=== PATIENT | female | born 1995 | race Caucasian/White ===

== ENCOUNTER 2016-10-18 12:38 | Emergency (ER) | payer BC, MEDICAID ==
[~2016-10-18] VITALS: Ht 165.1 cm; Wt 61.2 kg
[~2016-10-18 12:38] MED LIST: CEFU500T PO; ONDA8TAB9 PO; PHEN-640 PO
--- OUTSIDE RECORDS SUMMARY | 2016-10-18 12:42 | XMS REPORT | Continuity of Care Document ---
Author Author [facility] Organization [facility] Address Unknown Phone Unavailable Care Team Providers Care Acute Care Occupational Therapist Name Role Phone PCP Unavailable Source Comments Some departments are not documenting in the electronic medical record. If you do not see the information that you expected, contact Release of Information in the Health Information Management department at [phone] for further assistance in locating additional records.[facility] Active Allergies and Adverse Reactions No Known Allergies Current Medications Prescription Sig. Disp. Refills Start End Date Status Date promethazine (PHENERGAN) Take 1 Tab by mouth every 30 Tab 1 10/12/19 Active 25 mg tablet 6 hours as needed for 17 Nausea or Vomiting. cephalexin (KEFLEX) 500 One twice a day for 60 Cap 6 10/12/19 Active mg capsule suppression after current 17 course is complete. Take by mouth. Active Aghjcccq-Pt-Etw-Fe-FA tab fluconazole (DIFLUCAN) Take 1 Tab by mouth once 1 Tab 5 10/12/1903/26 150 mg tablet for 1 dose. 17 17 Active Problems Problem Noted Date VUR (vesicoureteric reflux) 10/15/2016 Overview: -- 10/15/15: . Currently 8 wks per LMP. Hx of complicated w/ suspected ureteral obstruction/UTI/sepsis. Also hx of stent failure. L ast Assessment & Plan: Latisha Valles is a 21yo woman, , currently 8 wks by LMP that presents to discuss prophylactic stent placement given her hx of suspected hydroureteronephrosis/UTI/sepsis. Unfortunately, none of her external records are available for internal review. Her baseline reflux is unknown. Some degree of hydronephrosis during is physiologic, and it is not clear what was found in her case to warrant stent placement. Nevertheless, given her hx of recurrent UTIs it is pertinent to follow her closely. However, IF she does develop s/s consistent w/ ureteral obstruction, she may need to go directly to nephrostomy tube placement given her hx of ureteral stent failure. Otherwise, emptying bladder appropriately. UA equivocal infection, UCx sent. -- Recommending close follow up w/ TRACK REPAIRER; consider following her serial renal/bladder u/s -- RTC following in approximately 2 weeks to discuss renal/bladder u/s ordered today -- TRACK REPAIRER consult for high-risk placed Most Recent Encounters Date Type Specialty Providers Description 10/15/2016 Hospital Chaim Do MBBS Vesicoureteral-reflux, Encounter unspecified 10/15/2016 Office Visit Urology Chaim Do MBBS VUR ( vesicoureteric reflux) (Primary Dx) 10/12/2016 Initial High Risk Vesico-ureteral reflux (Primary Dx); History of sepsis; Supervision of high risk in first trimester 10/12/2016 Clinical High Risk with fetus of Support unknown gestational age (Primary Dx) Social History Tobacco Use Types Packs/Day Years Used Date Never Smoker Alcohol Use Drinks/Week oz/Week Comments No 0 Standard 0.0 drinks or equivalent Last Filed Vital Signs Vital Sign Reading Time Taken Blood Pressure 110/68 10/15/2016 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 Pulse 99 10/15/2016 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 Temperature - - Respiratory Rate - - Height 1.651 m (5' 5") 10/15/2016 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 Weight 62.143 kg (137 lb) 10/15/2016 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 Body Mass Index 22.8 10/15/2016 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 Oxygen Saturation - - Plan of Care Date Type Specialty Providers Description 11/02/2016 Appointment Radiology Chaim Do MBBS [address] [place] [address] [phone] (Fax) 11/02/2016 Appointment Urology Chaim Do MBBS [address] [place] [address] [phone] (Fax) 11/16/2016 Appointment High Risk 11/16/2016 Appointment High Risk Health Maintenance Due Date Last Done Comments Physical (Comprehensive) 2001 Exam Hpv Vaccines (#1) 2005 Pertussis Vaccine 2005 Tetanus Vaccine 2011 Cervical Cancer Screening 2015 Influenza Vaccine 06/07/2016 Results from Last 3 Months CULTURE-URINE W/SENSITIVITY (10/15/2016 10:18 AM) Component Value Range Battery Name URINE CULTURE Specimen Description URINE Special Requests NONE Culture <10,000 organisms/ml CONTAMINANT Report Status FINAL 10/16/2016 Specimen Urine - Urine, Outpatient POC URINE DIPSTICK MANUAL READ (10/15/2016) Component Value Range Urine Glucose POC neg Urine Bilirubin POC neg Urine Ketone POC 160 Urine Specific [place] 1.030 POC Urine Blood POC trace Urine PH POC 6.0 Urine Protein POC trace Urine Urobilinogen POC 0.2 Urine Nitrite POC neg Urine Leukocytes POC trace Color,UA sandra Turbidity,UA cloudy Specimen Urine
--- NOTE | 2016-10-18 12:49 | ED GU-Female ---
General Chief Complaint: Abdominal/GI Problems Stated Complaint: KIDNEY PAIN Source: patient Exam Limitations: no limitations History of Present Illness Time seen by provider: 12:47 Initial Comments To ER with reports of right flank pain since yesterday. She has a history of vesicoureteral reflux with surgery at the age of 11 to correct this and kidney stenting during her last about 2 years ago, however the stent in the right ureter has subsequently been removed. She is about 8 weeks' gestation and reports that she's been on cephalexin for 1 week but has been unable to keep it down for the past 2 days due to nausea and vomiting. Denies fevers but reports chills. Saw Dr. Mccurdy at [facility] today and was advised to come to the emergency room she states. Data Integration Developer is Dr. Harper at the [facility] because she states she is high risk given her renal issues. Severity/Quality: moderate Location: unknown Radiation: none Activities at Onset: none Prior Genitourinary Problems: none Associated Symptoms: No abdominal pain, dysuria fever/chillsNo lower back pain , nausea/vomiting urinary frequency Allergies and Home Medications Allergies Coded Allergies: No Known Drug Allergies (Unverified , 07/05/16) Home Medications Cephalexin 500 Mg Capsule #28 (Reported) Promethazine HCl 25 Mg Tablet #30 (Reported) Constitutional: see HPI chillsNo fever EENTM: see HPI Respiratory: no symptoms reported Cardiovascular: no symptoms reported Gastrointestinal: No abdominal pain, No constipation, No diarrhea, nausea vomiting Genitourinary: see HPI dysuria frequency flank pain Musculoskeletal: no symptoms reported Skin: no symptoms reported Psychiatric/Neurological: No Symptoms Reported Endocrine: No Symptoms Reported Past Avqgfgg-Otufxv-Zwvlzd Hx Patient Social History Recent Foreign Travel: No Contact w/Someone Who Travel: No Recent Hopitalizations: No Immunizations Up To Date Tetanus Booster (TDap): Unknown Surgeries HX Surgeries: Yes (NEPHROSTOMY) Surgeries: Orthopedic Respiratory Hx Respiratory Disorders: No Cardiovascular Hx Cardiac Disorders: No Neurological Hx Neurological Disorders: No 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 System Hx 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 Disorders: No Genitourinary Hx Genitourinary Disorders: Yes (KIDNEY REFLUX, NEPHROSTOMY) Genitourinary Disorders: Kidney Infection, Bladder Infection Gastrointestinal Hx Gastrointestinal Disorders: No Musculoskeletal Hx Musculoskeletal Disorders: No Endocrine Hx Endocrine Disorders: No HEENT HX ENT Disorders: No Cancer Hx Cancer: No Psychosocial Hx Psychiatric Problems: No Integumentary HX Skin/Integumentary Disorder: No Blood Transfusions Hx Blood Disorders: No Physical Exam Vital Signs Vital Sign - Last 12Hours 10/18/16 12:44 Temp 98.4 Pulse 85 Resp 16 B/P 114/67 Pulse Ox 99 Capillary Refill : General Appearance: WD/WN no apparent distress HEENT: PERRL/EOMI normal ENT inspection Neck: non-tender full range of motion Cardiovascular: regular rate, rhythm no murmur Respiratory: lungs clear normal breath sounds no respiratory distress no accessory muscle use Gastrointestinal: non tender soft Back: CVA tenderness (R)No CVA tenderness (L) Extremities: normal range of motion non-tender normal inspection Neurologic/Psychiatric: alert normal mood/affect oriented x 3 Skin: normal color warm/dry Progress/Results/Core Measures Results/Orders Lab Results Laboratory Tests Test 10/18/16 12:47 10/18/16 13:25 Range/Units Alanine Aminotransferase (ALT/SGPT) 17 0-55 U/L Albumin 4.6 H 3.2-4.5 G/DL Alkaline Phosphatase 49 40-136 U/L Anion Gap 11 5-14 MMOL/L Aspartate Amino Transf (AST/SGOT) 17 5-34 U/L BUN/Creatinine Ratio 11 Basophils # (Auto) 0.0 0.0-0.1 10^3/uL Basophils (%) (Auto) 0 0-10 % Blood Urea Nitrogen 7 7-18 MG/DL Calcium Level 9.7 8.5-10.1 MG/DL Carbon Dioxide Level 22 21-32 MMOL/L Chloride Level 103 98-107 MMOL/L Creatinine 0.62 0.60-1.30 MG/DL Eosinophils # (Auto) 0.1 0.0-0.3 10^3/uL Eosinophils (%) (Auto) 1 0-10 % Estimat Glomerular Filtration Rate > 60 Glucose Level 84 70-105 MG/DL Hematocrit 41 35-52 % Hemoglobin 13.9 11.5-16.0 G/DL Human Chorionic Gonadotropin, Quant [id number] H <5 MIU/ML Lymphocytes # (Auto) 1.8 1.0-4.0 X 10^3 Lymphocytes (%) (Auto) 21 12-44 % Mean Corpuscular Hemoglobin 31 25-34 PG Mean Corpuscular Hemoglobin Concent 34 32-36 G/DL Mean Corpuscular Volume 91 80-99 FL Mean Platelet Volume 9.7 7.4-10.4 FL Monocytes # (Auto) 0.8 0.0-1.0 X 10^3 Monocytes (%) (Auto) 9 0-12 % Neutrophils # (Auto) 6.1 1.8-7.8 X 10^3 Neutrophils (%) (Auto) 70 42-75 % Platelet Count 227 130-400 10^3/uL Potassium Level 4.1 3.6-5.0 MMOL/L Red Blood Count 4.52 4.35-5.85 10^6/uL Red Cell Distribution Width 12.2 10.0-14.5 % Sodium Level 136 135-145 MMOL/L Total Bilirubin 0.6 0.1-1.0 MG/DL Total Protein 7.7 6.4-8.2 G/DL White Blood Count 8.7 4.3-11.0 10^3/uL Urine Bacteria MODERATE H /HPF Urine Bilirubin NEGATIVE NEGATIVE Urine Casts NONE /LPF Urine Clarity SLIGHTLY CLOUDY Urine Color YELLOW Urine Crystals NONE /LPF Urine Culture Indicated YES Urine Glucose (UA) NEGATIVE NEGATIVE Urine Ketones 4+ H NEGATIVE Urine Leukocyte Esterase 2+ H NEGATIVE Urine Mucus MODERATE H /LPF Urine Nitrite NEGATIVE NEGATIVE Urine Protein 1+ H NEGATIVE Urine RBC 0-2 /HPF Urine RBC (Auto) NEGATIVE NEGATIVE Urine Specific [place] 1.025 H 1.016-1.022 Urine Squamous Epithelial Cells 10-25 H /HPF Urine Urobilinogen NORMAL NORMAL MG/DL Urine WBC 5-10 H /HPF Urine pH 6 5-9 My Orders Orders-YEIMY MELTON APRN Ua Culture If Indicated (10/18/16 12:40) Urine Bedside (10/18/16 12:40) Ns Iv 1000 Ml (Sodium Chloride 0.9%) (10/18/16 13:00) Ceftriaxone Injection (Rocephin Injectio (10/18/16 13:00) Ondansetron Injection (Zofran Injectio (10/18/16 13:00) Cbc With Automated Diff (10/18/16 12:46) Comprehensive Metabolic Panel (10/18/16 12:46) Hcg,Quantitative (10/18/16 12:46) Saline Lock/Iv-Start (10/18/16 12:46) Urine Culture (10/18/16 13:25) Medications Given in ED Current Medications Medications Dose Ordered Sig/Jelly Route Start Time Stop Time Status Last Admin Dose Admin Ceftriaxone Sodium/Sodium Chloride 50 ml @ 100 mls/hr ONCE ONCE IV 10/18/16 13:00 10/18/16 13:29 DC 10/18/16 12:59 100 MLS/HR Ondansetron HCl 8 mg ONCE ONCE IVP 10/18/16 13:00 10/18/16 13:01 DC 10/18/16 12:59 8 MG Vital Signs/I&O Vital Sign - Last 12Hours 10/18/16 12:44 Temp 98.4 Pulse 85 Resp 16 B/P 114/67 Pulse Ox 99 Departure Communication Progress Notes 1343-nausea or vomiting during ER stay. She is afebrile. No tachycardia or hypotension. Impression Impression: Primary Impression: Urinary tract infection Qualified Code: N30.00 - Acute cystitis without hematuria Additional Impression: Nausea and vomiting Qualified Code: R11.2 - Nausea with vomiting, unspecified Disposition: HOME, SELF-CARE Condition: Stable Departure-Patient Inst. Decision time for Depature: 13:43 Referrals: [facility] (PCP/Family) Primary Care Physician Patient Instructions: Urinary Tract Infection, Adult (DC) Add. Discharge Instructions: 1. Drink plenty of fluids 2. Nausea medication as directed 3. Return to ER for any worsening 4. Follow-up with her doctor later this week 5. Stop the Keflex and start the new antibiotic. All discharge instructions reviewed with patient and/or family. Voiced understanding. Scripts Cefuroxime Axetil (Ceftin)500 Mg [id number] Mg PO BID #10 TAB Prov:YEIMY MELTON REGIONAL GEODETIC ADVISOR 10/18/16 YEIMY MELTON REGIONAL GEODETIC ADVISOR Oct 18, 2016 12:49
[2016-10-18 12:52] LABS: BASOPHILS % (AUTO) 0 % (0-10); EOSINOPHILS # (AUTO) 0.1 10^3/uL (0.0-0.3); EOSINOPHILS % (AUTO) 1 % (0-10); LYMPHOCYTES # (AUTO) 1.8 X 10^3 (1.0-4.0); LYMPHOCYTES % (AUTO) 21 % (12-44); MEAN CORPUSCULAR HEMOGLOBIN 31 PG (25-34); MEAN CORPUSCULAR HGB CONC 34 G/DL (32-36); MEAN CORPUSCULAR VOLUME 91 FL (80-99); MEAN PLATELET VOLUME 9.7 FL (7.4-10.4); MONOCYTES # (AUTO) 0.8 X 10^3 (0.0-1.0); MONOCYTES % (AUTO) 9 % (0-12); NEUTROPHILS # (AUTO) 6.1 X 10^3 (1.8-7.8); NEUTROPHILS % (AUTO) 70 % (42-75); PLATELET COUNT 227 10^3/uL (130-400); RED BLOOD COUNT 4.52 10^6/uL (4.35-5.85); RED CELL DISTRIBUTION WIDTH 12.2 % (10.0-14.5); WHITE BLOOD COUNT 8.7 10^3/uL (4.3-11.0)
[2016-10-18] MEDS ORDERED: PROM25TA14 (12:53)
[2016-10-18] MEDS ORDERED: CEPH500C (12:53)
[2016-10-18] MEDS ORDERED: ONDANSETRON 4 MG/2 ML (SDV) Z0FRAN IVP ONE (13:00)
[2016-10-18] MEDS ORDERED: NS IV 1000 ML 1,000 ML IV SCH (13:00)
[2016-10-18] MEDS ORDERED: cefTRIAXone INJECTION 1,000 MG in NORMAL SALINE (BAXTER MINI) 50 ML IV ONE (13:00)
[2016-10-18 13:12] LABS: ALANINE AMINOTRANSFERASE 17 U/L (0-55); ALBUMIN 4.6 G/DL (3.2-4.5); ANION GAP 11 MMOL/L (5-14); ASPARTATE AMINO TRANSFERASE 17 U/L (5-34); BILIRUBIN,TOTAL 0.6 MG/DL (0.1-1.0); BLOOD UREA NITROGEN 7 MG/DL (7-18); BUN/CREATININE RATIO 11; CALCIUM 9.7 MG/DL (8.5-10.1); CARBON DIOXIDE 22 MMOL/L (21-32); CHLORIDE 103 MMOL/L (98-107); CREATININE SERUM 0.62 MG/DL (0.60-1.30); GFR ESTIMATED > 60; GLUCOSE 84 MG/DL (70-105); POTASSIUM 4.1 MMOL/L (3.6-5.0); SODIUM 136 MMOL/L (135-145); TOTAL PROTEIN 7.7 G/DL (6.4-8.2)
[2016-10-18 13:29] LABS: BILIRUBIN,URINE NEGATIVE (NEGATIVE); KETONES,URINE 4+ (NEGATIVE); LEUKOCYTE ESTERASE ,URINE 2+ (NEGATIVE); NITRITE,URINE NEGATIVE (NEGATIVE); PH,URINE 6 (5-9); PROTEIN,URINE 1+ (NEGATIVE); UROBILINOGEN,URINE NORMAL (NORMAL)
[2016-10-18] MEDS ORDERED: CEFU500T PO (13:45)
[2016-10-18 14:21] VITALS: BP 116/72
== END 2016-10-18 14:21 | disposition home or self-care (01) ==
LOC: EDUNIT# 12:38 → ER 12:39
DX: O23.41 Unspecified infection of urinary tract in pregnancy, first trimester (principal); O21.8 Other vomiting complicating pregnancy; Z3A.08 8 weeks gestation of pregnancy; Z87.448 Personal history of other diseases of urinary system
CPT/HCPCS: 36415; 80053; 81000; 84702; 85025; 87088; 96361; 96365; 96375

== ENCOUNTER 2017-01-28 15:51 | Outpatient (CLI) | payer MEDICAID ==
[~2017-01-28] VITALS: Ht 165.1 cm; Wt 67.6 kg
[~2017-01-28 15:51] MED LIST changes: +CEPH500C; +PROM25TA14
[2017-01-28 16:20] VITALS: BP 111/66
[2017-01-28 16:45] LABS: BILIRUBIN,URINE NEGATIVE (NEGATIVE); KETONES,URINE NEGATIVE (NEGATIVE); LEUKOCYTE ESTERASE ,URINE NEGATIVE (NEGATIVE); NITRITE,URINE NEGATIVE (NEGATIVE); PH,URINE 8 (5-9); PROTEIN,URINE NEGATIVE (NEGATIVE); UROBILINOGEN,URINE NORMAL (NORMAL)
[2017-01-28 16:50] VITALS: BP 112/66
--- NOTE | 2017-01-28 17:17 | Diagnostic Imaging Report ---
EXAM: RENAL ULTRASOUND DATE: January 28, 2017. COMPARISON: CT abdomen and pelvis, July 07, 2016. INDICATION: A 21-year-old female, right flank pain. PROCEDURE: Two-dimensional grayscale and color doppler examination of the kidneys is performed. FINDINGS: Right kidney: Unremarkable right kidney. No hydronephrosis. The right kidney measures 10.5 cm x 5.7 x 6.0 cm. Left kidney: Unremarkable left kidney. No hydronephrosis. The left kidney measures 10.4 cm x 4.6 x 4.7 cm. Bladder: Unremarkable. IMPRESSION: Unremarkable renal ultrasound. Dictated by: Dictated on workstation # [id number]
[2017-01-28] MEDS ORDERED: CEPH-506 PO (17:28)
[2017-01-28] MEDS ORDERED: PREN1TAB86 PO (17:28)
[2017-01-28 17:46] LABS: BASOPHILS % (AUTO) 0 % (0-10); EOSINOPHILS # (AUTO) 0.2 10^3/uL (0.0-0.3); EOSINOPHILS % (AUTO) 2 % (0-10); LYMPHOCYTES # (AUTO) 2.1 X 10^3 (1.0-4.0); LYMPHOCYTES % (AUTO) 22 % (12-44); MEAN CORPUSCULAR HEMOGLOBIN 32 PG (25-34); MEAN CORPUSCULAR HGB CONC 34 G/DL (32-36); MEAN CORPUSCULAR VOLUME 94 FL (80-99); MEAN PLATELET VOLUME 9.8 FL (7.4-10.4); MONOCYTES # (AUTO) 0.7 X 10^3 (0.0-1.0); MONOCYTES % (AUTO) 8 % (0-12); NEUTROPHILS # (AUTO) 6.4 X 10^3 (1.8-7.8); NEUTROPHILS % (AUTO) 68 % (42-75); PLATELET COUNT 225 10^3/uL (130-400); RED BLOOD COUNT 3.87 10^6/uL (4.35-5.85); RED CELL DISTRIBUTION WIDTH 12.9 % (10.0-14.5); WHITE BLOOD COUNT 9.5 10^3/uL (4.3-11.0)
[2017-01-28 17:55] LABS: ALANINE AMINOTRANSFERASE 11 U/L (0-55); ALBUMIN 3.3 G/DL (3.2-4.5); ANION GAP 9 MMOL/L (5-14); ASPARTATE AMINO TRANSFERASE 14 U/L (5-34); BILIRUBIN,TOTAL 0.2 MG/DL (0.1-1.0); BLOOD UREA NITROGEN 10 MG/DL (7-18); BUN/CREATININE RATIO 17; CALCIUM 8.9 MG/DL (8.5-10.1); CARBON DIOXIDE 23 MMOL/L (21-32); CHLORIDE 106 MMOL/L (98-107); GFR ESTIMATED > 60; GLUCOSE 83 MG/DL (70-105); POTASSIUM 3.8 MMOL/L (3.6-5.0); SODIUM 138 MMOL/L (135-145); TOTAL PROTEIN 6.2 G/DL (6.4-8.2)
--- NOTE | 2017-01-29 10:01 | Physician Query-Final Dx ---
HAYES CHAVEZ 01/29/17 1001: Clinic Account Progress/Dx Physician Query: Please give diagnosis Date of Service Jan 28, 2017 at 15:51 JAQUAN BONILLA MD 01/29/17 1831: Clinic Account Progress/Dx DIAGNOSIS: Diagnosis false labor HAYES CHAVEZ Jan 29, 2017 10:01 JAQUAN BONILLA MD Jan 29, 2017 18:31
== END 2017-01-28 18:08 | disposition home or self-care (01) ==
LOC: WSo 15:51 → LDRP 15:51 → WSo 18:08
PROVIDERS: ATTEND Obstetrics & Gynecology
DX: O47.02 False labor before 37 completed weeks of gestation, second trimester (principal); Z3A.23 23 weeks gestation of pregnancy
CPT/HCPCS: 36415; 76770; 80053; 81000; 85025; 87088; 99214

== ENCOUNTER → 2017-03-12 | Outpatient (CLI) | payer MEDICAID ==
[~2017-03-12] MED LIST changes: +CEPH-506 PO; +PREN1TAB86 PO
--- NOTE | 2017-03-12 14:19 | Diagnostic Imaging Report ---
Renal ultrasound. INDICATION: Right flank pain. The patient is 29 weeks . FINDINGS: The right kidney is 11.5 cm and the left kidney is 10.3 cm. There is no hydronephrosis or focal lesion in either kidney. The urinary bladder appears unremarkable. IMPRESSION: Unremarkable exam. Dictated by: Dictated on workstation # [id number]
== END ==
LOC: RAD 12:05
PROVIDERS: ATTEND Obstetrics & Gynecology
DX: N13.8 Other obstructive and reflux uropathy (principal); N13.5 Crossing vessel and stricture of ureter without hydronephrosis
CPT/HCPCS: 76770

== ENCOUNTER 2017-05-06 13:06 | Inpatient (IN) | payer MEDICAID ==
[~2017-05-06] VITALS: Ht 165.1 cm; Wt 75.3 kg
[2017-05-06 13:35] VITALS: BP 122/77
[2017-05-06 15:08] LABS: BILIRUBIN,URINE NEGATIVE (NEGATIVE); KETONES,URINE 2+ (NEGATIVE); LEUKOCYTE ESTERASE ,URINE 1+ (NEGATIVE); NITRITE,URINE NEGATIVE (NEGATIVE); PH,URINE 6.5 (5-9); PROTEIN,URINE 1+ (NEGATIVE); UROBILINOGEN,URINE NORMAL (NORMAL)
[2017-05-06 15:09] LABS: BASOPHILS % (AUTO) 0 % (0-10); EOSINOPHILS # (AUTO) 0.1 10^3/uL (0.0-0.3); EOSINOPHILS % (AUTO) 1 % (0-10); LYMPHOCYTES # (AUTO) 2.2 X 10^3 (1.0-4.0); LYMPHOCYTES % (AUTO) 20 % (12-44); MEAN CORPUSCULAR HEMOGLOBIN 31 PG (25-34); MEAN CORPUSCULAR HGB CONC 33 G/DL (32-36); MEAN CORPUSCULAR VOLUME 94 FL (80-99); MEAN PLATELET VOLUME 10.4 FL (7.4-10.4); MONOCYTES # (AUTO) 0.9 X 10^3 (0.0-1.0); MONOCYTES % (AUTO) 8 % (0-12); NEUTROPHILS # (AUTO) 8.2 X 10^3 (1.8-7.8); NEUTROPHILS % (AUTO) 72 % (42-75); PLATELET COUNT 230 10^3/uL (130-400); RED BLOOD COUNT 4.19 10^6/uL (4.35-5.85); RED CELL DISTRIBUTION WIDTH 13.2 % (10.0-14.5); WHITE BLOOD COUNT 11.4 10^3/uL (4.3-11.0)
[2017-05-06 15:30] LABS: ALANINE AMINOTRANSFERASE 14 U/L (0-55); ALBUMIN 3.3 GM/DL (3.2-4.5); ANION GAP 9 MMOL/L (5-14); ASPARTATE AMINO TRANSFERASE 16 U/L (5-34); BILIRUBIN,TOTAL 0.4 MG/DL (0.1-1.0); BLOOD UREA NITROGEN 6 MG/DL (7-18); BUN/CREATININE RATIO 11; CALCIUM 8.6 MG/DL (8.5-10.1); CARBON DIOXIDE 20 MMOL/L (21-32); CHLORIDE 108 MMOL/L (98-107); CREATININE SERUM 0.55 MG/DL (0.60-1.30); GFR ESTIMATED > 60; GLUCOSE 80 MG/DL (70-105); POTASSIUM 3.7 MMOL/L (3.6-5.0); SODIUM 137 MMOL/L (135-145); TOTAL PROTEIN 6.5 GM/DL (6.4-8.2)
[2017-05-06] MEDS ORDERED: BUTORPHANOL INJ 2 MG/ML (STADOL) VIAL IV ONE (15:45)
[2017-05-06] MEDS ORDERED: ceFAZolin 2 GM/50 ML NS 50 ML IV ONE (16:00)
[2017-05-06] MEDS ORDERED: CATHETER FLUSH 10 ML SYR IV PRN (16:00)
--- NOTE | 2017-05-06 16:08 | Diagnostic Imaging Report ---
EXAMINATION: Renal ultrasound. INDICATION: Abdominal pain. The patient is 36 weeks . FINDINGS: The right kidney is 11.8 and the left kidney is 11.2 cm in length. There is mild to moderate hydronephrosis seen, slightly more on the left side. The urinary bladder appears unremarkable. IMPRESSION: There is mild to moderate hydronephrosis bilaterally. Dictated by: Dictated on workstation # [id number]
[2017-05-06] MEDS: D5 LR IV SOLUTION 1,000 ML IV SCH (16:12)
[2017-05-06 16:20] VITALS: BP 114/68
[2017-05-06] MEDS ORDERED: BUTORPHANOL INJ 2 MG/ML (STADOL) VIAL ONE (17:59)
[2017-05-06 18:00] VITALS: BP 126/81
[2017-05-06] MEDS ORDERED: BUTORPHANOL INJ 2 MG/ML (STADOL) VIAL IV NR (18:00)
--- NOTE | 2017-05-06 18:59 | History & Physical ---
History and Physical Date Seen by Provider: May 06, 2017 Time Seen by Provider: 18:52 this patient is a 21-year-old A1 white female patient of Dr. Cervantes who presented with severe left flank pain. Her history is significant for having had ureter reimplantation transfixion surgery at the age of 10 secondary to reflux of the ureters. Her first was complicated by ureteral obstruction requiring at least one nephrostomy tube. Her symptoms worsened at 37 weeks gestation at which time she was induced and apparently had a spontaneous vaginal delivery. She has been co-managed with [facility] until 35 weeks gestation with this . Her has been apparently relatively uncomplicated to this point. Lab showed no evidence of urinary tract infection however there were red blood cells too numerous to count in the urine. Her white blood cell count is normal her hemoglobin is slightly elevated for liver enzymes are normal. monitoring shows rare contraction and a normal heart rate pattern Renal ultrasound shows bilateral moderate hydronephrosis and confirmed ureteral jets bilaterally in the bladder. Consults patient with Dr. Edwards was accomplished and he recommended IV fluids, IV antibiotics, pain medication, reconsult him if her conditions worsen and it is not considered prudent to deliver her. He felt that ureteral stents would not likely be an option in someone with her ureteral reimplantation surgery and that at this point nephrostomy tube probably were not an option either. Patient has been treated with Stadol to good effect she is relatively comfortable although her pain does not and has not resolved. Allergies are none Medications are vitamins and Keflex on admission Asked medical history, past surgical history, obstetric history, family history , and social histories are per the antepartum record for Dr. Cervantes HEENT exam is normal. Patient does appear to be mildly uncomfortable but has just had a dose of Stadol Neck is supple with no lymphadenopathy no thyromegaly. Abdomen is gravid soft nontender nondistended. Streaming show no clubbing or cyanosis. There is no Homans sign. There is some pretibial pitting edema Pelvic exam per the nurse shows a cervix that is 2-3 cm dilated exam is per the nurses charting Lab work is as follows Laboratory Tests Test 05/06/17 14:53 05/06/17 15:03 Range/Units Urine Color YELLOW Urine Clarity SLIGHTLY CLOUDY Urine pH 6.5 5-9 Urine Specific [place] 1.010 L 1.016-1.022 Urine Protein 1+ H NEGATIVE Urine Glucose (UA) NEGATIVE NEGATIVE Urine Ketones 2+ H NEGATIVE Urine Nitrite NEGATIVE NEGATIVE Urine Bilirubin NEGATIVE NEGATIVE Urine Urobilinogen NORMAL NORMAL MG/DL Urine Leukocyte Esterase 1+ H NEGATIVE Urine RBC (Auto) 5+ H NEGATIVE Urine RBC TNTC H /HPF Urine WBC 2-5 /HPF Urine Squamous Epithelial Cells 2-5 /HPF Urine Crystals NONE /LPF Urine Bacteria NONE /HPF Urine Casts NONE /LPF Urine Mucus NEGATIVE /LPF Urine Culture Indicated NO White Blood Count 11.4 H 4.3-11.0 10^3/uL Red Blood Count 4.19 L 4.35-5.85 10^6/uL Hemoglobin 13.1 11.5-16.0 G/DL Hematocrit 39 35-52 % Mean Corpuscular Volume 94 80-99 FL Mean Corpuscular Hemoglobin 31 25-34 PG Mean Corpuscular Hemoglobin Concent 33 32-36 G/DL Red Cell Distribution Width 13.2 10.0-14.5 % Platelet Count 230 130-400 10^3/uL Mean Platelet Volume 10.4 7.4-10.4 FL Neutrophils (%) (Auto) 72 42-75 % Lymphocytes (%) (Auto) 20 12-44 % Monocytes (%) (Auto) 8 0-12 % Eosinophils (%) (Auto) 1 0-10 % Basophils (%) (Auto) 0 0-10 % Neutrophils # (Auto) 8.2 H 1.8-7.8 X 10^3 Lymphocytes # (Auto) 2.2 1.0-4.0 X 10^3 Monocytes # (Auto) 0.9 0.0-1.0 X 10^3 Eosinophils # (Auto) 0.1 0.0-0.3 10^3/uL Basophils # (Auto) 0.0 0.0-0.1 10^3/uL Sodium Level 137 135-145 MMOL/L Potassium Level 3.7 3.6-5.0 MMOL/L Chloride Level 108 H 98-107 MMOL/L Carbon Dioxide Level 20 L 21-32 MMOL/L Anion Gap 9 5-14 MMOL/L Blood Urea Nitrogen 6 L 7-18 MG/DL Creatinine 0.55 L 0.60-1.30 MG/DL Estimat Glomerular Filtration Rate > 60 BUN/Creatinine Ratio 11 Glucose Level 80 70-105 MG/DL Calcium Level 8.6 8.5-10.1 MG/DL Total Bilirubin 0.4 0.1-1.0 MG/DL Aspartate Amino Transf (AST/SGOT) 16 5-34 U/L Alanine Aminotransferase (ALT/SGPT) 14 0-55 U/L Alkaline Phosphatase 121 40-136 U/L Total Protein 6.5 6.4-8.2 GM/DL Albumin 3.3 3.2-4.5 GM/DL vital signs are as follows Vital Signs Date Time Temp Pulse Resp B/P (MAP) Pulse Ox O2 Delivery O2 Flow Rate FiO2 05/06/17 13:35 97.8 96 20 122/77 Room Air patient is afebrile her blood pressure is normal Assessment and plan 37 weeks gestation in a patient with history of obstructive uropathy.. Patient has become symptomatic likely due to the enlarged uterus. There is some consideration for kidney stone. Admit this point is symptomatic with IV fluids IV antibiotics and IV pain medications. Patient will be reevaluated in the morning for ongoing management by Dr. Byrd. severe renal colic at 37 weeks gestation Allergies and Home Medications Allergies Coded Allergies: No Known Drug Allergies (Unverified , 07/05/16) Home Medications Cephalexin 250 Mg Capsule, 250 MG PO BID, (Reported) Vit W-Ca,Fe,FA(<1 mg) 1 Each Tablet, 1 TAB PO DAILY, (Reported) JAQUAN BONILLA MD May 06, 2017 18:59
[2017-05-06] MEDS ORDERED: BUTORPHANOL INJ 2 MG/ML (STADOL) VIAL IV PRN (20:00)
[2017-05-06 23:00] VITALS: BP 138/75
[2017-05-07] VITALS (71 sets, daily range): BP systolic 100–142; BP diastolic 51–85
[2017-05-07] MEDS: ceFAZolin 2 GM/50 ML NS 50 ML IV SCH ×3 (00:10→16:43)
[2017-05-07] MEDS: D5 LR IV SOLUTION 1,000 ML IV SCH ×3 (00:30→17:39)
[2017-05-07] MEDS ORDERED: BUTORPHANOL INJ 2 MG/ML (STADOL) VIAL ONE (03:10)
[2017-05-07] MEDS ORDERED: BUTORPHANOL INJ 2 MG/ML (STADOL) VIAL IV PRN (03:30)
[2017-05-07] MEDS ORDERED: OXYTOCIN/NORMAL SALINE 500 ML IV ONE (08:30)
[2017-05-07] MEDS ORDERED: LACTATED RINGERS 1,000 ML IV ONE ×2 (08:30→10:14)
[2017-05-07] MEDS ORDERED: OXYTOCIN/NORMAL SALINE 500 ML IV SCH ×2 (08:37)
--- NOTE | 2017-05-07 08:42 | Progress Note-Standard ---
Standard Progress Note Progress Notes/Assess & Plan Date Seen by Provider: May 07, 2017 Time Seen by Provider: 08:39 Progress/Assessment & Plan This 21-year-old female was admitted last night at 37 weeks due to signs of obstructive uropathy and hematuria. The patient has a history of undergoing nephrostomy tube placements with complete obstruction of the ureters with her previous . The patient's has been uneventful this time, however yesterday she started having significant "kidney pain". She was admitted after mild to moderate hydronephrosis was noted on ultrasound as well as hematuria. Urology was consulted however stent placement at this point would be unreasonable. The other option would be to place nephrostomy tubes. I discussed all of these findings with the patient this morning, discussed with her how delivery should alleviate pressure on the ureters and treat the obstructive uropathy. I discussed the patient delivery at 37 weeks due to this medical indication, the risk involved an induction, the risk of a 37 week baby and possible need for feeding assistance, and breathing. However, I did discuss the patient the majority 37 week infants do very well. Due to the risk of obstructive uropathy outweighing the risk of a 37 week delivery we are proceeding with induction this morning. Artificial rupture membranes was performed clear fluid was noted. The patient is noted to be 2-3 cm 70 percent effaced and -2 station. Pitocin will be started, the patient have her epidural whenever she needs. Anticipate normal vaginal delivery SHLOMO DONALDSON DO May 07, 2017 08:42
[2017-05-07] MEDS ORDERED: MINERAL OIL CONCENTRATE 99.9% 15 ML UDC TOP PRN (08:45)
[2017-05-07] MEDS ORDERED: SUFENTA 0.6MCG/ML BUPIVA 0.125 100 ML ONE (09:12)
[2017-05-07] MEDS ORDERED: BUPIVACAINE 0.25% 30 ML (SENSORCAINE) VIAL ONE (09:31)
[2017-05-07] MEDS ORDERED: fentaNYL INJECTION 100 MCG/2 ML AMP ONE (09:31)
[2017-05-07] MEDS: EPIDURAL (SUFENTA 0.6MCG/ML BUPIVA 0.125%) 100 ML BAG EPI SCH ×2 (10:03→17:38)
[2017-05-07] MEDS ORDERED: NALOXONE 0.4 MG/ML 1 ML (NARCAN) VIAL IV PRN (10:15)
[2017-05-07] MEDS ORDERED: ONDANSETRON 4 MG/2 ML (SDV) Z0FRAN IV PRN (10:15)
--- NOTE | 2017-05-07 12:18 | CONSULTATION REPORT ---
DATE OF CONSULTATION: 05/07/2017 REFERRING PHYSICIAN: ATTENDING PHYSICIAN: Dr. Anaya/Dr. Byrd SUMMARY: 21-year-old white lady who is 37 weeks complaining of pain across her back and found to have mild to moderate hydronephrosis bilaterally probably related to the uterus. When the patient was a kid, she had bilateral vesicoureteral reflux and underwent a cross trigonal bilateral ureteral reimplantation. This makes insertion of stents very difficult if not impossible and the patients end up usually with percutaneous nephrostomy. As a matter of fact, in her previous that is what happened to her. They ended up putting perc after failed attempt to insert a stent. IMPRESSION: Bilateral ureteral obstruction secondary to gravid uterus. RECOMMENDATION: If it is indeed safe to proceed with in labor, I would recommended that instead of subjecting her just for 3 more weeks of either stent or percutaneous nephrostomy. Apparently Dr. Byrd is prepping to do so, which I agree with. I told her I will see her on a p.r.n. basis. Job ID: [id number] Dictated Date: 05/07/2017 11:25:18 Cutter Hand Date: 05/07/2017 12:11:58/last
[2017-05-07] MEDS ORDERED: PROMETHAZINE INJ 25 MG/ML (PHENERGAN) AMP IVP NR (16:15)
[2017-05-07] MEDS ORDERED: LIDOCAINE/EPI 1%-1:200,000 (XYLOCAINE) 30 ML VIAL ONE (18:48)
[2017-05-07] MEDS: OXYTOCIN/NORMAL SALINE 500 ML IV SCH ×2 (19:29→19:59)
[2017-05-07] MEDS ORDERED: MEASLES,MUMPS,RUBELLA 1 EA INJ SQ ONE (19:45)
[2017-05-07] MEDS ORDERED: DIBUCAINE (NUPERCAINAL) 1% OINT 30 GM TOP PRN (19:45)
[2017-05-07] MEDS ORDERED: TETANUS,DIPTH,PERTUSS P/F (BOOSTRIX) 0.5 ML VIAL IM ONE (19:45)
[2017-05-07] MEDS ORDERED: BENZOCAINE/MENTHOL (DERMOPLAST) 56 ML CAN TP PRN (19:45)
--- NOTE | 2017-05-07 19:46 | OB Labor & Delivery Record ---
L&D History Date of Service Date of Service: May 07, 2017 History Expected Date of Delivery: May 27, 2017 Gestational Age in Weeks: 37 Hx : 3 Hx Para: 1 Complications Events: Routine care ([facility] consult due to history of nephrostomy placement with prior due to obstructive uropathy) Operative Indications (Cesarea: N/A-Vaginal Delivery Intrapartal Events: Febrile (Inadequate maternal pushing, repetitive heart rate decelerations) L&D Stage1 Stage One Onset of Labor - Date: May 07, 2017 Monitors and Tracing Monitor Mode: External Heart Rate: 120 Monitor Decelerations: None Station: -3 Presentation: Vertex Vital Signs VS - Last 72 Hours, by Label 05/06/17 05/06/17 05/06/17 05/06/17 13:35 16:20 18:00 21:00 Temp 97.8 99.6 Pulse 96 81 88 64 Resp 20 20 20 20 B/P (MAP) 122/77 114/68 126/81 Pulse Ox 100 O2 Delivery Room Air Room Air Room Air Non Rebreather O2 Flow Rate 15.00 05/06/17 05/06/17 05/07/17 22:00 23:00 04:00 Temp 98.4 97.8 Pulse 70 72 Resp 20 20 20 B/P (MAP) 138/75 113/69 Pulse Ox 100 O2 Delivery Non Rebreather Room Air Room Air O2 Flow Rate 15.00 Rupture of Membranes Spontaneous Ruture of Membrane: No Amniotic Membrane Rupture Time: 0820 Vaginal Bleeding Description: Normal Show Induction/Anesthesia Epidural Cath Placement - Time: 951 Progress/Notes Pitocin protocol used to induce labor along with AROM L&D Stage2 Stage Two Stage II Date: May 07, 2017 Monitors and Tracing Monitor Mode: External Heart Rate: 120 Monitor Decelerations: Variable Intermediate Variability: Minimal (3-5) Short Term Variability: Present Position: Right Occiput Anterior Presentation: Vertex Signs of Distress by FHT Signs of Distress repetitive variable decelerations Cord Descript/Complications Cord Vessel Description: 3 Vessels Delivery Type Delivery Method: Low Vacuum Extraction Anterior Shoulder: Right Episiotomy/Perineal Laceration Laceraction(s)/Extensions: Yes Episiotomy Description: Midline (midline episiotomy repaired in normal fashion using 30 and 2-0 Vicryl suture) Location Modifier: Medial Degree (describe repair) patient was progressing vertex inadequately, and heart rate decelerations became progressively nonreassuring. Due to inadequate maternal pushing and proximity to delivery station was +2 and discussed the patient urgently to proceed with vacuum extraction. A Kiwi vacuum extractor was placed in the mid sagittal suture, with the next maternal push pressure was pumped up to 50 mmHg with a downward gentle traction the 's head was progressed to +3 and at which point the perineum was infiltrated with quarter percent Marcaine and a midline episiotomy was performed. Controlled delivery of the head is performed using ritkins maneuver over the episiotomy, after vacuum was released. Condition of Infant Delivery Notes live male infant weight 7lbs 15 oz APGARs 8/9 Condition of Infant Condition of : Living Exam: No Observed Abnormalities Resuscitation Resuscitation: N/A - Spontaneous Resp L&D Stage3 Stage Three Stage III Date: May 07, 2017 Pictocin Pitocin Administration mu/min: 12 Pitocin ml/hr: 12 Pitocin Administration Comment: Pitocin increased to 12 at 1409. Placenta Delivery Placenta Delivery: Spontaneous Delivery Summary Summary blood loss >1000ml: No Vaginal blood loss >500ml: No 350 Attending at delivery: Shlomo Donaldson DO Condition of Delivery Examined: Cervix Examined, Uterus Explored Post Hemorrhage: No Condition of Mother stable Condition of Infant (s) stable SHLOMO DONALDSON DO May 07, 2017 19:46
[2017-05-07] MEDS: APAP 300 MG/CODEINE 30 MG (TYLENOL #3) TAB PO PRN ×2 (19:59→22:59)
[2017-05-07] MEDS: IBUPROFEN 600 MG (MOTRIN) TAB PO SCH (19:59)
[2017-05-07] MEDS: WITCH HAZEL(TUCKS) 40 EA JAR TOP PRN (21:00)
[2017-05-07] MEDS ORDERED: CATHETER FLUSH 10 ML SYR IV SCH (22:00)
[2017-05-08] MEDS ORDERED: METOCLOPRAMIDE INJ 10 MG/2 ML (REGLAN) ONE (00:59)
[2017-05-08] MEDS ORDERED: CITRIC ACID/SOB CIT (BICITRA) 30 ML UDC ONE (00:59)
[2017-05-08] MEDS ORDERED: FAMOTIDINE 20MG/2ML IV (PEPCID) ONE (00:59)
[2017-05-08 01:00] VITALS: BP 108/67
[2017-05-08] MEDS: ceFAZolin 2 GM/50 ML NS 50 ML IV SCH (01:04)
[2017-05-08] MEDS: DOCUSATE SODIUM 100 MG (COLACE) CAP PO SCH ×3 (01:13→23:13)
[2017-05-08] MEDS: IBUPROFEN 600 MG (MOTRIN) TAB PO SCH ×4 (03:41→23:13)
[2017-05-08] MEDS: APAP 300 MG/CODEINE 30 MG (TYLENOL #3) TAB PO PRN ×2 (03:41→11:56)
[2017-05-08 04:40] VITALS: BP 106/67
[2017-05-08 05:58] LABS: BASOPHILS % (AUTO) 0 % (0-10); EOSINOPHILS # (AUTO) 0.4 10^3/uL (0.0-0.3); EOSINOPHILS % (AUTO) 3 % (0-10); LYMPHOCYTES # (AUTO) 3.4 X 10^3 (1.0-4.0); LYMPHOCYTES % (AUTO) 24 % (12-44); MEAN CORPUSCULAR HEMOGLOBIN 31 PG (25-34); MEAN CORPUSCULAR HGB CONC 33 G/DL (32-36); MEAN CORPUSCULAR VOLUME 96 FL (80-99); MEAN PLATELET VOLUME 10.3 FL (7.4-10.4); MONOCYTES # (AUTO) 1.1 X 10^3 (0.0-1.0); MONOCYTES % (AUTO) 8 % (0-12); NEUTROPHILS # (AUTO) 9.3 X 10^3 (1.8-7.8); NEUTROPHILS % (AUTO) 65 % (42-75); PLATELET COUNT 176 10^3/uL (130-400); RED BLOOD COUNT 3.34 10^6/uL (4.35-5.85); RED CELL DISTRIBUTION WIDTH 13.2 % (10.0-14.5); WHITE BLOOD COUNT 14.3 10^3/uL (4.3-11.0)
--- NOTE | 2017-05-08 07:47 | Anesthesia-Regional Post-Op ---
Regional Patient Condition Mental Status: Alert, Oriented x3 Circulation: Same as Pre-Op Headache: Absent Sensation: Full Recovery Motor Block: Absent Post Op Complications Complications None Follow Up Care/Instructions Patient Instructions None needed. Anesthesia/Patient Condition Patient is doing well, no complaints, stable vital signs, no apparent adverse anesthesia problems. No complications reported per nursing. TULIO CALERO CRNA May 08, 2017 07:46
[2017-05-08] MEDS ORDERED: IBUP-1773 PO (08:19)
[2017-05-08] MEDS ORDERED: FERR-74 PO (08:19)
[2017-05-08] MEDS ORDERED: DOCU100C37 PO (08:19)
[2017-05-08] MEDS ORDERED: BENZ56AE2 TP (08:19)
[2017-05-08] MEDS ORDERED: ACET1TAB43 PO (08:19)
--- NOTE | 2017-05-08 08:20 | Discharge Inst-Women's Service ---
Discharge Inst-Women's Serv Depart Medication/Instructions New, Converted or Re-Newed RX: RX on Chart Consults/Follow Up Additional Follow Up: Yes Orders/Referrals Dr. Donaldson in 6 weeks Activity Activity: Activity as Tolerated Driving Instructions: No Driving for 1 Week NO SMOKING: NO SMOKING Nothing Inside Vagina: No Douching, No Zwingle, No Tampons Diet Discharge Diet: No Restrictions Symptoms to Report to : Bleeding Excessive, Pain Increased, Fever Over 101 Degrees F, Vaginal Bleeding Increase, Questions/Concerns For Any Problems or Questions: Contact Your Physician Skin/Wound Care Bathing Instructions: Shower (x 2 weeks) SHLOMO DONALDSON DO May 08, 2017 8:20 am
--- NOTE | 2017-05-08 08:27 | Progress Note-Standard ---
Standard Progress Note Progress Notes/Assess & Plan Date Seen by Provider: May 08, 2017 Time Seen by Provider: 08:10 Progress/Assessment & Plan Patient sleeping this morning upon entering room, reports perineal discomfort and mod lochia. Otherwise no concerns voiced. Back(kidney) pain is much better today. Voiding freely without difficulty Vital Sign - Last 24 Hours 05/07/17 05/07/17 05/07/17 05/07/17 08:45 09:05 09:17 09:32 Pulse 94 81 75 82 Resp 20 20 18 18 B/P (MAP) 115/81 125/77 121/72 121/78 O2 Delivery Room Air Room Air Room Air Room Air 05/07/17 05/07/17 05/07/17 05/07/17 09:42 09:45 09:47 09:49 Temp 98.3 Pulse 103 102 98 89 Resp 18 18 18 18 B/P (MAP) 126/72 140/80 130/79 129/78 O2 Delivery Room Air Room Air Room Air Room Air 05/07/17 05/07/17 05/07/17 05/07/17 09:51 09:53 09:55 09:57 Pulse 77 92 86 85 Resp 18 18 18 18 B/P (MAP) 124/75 130/84 133/84 119/71 O2 Delivery Room Air Room Air Room Air Room Air 05/07/17 05/07/17 05/07/17 05/07/17 10:00 10:02 10:04 10:07 Temp 99.6 Pulse 80 85 88 71 Resp 18 18 18 18 B/P (MAP) 111/73 117/74 118/76 113/71 O2 Delivery Room Air Room Air Room Air Room Air 05/07/17 05/07/17 05/07/17 05/07/17 10:10 10:13 10:17 10:20 Pulse 77 146 73 77 Resp 18 18 18 18 B/P (MAP) 114/74 114/73 116/60 116/64 Pulse Ox 98 96 O2 Delivery Room Air Room Air Room Air Room Air 05/07/17 05/07/17 05/07/17 05/07/17 10:27 10:32 10:36 10:42 Pulse 85 73 73 68 Resp 18 18 18 18 B/P (MAP) 107/58 106/58 107/65 114/69 Pulse Ox 98 97 97 97 O2 Delivery Room Air Room Air Room Air Room Air 05/07/17 05/07/17 05/07/17 05/07/17 10:47 10:50 10:58 11:02 Pulse 77 92 82 68 Resp 18 18 18 18 B/P (MAP) 111/69 115/74 109/73 120/72 Pulse Ox 96 98 97 98 O2 Delivery Room Air Room Air Room Air Room Air 05/07/17 05/07/17 05/07/17 05/07/17 11:17 11:35 11:50 12:05 Pulse 68 67 63 60 Resp 18 18 18 18 B/P (MAP) 113/66 110/72 115/71 109/67 Pulse Ox 98 98 97 98 O2 Delivery Room Air Room Air Room Air Room Air 05/07/17 05/07/17 05/07/17 05/07/17 12:20 12:35 12:50 13:05 Temp 99.7 Pulse 65 68 80 75 Resp 18 18 18 18 B/P (MAP) 109/68 110/71 121/85 113/75 Pulse Ox 98 97 97 98 O2 Delivery Room Air Room Air Room Air Room Air 05/07/17 05/07/17 05/07/17 05/07/17 13:20 13:35 13:50 14:05 Temp 99.4 Pulse 80 76 72 86 Resp 18 18 18 18 B/P (MAP) 107/57 110/70 116/71 115/83 Pulse Ox 98 98 98 98 O2 Delivery Room Air Room Air Room Air Room Air 05/07/17 05/07/17 05/07/17 05/07/17 14:22 14:36 14:50 15:00 Pulse 81 83 83 71 Resp 18 18 18 18 B/P (MAP) 122/82 118/70 113/71 113/69 Pulse Ox 98 98 98 98 O2 Delivery Room Air Room Air Room Air Room Air 05/07/17 05/07/17 05/07/17 05/07/17 15:05 15:27 15:42 15:57 Temp 99.8 Pulse 84 73 83 88 Resp 18 18 18 18 B/P (MAP) 111/70 112/69 117/72 114/73 Pulse Ox 98 98 98 98 O2 Delivery Room Air Room Air Room Air Room Air 05/07/17 05/07/17 05/07/17 05/07/17 16:13 16:25 16:30 16:35 Pulse 80 74 82 74 Resp 18 18 18 18 B/P (MAP) 115/75 110/70 111/70 112/69 Pulse Ox 98 98 98 97 O2 Delivery Room Air Room Air Room Air Room Air 05/07/17 05/07/17 05/07/17 05/07/17 16:55 17:10 17:25 17:40 Pulse 83 74 85 78 Resp 18 18 18 18 B/P (MAP) 115/70 122/73 119/73 117/72 Pulse Ox 97 98 98 98 O2 Delivery Room Air Room Air Room Air Room Air 05/07/17 05/07/17 05/07/17 05/07/17 17:55 18:10 18:25 18:40 Temp 100.8 Pulse 84 95 86 81 Resp 18 18 18 18 B/P (MAP) 117/70 119/77 107/62 110/63 Pulse Ox 98 99 97 97 O2 Delivery Room Air Room Air Room Air Room Air 05/07/17 05/07/17 05/07/17 05/07/17 18:55 19:15 19:23 19:39 Temp 99.0 Pulse 93 100 106 103 Resp 18 18 18 18 B/P (MAP) 124/78 134/81 129/68 142/66 Pulse Ox 98 O2 Delivery Room Air 05/07/17 05/07/17 05/07/17 05/07/17 19:53 20:08 20:23 20:38 Temp 99.7 100.1 99.7 Pulse 93 89 81 67 Resp 18 18 18 B/P (MAP) 100/51 109/68 108/66 109/70 05/07/17 05/08/17 05/08/17 21:30 01:00 04:40 Temp 99.4 99.1 98.9 Pulse 82 75 79 Resp 18 16 18 B/P (MAP) 104/68 108/67 106/67 Pulse Ox 97 98 Intake and Output 05/07/17 05/07/17 05/08/17 15:00 23:00 07:00 Intake Total 1050 ml 1050 ml 716 ml Balance 1050 ml 1050 ml 716 ml Laboratory Tests Test 05/08/17 05:45 Range/Units White Blood Count 14.3 H 4.3-11.0 10^3/uL Red Blood Count 3.34 L 4.35-5.85 10^6/uL Hemoglobin 10.5 L 11.5-16.0 G/DL Hematocrit 32 L 35-52 % Mean Corpuscular Volume 96 80-99 FL Mean Corpuscular Hemoglobin 31 25-34 PG Mean Corpuscular Hemoglobin Concent 33 32-36 G/DL Red Cell Distribution Width 13.2 10.0-14.5 % Platelet Count 176 130-400 10^3/uL Mean Platelet Volume 10.3 7.4-10.4 FL Neutrophils (%) (Auto) 65 42-75 % Lymphocytes (%) (Auto) 24 12-44 % Monocytes (%) (Auto) 8 0-12 % Eosinophils (%) (Auto) 3 0-10 % Basophils (%) (Auto) 0 0-10 % Neutrophils # (Auto) 9.3 H 1.8-7.8 X 10^3 Lymphocytes # (Auto) 3.4 1.0-4.0 X 10^3 Monocytes # (Auto) 1.1 H 0.0-1.0 X 10^3 Eosinophils # (Auto) 0.4 H 0.0-0.3 10^3/uL Basophils # (Auto) 0.0 0.0-0.1 10^3/uL Uterine fundus firm Diagnosis: PPD1 VAVD Obstructive uropathy- now improved P: Continue routine pp care Anticipate dc tomorrow if continues to do well SHLOMO DONALDSON DO May 08, 2017 8:27 am
[2017-05-08 08:30] VITALS: BP 110/70
[2017-05-08] MEDS: PRENATAL VITAMIN 1 EA TAB PO SCH (08:39)
[2017-05-08] MEDS: FERROUS SULF 325 MG (IRON) TAB PO SCH (08:39)
[2017-05-08 12:00] VITALS: BP 113/69
[2017-05-08 16:45] VITALS: BP 102/61
[2017-05-08] MEDS ORDERED: metroNIDAZOLE 500MG/100ML IVPB 0 ML ONE (20:30)
[2017-05-08 21:15] VITALS: BP 118/77
[2017-05-09] MEDS: IBUPROFEN 600 MG (MOTRIN) TAB PO SCH ×2 (04:40→11:46)
[2017-05-09 04:50] VITALS: BP 110/67
[2017-05-09 08:59] VITALS: BP 112/67
--- NOTE | 2017-05-09 09:02 | Progress Note-Standard ---
Standard Progress Note Progress Notes/Assess & Plan Date Seen by Provider: May 09, 2017 Time Seen by Provider: 07:15 Progress/Assessment & Plan Patient doing well this morning,minimal lochia. Otherwise no concerns voiced. Voiding freely without difficulty Vital Sign - Last 24 Hours 05/08/17 05/08/17 05/08/17 05/09/17 12:00 16:45 21:15 04:50 Temp 98.0 97.5 97.8 97.0 Pulse 92 72 86 51 Resp 18 18 18 17 B/P (MAP) 113/69 102/61 118/77 110/67 Pulse Ox 98 98 99 97 O2 Delivery Room Air Room Air 05/09/17 08:59 Temp 98.0 Pulse 68 Resp 18 B/P (MAP) 112/67 Pulse Ox 97 O2 Delivery Room Air Uterine fundus firm Diagnosis: PPD2 VAVD Obstructive uropathy- now improved P: Continue routine pp care Anticipate dc today with infant FENECH,SHLOMO Mejia DO May 09, 2017 9:02 am
[2017-05-09] MEDS: WITCH HAZEL(TUCKS) 40 EA JAR TOP PRN (09:07)
[2017-05-09] MEDS: FERROUS SULF 325 MG (IRON) TAB PO SCH (09:08)
[2017-05-09] MEDS: DOCUSATE SODIUM 100 MG (COLACE) CAP PO SCH (09:08)
[2017-05-09] MEDS: PRENATAL VITAMIN 1 EA TAB PO SCH (09:08)
== END 2017-05-09 12:20 | disposition home or self-care (01) | DRG 775 ==
LOC: WSo 13:06 → LDRP 13:07 → UNDOADMOB 15:30 → WSo 15:30 → LDRP 15:30 → INTOOBSV 05-07 08:36 → OBSVTOIN 05-07 08:36 → LDRP 05-07 21:00 → UNDODISIN 05-09 12:20 → EDSTATUS 05-09 14:30
PROVIDERS: ADMIT Obstetrics & Gynecology; ATTEND Obstetrics & Gynecology
PROC: 10D07Z6 Extraction of Products of Conception, Vacuum, Via Natural or Artificial Opening (ICD-10-PCS; principal; 2017-05-07)
PROC: 0W8NXZZ Division of Female Perineum, External Approach (ICD-10-PCS; 2017-05-07)
DX: O26.893 Other specified pregnancy related conditions, third trimester (principal); N13.1 Hydronephrosis with ureteral stricture, not elsewhere classified; O76 Abnormality in fetal heart rate and rhythm complicating labor and delivery; N23 Unspecified renal colic; Z3A.37 37 weeks gestation of pregnancy; Z37.0 Single live birth
CPT/HCPCS: 36415; 76770; 80053; 81000; 85025; 99212; G0378

== ENCOUNTER → 2017-06-14 | Outpatient (CLI) | payer MEDICAID ==
[~2017-06-14] MED LIST changes: +ACET1TAB43 PO; +AMPH5CAP3; +BENZ56AE2 TP; +CLON0.1T; +DOCU100C37 PO; +FERR-74 PO; +IBUP-1773 PO; +NITR-65 PO; +ONDA4TAB8 PO; +TOPI25TA10
--- NOTE | 2017-06-14 14:39 | Diagnostic Imaging Report ---
PROCEDURE: CT head without contrast. TECHNIQUE: Multiple contiguous axial images were obtained through the brain without the use of intravenous contrast. INDICATION: Headache. Comparison: None available. Findings: No hyperdense hemorrhage or space-occupying mass. No hydrocephalus or midline shift. The basilar cisterns are normal. Pugh-white matter differentiation is well preserved. The mastoid air cells are clear. Paranasal sinuses are normal. No focal osseous abnormality of the calvarium. Impression: Normal noncontrast CT head. Dictated by: Dictated on workstation # [id number]
== END ==
LOC: RAD 14:07
PROVIDERS: ATTEND Nurse Practitioner Family
DX: G43.019 Migraine without aura, intractable, without status migrainosus (principal)
CPT/HCPCS: 70450

== ENCOUNTER 2017-08-04 14:16 | Emergency (ER) | payer MEDICAID ==
[~2017-08-04] VITALS: Ht 165.1 cm; Wt 64.9 kg
[~2017-08-04 14:16] MED LIST changes: -AMPH5CAP3; -CLON0.1T; -NITR-65 PO; -ONDA4TAB8 PO; -TOPI25TA10
[2017-08-04] MEDS ORDERED: FAMOTIDINE 20MG/2ML IV (PEPCID) IV STA (14:52)
[2017-08-04] MEDS ORDERED: LACTATED RINGERS 1,000 ML IV ONE (14:52)
[2017-08-04] MEDS ORDERED: ONDANSETRON 4 MG/2 ML (SDV) Z0FRAN IVP ONE ×2 (15:00→16:00)
--- NOTE | 2017-08-04 15:00 | ED GI ---
General Chief Complaint: Abdominal/GI Problems Stated Complaint: VOMITING/KIDNEY PAIN Nursing Triage Note: PT C/O N/V/D SINCE 299 THIS AM. Sepsis Screen: No Definite Risk Source of Information: Patient History of Present Illness Time Seen By Provider: 14:40 Initial Comments PT ARRIVES VIA POV FROM HOME C/O NAUSEA/VOMITING/DIARRHEA SINCE 299 THIS AM CANNOT KEEP ANYTHING DOWN, INCLUDING WATER--HAS VOMITED X 4, PLUS DRY HEAVES HAS HAD DIARRHEA AT LEAST 4 TIMES, STATES SHE HAS DIARRHEA EVERY TIME SHE THROWS UP NO ABDOMINAL PAIN DOES HAVE BODY ACHES, AND STATES HER "KIDNEYS" HURT FROM VOMITING C/O SUBJECTIVE FEVER AND CHILLS TOOK IBUPROFEN AN HOUR AGO, BUT IT DID NOT STAY DOWN STATES SHE HAS BEEN TRYING ALL DAY TO DRINK WATER AND EAT CHEERIOS, BUT THEY WON 'T STAY DOWN ATE AT [facility] LAST NIGHT--2 BEERS, STEAK NO SUSPICIOUS FOODS AND NO ONE ELSE IS ILL. NO SICK CONTACTS WITH THE SAME. CHILD WAS IN ER A COUPLE OF NIGHTS AGO WITH CLASSIC CROUP, BUT NOT GI SYMPTOMS NO HISTORY OF SIMILAR PT CURRENTLY ON AMOXIL FOR DENTAL INFECTION AFTER ROOT CANAL 1 WEEK AGO PCP: Allergies and Home Medications Allergies Coded Allergies: No Known Drug Allergies (Unverified , 07/05/16) Home Medications Acetaminophen with Codeine 1 Each Tablet, 1-2 TAB PO Q4H PRN for PAIN-MODERATE, #30 Prescribed by: SHLOMO DONALDSON on 05/08/17818 Benzocaine/Menthol 56 Gm Aerosol, 0 ML TP UD PRN for PAIN- SEE INSTRUCTIONS, #1 Prescribed by: SHLOMO DONALDSON on 05/08/17818 Cephalexin 250 Mg Capsule, 250 MG PO BID, (Reported) Clonidine HCl 0.1 Mg Tablet, (Reported) Dextroamphetamine/Amphetamine 5 Mg Cap.er.24h, (Reported) Docusate Sodium 100 Mg Capsule, 100 MG PO BID PRN for CONSTIPATION-1ST LINE, #40 Prescribed by: SHLOMO DONALDSON on 05/08/17818 Ferrous Sulfate 325 Mg Tablet, 325 MG PO DAILY@0800, #60 Prescribed by: SHLOMO DONALDSON on 05/08/17818 Ibuprofen 600 Mg Tablet, 600 MG PO Q6H, #80 Prescribed by: SHLOMO DONALDSON on 05/08/17818 Nitrofurantoin Monohyd/M-Cryst 100 Mg Capsule, 100 MG PO BID, #20 Prescribed by: DIONI JAMISON on 08/04/17 1709 Ondansetron 4 Mg Tab.rapdis, 4 MG PO Q4H, #10 Prescribed by: DIONI JAMISON on 08/04/17 1557 Vit W-Ca,Fe,FA(<1 mg) 1 Each Tablet, 1 TAB PO DAILY, (Reported) Topiramate 25 Mg Tablet, (Reported) Review of Systems Constitutional: see HPI, chills, fever, malaise, weakness EENTM: No Symptoms Reported, See HPI Respiratory: No Symptoms Reported Cardiovascular: No Symptoms Reported Gastrointestinal: See HPI, Diarrhea, Nausea, Poor Appetite, Poor Fluid Intake, Vomiting Genitourinary: No Symptoms Reported, Other (LMP---HAD IUD PLACED BY DR. DONALDSON 06/16/17--HAS BEEN BLEEDING SINCE IT WAS PLACED. ) Musculoskeletal: see HPI Skin: no symptoms reported Psychiatric/Neurological: No Symptoms Reported, Denies Headache Endocrine: No Symptoms Reported Hematologic/Lymphatic: No Symptoms Reported Past Hakrxpm-Wzozef-Adjanp Hx Patient Social History Alcohol Use: Occasionally Uses Recreational Drug Use: No Smoking Status: Never a Smoker 2nd Hand Smoke Exposure: No Recent Foreign Travel: No Contact w/Someone Who Travel: No Recent Infectious Disease Expo: No Recent Hopitalizations: No Physical Abuse: No Sexual Abuse: No Immunizations Up To Date Tetanus Booster (TDap): Unknown Surgeries History of Surgeries: Yes (NEPHROSTOMY) Surgeries: Orthopedic, Renal Respiratory History of Respiratory Disorde: No Cardiovascular History of Cardiac Disorders: No Neurological History of Neurological Disord: No 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 System Hx 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 Disorders: No Genitourinary History of Genitourinary Disor: Yes (urethral blockage ) Genitourinary Disorders: Kidney Infection, Bladder Infection Gastrointestinal History of Gastrointestinal Di: No Musculoskeletal History of Musculoskeletal Dis: No Endocrine History of Endocrine Disorders: No HEENT History of HEENT Disorders: No Cancer History of Cancer: No Psychosocial History of Psychiatric Problem: Yes Behavioral Health Disorders: ADD/ADHD, Anxiety Suicide Risk Score: 0 Integumentary History of Skin or Integumenta: No Blood Transfusions History of Blood Disorders: No Family Medical History Family Medial History: Diabetes mellitus grandmother Physical Exam Vital Signs VS - Last 72 Hours, by Label 08/04/17 14:30 Temp 99.0 Pulse 102 Resp 20 B/P (MAP) 110/74 Pulse Ox 100 O2 Delivery Room Air Capillary Refill : Less Than 3 Seconds General Appearance: no apparent distress, thin, other (LOOKS ILL) Neck: normal inspection Respiratory: normal breath sounds, no respiratory distress, no accessory muscle use Cardiovascular: regular rate, rhythm, no edema, no JVD, no murmur Gastrointestinal: normal bowel sounds, soft, no organomegaly, no pulsatile mass , tenderness (MILD,DIFFUSE) Back: normal inspection Neurologic/Psychiatric: 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 nml as tested, no motor/sensory deficits, alert, oriented x 3 Skin: normal color, warm/dry, No rash Progress/Results/Core Measures Results/Orders Lab Results Laboratory Tests Test 08/04/17 15:00 08/04/17 15:04 Range/Units Urine Color YELLOW Urine Clarity CLEAR Urine pH 5 5-9 Urine Specific [place] 1.025 H 1.016-1.022 Urine Protein 2+ H NEGATIVE Urine Glucose (UA) NEGATIVE NEGATIVE Urine Ketones 4+ H NEGATIVE Urine Nitrite NEGATIVE NEGATIVE Urine Bilirubin NEGATIVE NEGATIVE Urine Urobilinogen NORMAL NORMAL MG/DL Urine Leukocyte Esterase 2+ H NEGATIVE Urine RBC (Auto) 5+ H NEGATIVE Urine RBC 2-5 H /HPF Urine WBC 5-10 H /HPF Urine Squamous Epithelial Cells 5-10 /HPF Urine Crystals NONE /LPF Urine Bacteria NEGATIVE /HPF Urine Casts NONE /LPF Urine Mucus SMALL H /LPF Urine Culture Indicated YES White Blood Count 11.2 H 4.3-11.0 10^3/uL Red Blood Count 4.87 4.35-5.85 10^6/uL Hemoglobin 14.9 11.5-16.0 G/DL Hematocrit 44 35-52 % Mean Corpuscular Volume 90 80-99 FL Mean Corpuscular Hemoglobin 31 25-34 PG Mean Corpuscular Hemoglobin Concent 34 32-36 G/DL Red Cell Distribution Width 12.5 10.0-14.5 % Platelet Count 344 130-400 10^3/uL Mean Platelet Volume 10.2 7.4-10.4 FL Neutrophils (%) (Auto) 71 42-75 % Lymphocytes (%) (Auto) 20 12-44 % Monocytes (%) (Auto) 8 0-12 % Eosinophils (%) (Auto) 1 0-10 % Basophils (%) (Auto) 0 0-10 % Neutrophils # (Auto) 7.9 H 1.8-7.8 X 10^3 Lymphocytes # (Auto) 2.2 1.0-4.0 X 10^3 Monocytes # (Auto) 0.9 0.0-1.0 X 10^3 Eosinophils # (Auto) 0.2 0.0-0.3 10^3/uL Basophils # (Auto) 0.0 0.0-0.1 10^3/uL Sodium Level 140 135-145 MMOL/L Potassium Level 3.9 3.6-5.0 MMOL/L Chloride Level 103 98-107 MMOL/L Carbon Dioxide Level 25 21-32 MMOL/L Anion Gap 12 5-14 MMOL/L Blood Urea Nitrogen 15 7-18 MG/DL Creatinine 0.70 0.60-1.30 MG/DL Estimat Glomerular Filtration Rate > 60 BUN/Creatinine Ratio 21 Glucose Level 80 70-105 MG/DL Calcium Level 9.5 8.5-10.1 MG/DL Total Bilirubin 0.7 0.1-1.0 MG/DL Aspartate Amino Transf (AST/SGOT) 21 5-34 U/L Alanine Aminotransferase (ALT/SGPT) 26 0-55 U/L Alkaline Phosphatase 52 40-136 U/L Total Protein 8.5 H 6.4-8.2 GM/DL Albumin 4.9 H 3.2-4.5 GM/DL Amylase Level 70 25-125 U/L Lipase 5 L 8-78 U/L Serum Test, Qualitative NEGATIVE NEGATIVE My Orders Orders - YAQUELIN,DIONI K DO Saline Lock/Iv-Start (08/04/17 14:52) Amylase (08/04/17 14:52) Cbc With Automated Diff (08/04/17 14:52) Comprehensive Metabolic Panel (08/04/17 14:52) Hcg,Qualitative Serum (08/04/17 14:52) Lipase (08/04/17 14:52) Ua Culture If Indicated (08/04/17 14:52) Saline Lock/Iv-Start (08/04/17 14:52) Lactated Ringers (Lr 1000 Ml Iv Solution (08/04/17 14:52) Ondansetron Injection (Zofran Injectio (08/04/17 15:00) Famotidine Injection (Pepcid Injection) (08/04/17 14:52) Urine Culture (08/04/17 15:00) Ondansetron Injection (Zofran Injectio (08/04/17 16:00) Medications Given in ED Current Medications Medications Dose Ordered Sig/Jelly Route Start Time Stop Time Status Last Admin Dose Admin Lactated Ringer's 1,000 ml @ 0 mls/hr Q0M ONCE IV 08/04/17 14:52 08/04/17 14:53 DC 08/04/17 14:57 0 MLS/HR Ondansetron HCl 4 mg ONCE ONCE IVP 08/04/17 15:00 08/04/17 15:01 DC 08/04/17 14:57 4 MG Ondansetron HCl 4 mg ONCE ONCE IVP 08/04/17 16:00 08/04/17 16:01 DC 08/04/17 16:20 4 MG Vital Signs/I&O Vital Sign - Last 12Hours 08/04/17 14:30 Temp 99.0 Pulse 102 Resp 20 B/P (MAP) 110/74 Pulse Ox 100 O2 Delivery Room Air Intake and Output 08/05/17 00:00 Intake Total 1000 ml Balance 1000 ml Blood Pressure Mean: 86 Progress Note : Progress Note NO VOMITING OR DIARRHEA DURING ER STAY NAUSEA IMPROVED PT TOLERATING WATER AND ICE CHIPS PRIOR TO DISMISSAL Departure Impression Impression: Primary Impression: Gastroenteritis Additional Impression: UTI (urinary tract infection) Disposition: 01 HOME, SELF-CARE Condition: Improved Departure-Patient Inst. Referrals: [facility] (PCP) Primary Care Physician SHLOMO DONALDSON DO (Family) Primary Care Physician Patient Instructions: Viral Gastroenteritis, Adult (DC), Urinary Tract Infection, Adult (DC) Add. Discharge Instructions: CLEAR LIQUIDS--WATER, BROTH, JELLO, GATORADE TOMORROW IF YOU ARE BETTER, ADD BRATS DIET TO CLEAR LIQUIDS--WATER, BROTH, JELLO , GATORADE FOLLOW UP WITH YOUR DR TOMORROW IF NO BETTER, RETURN TO ER IF WORSE All discharge instructions reviewed with patient and/or family. Voiced understanding. Scripts Nitrofurantoin Monohyd/M-Cryst (Macrobid 100 mg Capsule) 100 Mg Capsule 100 MG PO BID, #20 CAP Prov: DIONI JAMISON DO 08/04/17 Ondansetron (Zofran Odt) 4 Mg Tab.rapdis 4 MG PO Q4H for Nausea/Vomiting, #10 TAB Prov: DIONI JAMISON DO 08/04/17 DIONI JAMISON DO Aug 04, 2017 15:00
[2017-08-04] MEDS ORDERED: CLON0.1T (15:02)
[2017-08-04] MEDS ORDERED: AMPH5CAP3 (15:02)
[2017-08-04] MEDS ORDERED: TOPI25TA10 (15:02)
[2017-08-04 15:12] LABS: BILIRUBIN,URINE NEGATIVE (NEGATIVE); KETONES,URINE 4+ (NEGATIVE); LEUKOCYTE ESTERASE ,URINE 2+ (NEGATIVE); NITRITE,URINE NEGATIVE (NEGATIVE); PH,URINE 5 (5-9); PROTEIN,URINE 2+ (NEGATIVE); UROBILINOGEN,URINE NORMAL (NORMAL)
[2017-08-04 15:12] LABS: BASOPHILS % (AUTO) 0 % (0-10); EOSINOPHILS # (AUTO) 0.2 10^3/uL (0.0-0.3); EOSINOPHILS % (AUTO) 1 % (0-10); LYMPHOCYTES # (AUTO) 2.2 X 10^3 (1.0-4.0); LYMPHOCYTES % (AUTO) 20 % (12-44); MEAN CORPUSCULAR HEMOGLOBIN 31 PG (25-34); MEAN CORPUSCULAR HGB CONC 34 G/DL (32-36); MEAN CORPUSCULAR VOLUME 90 FL (80-99); MEAN PLATELET VOLUME 10.2 FL (7.4-10.4); MONOCYTES # (AUTO) 0.9 X 10^3 (0.0-1.0); MONOCYTES % (AUTO) 8 % (0-12); NEUTROPHILS # (AUTO) 7.9 X 10^3 (1.8-7.8); NEUTROPHILS % (AUTO) 71 % (42-75); PLATELET COUNT 344 10^3/uL (130-400); RED BLOOD COUNT 4.87 10^6/uL (4.35-5.85); RED CELL DISTRIBUTION WIDTH 12.5 % (10.0-14.5); WHITE BLOOD COUNT 11.2 10^3/uL (4.3-11.0)
[2017-08-04 15:32] LABS: ALANINE AMINOTRANSFERASE 26 U/L (0-55); ALBUMIN 4.9 GM/DL (3.2-4.5); AMYLASE 70 U/L (25-125); ANION GAP 12 MMOL/L (5-14); ASPARTATE AMINO TRANSFERASE 21 U/L (5-34); BILIRUBIN,TOTAL 0.7 MG/DL (0.1-1.0); BLOOD UREA NITROGEN 15 MG/DL (7-18); BUN/CREATININE RATIO 21; CALCIUM 9.5 MG/DL (8.5-10.1); CARBON DIOXIDE 25 MMOL/L (21-32); CHLORIDE 103 MMOL/L (98-107); GFR ESTIMATED > 60; GLUCOSE 80 MG/DL (70-105); LIPASE 5 U/L (8-78); POTASSIUM 3.9 MMOL/L (3.6-5.0); SODIUM 140 MMOL/L (135-145); TOTAL PROTEIN 8.5 GM/DL (6.4-8.2)
[2017-08-04] MEDS ORDERED: ONDA4TAB8 PO (15:57)
[2017-08-04] MEDS ORDERED: NITR-65 PO (17:09)
[2017-08-04 17:45] VITALS: BP 116/78
== END 2017-08-04 17:45 | disposition home or self-care (01) ==
LOC: EDUNIT# 14:16 → ER 14:17
DX: N39.0 Urinary tract infection, site not specified (principal); K52.9 Noninfective gastroenteritis and colitis, unspecified; F41.9 Anxiety disorder, unspecified; F90.9 Attention-deficit hyperactivity disorder, unspecified type
CPT/HCPCS: 36415; 80053; 81000; 82150; 83690; 84703; 85025; 87088

== ENCOUNTER 2017-12-25 21:09 | Emergency (ER) | payer MEDICAID ==
[~2017-12-25] VITALS: Ht 165.1 cm; Wt 62.6 kg
[~2017-12-25 21:09] MED LIST changes: +AMPH5CAP3; +CLON0.1T; -FERR-74 PO; +FERR325T18 PO; +NITR-65 PO; +ONDA4TAB8 PO; +TOPI25TA10
--- OUTSIDE RECORDS SUMMARY | 2017-12-25 21:14 | XMS REPORT | Clinical Summary ---
Author Author [facility] Organization [facility] Address Unknown Phone Unavailable Care Team Providers Care Math Specialist Name Role Phone No Pcp, Na PCP Unavailable Source Comments Some departments are not documenting in the electronic medical record. If you do not see the information that you expected, contact Release of Information in the Health Information Management department at [phone] for further assistance in locating additional records.[facility] Allergies No Known Allergies Current Medications Prescription Sig. Disp. Refills Start End Date Status Date Take by mouth. Active Kzhhamno-Is-Agt-Fe-FA tab cephalexin (KEFLEX) 500 One twice a day for 60 Cap 6 11/16/19 Active mg capsule suppression after current 17 course is complete. Active Problems Problem Noted Date Supervision of high risk in second trimester 01/11/2017 Overview: Labs via Dr. Byrd's office on 10/06/16: Plt 254 HbSAg negative Hep C neg HIV: neg Ucx: E.coli---> VLAD neg O positive: Ab screen neg RPR: neg Rubella immune UDS negative Renal anomaly-MATERNAL 11/17/2016 VUR (vesicoureteric reflux) 10/15/2016 Overview: -- 10/15/15: . Currently 8 wks per LMP. Hx of complicated w/ suspected ureteral obstruction/UTI/sepsis. Also hx of stent failure. --11/02/16: Ms. Valles returns today in follow-up. Her renal ultrasound is unremarkable and her urine culture did not grow any organisms. We had a lengthy discussion regarding ureteral stents in , and we counseled her that given her normal appearing kidneys and ureters with no evidence of hydroneprhosis, a stent is unlikely to be helpful, and could in fact be harmful as their is a high risk of stent encrustation in as well as the inherent risks of undergoing anesthesia, with the risks to both her and her fetus. Additionally, placement of a stent in a non-indicated manner also increases the risk of infection due to instrumentation and placement of a foreign object. We recommended that Ms. Valles continue to follow with her high-risk OB-BUILDING SUPPLIES SALESPERSON RETAIL, and that she can be placed on prophylactic antibiotics per her OB-BUILDING SUPPLIES SALESPERSON RETAIL if indicated. RTC PRN. L ast Assessment & Plan: Latisha Valles [...] sent. -- Recommending close follow up w/ COMMERCIAL LENDING ASSISTANT; consider following her serial renal/bladder u/s -- RTC following in approximately 2 weeks to discuss renal/bladder u/s ordered today -- COMMERCIAL LENDING ASSISTANT consult for high-risk placed Currently Estimated Date of Delivery Comments Yes 05/27/2017 Based on Last Menstrual Period Immunizations Name Dates Previously Given Next Due Tdap Vaccine 04/02/2017 Social History Tobacco Use Types Packs/Day Years Used Date Never Smoker Alcohol Use Drinks/Week oz/Week Comments No 0 Standard 0.0 drinks or equivalent Currently Estimated Date of Delivery Comments Yes 05/27/2017 Based on Last Menstrual Period Sex Assigned at Date Recorded Not on file Last Filed Vital Signs Vital Sign Reading Time Taken Blood Pressure 103/57 04/02/2017 2:07 PM CDT Pulse 86 04/02/2017 2:07 PM CDT Temperature - - Respiratory Rate - - Oxygen Saturation - - Inhaled Oxygen - - Concentration Weight 75.3 kg (166 lb) 04/02/2017 2:07 PM CDT Height 162.6 cm (5' 4.02") 04/02/2017 2:07 PM CDT Body Mass Index 28.48 04/02/2017 2:07 PM CDT Plan of Treatment Health Maintenance Due Date Last Done Comments PHYSICAL (COMPREHENSIVE) 2001 EXAM HPV VACCINES (1 of 3 - 2005 Female 3 Dose Series) HIV SCREENING 2009 CERVICAL CANCER SCREENING 2015 INFLUENZA VACCINE 07/07/2018 TETANUS VACCINE 04/02/2027 04/02/2017 PERTUSSIS VACCINE Completed 04/02/2017 Results Not on filefrom Last 3 Months
--- OUTSIDE RECORDS SUMMARY | 2017-12-25 21:15 | XMS REPORT ---
Author Author JIHAN LEIGH Organization [employer] Address Unknown Phone Unavailable Care Team Providers Care Sap Bw Developer Name Role Phone JIHAN LEIGH CP Unavailable Allergies, Adverse Reactions, Alerts Substance Reaction Event Type N.K.D.A. 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
--- OUTSIDE RECORDS SUMMARY | 2017-12-25 21:15 | XMS REPORT ---
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 25075605 Problem Frequent UTI N39.0 Active 413517560 Problem Cystitis N30.90 Active 43957191 ALLERGIES Unknown Allergies SOCIAL HISTORY No smoking Hx information available PLAN OF CARE Activity Details Pending Test THYROID ANALYZER Pending Test A1C Pending Test CBC Pending Test LIPID PANEL Pending Test CMP ,Reason: VITAL SIGNS MEDICATIONS Unknown Medications RESULTS Name Result Date Reference Range THYROID ANALYZER 2016-09-11 TSH 1.760 0.450-4.500 A1C 2016-09-11 Hemoglobin A1c 5.6 4.8-5.6 CBC 2016-09-11 WBC 5.8 3.4-10.8 RBC 4.34 3.77-5.28 Hemoglobin 13.2 11.1-15.9 Hematocrit 39.8 34.0-46.6 MCV 92 79-97 MCH 30.4 26.6-33.0 MCHC 33.2 31.5-35.7 RDW 12.7 12.3-15.4 Platelets 230 150-379 Neutrophils 40 Lymphs 49 Monocytes 9 Eos 2 Basos 0 Neutrophils (Absolute) 2.3 1.4-7.0 Lymphs (Absolute) 2.8 0.7-3.1 Monocytes(Absolute) 0.5 0.1-0.9 Eos (Absolute) 0.1 0.0-0.4 Baso (Absolute) 0.0 0.0-0.2 Immature Granulocytes 0 Immature Grans (Abs) 0.0 0.0-0.1 LIPID PANEL 2016-09-11 Cholesterol, Total 143 100-199 Triglycerides 81 0-149 HDL Cholesterol 53 >39 VLDL Cholesterol Juan 16 5-40 LDL Cholesterol Calc 74 0-99 CMP 2016-09-11 Glucose, Serum 95 65-99 BUN 9 6-20 Creatinine, Serum 0.63 0.57-1.00 eGFR If NonAfricn Am 128 >59 eGFR If Africn Am 147 >59 BUN/Creatinine Ratio 14 8-20 Sodium, Serum 141 136-144 Potassium, Serum 4.1 3.5-5.2 Chloride, Serum 104 97-106 Carbon Dioxide, Total 22 18-29 Calcium, Serum 9.1 8.7-10.2 Protein, Total, Serum 6.9 6.0-8.5 Albumin, Serum 4.3 3.5-5.5 Globulin, Total 2.6 1.5-4.5 A/G Ratio 1.7 1.1-2.5 Bilirubin, Total 0.5 0.0-1.2 Alkaline Phosphatase, S 41 39-117 AST (SGOT) 16 0-40 ALT (SGPT) 12 0-32 PROCEDURES Procedure Date Ordered Related Diagnosis Body Site ASSAY THYROID STIM HORMONE Sep 11, 2016 GLYCATED HEMOGLOBIN TEST Sep 11, 2016 LIPID PANEL Sep 11, 2016 COMPLETE CBC W/AUTO DIFF WBC Sep 11, 2016 VENIPUNCT, ROUTINE* Sep 11, 2016 COMPREHEN METABOLIC PANEL Sep 11, 2016 IMMUNIZATIONS No Known Immunizations
--- OUTSIDE RECORDS SUMMARY | 2017-12-25 21:15 | XMS REPORT ---
Author Author LIVIER OSPINA Organization [facility] Address [address] [place] [address] Care Team Providers Care Weed Burner Name Role Phone LIVIER OSPINA Unavailable PROBLEMS Type Condition ICD9-CM Code XGA58-KM Code Onset Dates Condition Status SNOMED Code Problem Social phobia F40.10 Active 51463408 Problem Social phobia, generalized F40.11 Active 35086404 Problem Generalized social phobia F40.11 Active 18606655 Problem Intractable migraine without aura and without status migrainosus G43.019 Active 250609762 Problem Controlled substance agreement signed Z79.899 Active 064682638 Problem Attention deficit disorder (ADD) 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 Active 49076568 Problem Generalized anxiety disorder F41.1 Active 49088809 Problem High risk medication use Z79.899 Active 858656077061708 Problem Depressive disorder, not elsewhere classified F32.9 Active 36909770 Problem Frequent UTI N39.0 Active 837226950 Problem Burning with urination R30.0 Active 57789605 Problem Family history of diabetes mellitus Z83.3 Active 614809842 Problem Routine health maintenance Z00.00 Active 089071061 Problem Reactive depression F32.9 Active 36117130 Problem Cystitis N30.90 Active 93131594 Problem Intrinsic eczema L20.84 Active 91912583 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 94189006 Problem ADHD (attention deficit hyperactivity disorder), inattentive type F90.0 Active 05551480 ALLERGIES No Information SOCIAL HISTORY Never Assessed PLAN OF CARE Activity Details Follow Up next available Reason:anxiety VITAL SIGNS MEDICATIONS Unknown Medications RESULTS No Results PROCEDURES Procedure Date Ordered Result Body Site Psychotherapy, patient &/family, 30 minutes, established patient December 28, 2016 IMMUNIZATIONS No Known Immunizations MEDICAL (GENERAL) HISTORY Type Description Date Medical History psoriasis Medical History had a nephrostomy tube when she was Medical History renal reflux as a kid with subsequent surgery for this Surgical History Kidney reflux Surgical History TMJ surgery- removed part of jaw and replaced with coral- states pins/screws in jaw 2010 Hospitalization History child Hospitalization History with surgeries listed above
--- OUTSIDE RECORDS SUMMARY | 2017-12-25 21:15 | XMS REPORT ---
Author Author MARY CANCHOLA Organization [facility] Address [address] [place] [address] Care Team Providers Care Information Systems Security Analyst Name Role Phone MARY CANCHOLA Unavailable PROBLEMS Type Condition ICD9-CM Code YMM96-WV Code Onset Dates Condition Status SNOMED Code Problem Social phobia F40.10 Active 31206657 Problem Social phobia, generalized F40.11 Active 48844344 Problem Generalized social phobia F40.11 Active 38004877 Problem Intractable migraine without aura and without status migrainosus G43.019 Active 429072222 Problem Controlled substance agreement signed Z79.899 Active 321899191 Problem Attention deficit disorder (ADD) 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 Active 04060515 Problem Generalized anxiety disorder F41.1 Active 05364057 Problem High risk medication use Z79.899 Active 300822188922557 Problem Depressive disorder, not elsewhere classified F32.9 Active 61060856 Problem Frequent UTI N39.0 Active 849592129 Problem Burning with urination R30.0 Active 70997462 Problem Family history of diabetes mellitus Z83.3 Active 496609469 Problem Routine health maintenance Z00.00 Active 964385506 Problem Reactive depression F32.9 Active 43473986 Problem Cystitis N30.90 Active 78382104 Problem Intrinsic eczema L20.84 Active 75838331 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 67198002 Problem ADHD (attention deficit hyperactivity disorder), inattentive type F90.0 Active 51816799 ALLERGIES No Known Allergies SOCIAL HISTORY Never Assessed PLAN OF CARE Activity Details Follow Up To ER then close f.u with OB in [place] Reason: VITAL SIGNS Height 5'5" in 2016-10-18 Weight 134.3 lbs 2016-10-18 Temperature 99.6 degrees Fahrenheit 2016-10-18 Heart Rate 64 bpm 2016-10-18 Respiratory Rate 16 2016-10-18 BMI 22.35 kg/m2 2016-10-18 Blood pressure systolic 104 mmHg 2016-10-18 Blood pressure diastolic 62 mmHg 2016-10-18 MEDICATIONS Unknown Medications RESULTS Name Result Date Reference Range UA LONG DIP (IN HOUSE) 2016-10-18 Lot # [id number] Exp date Clarity Clear Color [place] Odor no GLU Negative GABRIEL 1+ KET 3+ SG >=1.030 BLO Trace-lysed pH 6.5 Protein Trace URO 0.2 NIT Negative MELISSA 1+ Lot # Exp date PROCEDURES Procedure Date Ordered Result Body Site URINALYSIS, AUTO, W/O SCOPE Oct 18, 2016 IMMUNIZATIONS No Known Immunizations MEDICAL (GENERAL) [...]
--- OUTSIDE RECORDS SUMMARY | 2017-12-25 21:16 | XMS REPORT ---
Author Author PHILIP FLEMING [facility] Address [address] [place] [address] Care Team Providers Care Physician Practice Market Manager Name Role Phone PHILIP FLEMING Unavailable PROBLEMS Type Condition ICD9-CM Code VLT54-AE Code Onset Dates Condition Status SNOMED Code Problem Social phobia F40.10 Active 90371088 Problem Social phobia, generalized F40.11 Active 84361272 Problem Generalized social phobia F40.11 Active 44237902 Problem Intractable migraine without aura and without status migrainosus G43.019 Active 202349925 Problem Controlled substance agreement signed Z79.899 Active 166514561 Problem Attention deficit disorder (ADD) 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 Active 98770282 Problem Generalized anxiety disorder F41.1 Active 49032384 Problem High risk medication use Z79.899 Active 720729233485316 Problem Depressive disorder, not elsewhere classified F32.9 Active 58648537 Problem Frequent UTI N39.0 Active 214384631 Problem Burning with urination R30.0 Active 62663121 Problem Family history of diabetes mellitus Z83.3 Active 650829851 Problem Routine health maintenance Z00.00 Active 696003532 Problem Reactive depression F32.9 Active 22398837 Problem Cystitis N30.90 Active 20483120 Problem Intrinsic eczema L20.84 Active 23166464 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 97167780 Problem ADHD (attention deficit hyperactivity disorder), inattentive type F90.0 Active 71383980 ALLERGIES No Known Allergies SOCIAL HISTORY Never Assessed PLAN OF CARE Activity Details Follow Up prn Reason: VITAL SIGNS Height 5'5" in 2016-11-27 Weight 138 lbs 2016-11-27 Heart Rate 64 bpm 2016-11-27 Respiratory Rate 16 2016-11-27 BMI 22.96 kg/m2 2016-11-27 Blood pressure systolic 100 mmHg 2016-11-27 Blood pressure diastolic 60 mmHg 2016-11-27 MEDICATIONS Medication Instructions Dosage Frequency Start Date End Date Duration Status Clobetasol Propionate 0.05 % Externally Twice a day 1 application to affected area 12h 21 Nov, 2016 3 Dec, 2016 10 day(s) Active Cephalexin 500 MG Orally every 12 hrs 1 capsule 12h Active RESULTS No Results PROCEDURES No Known procedures IMMUNIZATIONS No Known Immunizations MEDICAL (GENERAL) HISTORY [...]
--- OUTSIDE RECORDS SUMMARY | 2017-12-25 21:16 | XMS REPORT ---
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 Unknown Non Drug Allergy Aug, Unknown SOCIAL HISTORY No smoking Hx information available PLAN OF CARE Activity Details Pending Test CULTURE, URINE 4 Weeks,Reason: VITAL SIGNS Height 5'5" in 2016-09-04 Weight 136.5 lbs 2016-09-04 BMI 22.71 kg/m2 2016-09-04 Blood pressure systolic 106 mmHg 2016-09-04 Blood pressure diastolic 68 mmHg 2016-09-04 MEDICATIONS Medication Instructions Dosage Frequency Start Date End Date Duration Status Ciprofloxacin HCl 500 MG Orally Twice a day 1 tablet 12h Aug, Sep, 05 days Active Ibuprofen 800 MG Orally Three times a day 1 tablet 8h Aug, Active RESULTS Name Result Date Reference Range UA LONG DIP (IN HOUSE) 2016-09-04 Lot # Exp date Clarity clear Color yellow Odor no GLU neg GABRIEL neg KET neg SG 1.025 BLO trace-intact pH 7.0 Protein neg URO 02 NIT positve MELISSA 1+ Lot # Exp date CULTURE, URINE 2016-09-04 Urine Culture, Routine Final report Result 1 Klebsiella pneumoniae Antimicrobial Susceptibility PROCEDURES Procedure Date Ordered Related Diagnosis Body Site URINALYSIS, AUTO, W/O SCOPE Sep 04, 2016 Office Visit, New Pt., Level 3 Sep 04, 2016 URINE CULTURE/COLONY COUNT Sep 04, 2016 IMMUNIZATIONS No Known Immunizations
[2017-12-25] MEDS ORDERED: SERT25TA PO (21:32)
--- NOTE | 2017-12-25 21:34 | ED Lower Extremity ---
General Chief Complaint: Lower Extremity Stated Complaint: HIP FLEXOR STRAIN Nursing Triage Note: PT PRESENTS TO ER WITH COMPLAINT OF RIGHT HIP FLEXOR STRAIN FOR 2 MONTHS. STATES SHE HAS SEEN A DR BEFORE FOR IT. STATES ICE/HEAT TYLENOL/MOTRIN HAVE NOT BEEN HELPING. WENT TO GYM X3 DAYS AGO AND FEELS LIKE IT IS WORSE. Nursing Sepsis Screen: No Definite Risk Source: patient Exam Limitations: no limitations History of Present Illness Date Seen by Provider: Dec 25, 2017 Time Seen by Provider: 21:31 Initial Comments Patient present to ER by private conveyance with a chief complaint 7 months ago during vaginal childbirth she felt like she's pulled a muscle in her inner right thigh. She had no immediate workup other but since he was going on for about 5 months she went saw her primary care doctor who thought it was a pulled muscle and prescribed ice, heat, creams, ibuprofen 800 mg. She says it got better for about a week or 2 and then has progressively gotten worst were announced no longer intermittent but rather a constant sharp achy pain in her right inner thigh. She says the pain is so severe that if she tries to put any weight on her right leg that it will collapse underneath her and she cannot stand on it. She made an appointment to go and see her primary care physician but was unable to load the car seat up in the car to go see them because of the severe pain. She denies low mood, depression, suicidal ideation. She is not having any belly pain, nausea, fevers, chills, dysuria, discharge or constipation. She says they are Profen is not helping anymore. She has a history of anxiety and ADHD for which she uses Zoloft and Adderall. Nursing reports to me that when they were speaking to the patient she said that 2 days ago she went to [facility] for her headache and did not mention that she was having any leg pain to them at that time. The patient also reported to nursing that a few days before that she had ran 15 minutes on a treadmill. Allergies and Home Medications Allergies Coded Allergies: No Known Drug Allergies (Unverified , 07/05/16) Patient Home Medication List Home Medication List Reviewed: Yes Constitutional: No chills, No diaphoresis, No fever, No malaise EENTM: No ear discharge, No ear pain Respiratory: No cough, No short of breath Cardiovascular: No chest pain, No palpitations Gastrointestinal: No abdominal pain, No constipation, No diarrhea, No nausea Genitourinary: No discharge, No dysuria : No Past Uudioro-Jcbzam-Ppacad Hx Patient Social History Alcohol Use: Denies Use Recreational Drug Use: No Smoking Status: Never a Smoker 2nd Hand Smoke Exposure: No Recent Foreign Travel: No Contact w/Someone Who Travel: No Recent Infectious Disease Expo: No Recent Hopitalizations: No Immunizations Up To Date Tetanus Booster (TDap): Unknown Surgeries History of Surgeries: Yes (NEPHROSTOMY) Surgeries: Orthopedic, Renal Respiratory History of Respiratory Disorde: No Cardiovascular History of Cardiac Disorders: No Neurological History of Neurological Disord: No 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 System Hx 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 Disorders: No Genitourinary History of Genitourinary Disor: Yes (urethral blockage ) Genitourinary Disorders: Kidney Infection, Bladder Infection Gastrointestinal History of Gastrointestinal Di: No Musculoskeletal History of Musculoskeletal Dis: No Endocrine History of Endocrine Disorders: No HEENT History of HEENT Disorders: No Cancer History of Cancer: No Psychosocial History of Psychiatric Problem: Yes Behavioral Health Disorders: ADD/ADHD, Anxiety Integumentary History of Skin or Integumenta: No Blood Transfusions History of Blood Disorders: No Family Medical History Family Medial History: Diabetes mellitus grandmother Physical Exam Vital Signs Vital Signs - First Documented 12/25/17 21:21 Temp 97.0 Pulse 92 Resp 20 B/P (MAP) 114/76 (89) Pulse Ox 98 O2 Delivery Room Air Capillary Refill : Less Than 3 Seconds General Appearance: WD/WN, no apparent distress HEENT: PERRL/EOMI, pharynx normal Neck: non-tender, normal inspection Cardiovascular: normal peripheral pulses, regular rate, rhythm Respiratory: no respiratory distress, no accessory muscle use Gastrointestinal: normal bowel sounds, non tender, soft, no organomegaly Hips: bilateral hip non-tender, bilateral hip normal inspection, bilateral hip normal range of motion, bilateral hip no evidence of injury Legs: left leg non-tender, bilateral leg normal inspection, bilateral leg normal range of motion, left leg no evidence of injury, right leg soft tissue tenderness (medial anterior without any tenseness, erythema, induration.) Knees: bilateral knee non-tender, bilateral knee normal inspection, bilateral knee normal range of motion, bilateral knee no evidence of injury Ankles: bilateral ankle non-tender, bilateral ankle normal inspection, bilateral ankle normal range of motion, bilateral ankle no evidence of injury Neurologic/Tendon: normal sensation, normal motor functions, normal tendon functions, responds to pain, no evidence tendon injury Neurologic/Psychiatric: no motor/sensory deficits, alert, normal mood/affect, oriented x 3 Skin: normal color, warm/dry Progress/Results/Core Measures Results/Orders My Orders Orders - JALYN BUI Ketorolac Injection (Toradol Injection) (12/25/17 21:45) Hip, Right, 2 Views (12/25/17 21:41) Urine Bedside (12/25/17 21:41) Medications Given in ED Current Medications Medications Dose Ordered Sig/Jelly Route Start Time Stop Time Status Last Admin Dose Admin Ketorolac Tromethamine 15 mg ONCE ONCE IM 12/25/17 21:45 12/25/17 21:46 DC 12/25/17 21:51 15 MG Vital Signs/I&O Vital Sign - Last 12Hours 12/25/17 21:21 Temp 97.0 Pulse 92 Resp 20 B/P (MAP) 114/76 (89) Pulse Ox 98 O2 Delivery Room Air Blood Pressure Mean: 89 Progress Note : Time: 21:57 Progress Note The story that the patient gave this provider does not concur with the story that the patient gave nursing staff that the patient could not stand on her right leg without a collapsing underneath her because of the pain. Seems a this is more of an intermittent problem and may have reaggravated a soft tissue injury. We would likely benefit from physical therapy or some other outpatient management. Diagnostic Imaging Diagonstic Imaging: Xray Plain Films/CT/US/NM/MRI: hip (r) Comments No acute osseous abnormalities. Reviewed: Reviewed by Me Departure Impression Impression: Primary Impression: Strain of adductor muscle, fascia and tendon of left thigh, subsequent encounter Disposition: HOME, SELF-CARE Condition: Stable Departure-Patient Inst. Decision time for Depature: 23:05 Referrals: JIHAN LEIGH APRN (PCP/Family) Primary Care Physician Patient Instructions: Lower Extremity Muscle Strain (DC) Add. Discharge Instructions: Follow-up with your primary care physician for referral to physical therapy. Apply ice alternated with heat to your right inner thigh. You can use Tylenol 1000 mg every 8 hours as needed and switch from ibuprofen to Naprosyn 2 tablets twice a day on a schedule for the next 2-4 weeks. All discharge instructions reviewed with patient and/or family. Voiced understanding. Copy Copies To 1: SYLVIA FORTUNE TITUS J Dec 25, 2017 21:33
[2017-12-25] MEDS ORDERED: KETOROLAC 30 MG/ML VIAL IM ONE (21:45)
[2017-12-25 23:17] VITALS: BP 114/76
--- NOTE | 2017-12-26 06:51 | Diagnostic Imaging Report ---
Right hip at 10:20 p.m. INDICATION: Hip pain. AP and lateral views were obtained. FINDINGS: There is no fracture, dislocation or acute bony abnormality evident. The hip joint is fairly well-maintained and it appears similar to the CT abdomen/pelvis exam of 07/27/2016. The soft tissues are unremarkable. Incidental note is made of an IUD overlying the right pelvis. The IUD has been inserted in the interval since the prior exam. IMPRESSION: 1. There is no evidence for an acute bony abnormality. 2. If clinical concern regarding an underlying abnormality persists and further imaging is desired, then MRI would be recommended. Dictated by: Dictated on workstation # [id number]
== END 2017-12-25 23:17 | disposition home or self-care (01) ==
LOC: EDUNIT# 21:09 → ER 21:11
DX: S76.212D Strain of adductor muscle, fascia and tendon of left thigh, subsequent encounter (principal); F41.9 Anxiety disorder, unspecified; F90.9 Attention-deficit hyperactivity disorder, unspecified type; Z93.6 Other artificial openings of urinary tract status; X50.0XXA Overexertion from strenuous movement or load, initial encounter; Y92.39 Other specified sports and athletic area as the place of occurrence of the external cause
CPT/HCPCS: 73502; 96372

== ENCOUNTER → 2018-01-16 | Outpatient (CLI) | payer MEDICAID ==
[~2018-01-16] MED LIST changes: +GADOBUTROL 7.5 MMOL/7.5 ML (GADAVIST) VIAL IV ONE; +IOHEXOL 300 MG/ML 30 ML (OMNIPAQUE 300) VIAL IV ONE; +LIDOCAINE 1% INJ 50 ML (XYLOCAINE) VIAL IJ ONE; +SERT25TA PO
[2018-01-16 14:36] VITALS: BP 112/69
[2018-01-16 14:55] VITALS: BP 114/69
[2018-01-16] MEDS: CATHETER FLUSH 10 ML SYR IVP PRN ×2 (15:14→15:15)
--- NOTE | 2018-01-16 16:41 | Diagnostic Imaging Report ---
EXAMINATION: Magnetic resonance imaging of the pelvis and right hip with intra-articular contrast. DATE: January 16, 2018. COMPARISON: Right hip arthrogram January 16, 2018. Right hip radiographs December 25, 2017. INDICATION: 22-year-old female, right hip pain. Patient states injury during labor. TECHNIQUE: Magnetic Resonance Imaging sequences were performed of the pelvis and right hip following the intra-articular administration of contrast. TENDONS AND MUSCLES: The gluteus rick muscles and their origins and insertions are intact bilaterally. The tendons and muscles of the greater trochanter - gluteus minimus, piriformis and gluteus medius - are intact bilaterally. Both common hamstring attachments on the ischial tuberosities are intact and the extensor muscles of the thigh are intact. The visualized portions of the flexors and adductor muscles of the thigh and their attachments on the pelvis and hips are intact. Both iliopsoas and iliacus muscles are intact. The bilateral iliopsoas tendons are intact. HIPS AND SACROILIAC JOINTS: The contours of the femoral heads and acetabuli are smooth and symmetric. There is unremarkable osseous morphology. There is a cleft of contrast in the region of the right hip superior labrum best seen on coronal T1 fat saturation sequence image 16 compatible with a small tear at the chondrolabral junction. There is no associated paralabral cyst. The articular cartilage appears grossly intact. There is no left hip joint effusion. There is no identified fluid-filled labral tear on the left. The sacroiliac joints are unremarkable. LUMBAR SPINE: The visible portions of the lumbar spine are unremarkable on limited assessment. BONE: The bones all have normal configuration. The bone marrow signal is within normal limits. Specifically, negative for fracture, osteomyelitis, osteonecrosis, or marrow replacing process. BURSAE AND SOFT TISSUES: There is a left ovarian follicle. The bursae and soft tissues specifically adjacent to both hips are unremarkable in appearance. IMPRESSION: 1. Small tear of the right hip superior labrum in the region of the chondrolabral junction. No paralabral cyst. 2. Intact muscles and tendons. 3. Unremarkable bone marrow signal. Dictated by: Dictated on workstation # [id number]
--- NOTE | 2018-01-16 17:35 | Diagnostic Imaging Report ---
INDICATION: Right hip pain. FINDINGS: Patient was brought to the fluoroscopy suite, placed on the table in the supine position. The skin of the right hip was prepped and draped in the usual sterile fashion. Small amount of 1% lidocaine was utilized for local anesthesia. A 20-gauge needle was advanced to the right hip, placed with the tip at the femoral head and neck junction laterally. Approximately 15 mL solution of iodinated contrast, normal saline, and gadolinium was injected under fluoroscopic observation. Needle was withdrawn, hemostasis was obtained. Patient tolerated the procedure well and was sent to MRI in satisfactory condition. Total of 44 seconds of fluoroscopic time was utilized. IMPRESSION: Successful right hip injection of gadolinium contrast solution, using fluoroscopy. Dictated by: Dictated on workstation # [id number]
== END ==
LOC: RAD 14:02
PROVIDERS: ATTEND Orthopaedic Surgery
DX: S73.191A Other sprain of right hip, initial encounter (principal); Q74.2 Other congenital malformations of lower limb(s), including pelvic girdle; X58.XXXA Exposure to other specified factors, initial encounter
CPT/HCPCS: 27093; 73525; 73722

== ENCOUNTER 2018-02-04 05:32 | Outpatient (CLI) | payer MEDICAID ==
[~2018-02-04] VITALS: Ht 165.1 cm; Wt 62.6 kg
[~2018-02-04 05:32] MED LIST changes: -GADOBUTROL 7.5 MMOL/7.5 ML (GADAVIST) VIAL IV ONE; -IOHEXOL 300 MG/ML 30 ML (OMNIPAQUE 300) VIAL IV ONE; -LIDOCAINE 1% INJ 50 ML (XYLOCAINE) VIAL IJ ONE
[2018-02-04] MEDS ORDERED: SERT50TA2 PO (10:13)
[2018-02-04] MEDS ORDERED: LISD40CA3 PO (10:13)
[2018-02-07] MEDS ORDERED: HYDR-34 PO (10:05)
== END 2018-02-04 10:42 ==
LOC: PREOP 05:32
PROVIDERS: ATTEND Surgery
DX: Z01.818 Encounter for other preprocedural examination (principal)

== ENCOUNTER 2018-02-07 07:30 | Day surgery (SDC) | payer MEDICAID ==
[2018-02-07] VITALS (9 sets, daily range): BP systolic 96–108; BP diastolic 50–78
[~2018-02-07] VITALS: Ht 165.1 cm; Wt 62.6 kg
[~2018-02-07 07:30] MED LIST changes: +LISD40CA3 PO; +SERT50TA2 PO
[2018-02-07] MEDS ORDERED: ceFAZolin INJECTION 1,000 MG in NS (IVPB) 100 ML IV ONE (07:45)
--- NOTE | 2018-02-07 08:05 | Progress Note-Pre Operative ---
Pre-Operative Progress Note H&P Reviewed The H&P was reviewed, patient examined and no changes noted. Date Seen by Provider: February 07, 2018 Time Seen by Provider: 07:50 Date H&P Reviewed: February 07, 2018 Time H&P Reviewed: 07:55 Pre-Operative Diagnosis: Symptomatic external hemorrhoids YOANDY GUADARRAMA APRN February 07, 2018 8:05 am
[2018-02-07] MEDS: LACTATED RINGERS 1,000 ML IV PRN ×2 (08:09→09:40)
[2018-02-07] MEDS ORDERED: fentaNYL INJECTION 100 MCG/2 ML AMP ONE (08:11)
[2018-02-07] MEDS ORDERED: MIDAZOLAM 2 MG/2 ML (VERSED) VIAL ONE (08:11)
[2018-02-07] MEDS ORDERED: BUP/EPI 0.5% 1:200,000 (SENSORCAINE) 30 ML VIAL ONE (08:22)
[2018-02-07] MEDS ORDERED: SUCCINYLCHOLINE INJ 100 MG/5 ML SYR ONE ×2 (08:54→09:46)
[2018-02-07] MEDS ORDERED: NEO/POLY/BAC (NEOSPORIN) OINT 15 GM TUBE ONE (09:46)
[2018-02-07] MEDS ORDERED: ONDANSETRON 4 MG/2 ML (SDV) Z0FRAN ONE (09:46)
[2018-02-07] MEDS ORDERED: SEVOFLURANE (ULTANE) 15 ML INHAL SOLN ONE (09:46)
[2018-02-07] MEDS ORDERED: proPOfol 200 MG/20 ML (DIPRIVAN) VIAL IV ONE (09:46)
[2018-02-07] MEDS ORDERED: LIDOCAINE PF 2% 5 ML (XYLOCAINE) VIAL ONE (09:47)
[2018-02-07] MEDS ORDERED: LIDOCAINE JELLY 2% (XYLOCAINE) 5 ML TUBE ONE (09:47)
--- NOTE | 2018-02-07 10:02 | Progress Note-Post Operative ---
Post-Operative Progess Note Surgeon (s)/Vp Strategy (s) Surgeon MITCHEL DIANE MD Vp Strategy: catrina silverman APRN Pre-Operative Diagnosis Symptomatic external hemorrhoids Post-Operative Diagnosis symptomatic ext and in hemorrhoid cushion. Procedure & Operative Findings Date of Procedure 02/07/18 Procedure Performed/Findings anal exam under anesthesia, excision ext and int hemorrhoid cushion. Anesthesia Type General LMA Estimated Blood Loss Estimated blood loss (mL): minimal Specimens/Packing Specimens Removed ext and int hemorrhoidal cushion. MITCHEL DIANE MD February 07, 2018 10:02 am
[2018-02-07] MEDS ORDERED: HYDR-34 PO ×2 (10:05)
--- NOTE | 2018-02-07 10:07 | Discharge Inst-Surgical ---
D/C Lap Instructions-KIDO New, Converted, or Re-Newed RX: RX on Chart Follow Up Appt in 2 weeks Activity as tolerated No driving for 24 hours removing packing on first bowel movement, then gauze/pad daily and PRN. sitz bath QID and after q bowel movement. High Fiber Diet 25g or more per day Avoid Alcohol, Caffeine, Spicy [place] and Acid foods. Drink 64 fluid oz or more of fluids per day. Symptoms to Report: Fever over 101 degree F, Nausea/Vomiting If any problems/questions: Contact your physician or go to Emergency Room MITCHEL DIANE MD February 07, 2018 10:07 am
[2018-02-07] MEDS ORDERED: MEPERIDINE (DEMEROL) INJ 50 MG/ML IVP PRN (10:15)
[2018-02-07] MEDS ORDERED: morphine INJ 10 MG/ML 1ML (SYR OR VIAL) IVP PRN ×2 (10:15)
[2018-02-07] MEDS ORDERED: oxyCODONE/APAP 5/325MG (PERCOCET 5) TABLET PO PRN (10:15)
[2018-02-07] MEDS ORDERED: ACETAMINOPHEN 325 MG TABLET/CAPLET (TYLENOL) PO PRN (10:15)
[2018-02-07] MEDS ORDERED: ONDANSETRON 4 MG/2 ML (SDV) Z0FRAN IVP PRN ×2 (10:15)
--- NOTE | 2018-02-07 11:03 | Anesthesia-General Post-Op ---
General Patient Condition Mental Status/LOC: Same as Preop Cardiovascular: Satisfactory Nausea/Vomiting: Absent Respiratory: Satisfactory Pain: Controlled Complications: Absent Post Op Complications Complications None Follow Up Care/Instructions Patient Instructions None needed. Anesthesia/Patient Condition Patient Condition Patient is doing well, no complaints, stable vital signs, no apparent adverse anesthesia problems. No complications reported per nursing. NOÉ VELASCO CRNA February 07, 2018 11:03
[2018-02-07] MEDS ORDERED: HYDROmorphone 2 MG/ML VIAL (DILAUDID) ONE (13:26)
[2018-02-07] MEDS ORDERED: ONDANSETRON 4 MG/2 ML (SDV) Z0FRAN IVP ONE (13:30)
[2018-02-07] MEDS ORDERED: HYDROmorphone 1 MG/ML (DILAUDID) 1 ML SYRINGE IV ONE (13:30)
[2018-02-07] MEDS ORDERED: IBUPROFEN TABLET 200 MG TAB PO ONE ×2 (15:00→15:45)
--- NOTE | 2018-02-07 22:57 | OPERATIVE REPORT ---
DATE OF SERVICE: 02/07/2018 ATTENDING PRIMARY CARE PHYSICIAN: Bisi Chavarria DO PREOPERATIVE DIAGNOSIS: Symptomatic external hemorrhoid anteriorly. POSTPROCEDURE DIAGNOSES: Chronic stage between stage II and III external and internal hemorrhoidal cushion in the anterior position. PROCEDURE: Hemorrhoidectomy. SURGEON: Mitchel Diane MD MANAGER CONCRETE: Dwight Mayer APRN. ANESTHESIA: General laryngeal mask airway. ESTIMATED BLOOD LOSS: Minimal. FINDINGS: Chronically inflamed between stage II and III external and adjacent internal hemorrhoidal plexus, which continue to be symptomatic despite maximal medical therapy with high fiber diet and stool softeners. DISPOSITION: The patient tolerated the procedure well. INDICATIONS: The patient is a 22-year-old female, who reports pain, swelling and drainage sensation in the perianal region. She reports that she was and had a child approximately 1 year ago and during this process, the discomfort started. This is her second and reports that she did not have any issues in her first one. She was seen by a physician and was found to have hemorrhoids and underwent medical therapy with a high fiber diet as well as stool softeners to promote soft stools; however, continued to be symptomatic with swelling, redness, pain as well as a constant soilage sensation in the region. On examination, she was found to have chronic external and internal hemorrhoidal cushion between stage II and III anteriorly. DESCRIPTION OF PROCEDURE: The patient was brought to the operating room, laid supine on the table. After adequate IV pain and sedating medications and general laryngeal mask airway intubation, the patient was placed in lithotomy position and the perineum prepped and draped in standard surgical fashion. A 0.5% Marcaine with epinephrine was then used to anesthetize the pudendal nerve bilaterally. The external and internal anal sphincters were then relaxed and self-retaining speculum was placed. What was visualized was external and internal hemorrhoid plexus, which was dilated. We proceeded with excision of this en bloc. The hemorrhoidal cushions were anesthetized using 0.5% Marcaine with epinephrine. A 2-0 mucosal stay suture was placed proximal to the hemorrhoid and tagged. We then proceeded with the hemorrhoidal excision using a #15-blade as well as electrocautery preserving the sphincters throughout the process. Good hemostasis was observed and the mucosa and anoderm were then approximated using 2-0 Vicryl running suture. Good hemostasis was observed and a hemostasis was placed with a Surgicel wrapped over Gelfoam. The area was then cleaned and then a gauze followed by ABD pad were then placed. The patient tolerated the procedure well. We will start IV normal pain medication as well as a clear liquid diet. Once at home, she will be instructed to remove the packing on her first bowel movement and then proceed with promoting very soft stools with a high fiber diet or stool softeners or laxatives to prevent any type of straining upon having bowel movements. She also needs to do sitz baths after every bowel movement also on a q.i.d. basis to relax her sphincter tone and allow for a quicker resolution of healing. Job ID: [id number] DocumentID: [id number] Dictated Date: 02/07/2018 10:15:25 Structures Assembler Date: 02/07/2018 17:02:13 Dictated By: MITCHEL DIANE MD
== END 2018-02-07 16:05 | disposition home or self-care (01) ==
LOC: SDC 07:30
PROVIDERS: ATTEND Surgery
DX: K64.1 Second degree hemorrhoids (principal)
CPT/HCPCS: 84703; 87081; 88304

== ENCOUNTER 2018-02-09 10:12 | Emergency (ER) | payer MEDICAID ==
[~2018-02-09] VITALS: Ht 165.1 cm; Wt 62.6 kg
[~2018-02-09 10:12] MED LIST changes: +HYDR-34 PO
--- OUTSIDE RECORDS SUMMARY | 2018-02-09 10:17 | XMS REPORT | Clinical Summary ---
Author Author [facility] Organization [facility] Address Unknown Phone Unavailable Care Team Providers Care Criminal Analyst Name Role Phone No Pcp, Na PCP Unavailable Source Comments Some departments are not documenting in the electronic medical record. If you do not see the information that you expected, contact Release of Information in the Health Information Management department at [phone] for further assistance in locating additional records.[facility] Allergies No Known Allergies Current Medications Prescription Sig. Disp. Refills Start End Date Status Date Take by mouth. Active Fufiatiw-Vt-Wos-Fe-FA tab cephalexin (KEFLEX) 500 One twice a [...] Valles continue to follow with her high-risk OB-ONLINE PRODUCER, and that she can be placed on prophylactic antibiotics per her OB-ONLINE PRODUCER if indicated. RTC PRN. L ast Assessment [...] sent. -- Recommending close follow up w/ [facility]; consider following her serial renal/bladder u/s -- RTC following in approximately 2 weeks to discuss renal/bladder u/s ordered today -- [facility] PATTERN[facility] consult for high-risk placed Immunizations Name Dates Previously Given Next Due Tdap Vaccine 04/02/2017 Social History Tobacco Use Types Packs/Day Years Used Date Never Smoker Alcohol Use Drinks/Week oz/Week Comments No 0 Standard 0.0 drinks or equivalent Sex Assigned at Date Recorded Not on [...]
--- OUTSIDE RECORDS SUMMARY | 2018-02-09 10:17 | XMS REPORT ---
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 26474450 Problem Intrinsic eczema L20.84 Active 53066771 Problem ADHD (attention deficit hyperactivity disorder), inattentive type F90.0 Active 51811474 Problem Migraine without aura and without status migrainosus, not intractable G43.009 Active 738459652 Problem Depressive disorder, not elsewhere classified F32.9 Active 04549084 Problem Attention deficit disorder (ADD) 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 Active 08777028 Problem Controlled substance agreement signed Z79.899 Active 292281905 Problem High risk medication use Z79.899 Active [id number] ALLERGIES No Information ENCOUNTERS Encounter Location Date Diagnosis [facility] [id number] [place] [address] 26925- 8802 February, [facility] [id number] [place] [address] 13203- 3322 Jan, [facility] [id number] [place] [address] 01761- 5791 Jan, ADHD (attention deficit hyperactivity disorder), inattentive type F90.0 [facility] [id number] [place] [address] 75063- 9182 Jan, ADHD (attention deficit hyperactivity disorder), inattentive type F90.0 [facility] [address] [place] [address] 46963- 0434 Jan, [place] [id number] [place] [address] 12548- 6673 Jan, ADHD (attention deficit hyperactivity disorder), inattentive type F90.0 and Generalized anxiety disorder F41.1 [place] [id number] [place] [address] 07169- 2028 Dec, ADHD (attention deficit hyperactivity disorder), inattentive type F90.0 [place] [id number] [place] [address] 07111- 6803 Dec, Strain of flexor muscle of right hip, subsequent encounter S76.011D and Groin strain, right, initial encounter S76.211A [facility] [place] [id number] [place] [address] 69809 -6634 Dec, Intractable episodic headache, unspecified headache type R51 [facility] [place] [id number] [place] [address] 72825 -8104 Dec, Fever R50.9 ; Otitis media due to influenza J11.83 ; Flu- like symptoms R68.89 and Stuffy and runny nose J34.89 [place] [address] [place] [address] 57165- 0284 Dec, Strain of flexor muscle of right hip, initial encounter S76.011A [place] [id number] [place] [address] 25975- 2056 Nov, ADHD (attention deficit hyperactivity disorder), inattentive type F90.0 and Generalized anxiety disorder F41.1 [place] [id number] [place] [address] 00381- 8680 Nov, Burning with urination R30.0 and 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 [place] [address] [place] [address] 17528- 9480 Oct, ADHD (attention deficit hyperactivity disorder), inattentive type F90.0 and Generalized anxiety disorder F41.1 [place] [address] [place] [address] Oct, Routine gynecological examination Z01.419 ; Routine screening for STI (sexually transmitted infection) Z11.3 and Trichomoniasis of vagina A59.01 [place] [address] [place] [address] 63314- 7134 Oct, ADHD (attention deficit hyperactivity disorder), inattentive type F90.0 and Generalized anxiety disorder F41.1 [place] [id number] [place] [address] 12987- 5651 Sep, [place] [id number] [place] [address] 22377- 6668 Sep, [place] [id number] [place] [address] 48639- 7388 Sep, ADHD (attention deficit hyperactivity disorder), inattentive 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 and Generalized anxiety disorder F41.1 [place] [address] [place] [address] 93127- 3716 Sep, Dysuria R30.0 ; Vaginal discharge N89.8 ; Generalized anxiety disorder F41.1 and Attention deficit disorder (ADD) 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 [facility] [place] [address] [place] [address] 21067 -5763 Aug, Burning with urination R30.0 and Acute cystitis without hematuria N30.00 [place] [id number] [place] [address] 55869- 6980 Aug, [facility] [id number] [place] [address] 27981 -8536 Aug, Dysuria R30.0 and Acute cystitis without hematuria N30.00 [place] [id number] [place] [address] 46910- 2977 Aug, ADHD (attention deficit hyperactivity disorder), inattentive type F90.0 and Generalized anxiety disorder F41.1 [place] [id number] [place] [address] 98571- 2828 Aug, [facility] [address] [address]- [address]177 Aug, Generalized anxiety disorder F41.1 [facility] [id number] [place] [address] 28895- 3232 Jul, ADHD (attention deficit hyperactivity disorder), inattentive type F90.0 ; Generalized anxiety disorder F41.1 and Migraine without aura and without status migrainosus, not intractable G43.009 [facility] [id number] [place] [address] 72371- 7493 28 Jun, 2017 [facility] [id number] [place] [address] 33633- 9381 22 Jun, 2017 [facility] [id number] [place] [address] 29533- 0909 Jun, [facility] [id number] [place] [address] 73023- 3517 Jun, ADHD (attention deficit hyperactivity disorder), inattentive type F90.0 ; Controlled substance agreement signed Z79.899 and High risk medication use Z79.899 [facility] [address] [id number] Jun, 2017 Dental examination Z01.20 [facility] [id number] [place] [address] 18232- 5970 08 Jun, 2017 [facility] [id number] [place] [address] 13534- 5507 08 Jun, 2017 Intractable migraine without aura and without status migrainosus G43.019 [facility] [id number] [place] [address] 36366- 6194 07 Jun, 2017 Intractable migraine without aura and without status migrainosus G43.019 [facility] [id number] [place] [id number] May, Dental examination Z01.20 [facility] [id number] [place] [address] 99298- 2390 14 May, 2017 Generalized anxiety disorder F41.1 ; Depressive disorder, not elsewhere classified F32.9 and Attention deficit disorder (ADD) 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 [facility] [id number] [place] [address] 92580- 7559 04 May, 2017 Screening for deficiency anemia Z13.0 [facility] [address] [id number] Apr, Encounter for dental examination Z01.20 [facility] [address] [id number] Mar, Dental examination Z01.20 [place] [address] 39037- 4647 Jan, Dental examination Z01.20 [place] [address] 72424- 0506 Jan, Dental examination Z01.20 [place] [address] 76581- 9771 Dec, Generalized anxiety disorder F41.1 [place] [address] 08520- 9663 Dec, ADHD (attention deficit hyperactivity disorder), inattentive 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 ; Generalized social phobia F40.11 and Social phobia, generalized F40.11 [place] [id number] [place] [address] 30819- 4826 Nov, Intrinsic eczema L20.84 and Reactive depression F32.9 [place] [address] 91247- 3273 Oct, Urinary tract infection, site unspecified N39.0 ; CVA tenderness M54.9 and Nausea and vomiting during O21.9 [place] [id number] [place] [address] 56384- 1446 Sep, [place] [address] [facility] [id number] [place] [address] Sep, Routine health maintenance Z00.00 ; Frequent UTI N39.0 and Family history of diabetes mellitus Z83.3 [facility] [address] [facility] [id number] [address] 29 Aug, 2016 Routine health maintenance Z00.00 ; Burning with urination R30.0 ; Frequent UTI N39.0 ; Cystitis N30.90 ; Family history of diabetes mellitus Z83.3 and 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 [facility] [address] [facility] [id number] [address] Aug, IMMUNIZATIONS No Known Immunizations SOCIAL HISTORY Never Assessed REASON FOR VISIT PA for Amphet/Dextroamphet ER PLAN OF CARE VITAL SIGNS MEDICATIONS Unknown Medications RESULTS No Results PROCEDURES No Known procedures INSTRUCTIONS MEDICATIONS ADMINISTERED No Known Medications MEDICAL (GENERAL) HISTORY Type Description Date Medical History psoriasis Medical History had a nephrostomy tube when she was Medical History renal reflux as a kid with subsequent surgery for this Surgical History Kidney reflux Surgical History TMJ surgery- removed part of jaw and replaced with coral- states pins/screws in jaw 2010 Hospitalization History child Hospitalization History with surgeries listed above Hospitalization History denies any past psychiatric hospitalizations
--- OUTSIDE RECORDS SUMMARY | 2018-02-09 10:17 | XMS REPORT ---
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 23485132 Problem Intrinsic eczema L20.84 Active 97726639 Problem ADHD (attention deficit hyperactivity disorder), inattentive type F90.0 Active 08533798 Problem Migraine without aura and without status migrainosus, not intractable G43.009 Active 994428431 Problem Depressive disorder, not elsewhere classified F32.9 Active 01695231 Problem Attention deficit disorder (ADD) 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 Active 01323697 Problem Controlled substance agreement signed Z79.899 Active 348969089 Problem High risk medication use Z79.899 Active [id number] ALLERGIES Substance Reaction Event Type Date Status NO EPINEPHRINE per OB doctor WHILE HIGH RISK while preg per PHYSICIAN Non Drug Allergy Jun, Active ENCOUNTERS Encounter Location Date Diagnosis [facility] [id number] [address] February, [facility] [id number] [address] Jan, [facility] [id number] [place] [address] 11164- 4179 Jan, ADHD (attention deficit hyperactivity disorder), inattentive type F90.0 [facility] [id number] [address] 9[address] Jan, ADHD (attention deficit hyperactivity disorder), inattentive type F90.0 [place] [address] [place] [address] 88715- 3133 Jan, [place] [id number] [place] [address] 35910- 1516 Jan, ADHD (attention deficit hyperactivity disorder), inattentive type F90.0 and Generalized anxiety disorder F41.1 [place] [id number] [place] [address] 48235- 9852 Dec, ADHD (attention deficit hyperactivity disorder), inattentive type F90.0 [place] [id number] [place] [address] 76494- 0959 Dec, Strain of flexor muscle of right hip, subsequent encounter S76.011D and Groin strain, right, initial encounter S76.211A [facility] [place] [id number] [place] [address] 98285 -6893 Dec, Intractable episodic headache, unspecified headache type R51 [facility] [place] [id number] [place] [address] 99890 -9965 Dec, Fever R50.9 ; Otitis media due to influenza J11.83 ; Flu- like symptoms R68.89 and Stuffy and runny nose J34.89 [place] [id number] [place] [address] 19087- 3819 Dec, Strain of flexor muscle of right hip, initial encounter S76.011A [place] [id number] [place] [address] 58941- 3331 Nov, ADHD (attention deficit hyperactivity disorder), inattentive type F90.0 and Generalized anxiety disorder F41.1 [place] [id number] [place] [address] 05463- 5672 Nov, Burning with urination R30.0 and 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 [place] [id number] [place] [address] 61190- 1664 Oct, ADHD (attention deficit hyperactivity disorder), inattentive type F90.0 and Generalized anxiety disorder F41.1 [place] [id number] [place] [address] 53539- 7036 Oct, Routine gynecological examination Z01.419 ; Routine screening for STI (sexually transmitted infection) Z11.3 and Trichomoniasis of vagina A59.01 [place] [address] 7[address]13- 5067 Oct, ADHD (attention deficit hyperactivity disorder), inattentive type F90.0 and Generalized anxiety disorder F41.1 [place] [address] 56947- 9843 Sep, [place] [address] 22698- 6739 Sep, [place] [address] 24629- 9577 Sep, ADHD (attention deficit hyperactivity disorder), inattentive type F90.0 and Generalized anxiety disorder F41.1 [place] [id number] [place] [address] 39909- 6688 Sep, Dysuria R30.0 ; Vaginal discharge N89.8 ; Generalized anxiety disorder F41.1 and Attention deficit disorder (ADD) 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 [facility] IN [facility] [id number] [place] [address] 44032 -8025 Aug, Burning with urination R30.0 and Acute cystitis without hematuria N30.00 [place] [id number] [place] [address] 08177- 0409 Aug, [facility] [address] 28669 -9205 Aug, Dysuria R30.0 and Acute cystitis without hematuria N30.00 [place] [id number] [place] [address] 38112- 2834 Aug, ADHD (attention deficit hyperactivity disorder), inattentive type F90.0 and Generalized anxiety disorder F41.1 [facility] [id number] [place] [address] 85135- 5696 Aug, [facility] [id number] [place] [address] Aug, Generalized anxiety disorder F41.1 [facility] [id number] [place] [address] 48028- 8600 Jul, ADHD (attention deficit hyperactivity disorder), inattentive type F90.0 ; Generalized anxiety disorder F41.1 and Migraine without aura and without status migrainosus, not intractable G43.009 [facility] [id number] [place] [address] 55854- 2109 28 Jun, 2017 [facility] [id number] [place] [address] 52629- 1911 Jun, [facility] [id number] [place] [address] 23250- 5565 Jun, [facility] [id number] [place] [address] 66345- 2028 Jun, ADHD (attention deficit hyperactivity disorder), inattentive type F90.0 ; Controlled substance agreement signed Z79.899 and High risk medication use Z79.899 [facility] [address] [place] [address] [id number] 14 Jun, 2017 Dental examination Z01.20 [facility] [id number] [place] [address] 43114- 3674 08 Jun, 2017 [facility] [id number] [place] [address] 73014- 7919 08 Jun, 2017 Intractable migraine without aura and without status migrainosus G43.019 [facility] [id number] [place] [address] 19290- 4726 07 Jun, 2017 Intractable migraine without aura and without status migrainosus G43.019 [facility] [address] [place] [id number] 16 May, 2017 Dental examination Z01.20 [facility] [address] 393053- 1190 May, Generalized anxiety disorder F41.1 ; Depressive disorder, not elsewhere classified F32.9 and Attention deficit disorder (ADD) 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 [place] [address] 60209- 4389 04 May, 2017 Screening for deficiency anemia Z13.0 [facility] [address] [id number] 14 Apr, 2017 Encounter for dental examination Z01.20 [facility] [address] [id number] Mar, Dental examination Z01.20 [place] [id number] [place] [address] 68823- 2809 Jan, Dental examination Z01.20 [facility] [id number] [place] [address] 17172- 9454 Jan, Dental examination Z01.20 [place] [address] 11540- 4341 24 Dec, 2016 Generalized anxiety disorder F41.1 [place] [id number] [place] [address] 04803- 9900 14 Dec, 2016 ADHD (attention deficit hyperactivity disorder), inattentive type F90.0 ; Generalized social phobia F40.11 and Social phobia, generalized F40.11 [place] [id number] [place] [address] 88126- 9779 Nov, Intrinsic eczema L20.84 and Reactive depression F32.9 [place] [id number] [place] [address] Oct, Urinary tract infection, site unspecified N39.0 ; CVA tenderness M54.9 and Nausea and vomiting during O21.9 [place] [id number] [address] 2546 Sep, [place] [address] [facility] [id number] [address] 5946 Sep, Routine health maintenance Z00.00 ; Frequent UTI N39.0 and Family history of diabetes mellitus Z83.3 [place] [id number] [address] 2546 Aug, Routine health maintenance Z00.00 ; Burning with urination R30.0 ; Frequent UTI N39.0 ; Cystitis N30.90 ; Family history of diabetes mellitus Z83.3 and 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 States it did not help at all. States her head has never hurt this bad before. Feels nauseated but no vomiting. Tried taking some left over tylenol #3 from deliver 05/07/17 and it did not help either-DARNELL Gandhi PLAN OF CARE Activity Details Follow Up 2 - 3 Days Reason:migraine VITAL SIGNS Height 5'5" in 2017-06-14 Weight 148 lbs 2017-06-14 Temperature 98 degrees Fahrenheit 2017-06-14 Heart Rate 88 bpm 2017-06-14 Respiratory Rate 20 2017-06-14 BMI 24.63 kg/m2 2017-06-14 Blood pressure systolic 100 mmHg 2017-06-14 Blood pressure diastolic 60 mmHg 2017-06-14 MEDICATIONS Medication Instructions Dosage Frequency Start Date End Date Duration Status Sumatriptan Succinate 25 MG Orally Twice a day prn 1 tablet as needed for migraine Jun, 07 days Active Topamax 25 MG Orally Once a day at bedtime 1 tablet Jun, 30 day(s) Active RESULTS Name Result Date Reference Range CT Scan : Brain w/o Contrast 2017-06-14 PROCEDURES Procedure Date Ordered Result Body Site TORADOL (IM) 60 MG/2ML (UP TO 15 MG) Jun 14, 2017 PHENERGAN (IM) 12.5 MG (25 MG/ML) Jun 14, 2017 THER/PROPH/DIAG INJ, SC/IM Jun 14, 2017 DEXAMETHASONE 4MG/ML (PER 1 MG) Jun 14, 2017 INSTRUCTIONS MEDICATIONS ADMINISTERED No Known Medications MEDICAL [...]
--- OUTSIDE RECORDS SUMMARY | 2018-02-09 10:18 | XMS REPORT ---
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 69855296 Problem Intrinsic eczema L20.84 Active 19518036 Problem ADHD (attention deficit hyperactivity disorder), inattentive type F90.0 Active 71805478 Problem Migraine without aura and without status migrainosus, not intractable G43.009 Active 209893680 Problem Depressive disorder, not elsewhere classified F32.9 Active 16979855 Problem Attention deficit disorder (ADD) 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 Active 32884180 Problem Controlled substance agreement signed Z79.899 Active 353359182 Problem High risk medication use Z79.899 Active 448125409064330 ALLERGIES Substance Reaction Event Type Date Status NO EPINEPHRINE per OB doctor WHILE HIGH RISK while preg per PHYSICIAN Non Drug Allergy Jun, Active ENCOUNTERS Encounter Location Date Diagnosis [facility] [id number] [place] [address] 35231- 4551 February, [facility] [id number] [address] 2355 Jan, [facility] [id number] [place] [address] 48569- 0142 Jan, ADHD (attention deficit hyperactivity disorder), inattentive type F90.0 [facility] [id number] [address]- 0079 Jan, ADHD (attention deficit hyperactivity disorder), inattentive type F90.0 [place] [address] [address]- 8674 Jan, [place] [id number] [place] [address] 43529- 7889 Jan, ADHD (attention deficit hyperactivity disorder), inattentive type F90.0 and Generalized anxiety disorder F41.1 [place] [id number] [place] [address] 46905- 8393 Dec, ADHD (attention deficit hyperactivity disorder), inattentive type F90.0 [place] [address] [place] [address] 28829- 3777 Dec, Strain of flexor muscle of right hip, subsequent encounter S76.011D and Groin strain, right, initial encounter S76.211A [facility]ALK IN [place] [id number] [place] [address] 32408 -7028 Dec, Intractable episodic headache, unspecified headache type R51 [facility] IN [place] [id number] [place] [address] 91242 -3510 15 Dec, 2017 Fever R50.9 ; Otitis media due to influenza J11.83 ; Flu- like symptoms R68.89 and Stuffy and runny nose J34.89 [place] [address] [place] [address] 21751- 3806 Dec, Strain of flexor muscle of right hip, initial encounter S76.011A [place] [address] [place] [address] 30095- 9076 Nov, ADHD (attention deficit hyperactivity disorder), inattentive type F90.0 and Generalized anxiety disorder F41.1 [place] [id number] [place] [address] 33007- 8424 Nov, Burning with urination R30.0 and 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 [place] [address] [place] [address] 06023- 0407 Oct, ADHD (attention deficit hyperactivity disorder), inattentive type F90.0 and Generalized anxiety disorder F41.1 [place] [address] [place] [address] [id number] [place] [address] 88272- 6835 09 Oct, 2017 Routine gynecological examination Z01.419 ; Routine screening for STI (sexually transmitted infection) Z11.3 and Trichomoniasis of vagina A59.01 [place] [id number] [place] [address] 18664- 6790 Oct, ADHD (attention deficit hyperactivity disorder), inattentive type F90.0 and Generalized anxiety disorder F41.1 [place] [address] [id number] [place] [address] 75739- 3539 Sep, [place] [address] 30682- 2788 Sep, [place] [address] [place] [id number] [place] [address] 39028- 7297 Sep, ADHD (attention deficit hyperactivity disorder), inattentive type F90.0 and Generalized anxiety disorder F41.1 [place] [id number] [place] [address] 57719- 1379 Sep, Dysuria R30.0 ; Vaginal discharge N89.8 ; Generalized anxiety disorder F41.1 and Attention deficit disorder (ADD) 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 [facility] [id number] [place] [address] 52125 -3090 Aug, Burning with urination R30.0 and Acute cystitis without hematuria N30.00 [place] [id number] [place] [address] 21496- 1492 Aug, [facility] [id number] [place] [address] 70614 -6559 Aug, Dysuria R30.0 and Acute cystitis without hematuria N30.00 [place] [id number] [place] [address] 24244- 0290 Aug, ADHD (attention deficit hyperactivity disorder), inattentive type F90.0 and Generalized anxiety disorder F41.1 [facility] [id number] [place] [address] 43242- 3974 Aug, [facility] [id number] [place] [address] 7246 Aug, Generalized anxiety disorder F41.1 [facility] [id number] [place] [address] 43818- 8555 Jul, ADHD (attention deficit hyperactivity disorder), inattentive type F90.0 ; Generalized anxiety disorder F41.1 and Migraine without aura and without status migrainosus, not intractable G43.009 [facility] [id number] [place] [address] 77469- 7657 28 Jun, 2017 [facility] [id number] [place] [address] 77558- 1577 Jun, [facility] [address] 01437- 0041 Jun, [facility] [id number] [place] [address] 26552- 8291 Jun, ADHD (attention deficit hyperactivity disorder), inattentive type F90.0 ; Controlled substance agreement signed Z79.899 and High risk medication use Z79.899 [facility] [id number] [place] [address] [id number] 14 Jun, 2017 Dental examination Z01.20 [facility] [id number] [place] [address] 90367- 9850 08 Jun, 2017 [facility] [id number] [place] [address] 77977- 2929 08 Jun, 2017 Intractable migraine without aura and without status migrainosus G43.019 [facility] [id number] [place] [address] 10095- 6690 07 Jun, 2017 Intractable migraine without aura and without status migrainosus G43.019 [facility] [id number] [place] [address] [id number] May, Dental examination Z01.20 [facility] [id number] [place] [address] 50379- 0648 14 May, 2017 Generalized anxiety disorder F41.1 ; Depressive disorder, not elsewhere classified F32.9 and Attention deficit disorder (ADD) 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 [place] [address] 06187- 4781 04 May, 2017 Screening for deficiency anemia Z13.0 [facility] [address] [id number] Apr, Encounter for dental examination Z01.20 [facility] [address] [id number] Mar, Dental examination Z01.20 [place] [address] 66950- 4765 Jan, Dental examination Z01.20 [place] [address] 16937- 0429 Jan, Dental examination Z01.20 [place] [address] 57471- 1715 24 Dec, 2016 Generalized anxiety disorder F41.1 [place] [address] 59938- 2108 14 Dec, 2016 ADHD (attention deficit hyperactivity disorder), inattentive type F90.0 ; Generalized social phobia F40.11 and Social phobia, generalized F40.11 [place] [id number] [place] [address] 66903- 1959 Nov, Intrinsic eczema L20.84 and Reactive depression F32.9 [place] [address] 26728- 6382 12 Oct, 2016 Urinary tract infection, site unspecified N39.0 ; CVA tenderness M54.9 and Nausea and vomiting during O21.9 [place] [address] 48506- 4226 Sep, [facility] [address] [facility] [id number] [place] [address]- 5856 Sep, Routine health maintenance Z00.00 ; Frequent UTI N39.0 and Family history of diabetes mellitus Z83.3 [facility] [address] [facility] [address] [id number] [address] 2546 Aug, Routine health maintenance Z00.00 ; Burning with urination R30.0 ; Frequent UTI N39.0 ; Cystitis N30.90 ; Family history of diabetes mellitus Z83.3 and 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 [place] [address] [facility] [id number] [address]- 7636 Aug, IMMUNIZATIONS No Known Immunizations SOCIAL HISTORY Never Assessed REASON FOR VISIT JENI PLAN OF CARE Activity Details Follow Up prn Reason: VITAL SIGNS Height 5'5" in 2017-06-20 Blood pressure systolic 118 mmHg 2017-06-20 Blood pressure diastolic 71 mmHg 2017-06-20 MEDICATIONS Medication Instructions Dosage Frequency Start Date End Date Duration Status Sumatriptan Succinate 25 MG Orally Twice a day prn 1 tablet as needed for migraine Jun, 07 days Active Topamax 25 MG Orally Once a day at bedtime 1 tablet Jun, 30 day(s) Active RESULTS No Results PROCEDURES Procedure Date Ordered Result Body Site LTD ORAL EVALUATION - PROBLEM FOCUS Jun 20, 2017 INTRAORL-PERIAPICAL 1 FILM 00012 Jun 20, 2017 INSTRUCTIONS MEDICATIONS ADMINISTERED No Known Medications [...]
--- OUTSIDE RECORDS SUMMARY | 2018-02-09 10:18 | XMS REPORT ---
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899 Active [id number] ALLERGIES Substance Reaction Event Type Date Status NO EPINEPHRINE per OB doctor WHILE HIGH RISK while preg per PHYSICIAN Non Drug Allergy Jun, Active ENCOUNTERS Encounter Location Date Diagnosis [facility] [id number] [address] February, [facility] [address] [id number] [address] Jan, [facility] [id number] [place] [address] 08123- 9554 Jan, ADHD (attention deficit hyperactivity disorder), inattentive type F90.0 [facility] [id number] [address] Jan, ADHD (attention deficit hyperactivity disorder), inattentive type F90.0 [place] [address] [place] [address] 00648- 3539 Jan, [place] [id number] [place] [address] 15150- 5456 Jan, ADHD (attention deficit hyperactivity disorder), inattentive type F90.0 and Generalized anxiety disorder F41.1 [place] [id number] [place] [address] 29051- 3704 Dec, ADHD (attention deficit hyperactivity disorder), inattentive type F90.0 [place] [id number] [place] [address] 67016- 4139 Dec, Strain of flexor muscle of right hip, subsequent encounter S76.011D and Groin strain, right, initial encounter S76.211A [facility] [place] [id number] [place] [address] 29472 -8981 Dec, Intractable episodic headache, unspecified headache type R51 [facility] [place] [id number] [place] [address] 96224 -4543 Dec, Fever R50.9 ; Otitis media due to influenza J11.83 ; Flu- like symptoms R68.89 and Stuffy and runny nose J34.89 [place] [id number] [place] [address] 53969- 8052 Dec, Strain of flexor muscle of right hip, initial encounter S76.011A [place] [id number] [place] [address] 61861- 6893 Nov, ADHD (attention deficit hyperactivity disorder), inattentive type F90.0 and Generalized anxiety disorder F41.1 [place] [id number] [place] [address] 52382- 2010 Nov, Burning with urination R30.0 and 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 [place] [id number] [place] [address] 52916- 5413 Oct, ADHD (attention deficit hyperactivity disorder), inattentive type F90.0 and Generalized anxiety disorder F41.1 [place] [id number] [place] [address] 79395- 9125 Oct, Routine gynecological examination Z01.419 ; Routine screening for STI (sexually transmitted infection) Z11.3 and Trichomoniasis of vagina A59.01 [place] [address] 07[address]- 0638 Oct, ADHD (attention deficit hyperactivity disorder), inattentive type F90.0 and Generalized anxiety disorder F41.1 [place] [address] 27706- 1650 Sep, [place] [address] 18752- 1623 Sep, [place] [address] 09835- 0806 Sep, ADHD (attention deficit hyperactivity disorder), inattentive type F90.0 and Generalized anxiety disorder F41.1 [place] [id number] [place] [address] 62898- 3136 Sep, Dysuria R30.0 ; Vaginal discharge N89.8 ; Generalized anxiety disorder F41.1 and Attention deficit disorder (ADD) 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 [facility] WALK IN [facility] [id number] [place] [address] 20483 -0459 Aug, Burning with urination R30.0 and Acute cystitis without hematuria N30.00 [place] [id number] [place] [address] 69726- 6413 Aug, [facility] WALK IN [facility] [address] 05515 -7519 Aug, Dysuria R30.0 and Acute cystitis without hematuria N30.00 [place] [id number] [place] [address] 46805- 7868 Aug, ADHD (attention deficit hyperactivity disorder), inattentive type F90.0 and Generalized anxiety disorder F41.1 [facility] [id number] [place] [address] 30958- 9935 Aug, [facility] [id number] [place] [address] Aug, Generalized anxiety disorder F41.1 [facility] [id number] [place] [address] 90060- 8307 Jul, ADHD (attention deficit hyperactivity disorder), inattentive type F90.0 ; Generalized anxiety disorder F41.1 and Migraine without aura and without status migrainosus, not intractable G43.009 [facility] [id number] [place] [address] 57561- 7200 28 Jun, 2017 [facility] [id number] [place] [address] 22774- 7864 Jun, [facility] [id number] [place] [address] 92520- 1817 Jun, [facility] [id number] [place] [address] 25705- 3585 Jun, ADHD (attention deficit hyperactivity disorder), inattentive type F90.0 ; Controlled substance agreement signed Z79.899 and High risk medication use Z79.899 [facility] [address] [place] [address] [id number] 14 Jun, 2017 Dental examination Z01.20 [facility] [id number] [place] [address] 71143- 9448 08 Jun, 2017 [facility] [id number] [place] [address] 13582- 6686 08 Jun, 2017 Intractable migraine without aura and without status migrainosus G43.019 [facility] [id number] [place] [address] 50867- 3115 07 Jun, 2017 Intractable migraine without aura and without status migrainosus G43.019 [facility] [address] [place] [id number] 16 May, 2017 Dental examination Z01.20 [facility] [address] 235995- [address]80 May, Generalized anxiety disorder F41.1 ; Depressive disorder, not elsewhere classified F32.9 and Attention deficit disorder (ADD) 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 [place] [address] 90424- 8982 04 May, 2017 Screening for deficiency anemia Z13.0 [facility] [address] [id number] 14 Apr, 2017 Encounter for dental examination Z01.20 [facility] [address] [id number] Mar, Dental examination Z01.20 [place] [id number] [place] [address] 96136- 8172 Jan, Dental examination Z01.20 [facility] [id number] [place] [address] 46833- 8994 Jan, Dental examination Z01.20 [place] [address] 81778- 5902 24 Dec, 2016 Generalized anxiety disorder F41.1 [place] [id number] [place] [address] 05088- 7059 14 Dec, 2016 ADHD (attention deficit hyperactivity disorder), inattentive type F90.0 ; Generalized social phobia F40.11 and Social phobia, generalized F40.11 [place] [id number] [place] [address] 36645- 0021 Nov, Intrinsic eczema L20.84 and Reactive depression F32.9 [place] [id number] [place] [address] Oct, Urinary tract infection, site unspecified N39.0 ; CVA tenderness M54.9 and Nausea and vomiting during O21.9 [place] [id number] [address] 2546 Sep, [place] [facility] [id number] [address] Sep, Routine health maintenance Z00.00 ; Frequent UTI N39.0 and Family history of diabetes mellitus Z83.3 [place] [address] [facility] [id number] [address] 2546 Aug, Routine health maintenance Z00.00 ; Burning with urination R30.0 ; Frequent UTI N39.0 ; Cystitis N30.90 ; Family history of diabetes mellitus Z83.3 and 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 [place] [address] [facility] [id number] [address] [address] Aug, IMMUNIZATIONS No Known Immunizations SOCIAL HISTORY Never Assessed REASON FOR VISIT Anxiety and ADHD, has seen Stan since about a year ago-Jessica PLAN OF CARE Activity Details Follow Up 4 Weeks Reason:ADHD follow up VITAL SIGNS Height 5'5" in 2017-06-25 Weight 148.9 lbs 2017-06-25 Temperature 98.0 degrees Fahrenheit 2017-06-25 Heart Rate 86 bpm 2017-06-25 Respiratory Rate 18 2017-06-25 BMI 24.78 kg/m2 2017-06-25 Blood pressure systolic 122 mmHg 2017-06-25 Blood pressure diastolic 70 mmHg 2017-06-25 MEDICATIONS Medication Instructions Dosage Frequency Start Date End Date Duration Status Topamax 25 MG Orally Once a day at bedtime 1 tablet Jun, 30 day(s) Active Adderall XR 5 mg Orally Once a day 1 capsule in the morning 24h Jun, 28 days Active Sumatriptan Succinate 25 MG Orally Twice a day prn 1 tablet as needed for migraine Jun, 07 days Active RESULTS Name Result Date Reference Range AMERITOX 2017-06-25 PROCEDURES Procedure Date Ordered Result Body Site No Charge Jun 25, 2017 INSTRUCTIONS MEDICATIONS ADMINISTERED No Known Medications [...]
--- OUTSIDE RECORDS SUMMARY | 2018-02-09 10:19 | XMS REPORT ---
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 80862297 Problem Intrinsic eczema L20.84 Active 20554156 Problem ADHD (attention deficit hyperactivity disorder), inattentive type F90.0 Active 10621016 Problem Migraine without aura and without status migrainosus, not intractable G43.009 Active 615605600 Problem Depressive disorder, not elsewhere classified F32.9 Active 90915731 Problem Attention deficit disorder (ADD) 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 Active 05821120 Problem Controlled substance agreement signed Z79.899 Active 713955396 Problem High risk medication use Z79.899 Active [id number] ALLERGIES Substance Reaction Event Type Date Status NO EPINEPHRINE per OB doctor WHILE HIGH RISK while preg per PHYSICIAN Non Drug Allergy Jun, Active ENCOUNTERS Encounter Location Date Diagnosis [facility] [id number] [address] February, [facility] [id number] [address] 2670 Jan, [facility] [id number] [place] [address] 89933- 1765 Jan, ADHD (attention deficit hyperactivity disorder), inattentive type F90.0 [facility] [id number] [address]- 1764 Jan, ADHD (attention deficit hyperactivity disorder), inattentive type F90.0 [place] [address] [place] [address] 66731- 1891 Jan, [place] [id number] [place] [address] 32403- 0789 Jan, ADHD (attention deficit hyperactivity disorder), inattentive type F90.0 and Generalized anxiety disorder F41.1 [place] [id number] [place] [address] 58978- 4966 Dec, ADHD (attention deficit hyperactivity disorder), inattentive type F90.0 [place] [id number] [place] [address] 66901- 4907 Dec, Strain of flexor muscle of right hip, subsequent encounter S76.011D and Groin strain, right, initial encounter S76.211A [facility] WALK IN [id number] [place] [address] 54966 -2252 Dec, Intractable episodic headache, unspecified headache type R51 [facility] WALK IN [id number] [place] [address] 62061 -0734 Dec, Fever R50.9 ; Otitis media due to influenza J11.83 ; Flu- like symptoms R68.89 and Stuffy and runny nose J34.89 [place] [id number] [place] [address] 06845- 7970 Dec, Strain of flexor muscle of right hip, initial encounter S76.011A [place] [id number] [place] [address] 08839- 8179 Nov, ADHD (attention deficit hyperactivity disorder), inattentive type F90.0 and Generalized anxiety disorder F41.1 [place] [id number] [place] [address] 44255- 9482 Nov, Burning with urination R30.0 and 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 [place] [id number] [place] [address] 56267- 1062 Oct, ADHD (attention deficit hyperactivity disorder), inattentive type F90.0 and Generalized anxiety disorder F41.1 [place] [id number] [place] [address] 34075- 0335 Oct, Routine gynecological examination Z01.419 ; Routine screening for STI (sexually transmitted infection) Z11.3 and Trichomoniasis of vagina A59.01 [place] [address] 86223- 5063 Oct, ADHD (attention deficit hyperactivity disorder), inattentive type F90.0 and Generalized anxiety disorder F41.1 [place] [address] 61313- 8507 Sep, [place] [address] 22332- 1265 Sep, [place] [address] 49754- 0265 Sep, ADHD (attention deficit hyperactivity disorder), inattentive type F90.0 and Generalized anxiety disorder F41.1 [place] [id number] [place] [address] 84994- 8768 Sep, Dysuria R30.0 ; Vaginal discharge N89.8 ; Generalized anxiety disorder F41.1 and Attention deficit disorder (ADD) 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 [facility] WALK IN [facility] [id number] [place] [address] 05567 -9350 Aug, Burning with urination R30.0 and Acute cystitis without hematuria N30.00 [place] [id number] [place] [address] 04909- 4541 Aug, [facility] WALK IN [facility] [address] 42493 -4163 Aug, Dysuria R30.0 and Acute cystitis without hematuria N30.00 [place] [id number] [place] [address] 14889- 6412 Aug, ADHD (attention deficit hyperactivity disorder), inattentive type F90.0 and Generalized anxiety disorder F41.1 [facility] [id number] [place] [address] 25671- 4450 Aug, [facility] [id number] [place] [address]233 Aug, Generalized anxiety disorder F41.1 [facility] [id number] [place] [address] 28452- 8122 Jul, ADHD (attention deficit hyperactivity disorder), inattentive type F90.0 ; Generalized anxiety disorder F41.1 and Migraine without aura and without status migrainosus, not intractable G43.009 [facility] [id number] [place] [address] 51836- 8899 28 Jun, 2017 [facility] [id number] [place] [address] 69792- 4811 Jun, [facility] [id number] [place] [address] 45235- 0395 Jun, [facility] [id number] [place] [address] 02147- 3446 Jun, ADHD (attention deficit hyperactivity disorder), inattentive type F90.0 ; Controlled substance agreement signed Z79.899 and High risk medication use Z79.899 [facility] [address] [place] [address] [id number] 14 Jun, 2017 Dental examination Z01.20 [facility] [id number] [place] [address] 09903- 8480 08 Jun, 2017 [facility] [id number] [place] [address] 70626- 7668 08 Jun, 2017 Intractable migraine without aura and without status migrainosus G43.019 [facility] [id number] [place] [address] 07784- 2354 07 Jun, 2017 Intractable migraine without aura and without status migrainosus G43.019 [facility] [address] [place] [id number] 16 May, 2017 Dental examination Z01.20 [facility] [address] 301648- 7589 May, Generalized anxiety disorder F41.1 ; Depressive disorder, not elsewhere classified F32.9 and Attention deficit disorder (ADD) 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 [place] [address] 81136- 4249 04 May, 2017 Screening for deficiency anemia Z13.0 [facility] [address] [id number] 14 Apr, 2017 Encounter for dental examination Z01.20 [facility] [address] [id number] Mar, Dental examination Z01.20 [place] [id number] [place] [address] 16321- 5551 Jan, Dental examination Z01.20 [facility] [id number] [place] [address] 71245- 3037 Jan, Dental examination Z01.20 [place] [address] 15976- 7731 24 Dec, 2016 Generalized anxiety disorder F41.1 [place] [id number] [place] [address] 22102- 8131 14 Dec, 2016 ADHD (attention deficit hyperactivity disorder), inattentive type F90.0 ; Generalized social phobia F40.11 and Social phobia, generalized F40.11 [place] [id number] [place] [address] 21279- 3349 Nov, Intrinsic eczema L20.84 and Reactive depression F32.9 [place] [id number] [place] [address] 0671 Oct, Urinary tract infection, site unspecified N39.0 ; CVA tenderness M54.9 and Nausea and vomiting during O21.9 [place] [address] [id number] [address] 2546 Sep, [place] [address] [facility] [id number] [address]- 1326 Sep, Routine health maintenance Z00.00 ; Frequent UTI N39.0 and Family history of diabetes mellitus Z83.3 [place] [id number] [place] [address] 96637 2546 Aug, Routine health maintenance Z00.00 ; Burning with urination R30.0 ; Frequent UTI N39.0 ; Cystitis N30.90 ; Family history of diabetes mellitus Z83.3 and 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 [place] [address] [facility] [id number] [place] [address] 853136- 2074 Aug, IMMUNIZATIONS Vaccine Route Administration Date Status TORADOL (IM) 60 MG/2ML (UP TO 15 MG) IM Intramuscular Jun 13, 2017 Administered SOCIAL HISTORY Never Assessed REASON FOR VISIT Headache, intermittent for years, constant x2 days, worsens with movement, pain medications not working---DBennettRN, reports sitting on couch yesterday and lost vision "complete blackness" for 15 seconds, also c/o anxiety and depression PLAN OF CARE Activity Details Follow Up 2 Weeks Reason:already scheduled VITAL SIGNS Height 5'5" in 2017-06-13 Weight 141 lbs 2017-06-13 Temperature 98.4 degrees Fahrenheit 2017-06-13 Heart Rate 80 bpm 2017-06-13 Respiratory Rate 20 2017-06-13 BMI 23.46 kg/m2 2017-06-13 Blood pressure systolic 100 mmHg 2017-06-13 Blood pressure diastolic 60 mmHg 2017-06-13 MEDICATIONS Medication Instructions Dosage Frequency Start Date End Date Duration Status Topamax 25 MG Orally Once a day at bedtime 1 tablet Jun, 30 day(s) Active RESULTS No Results PROCEDURES Procedure Date Ordered Result Body Site TORADOL (IM) 60 MG/2ML (UP TO 15 MG) Jun 13, 2017 THER/PROPH/DIAG INJ, SC/IM Jun 13, 2017 INSTRUCTIONS MEDICATIONS ADMINISTERED No Known Medications [...]
--- OUTSIDE RECORDS SUMMARY | 2018-02-09 10:19 | XMS REPORT ---
Author Author LEIGHJIHAN Padron 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 08795527 Problem Intrinsic eczema L20.84 Active 62941295 Problem ADHD (attention deficit hyperactivity disorder), inattentive type F90.0 Active 74392476 Problem Migraine without aura and without status migrainosus, not intractable G43.009 Active 586912507 Problem Depressive disorder, not elsewhere classified F32.9 Active 88795989 Problem Attention deficit disorder (ADD) 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 Active 81048390 Problem Controlled substance agreement signed Z79.899 Active 334555186 Problem High risk medication use Z79.899 Active [id number] ALLERGIES No Information ENCOUNTERS Encounter Location Date Diagnosis [facility] [id number] [place] [address] 66241- 7708 February, [facility] [id number] [place] [address] 10192- 1514 Jan, [facility] [id number] [place] [address] 83663- 5012 Jan, ADHD (attention deficit hyperactivity disorder), inattentive type F90.0 and Generalized anxiety disorder F41.1 [facility] [address] [place] [address] 26193- 9584 Dec, ADHD (attention deficit hyperactivity disorder), inattentive type F90.0 [facility] [address] [place] [address] 75448- 8007 Dec, Strain of flexor muscle of right hip, subsequent encounter S76.011D and Groin strain, right, initial encounter S76.211A [facility] [place] [id number] [place] [address] 99243 -0564 18 Dec, 2017 Intractable episodic headache, unspecified headache type R51 [facility]ALK IN [place] [id number] [place] [address] 55913 -4222 Dec, Fever R50.9 ; Otitis media due to influenza J11.83 ; Flu- like symptoms R68.89 and Stuffy and runny nose J34.[address] 32586- 2639 Dec, Strain of flexor muscle of right hip, initial encounter S76.011A [place] [id number] [place] [address] 10161- 6648 Nov, ADHD (attention deficit hyperactivity disorder), inattentive type F90.0 and Generalized anxiety disorder F41.1 [place] [id number] [place] [address] 84906- 3500 Nov, Burning with urination R30.0 and 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 [place] [id number] [place] [address] 95927- 1945 Oct, ADHD (attention deficit hyperactivity disorder), inattentive type F90.0 and Generalized anxiety disorder F41.1 [place] [id number] [place] [address] 63877- 0057 Oct, Routine gynecological examination Z01.419 ; Routine screening for STI (sexually transmitted infection) Z11.3 and Trichomoniasis of vagina A59.01 [place] [id number] [place] [address] 48644- 7755 Oct, ADHD (attention deficit hyperactivity disorder), inattentive type F90.0 and Generalized anxiety disorder F41.1 [place] [id number] [place] [address] 80304- 1178 Sep, [facility] [address] [place] [address] 17389- 3868 Sep, [place] [id number] [place] [address] 36531- 3796 Sep, ADHD (attention deficit hyperactivity disorder), inattentive type F90.0 and Generalized anxiety disorder F41.1 [place] [id number] [place] [address] 67862- 4942 Sep, Dysuria R30.0 ; Vaginal discharge N89.8 ; Generalized anxiety disorder F41.1 and Attention deficit disorder (ADD) 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 [facility] [place] [id number] [place] [address] 04015 -2975 Aug, Burning with urination R30.0 and Acute cystitis without hematuria N30.00 [place] [id number] [place] [address] 99405- 3799 Aug, [facility] IN [facility] [id number] [place] [address] 41428 -2150 Aug, Dysuria R30.0 and Acute cystitis without hematuria N30.00 [place] [id number] [place] [address] 34099- 6943 Aug, ADHD (attention deficit hyperactivity disorder), inattentive type F90.0 and Generalized anxiety disorder F41.1 [place] [address] [id number] [place] [address] 93689- 2082 Aug, [place] [address] [place] [address] [id number] [place] [address] 30926- 8612 Aug, Generalized anxiety disorder F41.1 [place] [address] [id number] [place] [address] 15451- 3036 Jul, ADHD (attention deficit hyperactivity disorder), inattentive type F90.0 ; Generalized anxiety disorder F41.1 and Migraine without aura and without status migrainosus, not intractable G43.009 [place] [id number] [place] [address] 46708- 7956 28 Jun, 2017 [facility] [id number] [place] [address] 84941- 5665 22 Jun, 2017 [facility] [id number] [place] [address] 09011- 1601 Jun, [facility] [address] 47272- 9087 Jun, ADHD (attention deficit hyperactivity disorder), inattentive type F90.0 ; Controlled substance agreement signed Z79.899 and High risk medication use Z79.899 [facility] [address] [id number] Jun, Dental examination Z01.20 [facility] [id number] [place] [address] 49124- 8664 08 Jun, 2017 [facility] [id number] [place] [address] 72698- 6833 08 Jun, 2017 Intractable migraine without aura and without status migrainosus G43.019 [facility] [id number] [place] [address] 45428- 9411 07 Jun, 2017 Intractable migraine without aura and without status migrainosus G43.019 [facility] [id number] [place] [address] [id number] 16 May, 2017 Dental examination Z01.20 [facility] [id number] [place] [address] 42419- 6571 May, Generalized anxiety disorder F41.1 ; Depressive disorder, not elsewhere classified F32.9 and Attention deficit disorder (ADD) 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 [facility] [id number] [place] [address] 98710- 3056 04 May, 2017 Screening for deficiency anemia Z13.0 [facility] [address] [id number] [place] [address] [id number] Apr, Encounter for dental examination Z01.20 [facility] [address] [place] [id number] [id number] Mar, Dental examination Z01.20 [place] [id number] [place] [address] 68793- 3675 19 Jan, 2017 Dental examination Z01.20 [place] [id number] [place] [address] 98833- 1517 13 Jan, 2017 Dental examination Z01.20 [place] [address] [address] [id number] [place] [address] 48020- 2168 24 Dec, 2016 Generalized anxiety disorder F41.[address] 67423- 5166 14 Dec, 2016 ADHD (attention deficit hyperactivity disorder), inattentive type F90.0 ; Generalized social phobia F40.11 and Social phobia, generalized F40.11 [place] [id number] [place] [address] 06558- 7657 Nov, Intrinsic eczema L20.84 and Reactive depression F32.9 [place] [id number] [place] [address] 33225- 6097 Oct, Urinary tract infection, site unspecified N39.0 ; CVA tenderness M54.9 and Nausea and vomiting during O21.9 [place] [id number] [place] [address] 63154- 5667 Sep, [place] [id number] [place] [address] 50199- 3905 Sep, Routine health maintenance Z00.00 ; Frequent UTI N39.0 and Family history of diabetes mellitus Z83.3 [place] [id number] [place] [address] 92009- 9973 Aug, Routine health maintenance Z00.00 ; Burning with urination R30.0 ; Frequent UTI N39.0 ; Cystitis N30.90 ; Family history of diabetes mellitus Z83.3 and 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
--- OUTSIDE RECORDS SUMMARY | 2018-02-09 10:19 | XMS REPORT ---
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899 Active [id number] ALLERGIES Substance Reaction Event Type Date Status NO EPINEPHRINE per OB doctor WHILE HIGH RISK while preg per PHYSICIAN Non Drug Allergy May, Active ENCOUNTERS Encounter Location Date Diagnosis [facility] [id number] [address] February, [facility] [id number] [address] 9534 Jan, [facility] [address] [place] [address] 01915- 2877 Jan, ADHD (attention deficit hyperactivity disorder), inattentive type F90.0 [facility] [id number] [place] [address] 35734- 8819 Jan, ADHD (attention deficit hyperactivity disorder), inattentive type F90.0 [place] [address] [place] [id number] [place] [address] 44860- 1969 Jan, [place] [address] [place] [id number] [place] [address] 40644- 9159 Jan, ADHD (attention deficit hyperactivity disorder), inattentive type F90.0 and Generalized anxiety disorder F41.1 [place] [address] [place] [address] [id number] [place] [address] 16675- 2639 Dec, ADHD (attention deficit hyperactivity disorder), inattentive type F90.0 [place] [address] [place] [id number] [place] [address] 55190- 4599 Dec, Strain of flexor muscle of right hip, subsequent encounter S76.011D and Groin strain, right, initial encounter S76.211A [facility] WALK IN [place] [address] [address] [id number] [place] [address] 26403 -4370 Dec, Intractable episodic headache, unspecified headache type R51 [facility]ALK IN [place] [address] [place] [address] [id number] [place] [address] 87263 -0359 Dec, Fever R50.9 ; Otitis media due to influenza J11.83 ; Flu- like symptoms R68.89 and Stuffy and runny nose J34.89 [place] [address] [place] [id number] [place] [address] 14276- 0330 Dec, Strain of flexor muscle of right hip, initial encounter S76.011A [place] [address] [place] [id number] [place] [address] 83720- 4707 Nov, ADHD (attention deficit hyperactivity disorder), inattentive type F90.0 and Generalized anxiety disorder F41.1 [place] [address] [place] [id number] [place] [address] 75092- 2460 Nov, Burning with urination R30.0 and 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 [place] [address] [place] [id number] [place] [address] 70336- 3202 Oct, ADHD (attention deficit hyperactivity disorder), inattentive type F90.0 and Generalized anxiety disorder F41.1 [place] [address] [place] [id number] [place] [address] 62064- 1335 Oct, Routine gynecological examination Z01.419 ; Routine screening for STI (sexually transmitted infection) Z11.3 and Trichomoniasis of vagina A59.01 [place] [address] 93084- 4180 Oct, ADHD (attention deficit hyperactivity disorder), inattentive type F90.0 and Generalized anxiety disorder F41.1 [place] [address] 62313- 4407 Sep, [place] [address] 01234- 6048 Sep, [place] [address] 22401- 7500 Sep, ADHD (attention deficit hyperactivity disorder), inattentive type F90.0 and Generalized anxiety disorder F41.1 [place] [address] 36128- 3306 Sep, Dysuria R30.0 ; Vaginal discharge N89.8 ; Generalized anxiety disorder F41.1 and Attention deficit disorder (ADD) 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 [facility] WALK IN [facility] [address] [place] [id number] [place] [address] 76836 -9881 Aug, Burning with urination R30.0 and Acute cystitis without hematuria N30.00 [place] [address] [place] [id number] [place] [address] 37923- 0873 Aug, [facility] WALK IN [facility] [address] 04132 -8713 Aug, Dysuria R30.0 and Acute cystitis without hematuria N30.00 [place] [address] [place] [id number] [place] [address] 96205- 2946 Aug, ADHD (attention deficit hyperactivity disorder), inattentive type F90.0 and Generalized anxiety disorder F41.1 [facility] [address] [id number] [place] [address] 77733- 1382 Aug, [facility] [address] [place] [id number] [place] [address] 32324403- 5084 Aug, Generalized anxiety disorder F41.1 [facility] [address] [id number] [place] [address] 01637- 8591 Jul, ADHD (attention deficit hyperactivity disorder), inattentive type F90.0 ; Generalized anxiety disorder F41.1 and Migraine without aura and without status migrainosus, not intractable G43.009 [facility] [address] [id number] [place] [address] 65798- 4785 28 Jun, 2017 [facility] [id number] [place] [address] 67551- 2621 Jun, [facility] [id number] [place] [address] 53601- 5649 Jun, [facility] [id number] [place] [address] 53435- 7612 Jun, ADHD (attention deficit hyperactivity disorder), inattentive type F90.0 ; Controlled substance agreement signed Z79.899 and High risk medication use Z79.899 [facility] [address] [place] [address] [id number] 14 Jun, 2017 Dental examination Z01.20 [facility] [id number] [place] [address] 18824- 2867 08 Jun, 2017 [facility] [id number] [place] [address] 85743- 8951 08 Jun, 2017 Intractable migraine without aura and without status migrainosus G43.019 [facility] [address] [place] [address] 24158- 0417 07 Jun, 2017 Intractable migraine without aura and without status migrainosus G43.019 [facility] [id number] [place] [address] [id number] 16 May, 2017 Dental examination Z01.20 [facility] [address] [place] [address] 317442- 6254 14 May, 2017 Generalized anxiety disorder F41.1 ; Depressive disorder, not elsewhere classified F32.9 and Attention deficit disorder (ADD) 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 [place] [address] [place] [id number]- 0968 04 May, 2017 Screening for deficiency anemia Z13.0 [facility] [address] [id number] 14 Apr, 2017 Encounter for dental examination Z01.20 [facility] [address] [id number] Mar, Dental examination Z01.20 [place] [address] 56540- 4762 Jan, Dental examination Z01.20 [facility] [address] [id number] [place] [address] 32070- 2036 Jan, Dental examination Z01.20 [facility] [address] 31524- 6704 24 Dec, 2016 Generalized anxiety disorder F41.1 [place] [address] [place] [id number] [place] [address] 04833- 7050 14 Dec, 2016 ADHD (attention deficit hyperactivity disorder), inattentive 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 ; Generalized social phobia F40.11 and Social phobia, generalized F40.11 [place] [address] [place] [address] [id number] [place] [address] 61595- 2335 Nov, Intrinsic eczema L20.84 and Reactive depression F32.9 [place] [address] [place] [id number] [place] [address] Oct, Urinary tract infection, site unspecified N39.0 ; CVA tenderness M54.9 and Nausea and vomiting during O21.9 [place] [address] [place] [id number] [address]- 2546 Sep, [facility] [address] [facility] [id number] [address] 2546 Sep, Routine health maintenance Z00.00 ; Frequent UTI N39.0 and Family history of diabetes mellitus Z83.3 [place] [address] [facility] [id number] [address]- 2546 Aug, Routine health maintenance Z00.00 ; Burning with urination R30.0 ; Frequent UTI N39.0 ; Cystitis N30.90 ; Family history of diabetes mellitus Z83.3 and 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 [place] [address] [facility] [id number] [address] 5326 Aug, IMMUNIZATIONS No Known Immunizations SOCIAL HISTORY Never Assessed REASON FOR VISIT filling PLAN OF CARE Activity Details Follow Up prn Reason:filling 8 & 9 one hour please VITAL SIGNS Blood pressure systolic 120 mmHg 2017-05-22 Blood pressure diastolic 77 mmHg 2017-05-22 MEDICATIONS Medication Instructions Dosage Frequency Start Date End Date Duration Status Iron Active RESULTS No Results PROCEDURES Procedure Date Ordered Result Body Site RESIN COMPOS - 2 SURFACES POSTERIOR May 22, 2017 Billing Notes on claim May 22, 2017 INSTRUCTIONS MEDICATIONS ADMINISTERED No Known Medications [...]
--- OUTSIDE RECORDS SUMMARY | 2018-02-09 10:19 | XMS REPORT ---
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 04551112 Problem Intrinsic eczema L20.84 Active 11575684 Problem ADHD (attention deficit hyperactivity disorder), inattentive type F90.0 Active 17956073 Problem Migraine without aura and without status migrainosus, not intractable G43.009 Active 882945187 Problem Depressive disorder, not elsewhere classified F32.9 Active 39231843 Problem Attention deficit disorder (ADD) 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 Active 15059766 Problem Controlled substance agreement signed Z79.899 Active 192026367 Problem High risk medication use Z79.899 Active [id number] ALLERGIES No Information ENCOUNTERS Encounter Location Date Diagnosis [facility] [address] [place] [address] 73183- 3005 February, [facility] [id number] [place] [address] 41415- 2276 Jan, [facility] [id number] [place] [address] 29026- 4222 Jan, ADHD (attention deficit hyperactivity disorder), inattentive type F90.0 [facility] [address] [place] [address] 50066- 6803 Jan, ADHD (attention deficit hyperactivity disorder), inattentive type F90.0 [facility] [address] [place] [address] 18066- 2544 Jan, [place] [id number] [place] [address] 58081- 9449 Jan, ADHD (attention deficit hyperactivity disorder), inattentive type F90.0 and Generalized anxiety disorder F41.1 [place] [id number] [place] [address] 57269- 8859 Dec, ADHD (attention deficit hyperactivity disorder), inattentive type F90.0 [place] [id number] [place] [address] 12162- 4309 Dec, Strain of flexor muscle of right hip, subsequent encounter S76.011D and Groin strain, right, initial encounter S76.211A [facility] [place] [id number] [place] [address] 53971 -6221 Dec, Intractable episodic headache, unspecified headache type R51 [facility] [place] [id number] [place] [address] 20164 -6290 Dec, Fever R50.9 ; Otitis media due to influenza J11.83 ; Flu- like symptoms R68.89 and Stuffy and runny nose J34.89 [place] [address] [place] [address] 30163- 6529 Dec, Strain of flexor muscle of right hip, initial encounter S76.011A [place] [id number] [place] [address] 28123- 0128 Nov, ADHD (attention deficit hyperactivity disorder), inattentive type F90.0 and Generalized anxiety disorder F41.1 [place] [id number] [place] [address] 20894- 6223 Nov, Burning with urination R30.0 and 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 [place] [address] [place] [address] 15906- 4567 Oct, ADHD (attention deficit hyperactivity disorder), inattentive type F90.0 and Generalized anxiety disorder F41.1 [place] [address], [place] [address]84 Oct, Routine gynecological examination Z01.419 ; Routine screening for STI (sexually transmitted infection) Z11.3 and Trichomoniasis of vagina A59.01 [place] [address] [place] [address] 22220- 2075 Oct, ADHD (attention deficit hyperactivity disorder), inattentive type F90.0 and Generalized anxiety disorder F41.1 [place] [id number] [place] [address] 85081- 8203 Sep, [place] [id number] [place] [address] 05724- 2639 Sep, [place] [id number] [place] [address] 35407- 9973 Sep, ADHD (attention deficit hyperactivity disorder), inattentive type F90.0 and Generalized anxiety disorder F41.1 [place] [address] [place] [address] 06133- 7207 Sep, Dysuria R30.0 ; Vaginal discharge N89.8 ; Generalized anxiety disorder F41.1 and Attention deficit disorder (ADD) 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 [facility] [place] [address] [place] [address] 51322 -5405 Aug, Burning with urination R30.0 and Acute cystitis without hematuria N30.00 [place] [address] [place] [address] 28330- 4540 Aug, [facility] [id number] [place] [address] 92583 -2397 Aug, Dysuria R30.0 and Acute cystitis without hematuria N30.00 [place] [id number] [place] [address] 99896- 5692 Aug, ADHD (attention deficit hyperactivity disorder), inattentive type F90.0 and Generalized anxiety disorder F41.1 [place] [id number] [place] [address] 96713- 8689 Aug, [facility] [address] 67549- 5665 Aug, Generalized anxiety disorder F41.1 [facility] [id number] [place] [address] 36138- 4304 Jul, ADHD (attention deficit hyperactivity disorder), inattentive type F90.0 ; Generalized anxiety disorder F41.1 and Migraine without aura and without status migrainosus, not intractable G43.009 [facility] [id number] [place] [address] 21649- 5196 28 Jun, 2017 [facility] [id number] [place] [address] 01876- 6031 22 Jun, 2017 [facility] [id number] [place] [address] 57143- 1129 Jun, [facility] [id number] [place] [address] 79869- 8301 Jun, ADHD (attention deficit hyperactivity disorder), inattentive type F90.0 ; Controlled substance agreement signed Z79.899 and High risk medication use Z79.899 [facility] [address] [id number] Jun, 2017 Dental examination Z01.20 [facility] [id number] [place] [address] 27634- 5506 08 Jun, 2017 [facility] [id number] [place] [address] 50474- 0514 08 Jun, 2017 Intractable migraine without aura and without status migrainosus G43.019 [facility] [id number] [place] [address] 93054- 6132 07 Jun, 2017 Intractable migraine without aura and without status migrainosus G43.019 [facility] [id number] [place] [address] [id number] May, Dental examination Z01.20 [facility] [id number] [place] [address] 35080- 6060 14 May, 2017 Generalized anxiety disorder F41.1 ; Depressive disorder, not elsewhere classified F32.9 and Attention deficit disorder (ADD) 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 [facility] [id number] [place] [address] 27141- 7929 04 May, 2017 Screening for deficiency anemia Z13.0 [facility] [address] [id number] Apr, Encounter for dental examination Z01.20 [facility] [address] [id number] Mar, Dental examination Z01.20 [place] [address] 73522- 9977 Jan, Dental examination Z01.20 [place] [address] 20577- 2338 Jan, Dental examination Z01.20 [place] [address] 47428- 2029 Dec, Generalized anxiety disorder F41.1 [place] [address] 12823- 9940 Dec, ADHD (attention deficit hyperactivity disorder), inattentive type F90.0 ; Generalized social phobia F40.11 and Social phobia, generalized F40.11 [place] [id number] [place] [address] 04786- 7234 Nov, Intrinsic eczema L20.84 and Reactive depression F32.9 [place] [address] 93219- 8086 Oct, Urinary tract infection, site unspecified N39.0 ; CVA tenderness M54.9 and Nausea and vomiting during O21.9 [place] [id number] [place] [address] 98407- 2953 Sep, [place] [address] [facility] [id number] [place] [address] 0317 Sep, Routine health maintenance Z00.00 ; Frequent UTI N39.0 and Family history of diabetes mellitus Z83.3 [facility] [address] [facility] [id number] [address] 29 Aug, 2016 Routine health maintenance Z00.00 ; Burning with urination R30.0 ; Frequent UTI N39.0 ; Cystitis N30.90 ; Family history of diabetes mellitus Z83.3 and 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
--- OUTSIDE RECORDS SUMMARY | 2018-02-09 10:20 | XMS REPORT ---
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 90628454 Problem Intrinsic eczema L20.84 Active 65714299 Problem ADHD (attention deficit hyperactivity disorder), inattentive type F90.0 Active 89666354 Problem Migraine without aura and without status migrainosus, not intractable G43.009 Active 556300026 Problem Depressive disorder, not elsewhere classified F32.9 Active 11940924 Problem Attention deficit disorder (ADD) 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 Active 67747028 Problem Controlled substance agreement signed Z79.899 Active 327631788 Problem High risk medication use Z79.899 Active [id number] ALLERGIES Substance Reaction Event Type Date Status NO EPINEPHRINE per OB doctor WHILE HIGH RISK while preg per PHYSICIAN Non Drug Allergy Apr, Active ENCOUNTERS Encounter Location Date Diagnosis [facility] [id number] [address] Jan, [facility] [id number] [address] 4150 Dec, ADHD (attention deficit hyperactivity disorder), inattentive type F90.0 [facility] [id number] [address]- 6065 Dec, Strain of flexor muscle of right hip, subsequent encounter S76.011D and Groin strain, right, initial encounter S76.211A [facility] [id number] [place] [address] 44025 -5864 18 Dec, 2017 Intractable episodic headache, unspecified headache type R51 [facility] [id number] [place] [address] 73367 -4399 15 Dec, 2017 Fever R50.9 ; Otitis media due to influenza J11.83 ; Flu- like symptoms R68.89 and Stuffy and runny nose J34.89 [place] [address] [place] [address] [id number] [place] [address] 56022- 8351 Dec, Strain of flexor muscle of right hip, initial encounter S76.011A [place] [address] 55429- 4655 Nov, ADHD (attention deficit hyperactivity disorder), inattentive type F90.0 and Generalized anxiety disorder F41.1 [place] [id number] [place] [address] 67933- 5753 Nov, Burning with urination R30.0 and 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 [place] [address] [place] [id number] [place] [address] 87485- 0705 Oct, ADHD (attention deficit hyperactivity disorder), inattentive type F90.0 and Generalized anxiety disorder F41.1 [place] [address] [place] [address] [id number] [place] [address] 23772- 1330 Oct, Routine gynecological examination Z01.419 ; Routine screening for STI (sexually transmitted infection) Z11.3 and Trichomoniasis of vagina A59.01 [place] [address] [place] [address] [id number] [place] [address] 00551- 5809 Oct, ADHD (attention deficit hyperactivity disorder), inattentive type F90.0 and Generalized anxiety disorder F41.1 [place] [address] [place] [address] [id number] [place] [address] 53599- 7099 Sep, [place] [address] [place] [address] [id number] [place] [address] 52908- 3316 Sep, [place] [address] [place] [address]- 7659 05 Sep, 2017 ADHD (attention deficit hyperactivity disorder), inattentive type F90.0 and Generalized anxiety disorder F41.1 [place] [address] [place] [address] [id number] [place] [address] 94927- 1742 Sep, Dysuria R30.0 ; Vaginal discharge N89.8 ; Generalized anxiety disorder F41.1 and Attention deficit disorder (ADD) 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 [facility] [address] 66910 -6714 Aug, Burning with urination R30.0 and Acute cystitis without hematuria N30.00 [place] [address] 33134- 4926 Aug, [facility] [id number] [place] [address] 34324 -5656 Aug, Dysuria R30.0 and Acute cystitis without hematuria N30.00 [place] [address] [place] [address] [id number] [place] [address] 35266- 6030 Aug, ADHD (attention deficit hyperactivity disorder), inattentive type F90.0 and Generalized anxiety disorder F41.1 [place] [address] [place] [address] [id number] [place] [address] 48922- 0197 Aug, [place] [address] [place] [address] [id number] [place] [address] 88165- 3538 Aug, Generalized anxiety disorder F41.1 [place] [address] [place] [id number] [place] [address] 85187- 4733 Jul, ADHD (attention deficit hyperactivity disorder), inattentive type F90.0 ; Generalized anxiety disorder F41.1 and Migraine without aura and without status migrainosus, not intractable G43.009 [facility] [id number] [place] [address] 36135- 7504 Jun, [place] [address] 60477- 4802 Jun, [facility] [address] [place] [address] 29143- 4717 Jun, [facility] [id number] [place] [address] 23464- 8430 Jun, ADHD (attention deficit hyperactivity disorder), inattentive type F90.0 ; Controlled substance agreement signed Z79.899 and High risk medication use Z79.899 [facility] [id number] [place] [address] [id number] Jun, Dental examination Z01.20 [facility] [id number] [place] [address] 98003- 5189 Jun, [facility] [id number] [place] [address] 83457- 0271 Jun, Intractable migraine without aura and without status migrainosus G43.019 [facility] [id number] [place] [address] 66120- 4665 07 Jun, 2017 Intractable migraine without aura and without status migrainosus G43.019 [facility] [id number] [place] [address] [id number] May, Dental examination Z01.20 [facility] [id number] [place] [address] 36396- 3788 May, Generalized anxiety disorder F41.1 ; Depressive disorder, not elsewhere classified F32.9 and Attention deficit disorder (ADD) 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 [facility] [id number] [place] [address] 75781- 5999 May, Screening for deficiency anemia Z13.0 [facility] [id number] [place] [address] [id number] Apr, Encounter for dental examination Z01.20 [facility] [id number] [place] [address] [id number] Mar, Dental examination Z01.20 [facility] [id number] [place] [address] 94387- 3443 19 Jan, 2017 Dental examination Z01.20 [place] [address] [place] [id number] [place] [address] 06902- 2604 13 Jan, 2017 Dental examination Z01.20 [place] [address] [place] [id number] [place] [id number]- 2442 24 Dec, 2016 Generalized anxiety disorder F41.1 [place] [address] [place] [id number]- 5982 14 Dec, 2016 ADHD (attention deficit hyperactivity disorder), inattentive type F90.0 ; Generalized social phobia F40.11 and Social phobia, generalized F40.[address] 21581- 2247 21 Nov, 2016 Intrinsic eczema L20.84 and Reactive depression F32.[address] 74879- 3697 Oct, Urinary tract infection, site unspecified N39.0 ; CVA tenderness M54.9 and Nausea and vomiting during O21.[address] 99765- 0324 Sep, [place] [address] 72858- 5468 Sep, Routine health maintenance Z00.00 ; Frequent UTI N39.0 and Family history of diabetes mellitus Z83.3 [place] [id number] [place] [address] 24611- 0676 Aug, Routine health maintenance Z00.00 ; Burning with urination R30.0 ; Frequent UTI N39.0 ; Cystitis N30.90 ; Family history of diabetes mellitus Z83.3 and 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 [place] [address] 72066- 6350 16 Aug, 2016 IMMUNIZATIONS No Known Immunizations SOCIAL HISTORY Never Assessed REASON FOR VISIT PLAN OF CARE Activity Details Follow Up as directed Reason:Restorative VITAL SIGNS Height 5'5" in 2017-04-19 Blood pressure systolic 117 mmHg 2017-04-19 Blood pressure diastolic 64 mmHg 2017-04-19 MEDICATIONS Medication Instructions Dosage Frequency Start Date End Date Duration Status One Daily 27-0.8 MG Active Cephalexin 500 MG Orally every 12 hrs 1 capsule 12h Active RESULTS No Results PROCEDURES Procedure Date Ordered Result Body Site LTD ORAL EVALUATION - PROBLEM FOCUS April 19, 2017 INTRAORL-PERIAPICAL 1 FILM [id number] April 19, 2017 Billing Notes on claim April 19, 2017 Dental no charge April 19, 2017 INSTRUCTIONS MEDICATIONS ADMINISTERED No Known Medications [...]
--- OUTSIDE RECORDS SUMMARY | 2018-02-09 10:20 | XMS REPORT ---
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 47678592 Problem Intrinsic eczema L20.84 Active 27308793 Problem ADHD (attention deficit hyperactivity disorder), inattentive type F90.0 Active 97083054 Problem Migraine without aura and without status migrainosus, not intractable G43.009 Active 333481597 Problem Depressive disorder, not elsewhere classified F32.9 Active 78941714 Problem Attention deficit disorder (ADD) 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 Active 73427546 Problem Controlled substance agreement signed Z79.899 Active 193107149 Problem High risk medication use Z79.899 Active [id number] ALLERGIES Substance Reaction Event Type Date Status NO EPINEPHRINE per OB doctor WHILE HIGH RISK while preg per PHYSICIAN Non Drug Allergy Mar, Active ENCOUNTERS Encounter Location Date Diagnosis [facility] [id number] [address] Jan, [facility] [id number] [address] Jan, [facility] [id number] [place] [address] Dec, Strain of flexor muscle of right hip, subsequent encounter S76.011D and Groin strain, right, initial encounter S76.211A [facility] [id number] [address] Dec, Intractable episodic headache, unspecified headache type R51 [facility] [id number] [place] [address] Dec, Fever R50.9 ; Otitis media due to influenza J11.83 ; Flu- like symptoms R68.89 and Stuffy and runny nose J34.89 [place] [id number] [place] [address] Dec, Strain of flexor muscle of right hip, initial encounter S76.011A [place] [address] [address] Nov, ADHD (attention deficit hyperactivity disorder), inattentive type F90.0 and Generalized anxiety disorder F41.1 [address] [address] [address] Nov, Burning with urination R30.0 and 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 [place] [address] [address] Oct, ADHD (attention deficit hyperactivity disorder), inattentive type F90.0 and Generalized anxiety disorder F41.1 [place] [id number] [place] [address] Oct, Routine gynecological examination Z01.419 ; Routine screening for STI (sexually transmitted infection) Z11.3 and Trichomoniasis of vagina A59.01 [place] [id number] [place] [address] Oct, ADHD (attention deficit hyperactivity disorder), inattentive type F90.0 and Generalized anxiety disorder F41.1 [address] [address] [address] Sep, [place] [address] [address] Sep, [place] [address] [address] Sep, ADHD (attention deficit hyperactivity disorder), inattentive type F90.0 and Generalized anxiety disorder F41.1 [facility] [address] [address] Sep, Dysuria R30.0 ; Vaginal discharge N89.8 ; Generalized anxiety disorder F41.1 and Attention deficit disorder (ADD) 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 [facility] [address] [address] Aug, Burning with urination R30.0 and Acute cystitis without hematuria N30.00 [facility] [address] [address] Aug, [facility] [id number] [place] [address] Aug, Dysuria R30.0 and Acute cystitis without hematuria N30.00 [place] [address] [address] Aug, ADHD (attention deficit hyperactivity disorder), inattentive type F90.0 and Generalized anxiety disorder F41.1 [place] [address] [address] Aug, [place] [address] [address] Aug, Generalized anxiety disorder F41.1 [place] [address] [address] Jul, ADHD (attention deficit hyperactivity disorder), inattentive type F90.0 ; Generalized anxiety disorder F41.1 and Migraine without aura and without status migrainosus, not intractable G43.009 [facility] [id number] [place] [address] Jun, [address] [address] [address] Jun, [address] [address] [place] [address] 19 Jun, 2017 [facility] [id number] [place] [address] Jun, ADHD (attention deficit hyperactivity disorder), inattentive type F90.0 ; Controlled substance agreement signed Z79.899 and High risk medication use Z79.899 [facility] [id number] [place] [phone] 14 Jun, 2017 Dental examination Z01.20 [facility] [id number] [place] [address] 08 Jun, 2017 [facility] [address] [address] Jun, Intractable migraine without aura and without status migrainosus G43.019 [facility] [id number] [place] [address] 07 Jun, 2017 Intractable migraine without aura and without status migrainosus G43.019 [facility] [id number] [place] [phone] May, Dental examination Z01.20 [facility] [id number] [place] [address] May, Generalized anxiety disorder F41.1 ; Depressive disorder, not elsewhere classified F32.9 and Attention deficit disorder (ADD) 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 [facility] [id number] [place] [address] May, Screening for deficiency anemia Z13.0 [facility] [id number] [place] [phone] Apr, Encounter for dental examination Z01.20 [facility] [id number] [place] [phone] Mar, Dental examination Z01.20 [facility] [id number] [place] [address] Jan, Dental examination Z01.20 [place] [id number] [place] [address] 13 Jan, 2017 Dental examination Z01.20 [place] [address] [address] 24 Dec, 2016 Generalized anxiety disorder F41.1 [place] [address] [address] 14 Dec, 2016 ADHD (attention deficit hyperactivity disorder), inattentive type F90.0 ; Generalized social phobia F40.11 and Social phobia, generalized F40.11 [place] [address] [address] Nov, Intrinsic eczema L20.84 and Reactive depression F32.[address] [address] Oct, Urinary tract infection, site unspecified N39.0 ; CVA tenderness M54.9 and Nausea and vomiting during O21.9 [place] [id number] [place] [address] Sep, [place] [address] [address] Sep, Routine health maintenance Z00.00 ; Frequent UTI N39.0 and Family history of diabetes mellitus Z83.3 [place] [address] [address] Aug, Routine health maintenance Z00.00 ; Burning with urination R30.0 ; Frequent UTI N39.0 ; Cystitis N30.90 ; Family history of diabetes mellitus Z83.3 and 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 [place] [id number] [place] [address] Aug, IMMUNIZATIONS No Known Immunizations SOCIAL HISTORY Never Assessed REASON FOR VISIT PLAN OF CARE Activity Details Follow Up Restorative (8, 9, 13) AND danish 2, 3, 5 Reason: VITAL SIGNS Blood pressure systolic 109 mmHg 2017-03-28 Blood pressure diastolic 64 mmHg 2017-03-28 MEDICATIONS Medication Instructions Dosage Frequency Start Date End Date Duration Status Cephalexin 500 MG Orally every 12 hrs 1 capsule 12h Active One Daily 27-0.8 MG Active RESULTS No Results PROCEDURES Procedure Date Ordered Result Body Site RESIN COMPOS - 2 SURFACES POSTERIOR March 28, 2017 RESIN COMPOS - 2 SURFACES POSTERIOR March 28, 2017 Billing Notes on claim March 28, 2017 RESIN COMPOS - 2 SURFACES POSTERIOR March 28, 2017 INSTRUCTIONS MEDICATIONS ADMINISTERED No Known Medications [...]
[2018-02-09] MEDS ORDERED: LIDOCAINE UROJET 2% GEL 10 ML PKG ONE (12:33)
[2018-02-09] MEDS ORDERED: FLEET ENEMA ADULT 1 EA BTL PR ONE (12:45)
[2018-02-09] MEDS ORDERED: LIDOCAINE JELLY 2% (XYLOCAINE) 5 ML TUBE TOP ONE (12:45)
--- NOTE | 2018-02-09 13:51 | ED Abdominal Pain ---
General Chief Complaint: Abdominal/GI Problems Stated Complaint: UNABLE TO USE THE BATHROOM/POST HEMORRHOIDECTOMY Nursing Triage Note: pt had hemorrhoidectomy on saturday. unable to have bm Sepsis Screen: No Definite Risk History of Present Illness Date Seen by Provider: February 09, 2018 Time Seen by Provider: 12:30 Initial Comments 22-year-old female had a hemorrhoidectomy 2 days ago. She has been taking a stool softener and began a laxative yesterday. She's been taking hydrocodone approximately every 8 hours for pain. She reports that there was packing internally that she was to remove prior to having a bowel movement. She is complaining of significant rectal pain. She denies a bowel movement since surgery. Yesterday she ate solid food, today she has only had liquids. She has been increasing her water intake per her discharge instructions. She reports passing flatus. Timing/Duration: 4-6 Hours Severity/Quality: Moderate Location: Other (rectal) Radiation: No Radiation Associated Symptoms: Denies Symptoms Allergies and Home Medications Allergies Coded Allergies: No Known Drug Allergies (Unverified , 02/04/18) Home Medications Hydrocodone Bit/Acetaminophen 1 Ea Tablet, 1 EACH PO Q4H Prescribed by: MITCHEL DIANE on 02/07/18 1005 Lisdexamfetamine Dimesylate 40 Mg Capsule, 40 MG PO DAILY, (Reported) Sertraline HCl 50 Mg Tablet, 50 MG PO DAILY, (Reported) Patient Home Medication List Home Medication List Reviewed: Yes Review of Systems Constitutional: no symptoms reported, see HPI Gastrointestinal: See HPI; Denies Rectal Bleeding; Other (rectal pain, inability to pass stool) All Other Systems Reviewed Negative Unless Noted: Yes Past Yloievu-Qcyrom-Ypxldy Hx Past Med/Social Hx: Reviewed Nursing Past Med/Soc Hx Patient Social History 2nd Hand Smoke Exposure: No Recent Foreign Travel: No Contact w/Someone Who Travel: No Recent Infectious Disease Expo: No Recent Hopitalizations: Yes (HEMORRHOIDECTOMY ON SATURDAY. ) Immunizations Up To Date Tetanus Booster (TDap): Unknown Seasonal Allergies Seasonal Allergies: No Past Medical History Surgeries: Yes (NEPHROSTOMY, TMJ-JAW SURGERY, HEMORRHOIDECTOMY) Orthopedic, Renal Respiratory: No Cardiac: No Neurological: Yes Headaches /Migraines 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 Disorders: No Female 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 Disorders: Denies Sexually Transmitted Disease: No HIV/AIDS: No Genitourinary: Yes (urethral blockage ) Kidney Infection, Bladder Infection Gastrointestinal: Yes Hemorrhoids Musculoskeletal: Yes (MILD IN JAW) Arthritis Endocrine: No HEENT: No Cancer: No Psychosocial: Yes ADD/ADHD, Anxiety Integumentary: No Blood Disorders: No Adverse Reaction/Blood Tranf: No (N/A) Family Medical History Diabetes mellitus grandmother Physical Exam Vital Signs Vital Signs - First Documented 02/09/18 11:08 Temp 98.5 Pulse 119 Resp 16 B/P (MAP) 111/68 (82) Pulse Ox 96 O2 Delivery Room Air Capillary Refill : Less Than 3 Seconds General Appearance: WD/WN, no apparent distress Gastrointestinal: normal bowel sounds, non tender, soft; No distended, No guarding, No rebound, No tenderness Rectal: normal exam, normal rectal tone; No hemorrhoids; tenderness, other ( prior rectal exam lidocaine jelly applied. No internal rectal passing noted, reviewed operative note by Dr. DIANE that does not indicate packing was placed. Attempted to contact Dr. DIANE by phone unable to reach him. ) Neurologic/Psychiatric: no motor/sensory deficits, alert, normal mood/affect Skin: normal color, warm/dry Progress/Results/Core Measures Results/Orders My Orders Orders - ARIC GARCIA Lidocaine 2% Jelly 5 Ml (Xylocaine Jelly (02/09/18 12:45) Na Phos/Na Biphos Enema (Fleet Enema Trace (02/09/18 12:45) Lidocaine 2% (Urojet) (Xylocaine Urojet) (02/09/18 12:33) Medications Given in ED Current Medications Medications Dose Ordered Sig/Jelly Route Start Time Stop Time Status Last Admin Dose Admin Lidocaine HCl 10 ml STK-MED ONCE .ROUTE 02/09/18 12:33 02/09/18 12:38 DC 02/09/18 12:40 10 ML Sodium Biphosphate/ Sodium Phosphate 1 ea ONCE ONCE [place] 02/09/18 12:45 02/09/18 12:46 DC 02/09/18 12:38 1 EA Vital Signs/I&O 02/09/18 02/09/18 11:08 13:58 Temp 98.5 Pulse 119 74 Resp 16 18 B/P (MAP) 111/68 (82) 97/67 Pulse Ox 96 98 O2 Delivery Room Air Blood Pressure Mean: 82 Progress Progress Note : Time: 12:30 Progress Note Initial evaluation completed, recommended lidocaine prior to rectal exam. 1300 patient continuing to clean of significant abdominal pain and inability to pass stool, recommended Fleet's enema. This was administered with the patient lying on her left side, she tolerated it well. Bedside commode in close proximity for patient to use. 1330 patient was able to hold the fleets enema for approximately 10 minutes and then had a large bowel movement. No blood noted in stool. Patient reports rectal pain has improved significantly. 1345 discharge instructions, return precautions and questions answered. Departure Impression Primary Impression: Pain, postoperative, acute Additional Impression: Constipation Qualified Codes: K59.00 - Constipation, unspecified Disposition: HOME, SELF-CARE Condition: Improved Departure-Patient Inst. Decision time for Depature: 13:30 Referrals: SYLVIA FORTUNE DO (PCP) Primary Care Physician JIHAN LEIGH APRN (Family) Primary Care Physician Patient Instructions: Hemorrhoidectomy (DC) Add. Discharge Instructions: One capful of MiraLAX in a bottle of Gatorade or propel 2-3 times daily until having stools regularly, then tapered dose. Continue taking your stool softener. Limit your pain medication to minimal use, to avoid constipation and hard stools. Follow-up with Dr. DIANE tomorrow if symptoms are not improving. Return to emergency department for urgent health care needs. All discharge instructions reviewed with patient and/or family. Voiced understanding. Copy Copies To 1: MITCHEL DIANE MD, AMY ARNP February 09, 2018 13:51
[2018-02-09 13:58] VITALS: BP 97/67
== END 2018-02-09 13:58 | disposition home or self-care (01) ==
LOC: EDUNIT# 10:12 → ER 10:13
DX: G89.18 Other acute postprocedural pain (principal); K59.00 Constipation, unspecified; F41.9 Anxiety disorder, unspecified; F90.9 Attention-deficit hyperactivity disorder, unspecified type; G43.909 Migraine, unspecified, not intractable, without status migrainosus; Z87.440 Personal history of urinary (tract) infections; Z90.49 Acquired absence of other specified parts of digestive tract; Z93.6 Other artificial openings of urinary tract status
CPT/HCPCS: 99282

== ENCOUNTER 2018-05-19 20:47 | Emergency (ER) | payer MEDICAID ==
[~2018-05-19] VITALS: Ht 165.1 cm; Wt 62.6 kg
--- OUTSIDE RECORDS SUMMARY | 2018-05-19 20:51 | XMS REPORT | Encounter Summary ---
Author Author [facility] Organization [facility] Address Unknown Phone Unavailable Care Team Providers Care Wire Frame Dipper Name Role Phone No Pcp, Na PCP Unavailable No Pcp, Na Unavailable Unavailable Encounter Details Date Type Department Care Team Description 04/17/2018 Orders Only [facility] Singh Queen MD Right hip pain (Primary [facility] [address] Dx) Complex [place] [address] [place] [address] [place], [place] [id number] Social History Tobacco Use Types Packs/Day Years Used Date Never Smoker Alcohol Use Drinks/Week oz/Week Comments No 0 Standard 0.0 drinks or equivalent Sex Assigned at Date Recorded Not on file as of this encounter Plan of Treatment Not on fileas of this encounter Results * HIP MIN 4 VIEWS W PELVIS RT (04/21/2018 12:14 PM) Impressions Performed At I/impression: [facility] RESULTS 1. No acute osseous abnormality in the pelvis. SI joints and symphysis pubis are unremarkable. IUD projects over the central pelvis. Left hip joint space is maintained without acute abnormality. 2. Unremarkable right hip. The hip joint space is maintained. The femoral head is round without collapse. Normal appearance of the right lateral femoral head neck junction. Finalized by Jack Painter M.D. on 04/21/2018 1:21 PM. Dictated by Jack Painter M.D. on 04/21/2018 1:19 PM. Narrative Performed At [facility] pelvis and 3 view right hip [facility] RESULTS Indication: 22-year-old female, right hip pain Comparison: None Procedure Note Interface, Radiant Results - 04/21/2018 1:24 PM CDT [facility] pelvis and 3 view right hip Indication: 22-year-old female, right hip pain Comparison: None IMPRESSION I/impression: 1. No acute osseous abnormality in the pelvis. SI joints and symphysis pubis are unremarkable. IUD projects over the central pelvis. Left hip joint space is maintained without acute abnormality. 2. Unremarkable right hip. The hip joint space is maintained. The femoral head is round without collapse. Normal appearance of the right lateral femoral head neck junction. Finalized by Jack Painter M.D. on 04/21/2018 1:21 PM. Dictated by Jack Painter M.D. on 04/21/2018 1:19 PM. Performing Organization Address City/State/Zipcode Phone Number [facility] RESULTS in this encounter Visit Diagnoses Diagnosis Right hip pain - Primary Pain in joint, pelvic region and thigh
--- OUTSIDE RECORDS SUMMARY | 2018-05-19 20:51 | XMS REPORT ---
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 91520577 Problem Intrinsic eczema L20.84 Active 70542219 Problem ADHD (attention deficit hyperactivity disorder), inattentive type F90.0 Active 89736738 Problem Migraine without aura and without status migrainosus, not intractable G43.009 Active 952345016 Problem Depressive disorder, not elsewhere classified F32.9 Active 21653242 Problem Attention deficit disorder (ADD) 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 Active 05857357 Problem Controlled substance agreement signed Z79.899 Active 963792797 Problem High risk medication use Z79.899 Active [id number] ALLERGIES No Information ENCOUNTERS Encounter Location Date Diagnosis [facility] [address] [facility] [id number] [address] May, [facility] [address] [facility] [id number] [id number] May, [facility] [address], [place] [address] May, [facility] [address] [id number], [place] [address] Apr, [facility] [id number], [place] [address] Apr, [facility] [address], [place] [address] Apr, [facility] [id number] [place] [address] Apr, ADHD (attention deficit hyperactivity disorder), inattentive type F90.0 and Generalized anxiety disorder F41.1 [facility] [address], [place] [address] Apr, Allergic contact dermatitis, unspecified trigger L23.9 [facility] [address], [place] [address] Mar, [facility] [id number] [place] [id number] Mar, Arthralgia of left temporomandibular joint M26.622 [facility] [address], [place] [address] Mar, [facility] [id number] [place] [address] February, ADHD (attention deficit hyperactivity disorder), inattentive type F90.0 and Generalized anxiety disorder F41.1 [facility] [address], [place] [address] Jan, [facility] [address], [place] [address] Jan, ADHD (attention deficit hyperactivity disorder), inattentive type F90.0 [facility] [address], [place] [address] Jan, ADHD (attention deficit hyperactivity disorder), inattentive type F90.0 [facility] [address], [place] [address] Jan, [facility] [address], [place] [address] Jan, ADHD (attention deficit hyperactivity disorder), inattentive type F90.0 and Generalized anxiety disorder F41.1 [place] [id number] [place] [address] 27 Dec, 2017 ADHD (attention deficit hyperactivity disorder), inattentive type F90.0 [place] [id number] [place] [address] Dec, Strain of flexor muscle of right hip, subsequent encounter S76.011D and Groin strain, right, initial encounter S76.211A [facility] [place] [id number] [place] [address] 18 Dec, 2017 Intractable episodic headache, unspecified headache type R51 [facility] [address] [address] 15 Dec, 2017 Fever R50.9 ; Otitis media due to influenza J11.83 ; Flu- like symptoms R68.89 and Stuffy and runny nose J34.[address] [address] Dec, Strain of flexor muscle of right hip, initial encounter S76.011A [place] [id number] [place] [address] Nov, ADHD (attention deficit hyperactivity disorder), inattentive type F90.0 and Generalized anxiety disorder F41.1 [place] [id number] [place] [address] Nov, Burning with urination R30.0 and 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 [place] [address] [id number] [place] [address] Oct, ADHD (attention deficit hyperactivity disorder), inattentive type F90.0 and Generalized anxiety disorder F41.1 [place] [id number] [place] [address] Oct, Routine gynecological examination Z01.419 ; Routine screening for STI (sexually transmitted infection) Z11.3 and Trichomoniasis of vagina A59.[address] [place] [address] Oct, ADHD (attention deficit hyperactivity disorder), inattentive type F90.0 and Generalized anxiety disorder F41.1 [facility] [id number] [place] [address]243[address] Sep, [facility] [address] [address] Sep, [facility] [id number] [place] [address] Sep, ADHD (attention deficit hyperactivity disorder), inattentive type F90.0 and Generalized anxiety disorder F41.1 [place] [address] [place] [address] [id number] [place] [address] Sep, Dysuria R30.0 ; Vaginal discharge N89.8 ; Generalized anxiety disorder F41.1 and Attention deficit disorder (ADD) 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 [facility] [id number] [place] [address] Aug, Burning with urination R30.0 and Acute cystitis without hematuria N30.00 [place] [address] [place] [address] [id number] [place] [address] Aug, [facility] [id number] [place] [address] Aug, Dysuria R30.0 and Acute cystitis without hematuria N30.00 [facility] [address] [id number] [place] [address]34[address] 49[address] Aug, ADHD (attention deficit hyperactivity disorder), inattentive type F90.0 and Generalized anxiety disorder F41.1 [facility] [address] [place] [address] [id number] [place] [address]77[address] Aug, [facility] [address] [id number] [place] [address] Aug, Generalized anxiety disorder F41.1 [facility] [address] [place] [address] Jul, ADHD (attention deficit hyperactivity disorder), inattentive type F90.0 ; Generalized anxiety disorder F41.1 and Migraine without aura and without status migrainosus, not intractable G43.009 [facility] [id number] [place] [address] 14636- [address] 28 Jun, 2017 [facility] [id number] [place] [address] Jun, [facility] [id number] [place] [address] 92917- [address] Jun, [facility] [address] [address] Jun, ADHD (attention deficit hyperactivity disorder), inattentive type F90.0 ; Controlled substance agreement signed Z79.899 and High risk medication use Z79.899 [facility] [id number] [place] [phone] Jun, Dental examination Z01.20 [facility] [id number] [place] [address] 69268- 0[address] 08 Jun, 2017 [facility] [id number] [place] [address] 69144- 8207 08 Jun, 2017 Intractable migraine without aura and without status migrainosus G43.019 [facility] [id number] [place] [address] 11224- [address] 07 Jun, 2017 Intractable migraine without aura and without status migrainosus G43.019 [facility] [address] [place] [id number] May, Dental examination Z01.20 [facility] [id number] [place] [address]53[address] May, Generalized anxiety disorder F41.1 ; Depressive disorder, not elsewhere classified F32.9 and Attention deficit disorder (ADD) 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 [facility] [id number] [place] [address] 12489- 1220 May, Screening for deficiency anemia Z13.0 [facility] [address] [place] [phone] Apr, Encounter for dental examination Z01.20 [facility] [id number] [place] [id number] Mar, Dental examination Z01.20 [facility] [address] [address] Jan, Dental examination Z01.20 [place] [address] [address] Jan, Dental examination Z01.20 [place] [address] [place] [address] [id number] [place] [address] 82199- 3110 Dec, Generalized anxiety disorder F41.1 [place] [address] [address] Dec, ADHD (attention deficit hyperactivity disorder), inattentive type F90.0 ; Generalized social phobia F40.11 and Social phobia, generalized F40.11 [place] [address] [place] [address] [id number] [place] [address] 26892- 2531 Nov, Intrinsic eczema L20.84 and Reactive depression F32.9 [place] [id number] [place] [address] 48206- 8255 Oct, Urinary tract infection, site unspecified N39.0 ; CVA tenderness M54.9 and Nausea and vomiting during O21.9 [place] [address] [place] [address] [id number] [place] [address] 38777- 3695 Sep, [address] [address] Sep, Routine health maintenance Z00.00 ; Frequent UTI N39.0 and Family history of diabetes mellitus Z83.3 [place] [address] [place] [id number] [place] [address] 44874- 5468 Aug, Routine health maintenance Z00.00 ; Burning with urination R30.0 ; Frequent UTI N39.0 ; Cystitis N30.90 ; Family history of diabetes mellitus Z83.3 and 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 [facility] [address] [facility] [id number] [place] [address] Aug, IMMUNIZATIONS No Known Immunizations SOCIAL HISTORY Never Assessed REASON FOR VISIT PLAN OF CARE VITAL SIGNS MEDICATIONS Medication Instructions Dosage Frequency Start Date End Date Duration Status Vyvanse 40 mg Orally Once a day 1 capsule in the morning 24h Jan, 28 days Active RESULTS No Results PROCEDURES No Known [...] with coral- states pins/screws in jaw 2010 Surgical History Hemroid surgery [facility] 2018 Hospitalization History child Hospitalization History with surgeries listed above Hospitalization History denies any past psychiatric hospitalizations
--- OUTSIDE RECORDS SUMMARY | 2018-05-19 20:51 | XMS REPORT | Encounter Summary ---
Author Author [facility] Organization [facility] Address Unknown Phone Unavailable Care Team Providers Care Social Worker Name Role Phone No Pcp, Na PCP Unavailable No Pcp, Na Unavailable Unavailable Encounter Details Date Type Department Care Team Description 04/20/2018 Ancillary Rad Outpatient, Radiologist Diagnosis unknown Orders [address] [place] [address] Social History Tobacco Use Types Packs/Day Years Used Date Never Smoker Alcohol Use Drinks/Week oz/Week Comments No 0 Standard 0.0 drinks or equivalent Sex Assigned at Date Recorded Not on file as of this encounter Plan of Treatment Not on fileas of this encounter Results * MRI LOWER EXT EXTERNAL IMAGING (01/16/2018) Narrative Performed At This order has been auto finalized and does not contain a result. in this encounter Visit Diagnoses Diagnosis Diagnosis unknown Other unknown and unspecified cause of morbidity or mortality
--- OUTSIDE RECORDS SUMMARY | 2018-05-19 20:51 | XMS REPORT | Clinical Summary ---
Author Author [facility] Organization [facility] Address Unknown Phone Unavailable Care Team Providers Care Director Of Casino Name Role Phone No Pcp, Na PCP Unavailable No Pcp, Na Unavailable Unavailable Source Comments Some departments are not documenting in the electronic medical record. If you do not see the information that you expected, contact Release of Information in the Health Information Management department at [phone] for further assistance in locating additional records.[facility] Allergies No Known Allergies Current Medications Prescription Sig. Disp. Refills Start End Date Status Date Take by mouth. Active Zuzikyxo-Bi-Lxr-Fe-FA tab cephalexin (KEFLEX) 500 One twice a [...] Valles continue to follow with her high-risk OB-RAILWAY TRACK PLANT OPERATOR, and that she can be placed on prophylactic antibiotics per her OB-RAILWAY TRACK PLANT OPERATOR if indicated. RTC PRN. L ast Assessment [...] sent. -- Recommending close follow up w/ [facility]; consider following her serial renal/bladder u/s -- RTC following in approximately 2 weeks to discuss renal/bladder u/s ordered today -- [facility] consult for high-risk placed Encounters Date Type Specialty Care Team Description 04/21/2018 Hospital Radiology Singh Queen MD Encounter 04/21/2018 Office Visit Singh Carreno MD Hip dysplasia (Primary Dx); Right hip pain 04/21/2018 Ancillary Radiology Outpatient, Radiologist Orders 04/20/2018 Ancillary Radiology Outpatient, Radiologist Diagnosis unknown Orders 04/17/2018 Orders Only Singh Carreno MD Right hip pain (Primary Dx) from Last 3 Months Immunizations Name Dates Previously Given Next Due Tdap Vaccine 04/02/2017 Social History Tobacco Use Types Packs/Day Years Used Date Never Smoker Alcohol Use Drinks/Week oz/Week Comments No 0 Standard 0.0 drinks or equivalent Sex Assigned at Date Recorded Not on file Last Filed Vital Signs Vital Sign Reading Time Taken Blood Pressure 102/54 04/21/2018 12:15 PM CDT Pulse 65 04/21/2018 12:15 PM CDT Temperature - - Respiratory Rate [...] VACCINES (1 of 3 - 2005 Female 3-dose series) HIV SCREENING 2009 CERVICAL CANCER SCREENING 2015 INFLUENZA VACCINE 07/07/2018 TETANUS VACCINE 04/02/2027 04/02/2017 PERTUSSIS VACCINE Completed 04/02/2017 Results * HIP MIN 4 VIEWS W [...] Address City/State/Zipcode Phone Number [facility] RESULTS from Last 3 Months
--- OUTSIDE RECORDS SUMMARY | 2018-05-19 20:51 | XMS REPORT | Encounter Summary ---
Author Author [facility] Organization [facility] Address Unknown Phone Unavailable Care Team Providers Care Field Liability Generalist Name Role Phone No Pcp, Na PCP Unavailable No Pcp, Na Unavailable Unavailable Reason for Referral * Consult, Test & Treat (Routine) Status Reason Specialty Diagnoses / Referred By Referred To Procedures Contact Contact Closed Specialty Diagnoses Singh Queen Services Hip dysplasia MD Required Right hip pain [address] [place] [address] Reason for Visit * Reason Comments Pain * Consult, Test & Treat (Routine) Status Reason Specialty Diagnoses / Referred By Referred To Procedures Contact Contact No Auth Needed Sports Medicine Diagnoses Isauro Gupta, Singh Queen MD rt hip labral [address] tear [address] [facility] [address] [place], [place] rocedures [id number] Consult Phone: Fax: Encounter Details Date Type Department Care Team Description 04/21/[address] [facility] Singh Queen MD Hip dysplasia (Primary Medicine [address] Dx); Medical Office Bldg [facility] [address] Right hip pain [address] [place] [address] [phone] [place], [place] [address] [phone] Social History Tobacco Use Types Packs/Day Years Used Date Never Smoker Alcohol Use Drinks/Week oz/Week Comments No 0 Standard 0.0 drinks or equivalent Sex Assigned at Date Recorded Not on file as of this encounter Last Filed Vital Signs Vital Sign Reading Time Taken Blood Pressure 102/54 04/21/2018 12:15 PM CDT Pulse 65 04/21/2018 12:15 PM CDT Temperature - - Respiratory Rate - - Oxygen Saturation - - Inhaled Oxygen - - Concentration Weight - - Height - - Body Mass Index - - in this encounter Instructions * Patient Instructions - Aniyah Naik RN - 04/21/2018 11:00 AM CDT Please do not hesitate to contact my office with any questions. Singh Queen MD | Orthopedic Surgeon, Sports Medicine Eldon Colon PA-C | Physician Clinical Associate [facility] | | [phone] [address] [facility], [address] | [place] [address] Aniyah Naik RN, BSN | Clinical Nurse Coordinator Yady Nolan, , LAT, ATC | Clinical Baler Operator in this encounter Progress Notes * Singh Queen MD - 04/21/2018 11:00 AM CDT Formatting of this note may be different from the original. Chief Complaint: Right hip pain Referring Provider: Dr. Onofre History of Present Illness: 22-year-old female presenting with right hip pain. Patient reports no prior history of hip pain prior to one year ago when she delivered her son. She had acute right hip pain which is not significantly improved since then. She points to the medial aspect of her right groin and says that it is worse with getting up and down from a seated position but is all day long and with any walking, sometimes makes her cry. She underwent a therapeutic and diagnostic corticosteroid injection by an outside provider and says that she only got about 1 week of relief from this. This did provide 100% relief of her pain now. She has not done any physical therapy yet. She takes hydrocodone and NSAIDs for pain. Physical Exam: Patient is normal-appearing no acute distress, normocephalic with no scleral icterus, regular respiratory rate which is nonlabored on room air, regular normal sinus rhythm, abdomen nondistended, neuro grossly intact, moving all extremities, skin intact with no significant rashes with normal turgor, psych normal mood and affect. Physical Exam: Healthy appearing 22 y.o. female in no acute distress. Alert and oriented. Constitutional: Appropriate mood and affect. Normal responses. HEENT: Head is atraumatic, normocephalic. Eyes are anicteric, they track normally. Mucous membranes are moist. Neck: Soft and supple. Chest: Normal excursion, nonlabored breathing. Heart: Palpable pulses distally. Abdomen: Nonobese, nondistended. Hip Exam: Level Pelvis yes. Low back: Lyons forward bend test negative. Low back extension with and without rotation negative. Low back is not tender to palpation. SI joints: SI joint is not tender to palpation on the bilateral. Strength Testing: Double stance squat weakness negative. Single leg squat weakness positive. Supine exam leg length discrepancy negative Sports Hernia midline tender to palpation negative Pain with Stinchfield, and resisted hip adduction, TTP over adductor tendon Exam Right Hip Left Hip Supine Exam Anterior Joint Line Pain negative negative ASIS Tenderness negative negative Passive ROM exam Flexion 100 no pain 100 no pain Flexion External rotaion 50 45 Flexion Internal rotation 20 15 Abduction 45 45 Impingement Exam ANA positive negative FADIR negative negative Scour positive negative Other Tests Iliopsoas snapping test negative negative Straight leg raise positive negative Lateral Hip Exam Posterior facet greater trochanter ttp No No Resisted hip abduction weakness negative negative Resisted hip abduction pain negative negative Rosalina test negative negative Neurologic exam: Sensation is intact to light touch in the L1-S1 distribution. Motor strength is 5/5 throughout the bilateral lower extremities. Vascular exam: Palpable posterior tibial pulses bilaterally Skin: Intact throughout the bilateral lower extremities, no erythema Imaging: X-rays of the right hip reviewed and demonstrate anterior center edge angle of 23, lateral center edge angle of approximately 18, alpha angle of approximately 50, mild positive ischial spine spine sign. Outside MRI arthrogram of the right hip reviewed and demonstrates a right hip labral tear Impression: 22-year-old female with right hip dysplasia, internal impingement, labral tear, iliopsoas and adductor tendon tendinopathy. Plan: We discussed the multifactorial nature of her problem. We would recommend a course of physical therapy for at least 6 weeks to reduce the acute inflammation associated with her adductor and iliopsoas tendon tendinopathy. We also discussed her hip dysplasia and that any surgical procedure may have to involve periacetabular osteotomy in conjunction with labral repair. We discussed that this would not be the best time to pursue this given her young child that she needs to help take care of. We like to see her back in follow- up to see how she is doing with all this. We discussed activity modification, and that she should only be performing the activities that physical therapist prescribes. All questions were answered. I have personally reviewed the patient intake form with the patient today, it was signed by me and scanned into O2. Please see below for details. Review Of Symptoms: A 14-point review of systems was performed and was positive as below and otherwise negative: Review of Systems Allergies: Patient has no known allergies. Current Medications: No current outpatient prescriptions on file. Past Medical History: No past medical history on file. Past Surgical History: No past surgical history on file. Social History: History Smoking Status Not on file Smokeless Tobacco Not on file History Drug use: Unknown History Alcohol use Not on file Family History: No family history on file. Vitals: Vitals: 04/21/18 1215 BP: 102/54 Pulse: 65 There is no height or weight on file to calculate BMI. ATTESTATION I personally performed the E/M including history, physical exam, and MDM. Staff name: Singh Queen MD Date: 04/21/2018 Singh Queen MD Portions of this noted may have been created using AirWatch, a voice recognition software. Please contact my office for any clarification of documentation. Please send a copy of office notes to the primary care physician and referring providers. in this encounter Plan of Treatment Name Priority Associated Diagnoses Order Schedule AMB REFERRAL TO PHYSICAL OR OCCUPATIONAL Routine Hip dysplasia Ordered: 04/21/2018 THERAPY Right hip pain as of this encounter Visit Diagnoses Diagnosis Hip dysplasia - Primary Other congenital deformity of hip (joint) Right hip pain Pain in joint, pelvic region and thigh"
--- OUTSIDE RECORDS SUMMARY | 2018-05-19 20:51 | XMS REPORT | Encounter Summary ---
Author Author [facility] Organization [facility] Address Unknown Phone Unavailable Care Team Providers Care Canine Deputy Name Role Phone No Pcp, Na PCP Unavailable No Pcp, Na Unavailable Unavailable Encounter Details Date Type Department Care Team Description 04/21/2018 Ancillary Rad Outpatient, Radiologist Orders [address] [place] [address] Social History Tobacco Use Types Packs/Day Years Used Date Never Smoker Alcohol Use Drinks/Week oz/Week Comments No 0 Standard 0.0 drinks or equivalent Sex Assigned at Date Recorded Not on file as of this encounter Plan of Treatment Not on fileas of this encounter Visit Diagnoses Not on filein this encounter
--- OUTSIDE RECORDS SUMMARY | 2018-05-19 20:51 | XMS REPORT | Encounter Summary ---
Author Author [facility] Organization [facility] Address Unknown Phone Unavailable Care Team Providers Care Works Manager Name Role Phone No Pcp, Na PCP Unavailable No Pcp, Na Unavailable Unavailable Encounter Details Date Type Department Care Team Description 04/21/2018 Hospital [facility] Singh Queen MD Encounter [facility] [address] [place] [address] [place] [address] [phone] Social History Tobacco Use Types Packs/Day Years Used Date Never Smoker Alcohol Use Drinks/Week oz/Week Comments No 0 Standard 0.0 drinks or equivalent Sex Assigned at Date Recorded Not on file as of this encounter Medications at Time of Discharge Medication Sig. Disp. Refills Start Date End Date cephalexin (KEFLEX) 500 One twice a day for 60 Cap 6 11/16/2016 mg capsule suppression after current course is complete. Take by mouth. Qxniqjpy-Cz-Iii-Fe-FA tab as of this encounter Plan of Treatment [...] encounter Visit Diagnoses Diagnosis Right hip pain Pain in joint, pelvic region and thigh
--- OUTSIDE RECORDS SUMMARY | 2018-05-19 20:51 | XMS REPORT ---
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 50885443 Problem Intrinsic eczema L20.84 Active 24904366 Problem ADHD (attention deficit hyperactivity disorder), inattentive type F90.0 Active 96581322 Problem Migraine without aura and without status migrainosus, not intractable G43.009 Active 600781555 Problem Depressive disorder, not elsewhere classified F32.9 Active 39330332 Problem Attention deficit disorder (ADD) 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 Active 57803460 Problem Controlled substance agreement signed Z79.899 Active 138784207 Problem High risk medication use Z79.899 Active [id number] ALLERGIES No Information ENCOUNTERS Encounter Location Date Diagnosis [facility] [address] [facility] [id number], [place] [address] May, [facility] [address] [facility] [id number] [id number] May, [facility] [address], [place] [address] May, [facility] [address] [place] [id number] [address] Apr, [facility] [id number], [place] [address] Apr, [facility] [address], [place] [address] Apr, [facility] [address] [place] [address]95- 5549 Apr, ADHD (attention deficit hyperactivity disorder), inattentive type F90.0 and Generalized anxiety disorder F41.1 [facility] [address], [place] [address] Apr, Allergic contact dermatitis, unspecified trigger L23.9 [facility] [address], [place] [address] Mar, [facility] [id number] [place] [id number] Mar, Arthralgia of left temporomandibular joint M26.622 [facility] [address], [place] [address] Mar, [facility] [address] [place] [address]9542- 1158 February, ADHD (attention deficit hyperactivity disorder), inattentive type F90.0 and Generalized anxiety disorder F41.1 [facility] [address], [place] [address] Jan, [facility] [address], [place] [address] Jan, ADHD (attention deficit hyperactivity disorder), inattentive type F90.0 [facility] [address], [place] [address] Jan, ADHD (attention deficit hyperactivity disorder), inattentive type F90.0 [facility] [address], [place] [address] Jan, [facility] [address], [place] [address] Jan, ADHD (attention deficit hyperactivity disorder), inattentive type F90.0 and Generalized anxiety disorder F41.1 [place] [address] [place] [address]21- [address]86 27 Dec, 2017 ADHD (attention deficit hyperactivity disorder), inattentive type F90.0 [place] [id number] [place] [id number] Dec, Strain of flexor muscle of right hip, subsequent encounter S76.011D and Groin strain, right, initial encounter S76.211A [facility] [place] [id number] [place] [address] 18 Dec, 2017 Intractable episodic headache, unspecified headache type R51 [facility] [address] [address] 15 Dec, 2017 Fever R50.9 ; Otitis media due to influenza J11.83 ; Flu- like symptoms R68.89 and Stuffy and runny nose J34.[address] [address] Dec, Strain of flexor muscle of right hip, initial encounter S76.011A [place] [id number] [place] [address] 6[address]65- 0876 Nov, ADHD (attention deficit hyperactivity disorder), inattentive type F90.0 and Generalized anxiety disorder F41.1 [place] [id number] [place] [address] 53977- 4748 Nov, Burning with urination R30.0 and 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 [place] [address] [id number] [place] [address] 43408- 2666 Oct, ADHD (attention deficit hyperactivity disorder), inattentive type F90.0 and Generalized anxiety disorder F41.1 [place] [id number] [place] [address]79- 6741 Oct, Routine gynecological examination Z01.419 ; Routine screening for STI (sexually transmitted infection) Z11.3 and Trichomoniasis of vagina A59.[address] [place] [address] Oct, ADHD (attention deficit hyperactivity disorder), inattentive type F90.0 and Generalized anxiety disorder F41.1 [facility] [id number] [place] [address] 79353- 2848 Sep, [facility] [address] [address] Sep, [facility] [id number] [place] [address] 12504- 2496 Sep, ADHD (attention deficit hyperactivity disorder), inattentive type F90.0 and Generalized anxiety disorder F41.1 [place] [address] [id number] [place] [address] 94743- 4753 Sep, Dysuria R30.0 ; Vaginal discharge N89.8 ; Generalized anxiety disorder F41.1 and Attention deficit disorder (ADD) 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 [facility] [id number] [place] [address]8768 -5489 Aug, Burning with urination R30.0 and Acute cystitis without hematuria N30.00 [place] [address] [place] [id number] [place] [address] 30025- 9143 Aug, [facility] WALK IN [facility] [address] [id number] [place] [address]79 -9682 Aug, Dysuria R30.0 and Acute cystitis without hematuria N30.00 [facility] [address] [id number] [place] [address] 58474- 8447 Aug, ADHD (attention deficit hyperactivity disorder), inattentive type F90.0 and Generalized anxiety disorder F41.1 [facility] [address] [id number] [place] [address] 60250- 7318 Aug, [facility] [address] [place] [id number] [place] [address] 81445- 2437 Aug, Generalized anxiety disorder F41.1 [facility] [address] [place] [address] 4[address] Jul, ADHD (attention deficit hyperactivity disorder), inattentive type F90.0 ; Generalized anxiety disorder F41.1 and Migraine without aura and without status migrainosus, not intractable G43.009 [facility] [id number] [place] [address] 65991- 8257 28 Jun, 2017 [facility] [id number] [place] [address] 71740- 5140 Jun, [facility] [id number] [place] [address] 00109- 1490 Jun, [facility] [address] [address]- [address] Jun, ADHD (attention deficit hyperactivity disorder), inattentive type F90.0 ; Controlled substance agreement signed Z79.899 and High risk medication use Z79.899 [facility] [id number] [place] [address] [phone] Jun, Dental examination Z01.20 [facility] [id number] [place] [address] 95467- 2544 08 Jun, 2017 [facility] [id number] [place] [address] 72918- 8488 08 Jun, 2017 Intractable migraine without aura and without status migrainosus G43.019 [facility] [id number] [place] [address] 89470- 3635 07 Jun, 2017 Intractable migraine without aura and without status migrainosus G43.019 [facility] [address] [place] [address] [phone] May, Dental examination Z01.20 [facility] [id number] [place] [address] 69125- 0199 May, Generalized anxiety disorder F41.1 ; Depressive disorder, not elsewhere classified F32.9 and Attention deficit disorder (ADD) 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 [facility] [id number] [place] [address] 17934- 9540 May, Screening for deficiency anemia Z13.0 [facility] [address] [place] [address] [id number] Apr, Encounter for dental examination Z01.20 [facility] [id number] [place] [address] [id number] Mar, Dental examination Z01.20 [facility] [address] [address]- 2490 Jan, Dental examination Z01.20 [place] [address] [address]- 5356 Jan, Dental examination Z01.20 [place] [id number] [place] [address] 62046- 3327 Dec, Generalized anxiety disorder F41.1 [place] [address] [address]- 5010 Dec, ADHD (attention deficit hyperactivity disorder), inattentive type F90.0 ; Generalized social phobia F40.11 and Social phobia, generalized F40.11 [place] [id number] [place] [address] 44944- 6629 Nov, Intrinsic eczema L20.84 and Reactive depression F32.9 [place] [id number] [place] [address] 18799- 2962 Oct, Urinary tract infection, site unspecified N39.0 ; CVA tenderness M54.9 and Nausea and vomiting during O21.9 [place] [id number] [place] [address] 62752- 2254 Sep, [address] [address]- 8973 Sep, Routine health maintenance Z00.00 ; Frequent UTI N39.0 and Family history of diabetes mellitus Z83.3 [place] [id number] [place] [address] 19332- 9294 Aug, Routine health maintenance Z00.00 ; Burning with urination R30.0 ; Frequent UTI N39.0 ; Cystitis N30.90 ; Family history of diabetes mellitus Z83.3 and 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
--- OUTSIDE RECORDS SUMMARY | 2018-05-19 20:52 | XMS REPORT ---
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 30499386 Problem Intrinsic eczema L20.84 Active 05695012 Problem ADHD (attention deficit hyperactivity disorder), inattentive type F90.0 Active 47714743 Problem Migraine without aura and without status migrainosus, not intractable G43.009 Active 050923200 Problem Depressive disorder, not elsewhere classified F32.9 Active 25325213 Problem Attention deficit disorder (ADD) 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 Active 37860677 Problem Controlled substance agreement signed Z79.899 Active 143488516 Problem High risk medication use Z79.899 Active [id number] ALLERGIES No Information ENCOUNTERS Encounter Location Date Diagnosis [facility] [address] [place] [address] 59599- 6877 Apr, [facility] [address] [place] [address] 80181- 9802 Apr, ADHD (attention deficit hyperactivity disorder), inattentive type F90.0 and Generalized anxiety disorder F41.1 [facility] [address] [place] [address] 61859 -1354 Apr, Allergic contact dermatitis, unspecified trigger L23.9 [facility] [address] [place] [address] 64720- 8210 Mar, [place] [address] [facility] [id number] [id number] Mar, Arthralgia of left temporomandibular joint M26.622 [place] [address] [address] Mar, [place] [address] [address]- 1616 February, ADHD (attention deficit hyperactivity disorder), inattentive type F90.0 and Generalized anxiety disorder F41.1 [place] [address] [address]- 6886 Jan, [place] [address] [address]- 3706 Jan, ADHD (attention deficit hyperactivity disorder), inattentive type F90.0 [place] [address] [address]- 1341 Jan, ADHD (attention deficit hyperactivity disorder), inattentive type F90.0 [place] [address] [address]- 7730 Jan, [place] [address] [address]- 3878 Jan, ADHD (attention deficit hyperactivity disorder), inattentive type F90.0 and Generalized anxiety disorder F41.1 [place] [address] [place] [id number] [address]- 9411 Dec, ADHD (attention deficit hyperactivity disorder), inattentive type F90.0 [place] [address] [place] [address] [id number] [address]- 2876 Dec, Strain of flexor muscle of right hip, subsequent encounter S76.011D and Groin strain, right, initial encounter S76.211A [facility] [id number] [address] Dec, Intractable episodic headache, unspecified headache type R51 [facility] [address] [place] [address] 64760 -3779 15 Dec, 2017 Fever R50.9 ; Otitis media due to influenza J11.83 ; Flu- like symptoms R68.89 and Stuffy and runny nose J34.89 [place] [address] [place] [address] [id number] [place] [address] 56127- 1899 Dec, Strain of flexor muscle of right hip, initial encounter S76.011A [place] [address] [address]- 1636 Nov, ADHD (attention deficit hyperactivity disorder), inattentive type F90.0 and Generalized anxiety disorder F41.[address] [address]- 6657 Nov, Burning with urination R30.0 and 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 7[address]26- 1851 Oct, ADHD (attention deficit hyperactivity disorder), inattentive type F90.0 and Generalized anxiety disorder F41.1 [place] [address] [id number] [place] [address] 80573- 6169 Oct, Routine gynecological examination Z01.419 ; Routine screening for STI (sexually transmitted infection) Z11.3 and Trichomoniasis of vagina A59.01 [place] [address] [place] [address] [id number] [place] [address] 76635- 1930 Oct, ADHD (attention deficit hyperactivity disorder), inattentive type F90.0 and Generalized anxiety disorder F41.1 [place] [address] [place] [id number] [place] [address] 35521- 4637 Sep, [address] 51539- 5706 Sep, [place] [address] [place] [id number] [place] [address] 05919- 5673 Sep, ADHD (attention deficit hyperactivity disorder), inattentive type F90.0 and Generalized anxiety disorder F41.1 [facility] [address] [place] [address] 73561- 1351 05 Sep, 2017 Dysuria R30.0 ; Vaginal discharge N89.8 ; Generalized anxiety disorder F41.1 and Attention deficit disorder (ADD) 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 [facility] [address] [id number] [place] [address] 46029 -0637 Aug, Burning with urination R30.0 and Acute cystitis without hematuria N30.00 [facility] [address] [id number] [place] [address] 00994- 7936 Aug, [facility] WALK IN [facility] [address] [id number] [place] [address] 39518 -7492 Aug, Dysuria R30.0 and Acute cystitis without hematuria N30.00 [place] [address] [place] [address] [id number] [place] [address] 67527- 6732 08 Aug, 2017 ADHD (attention deficit hyperactivity disorder), inattentive type F90.0 and Generalized anxiety disorder F41.1 [facility] [id number] [place] [address] 75870- 1560 Aug, [facility] [address] [id number] [place] [address] 60338- 0076 Aug, Generalized anxiety disorder F41.1 [place] [address] [address] [id number] [place] [address] 42233- 9360 Jul, ADHD (attention deficit hyperactivity disorder), inattentive type F90.0 ; Generalized anxiety disorder F41.1 and Migraine without aura and without status migrainosus, not intractable G43.009 [facility] [address] [id number] [place] [address] 15712- 1152 Jun, [facility] [address] [id number] [place] [address] 24303- 8357 Jun, [facility] [address] [id number] [place] [address] 32058- 1984 Jun, [facility] [address] [place] [address] 26812- 8071 Jun, ADHD (attention deficit hyperactivity disorder), inattentive type F90.0 ; Controlled substance agreement signed Z79.899 and High risk medication use Z79.899 [facility] [address] [place] [address] [phone] 14 Jun, 2017 Dental examination Z01.20 [facility] [address] 38570- 1070 08 Jun, 2017 [facility] [id number] [place] [address] 51923- 0301 08 Jun, 2017 Intractable migraine without aura and without status migrainosus G43.019 [facility] [address] [place] [address] 56372- 9702 07 Jun, 2017 Intractable migraine without aura and without status migrainosus G43.019 [facility] [address] [place] [address] [phone] May, Dental examination Z01.20 [facility] [id number] [place] [address] 98178- 8646 May, Generalized anxiety disorder F41.1 ; Depressive disorder, not elsewhere classified F32.9 and Attention deficit disorder (ADD) 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 [facility] [id number] [place] [address] 34971- 6073 May, Screening for deficiency anemia Z13.0 [facility] [id number] [place] [address] [phone] Apr, Encounter for dental examination Z01.20 [facility] [id number] [place] [address] [id number] Mar, Dental examination Z01.20 [facility] [id number] [place] [address] 68628- 3439 Jan, Dental examination Z01.20 [facility] [address] 51307- 1925 13 Jan, 2017 Dental examination Z01.20 [place] [address] [place] [id number] [place] [address] 32035- 4343 24 Dec, 2016 Generalized anxiety disorder F41.1 [place] [address] 65276- 3421 14 Dec, 2016 ADHD (attention deficit hyperactivity disorder), inattentive 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 ; Generalized social phobia F40.11 and Social phobia, generalized F40.11 [place] [id number] [place] [address] 26621- 0639 Nov, Intrinsic eczema L20.84 and Reactive depression F32.[address] 31299- 8230 Oct, Urinary tract infection, site unspecified N39.0 ; CVA tenderness M54.9 and Nausea and vomiting during O21.[address] 03864- 0769 Sep, [address] 66154- 2856 Sep, Routine health maintenance Z00.00 ; Frequent UTI N39.0 and Family history of diabetes mellitus Z83.3 [place] [id number] [place] [address] 47126- 6186 Aug, Routine health maintenance Z00.00 ; Burning with urination R30.0 ; Frequent UTI N39.0 ; Cystitis N30.90 ; Family history of diabetes mellitus Z83.3 and 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 [place] [id number] [place] [address] 50162- 1815 Aug, IMMUNIZATIONS No Known Immunizations SOCIAL HISTORY Never Assessed REASON FOR VISIT med refill PLAN OF CARE VITAL SIGNS MEDICATIONS Medication Instructions Dosage Frequency Start Date End Date Duration Status Zoloft 50 mg Orally Once a day 1 tablet 24h Sep, 28 days Active Adderall XR 20 MG Orally Once a day in the morning 1 capsule Dec, 28 days Active RESULTS No Results PROCEDURES [...] in jaw 2010 Surgical History Hemroid surgery [facility] 2018 Hospitalization History child Hospitalization History with surgeries listed above Hospitalization History denies any past psychiatric hospitalizations
--- OUTSIDE RECORDS SUMMARY | 2018-05-19 20:52 | XMS REPORT ---
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 58851665 Problem Intrinsic eczema L20.84 Active 38512969 Problem ADHD (attention deficit hyperactivity disorder), inattentive type F90.0 Active 08671131 Problem Migraine without aura and without status migrainosus, not intractable G43.009 Active 015095109 Problem Depressive disorder, not elsewhere classified F32.9 Active 17663944 Problem Attention deficit disorder (ADD) 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 Active 11183978 Problem Controlled substance agreement signed Z79.899 Active 229045729 Problem High risk medication use Z79.899 Active [id number] ALLERGIES Substance Reaction Event Type Date Status NO EPINEPHRINE per OB doctor WHILE HIGH RISK while preg per PHYSICIAN Non Drug Allergy Jan, Active ENCOUNTERS Encounter Location Date Diagnosis [facility] [address] [address] Apr, [facility] [address] [place] [address] 78093- 9946 Apr, ADHD (attention deficit hyperactivity disorder), inattentive type F90.0 and Generalized anxiety disorder F41.1 [facility] [id number] [address] Apr, Allergic contact dermatitis, unspecified trigger L23.9 [facility] [address] [address] Mar, [facility] [address] [id number] [id number] Mar, Arthralgia of left temporomandibular joint M26.622 [facility] [address] [address] Mar, [facility] [id number] [place] [address] 66888- 9025 February, ADHD (attention deficit hyperactivity disorder), inattentive type F90.0 and Generalized anxiety disorder F41.1 [facility] [address] [place] [address] 30180- 3438 Jan, [facility] [address] [place] [address] 64201- 5306 Jan, ADHD (attention deficit hyperactivity disorder), inattentive type F90.0 [facility] [address] [address] Jan, ADHD (attention deficit hyperactivity disorder), inattentive type F90.0 [facility] [address] [place] [address] 36445- 2567 Jan, [facility] [address] [address] Jan, ADHD (attention deficit hyperactivity disorder), inattentive type F90.0 and Generalized anxiety disorder F41.1 [facility] [id number] [address] Dec, ADHD (attention deficit hyperactivity disorder), inattentive type F90.0 [facility] [address], [place] [address] Dec, Strain of flexor muscle of right hip, subsequent encounter S76.011D and Groin strain, right, initial encounter S76.211A [facility] [address] [place] [address] 45582 -2479 Dec, Intractable episodic headache, unspecified headache type R51 [facility] [address] [place] [address] 41443 -5276 15 Dec, 2017 Fever R50.9 ; Otitis media due to influenza J11.83 ; Flu- like symptoms R68.89 and Stuffy and runny nose J34.89 [place] [id number] [place] [address] 08051- 0301 Dec, Strain of flexor muscle of right hip, initial encounter S76.011A [place] [address] 77392- 9328 Nov, ADHD (attention deficit hyperactivity disorder), inattentive type F90.0 and Generalized anxiety disorder F41.1 [place] [id number] [place] [address] 70054- 2333 Nov, Burning with urination R30.0 and 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 [place] [id number] [place] [address] 02086- 0264 Oct, ADHD (attention deficit hyperactivity disorder), inattentive type F90.0 and Generalized anxiety disorder F41.1 [place] [id number] [place] [address] 86121- 5499 Oct, Routine gynecological examination Z01.419 ; Routine screening for STI (sexually transmitted infection) Z11.3 and Trichomoniasis of vagina A59.01 [place] [id number] [place] [address] 57418- 5515 Oct, ADHD (attention deficit hyperactivity disorder), inattentive type F90.0 and Generalized anxiety disorder F41.1 [place] [address] 81164- 3425 Sep, [place] [id number] [place] [address] 48239- 4828 Sep, [place] [address] 23804- 6446 Sep, ADHD (attention deficit hyperactivity disorder), inattentive type F90.0 and Generalized anxiety disorder F41.1 [place] [id number] [place] [address] 26632- 2335 Sep, Dysuria R30.0 ; Vaginal discharge N89.8 ; Generalized anxiety disorder F41.1 and Attention deficit disorder (ADD) 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 [facility] [id number] [place] [address] 36583 -7562 Aug, Burning with urination R30.0 and Acute cystitis without hematuria N30.00 [place] [id number] [place] [address] 17721- 5336 Aug, [facility] [id number] [place] [address] 41764 -8658 Aug, Dysuria R30.0 and Acute cystitis without hematuria N30.00 [place] [address] 08[address]- 1940 Aug, ADHD (attention deficit hyperactivity disorder), inattentive type F90.0 and Generalized anxiety disorder F41.1 [place] [id number] [place] [address] 65606- 7120 Aug, [place] [id number] [place] [address] 00884- 3199 Aug, Generalized anxiety disorder F41.1 [place] [id number] [place] [address] 35401- 1261 Jul, ADHD (attention deficit hyperactivity disorder), inattentive type F90.0 ; Generalized anxiety disorder F41.1 and Migraine without aura and without status migrainosus, not intractable G43.009 [place] [id number] [place] [address] 94933- 8621 Jun, [place] [id number] [place] [address] 51647- 9412 Jun, [place] [id number] [place] [address] 98308- 0010 Jun, [facility] [address] 41444[address] 9[address] Jun, ADHD (attention deficit hyperactivity disorder), inattentive type F90.0 ; Controlled substance agreement signed Z79.899 and High risk medication use Z79.899 [facility] [id number] [place] [address] [id number] 14 Jun, 2017 Dental examination Z01.20 [facility] [id number] [place] [address] 80999- 0702 08 Jun, 2017 [facility] [address] 22094- 5780 Jun, Intractable migraine without aura and without status migrainosus G43.019 [facility] [id number] [place] [address] 05332- 1783 07 Jun, 2017 Intractable migraine without aura and without status migrainosus G43.019 [facility] [id number] [place] [address] [id number] May, Dental examination Z01.20 [facility] [id number] [place] [address] 37923- 6337 May, Generalized anxiety disorder F41.1 ; Depressive disorder, not elsewhere classified F32.9 and Attention deficit disorder (ADD) 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 [facility] [id number] [place] [address] 99289- 3283 May, Screening for deficiency anemia Z13.0 [facility] [id number] [place] [address] [id number] Apr, Encounter for dental examination Z01.20 [facility] [id number] [place] [address] [id number] Mar, Dental examination Z01.20 [facility] [id number] [place] [address] 67432- 0171 Jan, Dental examination Z01.20 [place] [address] [place] [address] 22638- 2925 13 Jan, 2017 Dental examination Z01.20 [place] [id number] [place] [address] 30230- 1617 24 Dec, 2016 Generalized anxiety disorder F41.1 [place] [id number] [place] [address] 44103- 3624 14 Dec, 2016 ADHD (attention deficit hyperactivity disorder), inattentive type F90.0 ; Generalized social phobia F40.11 and Social phobia, generalized F40.11 [place] [id number] [place] [address] 103376- 9274 21 Nov, 2016 Intrinsic eczema L20.84 and Reactive depression F32.9 [place] [id number] [place] [address] 31327- 2207 Oct, Urinary tract infection, site unspecified N39.0 ; CVA tenderness M54.9 and Nausea and vomiting during O21.9 [place] [id number] [place] [address] 94863- 7489 Sep, [place] [address] [address]- 7139 Sep, Routine health maintenance Z00.00 ; Frequent UTI N39.0 and Family history of diabetes mellitus Z83.3 [address] [id number] [place] [address] 85652- 3809 Aug, Routine health maintenance Z00.00 ; Burning with urination R30.0 ; Frequent UTI N39.0 ; Cystitis N30.90 ; Family history of diabetes mellitus Z83.3 and 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 [id number] [place] [address] 82926- 7631 16 Aug, 2016 IMMUNIZATIONS No Known Immunizations SOCIAL HISTORY Never Assessed REASON FOR VISIT f/u PLAN OF CARE Activity Details Follow Up 4 Weeks Reason: f/u VITAL SIGNS Height 65 in 2018-01-10 Weight 140.8 lbs 2018-01-10 Heart Rate 92 bpm 2018-01-10 Respiratory Rate 20 2018-01-10 BMI 23.43 kg/m2 2018-01-10 Blood pressure systolic 110 mmHg 2018-01-10 Blood pressure diastolic 68 mmHg 2018-01-10 MEDICATIONS Medication Instructions Dosage Frequency Start Date End Date Duration Status Adderall XR 20 MG Orally Once a day in the morning 1 capsule Dec, Active Tramadol HCl 50 mg Orally every 12 PRN 1 tablet Dec, Active Ciprodex 0.3-0.1 % Otic Twice a day 4 drops into affected ear 12h Dec, 07 days Not-Taking Adderall 5 mg Orally Once a day in the afternoon 1 tablet Jan, 28 days Active Zoloft 50 mg Orally Once a day 1 tablet 24h Sep, Active Flonase Allergy Relief 50 MCG/ACT Nasally twice a day 1 spray in each nostril 12h Dec, 07 days Not-Taking Biotin 5000 5 MG Orally Once a day 1 capsule 24h Not-Taking RESULTS No Results PROCEDURES No Known procedures [...] in jaw 2010 Surgical History Hemroid surgery [facility] 2018 Hospitalization History child Hospitalization History with surgeries listed above Hospitalization History denies any past psychiatric hospitalizations
--- OUTSIDE RECORDS SUMMARY | 2018-05-19 20:52 | XMS REPORT ---
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 10179799 Problem Intrinsic eczema L20.84 Active 02599908 Problem ADHD (attention deficit hyperactivity disorder), inattentive 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 Active 77320132 Problem Migraine without aura and without status migrainosus, not intractable G43.009 Active 589088946 Problem Depressive disorder, not elsewhere classified F32.9 Active 96804252 Problem Attention deficit disorder (ADD) 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 Active 18099853 Problem Controlled substance agreement signed Z79.899 Active 868512966 Problem High risk medication use Z79.899 Active [id number] ALLERGIES No Information ENCOUNTERS Encounter Location Date Diagnosis [facility] [address] [place] [address] 88004- 4472 May, [facility] [address] [place] [address] 22873- 0911 Apr, [facility] [id number] [place] [address] 67652- 0913 Apr, [facility] [id number] [place] [address] 09218- 4268 Apr, [facility] [address] [place] [address] 99123- 2480 Apr, ADHD (attention deficit hyperactivity disorder), inattentive type F90.0 and Generalized anxiety disorder F41.1 [facility] [address] [address] Apr, Allergic contact dermatitis, unspecified trigger L23.9 [facility] [address] [address] 6381 Mar, [facility] [id number] [id number] Mar, Arthralgia of left temporomandibular joint M26.622 [facility] [address] [address]- 0565 Mar, [facility] [address] [place] [address] 78951- 0111 February, ADHD (attention deficit hyperactivity disorder), inattentive type F90.0 and Generalized anxiety disorder F41.1 [facility] [address] [address]- 8568 Jan, [facility] [address] [place] [address] 85781- 9017 Jan, ADHD (attention deficit hyperactivity disorder), inattentive type F90.0 [facility] [address] [address]- 0179 Jan, ADHD (attention deficit hyperactivity disorder), inattentive type F90.0 [facility] [address] [address]- 9223 Jan, [facility] [address] [address]- 0863 Jan, ADHD (attention deficit hyperactivity disorder), inattentive type F90.0 and Generalized anxiety disorder F41.1 [facility] [address] [address]- 2221 Dec, ADHD (attention deficit hyperactivity disorder), inattentive type F90.0 [facility] [id number] [place] [address] 70016- 9538 Dec, Strain of flexor muscle of right hip, subsequent encounter S76.011D and Groin strain, right, initial encounter S76.211A [facility] [place] [id number] [place] [address] 53403 -0620 18 Dec, 2017 Intractable episodic headache, unspecified headache type R51 [facility] [place] [address] 7[address]37 -2224 15 Dec, 2017 Fever R50.9 ; Otitis media due to influenza J11.83 ; Flu- like symptoms R68.89 and Stuffy and runny nose J34.89 [place] [address] 97810- 1225 Dec, Strain of flexor muscle of right hip, initial encounter S76.011A [place] [address] 94889- 3084 Nov, ADHD (attention deficit hyperactivity disorder), inattentive type F90.0 and Generalized anxiety disorder F41.1 [place] [id number] [place] [address] 83620- 8443 23 Nov, 2017 Burning with urination R30.0 and 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 [place] [id number] [place] [address] 87870- 9880 Oct, ADHD (attention deficit hyperactivity disorder), inattentive type F90.0 and Generalized anxiety disorder F41.1 [place] [id number] [place] [address] 13495- 2665 Oct, Routine gynecological examination Z01.419 ; Routine screening for STI (sexually transmitted infection) Z11.3 and Trichomoniasis of vagina A59.01 [place] [id number] [place] [address] 91104- 1150 Oct, ADHD (attention deficit hyperactivity disorder), inattentive type F90.0 and Generalized anxiety disorder F41.1 [place] [id number] [place] [address] 69671- 9055 Sep, [facility] [id number] [place] [address] 58913- 6449 Sep, [facility] [id number] [place] [address] 11098- 8347 Sep, ADHD (attention deficit hyperactivity disorder), inattentive type F90.0 and Generalized anxiety disorder F41.1 [place] [id number] [place] [address] 41772- 0720 Sep, Dysuria R30.0 ; Vaginal discharge N89.8 ; Generalized anxiety disorder F41.1 and Attention deficit disorder (ADD) 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 [facility] [id number] [place] [address] 10845 -2997 Aug, Burning with urination R30.0 and Acute cystitis without hematuria N30.00 [facility] [id number] [place] [address] 46296- 9097 Aug, [facility] [id number] [place] [address] 56534 -4144 Aug, Dysuria R30.0 and Acute cystitis without hematuria N30.00 [facility] [id number] [place] [address] 84677- 3794 Aug, ADHD (attention deficit hyperactivity disorder), inattentive type F90.0 and Generalized anxiety disorder F41.1 [facility] [id number] [place] [address] 57798- 7453 Aug, [facility] [id number] [place] [address] 41431- 0244 Aug, Generalized anxiety disorder F41.1 [place] [id number] [place] [address] 30556- 6101 Jul, ADHD (attention deficit hyperactivity disorder), inattentive type F90.0 ; Generalized anxiety disorder F41.1 and Migraine without aura and without status migrainosus, not intractable G43.009 [facility] [id number] [place] [address] 24020- 1371 28 Jun, 2017 [facility] [address] 47318- 5141 22 Jun, 2017 [facility] [id number] [place] [address] 16655- 8216 Jun, [facility] [address] 83713- 8183 Jun, ADHD (attention deficit hyperactivity disorder), inattentive type F90.0 ; Controlled substance agreement signed Z79.899 and High risk medication use Z79.899 [facility] [address] [id number] Jun, Dental examination Z01.20 [facility] [address] 22885- 5062 08 Jun, 2017 [facility] [address] 92388- 0005 08 Jun, 2017 Intractable migraine without aura and without status migrainosus G43.019 [facility] [address] 06362- 9674 07 Jun, 2017 Intractable migraine without aura and without status migrainosus G43.019 [facility] [id number] [place] [address] [id number] 16 May, 2017 Dental examination Z01.20 [facility] [id number] [place] [address] 29857- 0536 May, Generalized anxiety disorder F41.1 ; Depressive disorder, not elsewhere classified F32.9 and Attention deficit disorder (ADD) 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 [facility] [address] 86321- 5428 04 May, 2017 Screening for deficiency anemia Z13.0 [facility] [id number] [place] [address] [id number] 14 Apr, 2017 Encounter for dental examination Z01.20 [facility] [id number] [id number] Mar, Dental examination Z01.20 [place] [id number] [place] [address] 41841- 1247 Jan, Dental examination Z01.20 [place] [id number] [place] [address] 87488- 8394 13 Jan, 2017 Dental examination Z01.20 [place] [id number] [place] [address] 64394- 7384 24 Dec, 2016 Generalized anxiety disorder F41.1 [place] [address] 24737- 8840 14 Dec, 2016 ADHD (attention deficit hyperactivity disorder), inattentive 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 ; Generalized social phobia F40.11 and Social phobia, generalized F40.11 [place] [id number] [place] [address] 02687- 8996 Nov, Intrinsic eczema L20.84 and Reactive depression F32.9 [place] [id number] [place] [address] 91306- 7459 Oct, Urinary tract infection, site unspecified N39.0 ; CVA tenderness M54.9 and Nausea and vomiting during O21.9 [place] [id number] [place] [address] 85424- 5052 Sep, [place] [id number] [place] [address] 55090- 0584 Sep, Routine health maintenance Z00.00 ; Frequent UTI N39.0 and Family history of diabetes mellitus Z83.3 [place] [id number] [place] [address] 73379- 1742 Aug, Routine health maintenance Z00.00 ; Burning with urination R30.0 ; Frequent UTI N39.0 ; Cystitis N30.90 ; Family history of diabetes mellitus Z83.3 and 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
--- OUTSIDE RECORDS SUMMARY | 2018-05-19 20:52 | XMS REPORT ---
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 14116242 Problem Intrinsic eczema L20.84 Active 92080978 Problem ADHD (attention deficit hyperactivity disorder), inattentive type F90.0 Active 36267467 Problem Migraine without aura and without status migrainosus, not intractable G43.009 Active 977184827 Problem Depressive disorder, not elsewhere classified F32.9 Active 03964209 Problem Attention deficit disorder (ADD) 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 Active 78941111 Problem Controlled substance agreement signed Z79.899 Active 336815232 Problem High risk medication use Z79.899 Active [id number] ALLERGIES Substance Reaction Event Type Date Status NO EPINEPHRINE per OB doctor WHILE HIGH RISK while preg per PHYSICIAN Non Drug Allergy Dec, Active ENCOUNTERS Encounter Location Date Diagnosis [facility] [address] [facility] [id number] [address] Apr, [facility] [id number] [address] Apr, ADHD (attention deficit hyperactivity disorder), inattentive type F90.0 and Generalized anxiety disorder F41.1 [facility] [id number], [place] [address] Apr, Allergic contact dermatitis, unspecified trigger L23.9 [facility] [address], [place] [address] Mar, [facility] [address] [id number] [id number] Mar, Arthralgia of left temporomandibular joint M26.622 [facility] [address], [place] [address] Mar, [facility] [address] [place] [address] 76797- 6879 February, ADHD (attention deficit hyperactivity disorder), inattentive type F90.0 and Generalized anxiety disorder F41.1 [facility] [address] [place] [address] 62587- 9719 Jan, [facility] [address] [place] [address] 81017- 8058 Jan, ADHD (attention deficit hyperactivity disorder), inattentive type F90.0 [facility] [address], [place] [address] Jan, ADHD (attention deficit hyperactivity disorder), inattentive type F90.0 [facility] [address] [place] [address] 09927- 9405 Jan, [facility] [address], [place] [address] Jan, ADHD (attention deficit hyperactivity disorder), inattentive type F90.0 and Generalized anxiety disorder F41.1 [facility] [id number], [place] [address] Dec, ADHD (attention deficit hyperactivity disorder), inattentive type F90.0 [facility] [address], [place] [address] Dec, Strain of flexor muscle of right hip, subsequent encounter S76.011D and Groin strain, right, initial encounter S76.211A [facility] [address] [place] [address] 68192 -8110 18 Dec, 2017 Intractable episodic headache, unspecified headache type R51 [facility] IN [facility] [id number] [place] [address] 02823 -[address]3 15 Dec, 2017 Fever R50.9 ; Otitis media due to influenza J11.83 ; Flu- like symptoms R68.89 and Stuffy and runny nose J34.89 [place] [address] [address]- [address] Dec, Strain of flexor muscle of right hip, initial encounter S76.011A [place] [address] 36238- 6008 Nov, ADHD (attention deficit hyperactivity disorder), inattentive type F90.0 and Generalized anxiety disorder F41.1 [place] [address] 62060- 6764 Nov, Burning with urination R30.0 and 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 [place] [id number] [place] [address] 55370- 3033 Oct, ADHD (attention deficit hyperactivity disorder), inattentive type F90.0 and Generalized anxiety disorder F41.1 [place] [id number] [place] [address] 38006- 9707 Oct, Routine gynecological examination Z01.419 ; Routine screening for STI (sexually transmitted infection) Z11.3 and Trichomoniasis of vagina A59.01 [place] [id number] [place] [address] 16387- 1287 Oct, ADHD (attention deficit hyperactivity disorder), inattentive type F90.0 and Generalized anxiety disorder F41.1 [place] [id number] [place] [address] 02653- 3468 Sep, [place] [id number] [place] [address] 26251- 5554 Sep, [place] [address] 06756- 0241 Sep, ADHD (attention deficit hyperactivity disorder), inattentive type F90.0 and Generalized anxiety disorder F41.1 [facility] [id number] [place] [address] 03964- 3338 Sep, Dysuria R30.0 ; Vaginal discharge N89.8 ; Generalized anxiety disorder F41.1 and Attention deficit disorder (ADD) 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 [facility] [address] [address] Aug, Burning with urination R30.0 and Acute cystitis without hematuria N30.00 [place] [id number] [place] [address] 79438- 9648 Aug, [facility] [id number] [place] [address] 56846 -4849 Aug, Dysuria R30.0 and Acute cystitis without hematuria N30.00 [place] [id number] [place] [address] 98424- 0350 08 Aug, 2017 ADHD (attention deficit hyperactivity disorder), inattentive type F90.0 and Generalized anxiety disorder F41.1 [place] [id number] [place] [address] 31579- 9563 Aug, [facility] [id number] [place] [address] 78154- 6407 Aug, Generalized anxiety disorder F41.1 [facility] [id number] [place] [address] 81168- 0843 Jul, ADHD (attention deficit hyperactivity disorder), inattentive type F90.0 ; Generalized anxiety disorder F41.1 and Migraine without aura and without status migrainosus, not intractable G43.009 [facility] [id number] [place] [address] 31078- 6078 Jun, [facility] [id number] [place] [address] 70596- 2308 Jun, [facility] [address] [place] [address] 28312- 1291 Jun, [facility] [address] 9[address]66- 1185 Jun, ADHD (attention deficit hyperactivity disorder), inattentive type F90.0 ; Controlled substance agreement signed Z79.899 and High risk medication use Z79.899 [facility] [id number] [place] [address] [id number] 14 Jun, 2017 Dental examination Z01.20 [facility] [id number] [place] [address] 78161- 3698 08 Jun, 2017 [facility] [address] 16695- 6557 08 Jun, 2017 Intractable migraine without aura and without status migrainosus G43.019 [facility] [id number] [place] [address] 21494- 4274 07 Jun, 2017 Intractable migraine without aura and without status migrainosus G43.019 [facility] [id number] [place] [address] [id number] May, Dental examination Z01.20 [facility] [id number] [place] [address] 70228- 1170 May, Generalized anxiety disorder F41.1 ; Depressive disorder, not elsewhere classified F32.9 and Attention deficit disorder (ADD) 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 [facility] [id number] [place] [address] 84866- 7330 May, Screening for deficiency anemia Z13.0 [facility] [id number] [place] [address] [id number] Apr, Encounter for dental examination Z01.20 [facility] [id number] [place] [address] [id number] Mar, Dental examination Z01.20 [facility] [id number] [place] [address] 71257- 9510 Jan, Dental examination Z01.20 [place] [id number] [place] [address] 67939- 8220 13 Jan, 2017 Dental examination Z01.20 [place] [id number] [place] [address] 86420- 6513 24 Dec, 2016 Generalized anxiety disorder F41.1 [place] [address] 33165- 6058 14 Dec, 2016 ADHD (attention deficit hyperactivity disorder), inattentive type F90.0 ; Generalized social phobia F40.11 and Social phobia, generalized F40.11 [place] [address] 81620- 6609 21 Nov, 2016 Intrinsic eczema L20.84 and Reactive depression F32.[address] 67583- 0196 Oct, Urinary tract infection, site unspecified N39.0 ; CVA tenderness M54.9 and Nausea and vomiting during O21.9 [place] [id number] [place] [address] 83343- 8866 Sep, [place] [address] 82615- 9960 Sep, Routine health maintenance Z00.00 ; Frequent UTI N39.0 and Family history of diabetes mellitus Z83.3 [place] [id number] [place] [address] 38295- 3448 Aug, Routine health maintenance Z00.00 ; Burning with urination R30.0 ; Frequent UTI N39.0 ; Cystitis N30.90 ; Family history of diabetes mellitus Z83.3 and 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 Thinks it was during childbirth from stretching legs apart. CBrumbackRN PLAN OF CARE Activity Details Follow Up referral to ORTHO Reason: VITAL SIGNS Height 65 in 2017-12-27 Weight 136.6 lbs 2017-12-27 Temperature 98.3 degrees Fahrenheit 2017-12-27 Heart Rate 108 bpm 2017-12-27 Respiratory Rate 18 2017-12-27 BMI 22.73 kg/m2 2017-12-27 Blood pressure systolic 102 mmHg 2017-12-27 Blood pressure diastolic 68 mmHg 2017-12-27 MEDICATIONS Medication Instructions Dosage Frequency Start Date End Date Duration Status Adderall XR 20 MG Orally Once a day in the morning 1 capsule Nov, 28 days Active Ciprodex 0.3-0.1 % Otic Twice a day 4 drops into affected ear 12h Dec, 07 days Not-Taking Zoloft 50 mg Orally Once a day 1 tablet 24h Sep, Active Biotin 5000 5 MG Orally Once a day 1 capsule 24h Not-Taking Cyclobenzaprine HCl 10 mg Orally qhs 1/2 tablet as needed Prior to bed Dec, Dec, 30 days Not-Taking Flonase Allergy Relief 50 MCG/ACT Nasally twice a day 1 spray in each nostril 12h Dec, 07 days Not-Taking Tramadol HCl 50 mg Orally every 12 PRN 1 tablet Dec, Active RESULTS No Results PROCEDURES No Known [...] in jaw 2010 Surgical History Hemroid surgery [facility] 2017 Hospitalization History child Hospitalization History with surgeries listed above Hospitalization History denies any past psychiatric hospitalizations
--- OUTSIDE RECORDS SUMMARY | 2018-05-19 20:52 | XMS REPORT ---
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899 Active [id number] ALLERGIES No Information ENCOUNTERS Encounter Location Date Diagnosis [facility] [address] [place] [address] 71933- 3308 Apr, [facility] [address] [place] [address] 06916- 7880 Apr, ADHD (attention deficit hyperactivity disorder), inattentive type F90.0 and Generalized anxiety disorder F41.1 [facility] [address] [place] [address] 26814 -1972 Apr, Allergic contact dermatitis, unspecified trigger L23.9 [facility] [address] [place] [address] 68818- 4938 Mar, [place] [address] [facility] [id number] [id number] Mar, Arthralgia of left temporomandibular joint M26.622 [place] [address] [address]- 3[address] Mar, [place] [address] [address]- 5214 February, ADHD (attention deficit hyperactivity disorder), inattentive type F90.0 and Generalized anxiety disorder F41.1 [place] [address] [address] Jan, [place] [address] [address]- 3873 Jan, ADHD (attention deficit hyperactivity disorder), inattentive type F90.0 [place] [address] [address]- 6526 Jan, ADHD (attention deficit hyperactivity disorder), inattentive type F90.0 [place] [address] [address]- 3102 Jan, [place] [address] [address]- 2683 Jan, ADHD (attention deficit hyperactivity disorder), inattentive type F90.0 and Generalized anxiety disorder F41.1 [place] [id number] [address]- 4001 Dec, ADHD (attention deficit hyperactivity disorder), inattentive type F90.0 [place] [id number] [address]- 1496 Dec, Strain of flexor muscle of right hip, subsequent encounter S76.011D and Groin strain, right, initial encounter S76.211A [facility] [address] [id number] [address] Dec, Intractable episodic headache, unspecified headache type R51 [facility] [address] [place] [address] 39944 -9438 15 Dec, 2017 Fever R50.9 ; Otitis media due to influenza J11.83 ; Flu- like symptoms R68.89 and Stuffy and runny nose J34.89 [place] [id number] [place] [address] 40793- 2723 Dec, Strain of flexor muscle of right hip, initial encounter S76.011A [place] [address] 36247- 6780 Nov, ADHD (attention deficit hyperactivity disorder), inattentive type F90.0 and Generalized anxiety disorder F41.[address] 03136- 6323 Nov, Burning with urination R30.0 and 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 43452- 9584 Oct, ADHD (attention deficit hyperactivity disorder), inattentive type F90.0 and Generalized anxiety disorder F41.1 [place] [id number] [place] [address] 48749- 0452 Oct, Routine gynecological examination Z01.419 ; Routine screening for STI (sexually transmitted infection) Z11.3 and Trichomoniasis of vagina A59.01 [place] [id number] [place] [address] 99404- 1561 Oct, ADHD (attention deficit hyperactivity disorder), inattentive type F90.0 and Generalized anxiety disorder F41.1 [place] [id number] [place] [address] 30128- 5027 Sep, [address] 82610- 8429 Sep, [place] [id number] [place] [address] 98972- 7679 Sep, ADHD (attention deficit hyperactivity disorder), inattentive type F90.0 and Generalized anxiety disorder F41.1 [facility] [address] [place] [address] 27610- 1594 05 Sep, 2017 Dysuria R30.0 ; Vaginal discharge N89.8 ; Generalized anxiety disorder F41.1 and Attention deficit disorder (ADD) 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 [facility] [id number] [place] [address] 52453 -4569 Aug, Burning with urination R30.0 and Acute cystitis without hematuria N30.00 [facility] [id number] [place] [address] 15162- 9927 Aug, [facility] [id number] [place] [address] 52178 -5184 Aug, Dysuria R30.0 and Acute cystitis without hematuria N30.00 [place] [id number] [place] [address] 03575- 2207 08 Aug, 2017 ADHD (attention deficit hyperactivity disorder), inattentive type F90.0 and Generalized anxiety disorder F41.1 [facility] [id number] [place] [address] 66160- 7461 Aug, [facility] [id number] [place] [address] 96038- 1441 Aug, Generalized anxiety disorder F41.1 [place] [id number] [place] [address] 43067- 5010 Jul, ADHD (attention deficit hyperactivity disorder), inattentive type F90.0 ; Generalized anxiety disorder F41.1 and Migraine without aura and without status migrainosus, not intractable G43.009 [facility] [id number] [place] [address] 64533- 5292 Jun, [facility] [id number] [place] [address] 20684- 7564 Jun, [facility] [id number] [place] [address] 80292- 5795 Jun, [facility] [address] [place] [address] 34781- 5176 Jun, ADHD (attention deficit hyperactivity disorder), inattentive type F90.0 ; Controlled substance agreement signed Z79.899 and High risk medication use Z79.899 [facility] [address] [place] [address] [id number] 14 Jun, 2017 Dental examination Z01.20 [facility] [address] 88265- 3710 08 Jun, 2017 [facility] [id number] [place] [address] 06598- 4728 08 Jun, 2017 Intractable migraine without aura and without status migrainosus G43.019 [facility] [id number] [place] [address] 91041- 3672 07 Jun, 2017 Intractable migraine without aura and without status migrainosus G43.019 [facility] [id number] [place] [address] [phone] May, Dental examination Z01.20 [facility] [id number] [place] [address] 47448- 3195 May, Generalized anxiety disorder F41.1 ; Depressive disorder, not elsewhere classified F32.9 and Attention deficit disorder (ADD) 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 [facility] [id number] [place] [address] 97082- 3579 May, Screening for deficiency anemia Z13.0 [facility] [id number] [place] [address] [phone] Apr, Encounter for dental examination Z01.20 [facility] [id number] [place] [address] [id number] Mar, Dental examination Z01.20 [facility] [id number] [place] [address] 39962- 9431 Jan, Dental examination Z01.20 [facility] [address] 88162- 5117 13 Jan, 2017 Dental examination Z01.20 [place] [id number] [place] [address] 00960- 6330 24 Dec, 2016 Generalized anxiety disorder F41.[address] 94234- 4633 14 Dec, 2016 ADHD (attention deficit hyperactivity disorder), inattentive type F90.0 ; Generalized social phobia F40.11 and Social phobia, generalized F40.[address] 60528- 1004 21 Nov, 2016 Intrinsic eczema L20.84 and Reactive depression F32.[address] 11021- 0673 Oct, Urinary tract infection, site unspecified N39.0 ; CVA tenderness M54.9 and Nausea and vomiting during O21.[address] 15039- 6929 Sep, [address] 52774- 8813 Sep, Routine health maintenance Z00.00 ; Frequent UTI N39.0 and Family history of diabetes mellitus Z83.[address] 39946- 7378 29 Aug, 2016 Routine health maintenance Z00.00 ; Burning with urination R30.0 ; Frequent UTI N39.0 ; Cystitis N30.90 ; Family history of diabetes mellitus Z83.3 and 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 60261- 0125 Aug, IMMUNIZATIONS No Known Immunizations SOCIAL HISTORY Never Assessed REASON FOR VISIT PLAN OF CARE VITAL SIGNS MEDICATIONS Unknown [...] in jaw 2010 Surgical History Hemroid surgery [facility] 2018 Hospitalization History child Hospitalization History with surgeries listed above Hospitalization History denies any past psychiatric hospitalizations
--- OUTSIDE RECORDS SUMMARY | 2018-05-19 20:53 | XMS REPORT ---
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 09066127 Problem Intrinsic eczema L20.84 Active 86141240 Problem ADHD (attention deficit hyperactivity disorder), inattentive type F90.0 Active 94225954 Problem Migraine without aura and without status migrainosus, not intractable G43.009 Active 919206903 Problem Depressive disorder, not elsewhere classified F32.9 Active 30231973 Problem Attention deficit disorder (ADD) 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 Active 70041055 Problem Controlled substance agreement signed Z79.899 Active 031502162 Problem High risk medication use Z79.899 Active [id number] ALLERGIES Substance Reaction Event Type Date Status NO EPINEPHRINE per OB doctor WHILE HIGH RISK while preg per PHYSICIAN Non Drug Allergy Dec, Active ENCOUNTERS Encounter Location Date Diagnosis [facility] [address] [facility] [id number], [place] [address] Apr, Allergic contact dermatitis, unspecified trigger L23.9 [facility] [address] [facility] [id number], [place] [address] Mar, [facility] [address] [facility] [id number] [id number] Mar, Arthralgia of left temporomandibular joint M26.622 [facility] [address] [place] [id number] [place] [address] 06682- 7357 Mar, [place] [address] [id number] [place] [address] 11631- 5465 February, ADHD (attention deficit hyperactivity disorder), inattentive type F90.0 and Generalized anxiety disorder F41.1 [place] [address] [place] [address] 46203- 0206 Jan, [place] [address] [place] [id number] [place] [address] 04966- 0901 Jan, ADHD (attention deficit hyperactivity disorder), inattentive type F90.0 [place] [address] [place] [id number] [place] [address] 42635- 5770 Jan, ADHD (attention deficit hyperactivity disorder), inattentive type F90.0 [place] [address] [place] [id number] [place] [address] 98426- 9577 Jan, [place] [address] [place] [id number] [place] [address] 67289- 8607 Jan, ADHD (attention deficit hyperactivity disorder), inattentive type F90.0 and Generalized anxiety disorder F41.1 [place] [address] [place] [address] 26812- 7357 Dec, ADHD (attention deficit hyperactivity disorder), inattentive type F90.0 [place] [address] [place] [address] 48432- 4818 Dec, Strain of flexor muscle of right hip, subsequent encounter S76.011D and Groin strain, right, initial encounter S76.211A [facility] [place] [address] [address] Dec, Intractable episodic headache, unspecified headache type R51 [facility] [place] [address] [address] [place] [address] 34265 [address]0444 Dec, Fever R50.9 ; Otitis media due to influenza J11.83 ; Flu- like symptoms R68.89 and Stuffy and runny nose J34.89 [place] [address] [place] [id number] [place] [address] 32600- 8725 Dec, Strain of flexor muscle of right hip, initial encounter S76.011A [place] [address] [place] [id number] [place] [address] 77814- 4309 28 Nov, 2017 ADHD (attention deficit hyperactivity disorder), inattentive type F90.0 and Generalized anxiety disorder F41.1 [place] [address] [place] [id number] [place] [address] 46615- 3965 Nov, Burning with urination R30.0 and 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 [place] [address] 60475- 7323 Oct, ADHD (attention deficit hyperactivity disorder), inattentive type F90.0 and Generalized anxiety disorder F41.1 [place] [address] [place] [id number] [place] [address] 65474- 4970 Oct, Routine gynecological examination Z01.419 ; Routine screening for STI (sexually transmitted infection) Z11.3 and Trichomoniasis of vagina A59.01 [place] [address] [place] [id number] [place] [address] 04515- 0015 Oct, ADHD (attention deficit hyperactivity disorder), inattentive type F90.0 and Generalized anxiety disorder F41.1 [place] [address] [place] [id number] [place] [address] 12051- 6561 Sep, [place] [address] [place] [id number] [place] [address] 85171- 2814 Sep, [place] [address] [place] [id number] [place] [address] 98666- 7979 Sep, ADHD (attention deficit hyperactivity disorder), inattentive type F90.0 and Generalized anxiety disorder F41.1 [place] [address] [place] [id number] [place] [address] 63972- 5431 Sep, Dysuria R30.0 ; Vaginal discharge N89.8 ; Generalized anxiety disorder F41.1 and Attention deficit disorder (ADD) 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 [facility] [address] [place] [id number] [place] [address] 62776 -9013 24 Aug, 2017 Burning with urination R30.0 and Acute cystitis without hematuria N30.00 [facility] [address] [place] [id number] [place] [address] 91116- 8461 24 Aug, 2017 [facility] [address] [address] 19 Aug, 2017 Dysuria R30.0 and Acute cystitis without hematuria N30.00 [facility] [address] [place] [id number] [place] [address] 57113- 9121 08 Aug, 2017 ADHD (attention deficit hyperactivity disorder), inattentive type F90.0 and Generalized anxiety disorder F41.1 [place] [address] [place] [id number] [place] [address] 10873- 4855 Aug, [facility] [address] [place] [id number] [place] [address] 74553- 4959 Aug, Generalized anxiety disorder F41.1 [place] [address] [place] [id number] [place] [address] 73853- 9778 Jul, ADHD (attention deficit hyperactivity disorder), inattentive type F90.0 ; Generalized anxiety disorder F41.1 and Migraine without aura and without status migrainosus, not intractable G43.009 [place] [address] [place] [id number] [place] [address] 17839- 4222 Jun, [place] [address] [place] [id number] [place] [address] 08936- 5011 Jun, [place] [address] 16927- 6939 Jun, [facility] [address] [place] [id number] [place] [address] 50794- 0748 Jun, ADHD (attention deficit hyperactivity disorder), inattentive type F90.0 ; Controlled substance agreement signed Z79.899 and High risk medication use Z79.899 [facility] [address] [address] 14 Jun, 2017 Dental examination Z01.20 [facility] [address] [place] [id number] [place] [address] 94391- 9876 08 Jun, 2017 [facility] [address] [place] [id number] [place] [address] 48248- 2656 08 Jun, 2017 Intractable migraine without aura and without status migrainosus G43.019 [facility] [address] [place] [id number] [place] [address] 71887- 7842 07 Jun, 2017 Intractable migraine without aura and without status migrainosus G43.019 [facility] [address] [place] [id number] [place] [address] [id number] May, Dental examination Z01.20 [facility] [address] [place] [id number] [place] [address] 26178- 9443 May, Generalized anxiety disorder F41.1 ; Depressive disorder, not elsewhere classified F32.9 and Attention deficit disorder (ADD) 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 [facility] [address] [place] [address] 04273- 8738 May, Screening for deficiency anemia Z13.0 [facility] [address] [place] [address] [id number] Apr, Encounter for dental examination Z01.20 [facility] [address] [place] [id number] [place] [address] [id number] Mar, Dental examination Z01.20 [facility] [address] [place] [id number] [place] [address] 27268- 0863 Jan, Dental examination Z01.20 [facility] [address] [place] [id number] [place] [address] 00064- 4221 Jan, Dental examination Z01.20 [facility] [address] [place] [id number] [place] [address] 60292- 4996 Dec, Generalized anxiety disorder F41.1 [place] [address] [place] [address] 91866- 0463 14 Dec, 2016 ADHD (attention deficit hyperactivity disorder), inattentive type F90.0 ; Generalized social phobia F40.11 and Social phobia, generalized F40.11 [place] [id number] [place] [address] 85652- 2851 Nov, Intrinsic eczema L20.84 and Reactive depression F32.9 [place]- [address]87 Oct, Urinary tract infection, site unspecified N39.0 ; CVA tenderness M54.9 and Nausea and vomiting during O21.9 [id number]- [address] 07 Sep, [address] [address] 1742 Sep, Routine health maintenance Z00.00 ; Frequent UTI N39.0 and Family history of diabetes mellitus Z83.3 [place] [id number] [place] [address] 83763- 6269 29 Aug, 2016 Routine health maintenance Z00.00 ; Burning with urination R30.0 ; Frequent UTI N39.0 ; Cystitis N30.90 ; Family history of diabetes mellitus Z83.3 and 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 35043- 6674 Aug, IMMUNIZATIONS No Known Immunizations SOCIAL HISTORY Never Assessed REASON FOR VISIT flu symptoms Pt has had body aches, fever and cough since last night, has been exposed to flu REILLY Jj PLAN OF CARE Activity Details Follow Up prn Reason: VITAL SIGNS Height 65 in 2017-12-19 Weight 135.6 lbs 2017-12-19 Temperature 98.3 degrees Fahrenheit 2017-12-19 Heart Rate 88 bpm 2017-12-19 Respiratory Rate 18 2017-12-19 BMI 22.56 kg/m2 2017-12-19 Blood pressure systolic 108 mmHg 2017-12-19 Blood pressure diastolic 64 mmHg 2017-12-19 MEDICATIONS Medication Instructions Dosage Frequency Start Date End Date Duration Status Adderall XR 20 MG Orally Once a day in the morning 1 capsule Nov, 28 days Active Ciprodex 0.3-0.1 % Otic Twice a day 4 drops into affected ear 12h Dec, 07 days Active Flonase Allergy Relief 50 MCG/ACT Nasally twice a day 1 spray in each nostril 12h Dec, 07 days Active Zoloft 50 mg Orally Once a day 1 tablet 24h Sep, Active Cyclobenzaprine HCl 10 mg Orally qhs 1/2 tablet as needed Prior to bed Dec, Dec, 30 days Active Biotin 5000 5 MG Orally Once a day 1 capsule 24h Not-Taking RESULTS Name Result Date Reference Range INFLUENZA A & B (IN HOUSE) 2017-12-19 INFLUENZA A negative INFLUENZA B negative Control + Lot # [id number] Exp date 2019-12-14 PROCEDURES Procedure Date Ordered Result Body Site INFLUENZA ASSAY W/OPTIC December 19, 2017 INSTRUCTIONS MEDICATIONS ADMINISTERED No Known [...]
--- OUTSIDE RECORDS SUMMARY | 2018-05-19 20:53 | XMS REPORT ---
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 05112842 Problem Intrinsic eczema L20.84 Active 70007169 Problem ADHD (attention deficit hyperactivity disorder), inattentive type F90.0 Active 88996066 Problem Migraine without aura and without status migrainosus, not intractable G43.009 Active 387026190 Problem Depressive disorder, not elsewhere classified F32.9 Active 66874094 Problem Attention deficit disorder (ADD) 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 Active 80726328 Problem Controlled substance agreement signed Z79.899 Active 967457485 Problem High risk medication use Z79.899 Active 983458660199855 ALLERGIES Substance Reaction Event Type Date Status NO EPINEPHRINE per OB doctor WHILE HIGH RISK while preg per PHYSICIAN Non Drug Allergy Nov, Active ENCOUNTERS Encounter Location Date Diagnosis [facility] [address] [facility] [id number], [place] [address] Apr, Allergic contact dermatitis, unspecified trigger L23.9 [facility] [address] [facility] [id number], [place] [address] Mar, [facility] [address] [facility] [id number] [id number] Mar, Arthralgia of left temporomandibular joint M26.622 [facility] [address] [id number], [place] [address] Mar, [place] [address] [place] [address] 53096- 1606 February, ADHD (attention deficit hyperactivity disorder), inattentive type F90.0 and Generalized anxiety disorder F41.1 [place] [address] [place] [address] 98203- 7731 Jan, [place] [address] [place] [id number] [place] [address] 16601- 8341 Jan, ADHD (attention deficit hyperactivity disorder), inattentive type F90.0 [place] [address] [place] [id number] [place] [address] 92159- 2494 Jan, ADHD (attention deficit hyperactivity disorder), inattentive type F90.0 [place] [address] [place] [id number] [place] [address] 78200- 8656 Jan, [place] [address] [place] [id number] [place] [address] 96597- 9045 Jan, ADHD (attention deficit hyperactivity disorder), inattentive type F90.0 and Generalized anxiety disorder F41.1 [place] [address] [place] [id number] [place] [address] 28252- 3350 Dec, ADHD (attention deficit hyperactivity disorder), inattentive type F90.0 [place] [address] [place] [address] 34945- 2047 Dec, Strain of flexor muscle of right hip, subsequent encounter S76.011D and Groin strain, right, initial encounter S76.211A [facility] [address], [place] [address] Dec, Intractable episodic headache, unspecified headache type R51 [facility] [place] [address] [address], [place] [address] Dec, Fever R50.9 ; Otitis media due to influenza J11.83 ; Flu- like symptoms R68.89 and Stuffy and runny nose J34.89 [place] [address] [place] [address] [place] [address] 82866- 1842 Dec, Strain of flexor muscle of right hip, initial encounter S76.011A [place] [address] [place] [id number] [place] [address] 22915- 6503 Nov, ADHD (attention deficit hyperactivity disorder), inattentive type F90.0 and Generalized anxiety disorder F41.1 [place] [address] [place] [address] [place] [address] 09972- 2293 Nov, Burning with urination R30.0 and 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 [place] [address] 47437- 7182 Oct, ADHD (attention deficit hyperactivity disorder), inattentive type F90.0 and Generalized anxiety disorder F41.1 [place] [address] [place] [id number] [place] [address] 50619- 1886 Oct, Routine gynecological examination Z01.419 ; Routine screening for STI (sexually transmitted infection) Z11.3 and Trichomoniasis of vagina A59.01 [place] [address] [place] [id number] [place] [address] 07914- 1664 Oct, ADHD (attention deficit hyperactivity disorder), inattentive type F90.0 and Generalized anxiety disorder F41.1 [place] [address] [place] [id number] [place] [address] 30460- 8619 Sep, [place] [address] [place] [id number] [place] [address] 39672- 8776 Sep, [place] [address] [place] [id number] [place] [address] 54030- 2397 Sep, ADHD (attention deficit hyperactivity disorder), inattentive type F90.0 and Generalized anxiety disorder F41.1 [place] [address] [place] [address] 73536- 7643 Sep, Dysuria R30.0 ; Vaginal discharge N89.8 ; Generalized anxiety disorder F41.1 and Attention deficit disorder (ADD) 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 [facility] [address] [place] [id number] [place] [address] 83356 -8609 24 Aug, 2017 Burning with urination R30.0 and Acute cystitis without hematuria N30.00 [facility] [address] [place] [id number] [place] [address] 07929- 1924 24 Aug, 2017 [facility] [address] [address] Aug, Dysuria R30.0 and Acute cystitis without hematuria N30.00 [place] [address] [place] [id number] [place] [address] 26047- 1257 08 Aug, 2017 ADHD (attention deficit hyperactivity disorder), inattentive type F90.0 and Generalized anxiety disorder F41.1 [place] [address] [place] [id number] [place] [address] 93413- 9048 Aug, [place] [address] 65190- 4951 Aug, Generalized anxiety disorder F41.1 [place] [address] [place] [id number] [place] [address] 50323- 4715 Jul, ADHD (attention deficit hyperactivity disorder), inattentive type F90.0 ; Generalized anxiety disorder F41.1 and Migraine without aura and without status migrainosus, not intractable G43.009 [place] [address] [place] [address] [place] [address] 89379- 7067 Jun, [place] [address] [place] [id number] [place] [address] 21736- 6900 Jun, [place] [address] 98449- 9946 Jun, [facility] [address] [place] [id number] [place] [address] 67451- 6633 Jun, ADHD (attention deficit hyperactivity disorder), inattentive type F90.0 ; Controlled substance agreement signed Z79.899 and High risk medication use Z79.899 [facility] [address] [address] 14 Jun, 2017 Dental examination Z01.20 [facility] [address] [place] [id number] [place] [address] 00313- 1928 08 Jun, 2017 [facility] [address] [place] [id number] [place] [address] 11152- 5296 08 Jun, 2017 Intractable migraine without aura and without status migrainosus G43.019 [facility] [address] [place] [id number] [place] [address] 07472- 2649 07 Jun, 2017 Intractable migraine without aura and without status migrainosus G43.019 [facility] [address] [place] [id number] [place] [address] [id number] May, Dental examination Z01.20 [facility] [address] [place] [id number] [place] [address] 07134- 4424 May, Generalized anxiety disorder F41.1 ; Depressive disorder, not elsewhere classified F32.9 and Attention deficit disorder (ADD) 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 [facility] [address] [place] [address] 61882- 2692 May, Screening for deficiency anemia Z13.0 [facility] [address] [place] [address] [phone] Apr, Encounter for dental examination Z01.20 [facility] [address] [place] [id number] [place] [address] [id number] Mar, Dental examination Z01.20 [facility] [address] [place] [id number] [place] [address] 32888- 3842 Jan, Dental examination Z01.20 [facility] [address] [place] [id number] [place] [address] 42437- 4805 Jan, Dental examination Z01.20 [facility] [address] [place] [id number] [place] [address] 44493- 0553 Dec, Generalized anxiety disorder F41.1 [place] [address] [place] [address] 38039- 9931 14 Dec, 2016 ADHD (attention deficit hyperactivity disorder), inattentive type F90.0 ; Generalized social phobia F40.11 and Social phobia, generalized F40.11 [place] [id number] [place] [address] 20177- 6700 21 Nov, 2016 Intrinsic eczema L20.84 and Reactive depression F32.[address] [address]- 9095 12 Oct, 2016 Urinary tract infection, site unspecified N39.0 ; CVA tenderness M54.9 and Nausea and vomiting during O21.[address] 06238- 6534 07 Sep, [address] 28724- 8641 Sep, Routine health maintenance Z00.00 ; Frequent UTI N39.0 and Family history of diabetes mellitus Z83.3 [place] [address] [place] [address] 54074- 3778 29 Aug, 2016 Routine health maintenance Z00.00 ; Burning with urination R30.0 ; Frequent UTI N39.0 ; Cystitis N30.90 ; Family history of diabetes mellitus Z83.3 and 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 57969- 9913 16 Aug, 2016 IMMUNIZATIONS No Known Immunizations SOCIAL HISTORY Never Assessed REASON FOR VISIT f/u PLAN OF CARE Activity Details Follow Up 4 Weeks Reason: VITAL SIGNS Height 65 in 2017-12-04 Weight 140.9 lbs 2017-12-04 Heart Rate 68 bpm 2017-12-04 Respiratory Rate 20 2017-12-04 BMI 23.44 kg/m2 2017-12-04 Blood pressure systolic 102 mmHg 2017-12-04 Blood pressure diastolic 54 mmHg 2017-12-04 MEDICATIONS Medication Instructions Dosage Frequency Start Date End Date Duration Status Biotin 5000 5 MG Orally Once a day 1 capsule 24h Not-Taking Adderall XR 20 MG Orally Once a day in the morning 1 capsule 28 Feb, 2018 28 days Active Zoloft 50 mg Orally Once a day 1 tablet 24h Sep, Active RESULTS No Results PROCEDURES No Known [...]
--- OUTSIDE RECORDS SUMMARY | 2018-05-19 20:53 | XMS REPORT ---
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 54085677 Problem Intrinsic eczema L20.84 Active 44885451 Problem ADHD (attention deficit hyperactivity disorder), inattentive type F90.0 Active 53404151 Problem Migraine without aura and without status migrainosus, not intractable G43.009 Active 072261375 Problem Depressive disorder, not elsewhere classified F32.9 Active 43067654 Problem Attention deficit disorder (ADD) 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 Active 84208196 Problem Controlled substance agreement signed Z79.899 Active 110833980 Problem High risk medication use Z79.899 Active [id number] ALLERGIES Substance Reaction Event Type Date Status NO EPINEPHRINE per OB doctor WHILE HIGH RISK while preg per PHYSICIAN Non Drug Allergy Dec, Active ENCOUNTERS Encounter Location Date Diagnosis [facility] [address] [facility] [id number], [place] [address] Apr, Allergic contact dermatitis, unspecified trigger L23.9 [facility] [address] [id number] [id number] Mar, [facility] [address] [id number] [id number] Mar, Arthralgia of left temporomandibular joint M26.622 [facility] [address], [place] [address] Mar, [place] [address] [place] [id number] [place] [address] 02995[address] 2304 February, ADHD (attention deficit hyperactivity disorder), inattentive type F90.0 and Generalized anxiety disorder F41.1 [place] [id number] [place] [address] 15324- 5670 Jan, [place] [id number] [place] [address] 97625- 7204 Jan, ADHD (attention deficit hyperactivity disorder), inattentive type F90.0 [place] [id number] [place] [address] 04846- 5724 Jan, ADHD (attention deficit hyperactivity disorder), inattentive type F90.0 [place] [id number] [place] [address] 05155- 3840 Jan, [place] [id number] [place] [address] 18337- 9579 Jan, ADHD (attention deficit hyperactivity disorder), inattentive type F90.0 and Generalized anxiety disorder F41.1 [place] [id number] [place] [address] 12802- 7103 Dec, ADHD (attention deficit hyperactivity disorder), inattentive type F90.0 [place] [address] [place] [address] 60531- 4954 Dec, Strain of flexor muscle of right hip, subsequent encounter S76.011D and Groin strain, right, initial encounter S76.211A [facility] [address] [place] [address] 94144 -4729 Dec, Intractable episodic headache, unspecified headache type R51 [facility] [place] [address] [place] [address] 31005 -1824 Dec, Fever R50.9 ; Otitis media due to influenza J11.83 ; Flu- like symptoms R68.89 and Stuffy and runny nose J34.89 [place] [address] [place] [address] 94204- 2147 Dec, Strain of flexor muscle of right hip, initial encounter S76.011A [place] [id number] [place] [address] 40296- 5884 28 Nov, 2017 ADHD (attention deficit hyperactivity disorder), inattentive type F90.0 and Generalized anxiety disorder F41.1 [place] [id number] [place] [address] 51755- 1679 Nov, Burning with urination R30.0 and 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 [place] [address] [address]- 1789 Oct, ADHD (attention deficit hyperactivity disorder), inattentive type F90.0 and Generalized anxiety disorder F41.1 [place] [address] [address]- 7603 Oct, Routine gynecological examination Z01.419 ; Routine screening for STI (sexually transmitted infection) Z11.3 and Trichomoniasis of vagina A59.01 [place] [id number] [place] [address] 02755- 0549 Oct, ADHD (attention deficit hyperactivity disorder), inattentive type F90.0 and Generalized anxiety disorder F41.1 [place] [id number] [place] [address] 50709- 9344 Sep, [place] [id number] [place] [address] 52100- 0847 Sep, [place] [id number] [place] [address] 69455- 9735 Sep, ADHD (attention deficit hyperactivity disorder), inattentive type F90.0 and Generalized anxiety disorder F41.1 [place] [id number] [place] [address] 96770- 8778 Sep, Dysuria R30.0 ; Vaginal discharge N89.8 ; Generalized anxiety disorder F41.1 and Attention deficit disorder (ADD) 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 [facility] [id number] [place] [address] 05361 -0717 24 Aug, 2017 Burning with urination R30.0 and Acute cystitis without hematuria N30.00 [facility] [id number] [place] [address] 97024- 5561 Aug, [facility] [id number] [place] [address] 45424 -7866 Aug, Dysuria R30.0 and Acute cystitis without hematuria N30.00 [place] [id number] [place] [address] 63784- 9374 08 Aug, 2017 ADHD (attention deficit hyperactivity disorder), inattentive type F90.0 and Generalized anxiety disorder F41.1 [place] [id number] [place] [address] 04319- 2037 Aug, [facility] [id number] [place] [address] 48116- 3178 Aug, Generalized anxiety disorder F41.1 [place] [id number] [place] [address] 43442- 5600 Jul, ADHD (attention deficit hyperactivity disorder), inattentive type F90.0 ; Generalized anxiety disorder F41.1 and Migraine without aura and without status migrainosus, not intractable G43.009 [place] [id number] [place] [address] 35645- 9079 Jun, [place] [id number] [place] [address] 52056- 9414 Jun, [place] [id number] [place] [address] 15916- 1132 Jun, [facility] [id number] [place] [address] 90480- 3301 Jun, ADHD (attention deficit hyperactivity disorder), inattentive type F90.0 ; Controlled substance agreement signed Z79.899 and High risk medication use Z79.899 [facility] [address] [place] [address] [phone] 14 Jun, 2017 Dental examination Z01.20 [facility] [id number] [place] [address] 14957- 9862 08 Jun, 2017 [facility] [id number] [place] [address] 49810- 3788 08 Jun, 2017 Intractable migraine without aura and without status migrainosus G43.019 [facility] [address] [place] [address] 67364- 0771 07 Jun, 2017 Intractable migraine without aura and without status migrainosus G43.019 [facility] [id number] [place] [address] [phone] May, Dental examination Z01.20 [facility] [id number] [place] [address] 86379- 2270 May, Generalized anxiety disorder F41.1 ; Depressive disorder, not elsewhere classified F32.9 and Attention deficit disorder (ADD) 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 [facility] [id number] [place] [address] 24969- 6263 May, Screening for deficiency anemia Z13.0 [facility] [id number] [place] [address] [phone] Apr, Encounter for dental examination Z01.20 [facility] [id number] [place] [address] [phone] Mar, Dental examination Z01.20 [facility] [address] [place] [address] 66532- 8631 Jan, Dental examination Z01.20 [facility] [id number] [place] [address] 77395- 6603 Jan, Dental examination Z01.20 [facility] [id number] [place] [address] 95319- 3721 Dec, Generalized anxiety disorder F41.1 [place] [address] [place] [address] 35418- 4135 14 Dec, 2016 ADHD (attention deficit hyperactivity disorder), inattentive type F90.0 ; Generalized social phobia F40.11 and Social phobia, generalized F40.11 [place] [id number] [place] [address] 95229- 8014 Nov, Intrinsic eczema L20.84 and Reactive depression F32.[address] [address]30- 34[address] 12 Oct, 2016 Urinary tract infection, site unspecified N39.0 ; CVA tenderness M54.9 and Nausea and vomiting during O21.[address] 14533- 4113 Sep, [address] 64756- 8818 Sep, Routine health maintenance Z00.00 ; Frequent UTI N39.0 and Family history of diabetes mellitus Z83.[address] 34749- 5467 Aug, Routine health maintenance Z00.00 ; Burning with urination R30.0 ; Frequent UTI N39.0 ; Cystitis N30.90 ; Family history of diabetes mellitus Z83.3 and 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 89648- 6811 Aug, IMMUNIZATIONS Vaccine Route Administration Date Status TORADOL (IM) 60 MG/2ML (UP TO 15 MG) IM Intramuscular December 22, 2017 Administered SOCIAL HISTORY Never Assessed REASON FOR VISIT headache since yesterday. pt is on antibiotic ear gtts for right ear infection dx last week in this [facility]. reports he head hurts all ove and down to the base of her skull. been like this since yesterday. [email or web address] PLAN OF CARE Activity Details Follow Up 1 Week, prn Reason: VITAL SIGNS Height 65 in 2017-12-22 Weight 135.8 lbs 2017-12-22 Temperature 98.9 degrees Fahrenheit 2017-12-22 Heart Rate 80 bpm 2017-12-22 Respiratory Rate 20 2017-12-22 BMI 22.60 kg/m2 2017-12-22 Blood pressure systolic 114 mmHg 2017-12-22 Blood pressure diastolic 70 mmHg 2017-12-22 MEDICATIONS Medication Instructions Dosage Frequency Start Date End Date Duration Status Biotin 5000 5 MG Orally Once a day 1 capsule 24h Not-Taking Ciprodex 0.3-0.1 % Otic Twice a day 4 drops into affected ear 12h Dec, 07 days Active Zoloft 50 mg Orally Once a day 1 tablet 24h Sep, Active Cyclobenzaprine HCl 10 mg Orally qhs 1/2 tablet as needed Prior to bed Dec, Dec, 30 days Not-Taking Adderall XR 20 MG Orally Once a day in the morning 1 capsule Nov, 28 days Active Flonase Allergy Relief 50 MCG/ACT Nasally twice a day 1 spray in each nostril 12h Dec, 07 days Active RESULTS No Results PROCEDURES Procedure Date Ordered Result Body Site TORADOL (IM) 60 MG/2ML (UP TO 15 MG) December 22, 2017 THER/PROPH/DIAG INJ, SC/IM December 22, 2017 INSTRUCTIONS MEDICATIONS ADMINISTERED No Known [...]
--- OUTSIDE RECORDS SUMMARY | 2018-05-19 20:53 | XMS REPORT ---
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 40441943 Problem Intrinsic eczema L20.84 Active 64925776 Problem ADHD (attention deficit hyperactivity disorder), inattentive type F90.0 Active 45496769 Problem Migraine without aura and without status migrainosus, not intractable G43.009 Active 382376397 Problem Depressive disorder, not elsewhere classified F32.9 Active 18352607 Problem Attention deficit disorder (ADD) 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 Active 95456903 Problem Controlled substance agreement signed Z79.899 Active 191575956 Problem High risk medication use Z79.899 Active 935111264997381 ALLERGIES Substance Reaction Event Type Date Status NO EPINEPHRINE per OB doctor WHILE HIGH RISK while preg per PHYSICIAN Non Drug Allergy Oct, Active ENCOUNTERS Encounter Location Date Diagnosis [facility] [place] [address] [facility] [id number], [place] [address] Mar, [facility] [address] [facility] [id number] [id number] Mar, Arthralgia of left temporomandibular joint M26.622 [facility] [place] [address] [facility] [id number], [place] [address] Mar, [facility] [place] [address] [facility] [id number], [place] [address] February, ADHD (attention deficit hyperactivity disorder), inattentive type F90.0 and Generalized anxiety disorder F41.1 [place] [address] [place] [address] 87976- 4562 Jan, [place] [id number] [place] [address] 49573- 1431 Jan, ADHD (attention deficit hyperactivity disorder), inattentive type F90.0 [place] [id number] [place] [address] 10431- 0060 Jan, ADHD (attention deficit hyperactivity disorder), inattentive type F90.0 [place] [id number] [place] [address] 59350- 3455 Jan, [place] [id number] [place] [address] 33814- 4445 Jan, ADHD (attention deficit hyperactivity disorder), inattentive type F90.0 and Generalized anxiety disorder F41.1 [place] [address] [id number], [place] [address] 4[address] Dec, ADHD (attention deficit hyperactivity disorder), inattentive type F90.0 [place] [address] [place] [address] 80785- 2857 Dec, Strain of flexor muscle of right hip, subsequent encounter S76.011D and Groin strain, right, initial encounter S76.211A [facility] [address], [place] [address] Dec, Intractable episodic headache, unspecified headache type R51 [facility] [place] [address], [place] [address] Dec, Fever R50.9 ; Otitis media due to influenza J11.83 ; Flu- like symptoms R68.89 and Stuffy and runny nose J34.89 [place] [address], [place] [address] 6796 Dec, Strain of flexor muscle of right hip, initial encounter S76.011A [place] [id number] [place] [address] 42340- 6338 28 Nov, 2017 ADHD (attention deficit hyperactivity disorder), inattentive type F90.0 and Generalized anxiety disorder F41.1 [place] [id number] [place] [address] 50128- 7683 23 Nov, 2017 Burning with urination R30.0 and 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 [place] [address] 47755- 1475 Oct, ADHD (attention deficit hyperactivity disorder), inattentive type F90.0 and Generalized anxiety disorder F41.1 [place] [address] 17114- 9417 Oct, Routine gynecological examination Z01.419 ; Routine screening for STI (sexually transmitted infection) Z11.3 and Trichomoniasis of vagina A59.01 [place] [address] 71866- 5007 Oct, ADHD (attention deficit hyperactivity disorder), inattentive type F90.0 and Generalized anxiety disorder F41.1 [place] [address] 58208- 7509 Sep, [place] [address] 29872- 4562 Sep, [place] [address] 05878- 6201 Sep, ADHD (attention deficit hyperactivity disorder), inattentive type F90.0 and Generalized anxiety disorder F41.1 [place] [address] 21685- 2139 Sep, Dysuria R30.0 ; Vaginal discharge N89.8 ; Generalized anxiety disorder F41.1 and Attention deficit disorder (ADD) 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 [facility] [id number] [place] [address] 50078 -8920 Aug, Burning with urination R30.0 and Acute cystitis without hematuria N30.00 [facility] [place] [id number] [place] [address] 43287- 0435 Aug, [facility] [id number] [place] [address] 55072 -8542 Aug, Dysuria R30.0 and Acute cystitis without hematuria N30.00 [facility] [place] [address] 34758- 6438 08 Aug, 2017 ADHD (attention deficit hyperactivity disorder), inattentive type F90.0 and Generalized anxiety disorder F41.1 [facility] [place] [address] 12684- [address]18 06 Aug, 2017 [facility] [place] [id number] [place] [address] 30312- 9139 Aug, Generalized anxiety disorder F41.1 [facility] [place] [id number] [place] [address] 71021- 8301 Jul, ADHD (attention deficit hyperactivity disorder), inattentive type F90.0 ; Generalized anxiety disorder F41.1 and Migraine without aura and without status migrainosus, not intractable G43.009 [facility] [place] [id number] [place] [address] 83814- 7570 Jun, [facility] [place] [id number] [place] [address] 12099- 4770 Jun, [facility] [place] [id number] [place] [address] 36804- 1058 Jun, [facility] [place] [id number] [place] [address] 48323- 5803 Jun, ADHD (attention deficit hyperactivity disorder), inattentive type F90.0 ; Controlled substance agreement signed Z79.899 and High risk medication use Z79.899 [facility] [address] [place] [address] [phone] 14 Jun, 2017 Dental examination Z01.20 [place] [address], [place] [address]- [address] 08 Jun, 2017 [facility] [place] [id number] [place] [address] 03789- 1409 08 Jun, 2017 Intractable migraine without aura and without status migrainosus G43.019 [facility] [place] [address], [place] [address] 4798 07 Jun, 2017 Intractable migraine without aura and without status migrainosus G43.019 [facility] [address] [place] [address] [phone] May, Dental examination Z01.20 [facility] [place] [id number] [place] [address] 85359- 0801 May, Generalized anxiety disorder F41.1 ; Depressive disorder, not elsewhere classified F32.9 and Attention deficit disorder (ADD) 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 [facility] [place] [id number] [place] [address] 85367- 9436 May, Screening for deficiency anemia Z13.0 [facility] [id number] [place] [address] [phone] Apr, Encounter for dental examination Z01.20 [facility] [id number] [place] [address] [phone] Mar, Dental examination Z01.20 [facility] [place] [address] [place] [address] 60438- 3717 Jan, Dental examination Z01.20 [facility] [place] [address] [place] [address] 13032- 2250 Jan, Dental examination Z01.20 [facility] [place] [id number] [place] [address] 24922- 3882 24 Dec, 2016 Generalized anxiety disorder F41.1 [facility] [place] [address] [place] [address] 61270- 4883 14 Dec, 2016 ADHD (attention deficit hyperactivity disorder), inattentive 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 ; Generalized social phobia F40.11 and Social phobia, generalized F40.11 [place] [id number] [place] [address] 35680- 9414 Nov, Intrinsic eczema L20.84 and Reactive depression F32.[address] 6[address]66- 8453 Oct, Urinary tract infection, site unspecified N39.0 ; CVA tenderness M54.9 and Nausea and vomiting during O21.[address] 42402- 1679 Sep, [place] [address]- 2443 Sep, Routine health maintenance Z00.00 ; Frequent UTI N39.0 and Family history of diabetes mellitus Z83.[address] 39229- 6046 Aug, Routine health maintenance Z00.00 ; Burning with urination R30.0 ; Frequent UTI N39.0 ; Cystitis N30.90 ; Family history of diabetes mellitus Z83.3 and 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 [place] [id number] [place] [address] 27129- 5214 Aug, IMMUNIZATIONS No Known Immunizations SOCIAL HISTORY Never Assessed REASON FOR VISIT f/u PLAN OF CARE Activity Details Follow Up 4 Weeks Reason: f/u VITAL SIGNS Height 65 in 2017-10-14 Weight 128.9 lbs 2017-10-14 Heart Rate 80 bpm 2017-10-14 Respiratory Rate 20 2017-10-14 BMI 21.45 kg/m2 2017-10-14 Blood pressure systolic 104 mmHg 2017-10-14 Blood pressure diastolic 60 mmHg 2017-10-14 MEDICATIONS Medication Instructions Dosage Frequency Start Date End Date Duration Status Ginkgo Biloba 60 MG Not-Taking Zoloft 50 mg Orally Once a day 1 tablet 24h Sep, Active Biotin 5000 5 MG Orally Once a day 1 capsule 24h Active Sumatriptan Succinate 25 MG Orally Twice a day prn 1 tablet as needed for migraine Jun, 07 days Not-Taking Fluconazole 150 MG Orally one time 1 tablet Sep, 1 dose Not- Taking Concerta 27 MG Orally Once a day in the morning 1 tablet Oct, 28 days Active Topamax 25 MG Orally Once a day at bedtime 1 tablet Jun, 30 day(s) Not-Taking Iron Not-Taking RESULTS No Results PROCEDURES No Known [...]
--- OUTSIDE RECORDS SUMMARY | 2018-05-19 20:54 | XMS REPORT ---
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 00773016 Problem Intrinsic eczema L20.84 Active 83946273 Problem ADHD (attention deficit hyperactivity disorder), inattentive type F90.0 Active 22279938 Problem Migraine without aura and without status migrainosus, not intractable G43.009 Active 469511809 Problem Depressive disorder, not elsewhere classified F32.9 Active 90564480 Problem Attention deficit disorder (ADD) 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 Active 19461250 Problem Controlled substance agreement signed Z79.899 Active 220156552 Problem High risk medication use Z79.899 Active [id number] ALLERGIES Substance Reaction Event Type Date Status NO EPINEPHRINE per OB doctor WHILE HIGH RISK while preg per PHYSICIAN Non Drug Allergy Nov, Active ENCOUNTERS Encounter Location Date Diagnosis [facility] [address] [facility] [id number] [address] Mar, [facility] [address] [facility] [id number] [id number] Mar, Arthralgia of left temporomandibular joint M26.622 [facility] [address] [facility] [place] [id number], [place] [address] Mar, [facility] [address] [facility] [id number], [place] [address] February, ADHD (attention deficit hyperactivity disorder), inattentive type F90.0 and Generalized anxiety disorder F41.1 [place] [address] [place] [address]39- 9866 Jan, [place] [address] [place] [id number] [place] [address] 67526- 8935 Jan, ADHD (attention deficit hyperactivity disorder), inattentive type F90.0 [place] [address] [place] [id number] [place] [address] 02140- 3369 Jan, ADHD (attention deficit hyperactivity disorder), inattentive type F90.0 [place] [address] [place] [id number] [place] [address] 34668- 6896 Jan, [place] [address] [place] [id number] [place] [address] 28816- 4030 Jan, ADHD (attention deficit hyperactivity disorder), inattentive type F90.0 and Generalized anxiety disorder F41.1 [place] [address] [id number] [address] Dec, ADHD (attention deficit hyperactivity disorder), inattentive type F90.0 [place] [address] [place] [address] 56052- 3656 Dec, Strain of flexor muscle of right hip, subsequent encounter S76.011D and Groin strain, right, initial encounter S76.211A [facility] [address] [address] Dec, Intractable episodic headache, unspecified headache type R51 [facility] [place] [address] [address] [address] Dec, Fever R50.9 ; Otitis media due to influenza J11.83 ; Flu- like symptoms R68.89 and Stuffy and runny nose J34.89 [place] [address], [place] [address] Dec, Strain of flexor muscle of right hip, initial encounter S76.011A [place] [address] [place] [id number] [place] [address] 47214- 0352 28 Nov, 2017 ADHD (attention deficit hyperactivity disorder), inattentive type F90.0 and Generalized anxiety disorder F41.1 [place] [address] [place] [id number] [place] [address] 11834- 1873 23 Nov, 2017 Burning with urination R30.0 and 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 [place] [address] [address]- [address] Oct, ADHD (attention deficit hyperactivity disorder), inattentive type F90.0 and Generalized anxiety disorder F41.1 [place] [address] [address]- 4675 Oct, Routine gynecological examination Z01.419 ; Routine screening for STI (sexually transmitted infection) Z11.3 and Trichomoniasis of vagina A59.01 [place] [address] 63467- 4479 Oct, ADHD (attention deficit hyperactivity disorder), inattentive type F90.0 and Generalized anxiety disorder F41.1 [place] [address] 20427- 4223 Sep, [place] [address] 43595- 8232 Sep, [place] [address] 06014- 5614 Sep, ADHD (attention deficit hyperactivity disorder), inattentive type F90.0 and Generalized anxiety disorder F41.1 [place] [address] 91647- 2048 Sep, Dysuria R30.0 ; Vaginal discharge N89.8 ; Generalized anxiety disorder F41.1 and Attention deficit disorder (ADD) 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 [facility] [address] [place] [id number] [place] [address]672 [address] Aug, Burning with urination R30.0 and Acute cystitis without hematuria N30.00 [facility] [address] [place] [id number] [place] [address] 64499- 0613 Aug, [facility] [address] [place] [id number] [place] [address]14 [address]6331 Aug, Dysuria R30.0 and Acute cystitis without hematuria N30.00 [facility] [address] 38667- 9733 08 Aug, 2017 ADHD (attention deficit hyperactivity disorder), inattentive type F90.0 and Generalized anxiety disorder F41.1 [facility] [address] [address]18- 6[address] 06 Aug, 2017 [facility] [address] [place] [id number] [place] [address] 36907- 9892 Aug, Generalized anxiety disorder F41.1 [facility] [address] [place] [id number] [place] [address] 22687- 7247 Jul, ADHD (attention deficit hyperactivity disorder), inattentive type F90.0 ; Generalized anxiety disorder F41.1 and Migraine without aura and without status migrainosus, not intractable G43.009 [facility] [address] [place] [id number] [place] [address] 95022- 0777 Jun, [facility] [address] [place] [id number] [place] [address]- 5314 Jun, [facility] [address] [place] [id number] [place] [address] 55296- 3826 Jun, [facility] [address] [place] [id number] [place] [address] 86811- 6381 Jun, ADHD (attention deficit hyperactivity disorder), inattentive type F90.0 ; Controlled substance agreement signed Z79.899 and High risk medication use Z79.899 [facility] [address] [place] [phone] 14 Jun, 2017 Dental examination Z01.20 [place] [address], [place] [address] 08 Jun, 2017 [facility] [address] [place] [id number] [place] [address] 37167- 1477 08 Jun, 2017 Intractable migraine without aura and without status migrainosus G43.019 [facility] [address], [place] [address] 07 Jun, 2017 Intractable migraine without aura and without status migrainosus G43.019 [facility] [address] [place] [phone] May, Dental examination Z01.20 [facility] [address] [place] [id number] [place] [address] 17237- 8404 May, Generalized anxiety disorder F41.1 ; Depressive disorder, not elsewhere classified F32.9 and Attention deficit disorder (ADD) 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 [facility] [address] [place] [id number] [place] [address] 92077- 1651 May, Screening for deficiency anemia Z13.0 [facility] [address] [place] [id number] [place] [address] [phone] Apr, Encounter for dental examination Z01.20 [facility] [address] [place] [id number] [place] [address] [phone] Mar, Dental examination Z01.20 [facility] [address] [place] [address] 23632- 3423 Jan, Dental examination Z01.20 [facility] [address] [place] [address] 59734- 2995 Jan, Dental examination Z01.20 [facility] [address] [place] [id number] [place] [address] 04204- 1412 24 Dec, 2016 Generalized anxiety disorder F41.1 [facility] [address] [place] [address] 94651- 5626 14 Dec, 2016 ADHD (attention deficit hyperactivity disorder), inattentive type F90.0 ; Generalized social phobia F40.11 and Social phobia, generalized F40.11 [address] [place] [address] 53954- 0208 Nov, Intrinsic eczema L20.84 and Reactive depression F32.9 [place] [id number] [place] [address] 43575- 8474 Oct, Urinary tract infection, site unspecified N39.0 ; CVA tenderness M54.9 and Nausea and vomiting during O21.9 [place] [id number] [place] [address] 51519- 1210 Sep, [address] [address]- 3260 Sep, Routine health maintenance Z00.00 ; Frequent UTI N39.0 and Family history of diabetes mellitus Z83.[address] [address]- [address] Aug, Routine health maintenance Z00.00 ; Burning with urination R30.0 ; Frequent UTI N39.0 ; Cystitis N30.90 ; Family history of diabetes mellitus Z83.3 and 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 [place] [id number] [place] [address] 09694- 1717 Aug, IMMUNIZATIONS No Known Immunizations SOCIAL HISTORY Never Assessed REASON FOR VISIT UTI symptoms, burning with urination x 3 days -- marcela wilks PLAN OF CARE Activity Details Follow Up prn Reason: VITAL SIGNS Height 65 in 2017-11-29 Weight 143.0 lbs 2017-11-29 Temperature 98.3 degrees Fahrenheit 2017-11-29 BMI 23.79 kg/m2 2017-11-29 Blood pressure systolic 116 mmHg 2017-11-29 Blood pressure diastolic 70 mmHg 2017-11-29 MEDICATIONS Medication Instructions Dosage Frequency Start Date End Date Duration Status Zoloft 50 mg Orally Once a day 1 tablet 24h Sep, Active Pyridium 200 mg Orally Three times a day 1 tablet after meals 8h Sep, Nov, 2 day(s) Active Adderall XR 10 mg Orally Once a day in the morning 1 capsule Oct, 28 days Active Biotin 5000 5 MG Orally Once a day 1 capsule 24h Not-Taking RESULTS No Results PROCEDURES Procedure Date Ordered Result Body Site URINALYSIS, AUTO, W/O SCOPE Nov 29, [address] [facility] Nov 29, 2017 INSTRUCTIONS MEDICATIONS ADMINISTERED No Known Medications [...]
--- OUTSIDE RECORDS SUMMARY | 2018-05-19 20:54 | XMS REPORT ---
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 89859290 Problem Intrinsic eczema L20.84 Active 11687625 Problem ADHD (attention deficit hyperactivity disorder), inattentive type F90.0 Active 63048568 Problem Migraine without aura and without status migrainosus, not intractable G43.009 Active 341205020 Problem Depressive disorder, not elsewhere classified F32.9 Active 19390959 Problem Attention deficit disorder (ADD) 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 Active 10189592 Problem Controlled substance agreement signed Z79.899 Active 567367706 Problem High risk medication use Z79.899 Active [id number] ALLERGIES No Information ENCOUNTERS Encounter Location Date Diagnosis [facility] [address] [place] [id number], [place] [address] Mar, [facility] [address] [place] [id number] [place] [address] 03958- 3520 February, ADHD (attention deficit hyperactivity disorder), inattentive type F90.0 and Generalized anxiety disorder F41.1 [facility] [address] [place] [id number] [place] [address] 27673- 4884 Jan, [facility] [address] [place] [id number] [address] 8379 Jan, ADHD (attention deficit hyperactivity disorder), inattentive type F90.0 [place] [address], [place] [address]- 9648 Jan, ADHD (attention deficit hyperactivity disorder), inattentive type F90.0 [place] [address] [place] [address] 62395- 8277 Jan, [place] [address] [place] [id number] [place] [address] 45827- 3370 Jan, ADHD (attention deficit hyperactivity disorder), inattentive type F90.0 and Generalized anxiety disorder F41.1 [place] [address] [place] [id number] [place] [address] 35665- 0387 Dec, ADHD (attention deficit hyperactivity disorder), inattentive type F90.0 [place] [address] [place] [address] 78303- 1059 Dec, Strain of flexor muscle of right hip, subsequent encounter S76.011D and Groin strain, right, initial encounter S76.211A [facility] [place] [address] [address] [place] [address] 89110 -7092 Dec, Intractable episodic headache, unspecified headache type R51 [facility] [place] [id number] [place] [address] 23033 -7167 Dec, Fever R50.9 ; Otitis media due to influenza J11.83 ; Flu- like symptoms R68.89 and Stuffy and runny nose J34.89 [place] [address] [place] [id number] [place] [address] 75835- 3539 Dec, Strain of flexor muscle of right hip, initial encounter S76.011A [place] [address] [place] [id number] [place] [address] 39533- 4672 Nov, ADHD (attention deficit hyperactivity disorder), inattentive 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 and Generalized anxiety disorder F41.1 [place] [address] [place] [address] 90510- 6675 Nov, Burning with urination R30.0 and 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 [place] [address] [place] [id number] [place] [address] 63014- 2581 Oct, ADHD (attention deficit hyperactivity disorder), inattentive type F90.0 and Generalized anxiety disorder F41.1 [place] [address] [place] [id number] [place] [address] 40642- 6001 Oct, Routine gynecological examination Z01.419 ; Routine screening for STI (sexually transmitted infection) Z11.3 and Trichomoniasis of vagina A59.01 [place] [address] [place] [id number] [place] [address] 26489- 9076 Oct, ADHD (attention deficit hyperactivity disorder), inattentive type F90.0 and Generalized anxiety disorder F41.1 [place] [address] [place] [id number] [place] [address] 48133- 4936 Sep, [place] [address] 65455- 1695 Sep, [place] [address] [place] [id number] [place] [address] 58608- 1006 Sep, ADHD (attention deficit hyperactivity disorder), inattentive type F90.0 and Generalized anxiety disorder F41.1 [place] [address] [place] [id number] [place] [address] 25641- 0791 Sep, Dysuria R30.0 ; Vaginal discharge N89.8 ; Generalized anxiety disorder F41.1 and Attention deficit disorder (ADD) 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 [facility] [address] [place] [id number] [place] [address] 83472 -7437 Aug, Burning with urination R30.0 and Acute cystitis without hematuria N30.00 [place] [address] 62478- 3299 Aug, [facility] [address] [place] [id number] [place] [address] 37146 -7712 Aug, Dysuria R30.0 and Acute cystitis without hematuria N30.00 [place] [address] [place] [address] 02505- 3553 Aug, ADHD (attention deficit hyperactivity disorder), inattentive type F90.0 and Generalized anxiety disorder F41.1 [facility] [address] [place] [id number] [place] [address] 04452- 1458 Aug, [facility] [address] [place] [id number] [place] [address] 07871- 2945 Aug, Generalized anxiety disorder F41.1 [facility] [address] [place] [id number] [place] [address] 71736- 4511 Jul, ADHD (attention deficit hyperactivity disorder), inattentive type F90.0 ; Generalized anxiety disorder F41.1 and Migraine without aura and without status migrainosus, not intractable G43.009 [place] [address] [place] [id number] [place] [address] 66480- 6650 Jun, [place] [address] [place] [id number] [place] [address] 66044- 6230 Jun, [facility] [address] [place] [id number] [place] [address] 73853- 8686 Jun, [place] [address] [place] [id number] [place] [address] 82565- 6615 Jun, ADHD (attention deficit hyperactivity disorder), inattentive type F90.0 ; Controlled substance agreement signed Z79.899 and High risk medication use Z79.899 [facility] [address] [place] [id number] [place] [address] [id number] 14 Jun, 2017 Dental examination Z01.20 [facility] [address] [place] [id number] [place] [address] 13286- 5773 08 Jun, 2017 [place] [address] [place] [id number] [place] [address] 14124- 5645 08 Jun, 2017 Intractable migraine without aura and without status migrainosus G43.019 [place] [address] [place] [id number] [place] [address] 38635- 1156 Jun, Intractable migraine without aura and without status migrainosus G43.019 [facility] [address] [place] [id number] [place] [address] [id number] 16 May, 2017 Dental examination Z01.20 [facility] [address] [place] [id number] [place] [address] 54710- 6581 14 May, 2017 Generalized anxiety disorder F41.1 ; Depressive disorder, not elsewhere classified F32.9 and Attention deficit disorder (ADD) 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 [facility] [address] [place] [id number] [place] [address] 65971- 9656 04 May, 2017 Screening for deficiency anemia Z13.0 [facility] [address] [id number] 14 Apr, 2017 Encounter for dental examination Z01.20 [facility] [address] [id number] Mar, Dental examination Z01.20 [facility] [address] [place] [id number] [place] [address] 04513- 0468 Jan, Dental examination Z01.20 [facility] [address] 95275- 5814 Jan, Dental examination Z01.20 [facility] [address] [place] [id number] [place] [address] 63058- 2131 24 Dec, 2016 Generalized anxiety disorder F41.1 [facility] [address] [place] [id number] [place] [address] 92401- 2325 14 Dec, 2016 ADHD (attention deficit hyperactivity disorder), inattentive type F90.0 ; Generalized social phobia F40.11 and Social phobia, generalized F40.11 [facility] [address] 80635- 8933 Nov, Intrinsic eczema L20.84 and Reactive depression F32.9 [facility] [address] [place] [id number] [place] [address] 94330- 8878 Oct, Urinary tract infection, site unspecified N39.0 ; CVA tenderness M54.9 and Nausea and vomiting during O21.9 [place] [address], [place] [address]- 0814 Sep, [place] [address] [place] [address] [phone]- 5389 Sep, Routine health maintenance Z00.00 ; Frequent UTI N39.0 and Family history of diabetes mellitus Z83.3 [place] [address] [place] [address] 67036- 4731 Aug, Routine health maintenance Z00.00 ; Burning with urination R30.0 ; Frequent UTI N39.0 ; Cystitis N30.90 ; Family history of diabetes mellitus Z83.3 and 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
--- OUTSIDE RECORDS SUMMARY | 2018-05-19 20:55 | XMS REPORT ---
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 85528371 Problem Intrinsic eczema L20.84 Active 35860264 Problem ADHD (attention deficit hyperactivity disorder), inattentive type F90.0 Active 67637805 Problem Migraine without aura and without status migrainosus, not intractable G43.009 Active 931000412 Problem Depressive disorder, not elsewhere classified F32.9 Active 61463724 Problem Attention deficit disorder (ADD) 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 Active 64662785 Problem Controlled substance agreement signed Z79.899 Active 478166054 Problem High risk medication use Z79.899 Active [id number] ALLERGIES Substance Reaction Event Type Date Status NO EPINEPHRINE per OB doctor WHILE HIGH RISK while preg per PHYSICIAN Non Drug Allergy Sep, Active ENCOUNTERS Encounter Location Date Diagnosis [facility] [address] [facility] [id number] [address] Mar, [facility] [address] [facility] [id number], [place] [address] Mar, [facility] [address] [id number] [address] February, ADHD (attention deficit hyperactivity disorder), inattentive type F90.0 and Generalized anxiety disorder F41.1 [facility] [address] [id number] [address] Jan, [place] [address] [address] Jan, ADHD (attention deficit hyperactivity disorder), inattentive type F90.0 [place] [address] [address] Jan, ADHD (attention deficit hyperactivity disorder), inattentive type F90.0 [place] [address] [place] [id number] [place] [address] 44956- 0451 Jan, [place] [address] [place] [id number] [place] [address] 84070- 0347 Jan, ADHD (attention deficit hyperactivity disorder), inattentive type F90.0 and Generalized anxiety disorder F41.1 [place] [address] [place] [id number] [place] [address] 36055- 6487 Dec, ADHD (attention deficit hyperactivity disorder), inattentive type F90.0 [place] [address] [place] [address] 59125- 2936 Dec, Strain of flexor muscle of right hip, subsequent encounter S76.011D and Groin strain, right, initial encounter S76.211A [facility] [place] [address] [address] [place] [address] 14689 -7468 Dec, Intractable episodic headache, unspecified headache type R51 [facility] [address] [place] [address] 05977 -9951 Dec, Fever R50.9 ; Otitis media due to influenza J11.83 ; Flu- like symptoms R68.89 and Stuffy and runny nose J34.89 [place] [address] [place] [id number] [place] [address] 58463- 5806 Dec, Strain of flexor muscle of right hip, initial encounter S76.011A [place] [address] [place] [address] 05469- 8842 Nov, ADHD (attention deficit hyperactivity disorder), inattentive type F90.0 and Generalized anxiety disorder F41.1 [place] [address] [place] [id number] [place] [address] 85930- 8581 Nov, Burning with urination R30.0 and 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 [place] [address] [address]40- 2113 Oct, ADHD (attention deficit hyperactivity disorder), inattentive type F90.0 and Generalized anxiety disorder F41.1 [place] [address] 20[address]- 7219 Oct, Routine gynecological examination Z01.419 ; Routine screening for STI (sexually transmitted infection) Z11.3 and Trichomoniasis of vagina A59.01 [place] [address] 78245- 5430 Oct, ADHD (attention deficit hyperactivity disorder), inattentive type F90.0 and Generalized anxiety disorder F41.1 [place] [address] [place] [id number] [place] [address] 04201- 7290 Sep, [place] [address] 19233- 9204 Sep, [place] [address] 27646- 8135 Sep, ADHD (attention deficit hyperactivity disorder), inattentive type F90.0 and Generalized anxiety disorder F41.1 [place] [address] [place] [id number] [place] [address] 20544- 4726 Sep, Dysuria R30.0 ; Vaginal discharge N89.8 ; Generalized anxiety disorder F41.1 and Attention deficit disorder (ADD) 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 [facility] [address] [id number] [place] [address] 36264 -0352 Aug, Burning with urination R30.0 and Acute cystitis without hematuria N30.00 [place] [address] [place] [id number] [place] [address] 50148- 0811 Aug, [facility] [address] [place] [address] 97523 -6475 Aug, Dysuria R30.0 and Acute cystitis without hematuria N30.00 [facility] [address] [id number] [place] [address] 92334- 0436 08 Aug, 2017 ADHD (attention deficit hyperactivity disorder), inattentive type F90.0 and Generalized anxiety disorder F41.1 [facility] [address] 43459- 4784 Aug, [facility] [address] [address]30- 0935 Aug, Generalized anxiety disorder F41.1 [facility] [address] 77975- 5190 Jul, ADHD (attention deficit hyperactivity disorder), inattentive type F90.0 ; Generalized anxiety disorder F41.1 and Migraine without aura and without status migrainosus, not intractable G43.009 [facility] [address] [place] [id number] [place] [address] 58069- 4263 28 Jun, 2017 [facility] [address] 21813- 4095 22 Jun, 2017 [facility] [address] 38715- 0957 Jun, [facility] [address] 36890- 2500 Jun, ADHD (attention deficit hyperactivity disorder), inattentive type F90.0 ; Controlled substance agreement signed Z79.899 and High risk medication use Z79.899 [facility] [address] [id number] 14 Jun, 2017 Dental examination Z01.20 [facility] [address] [place] [address] [id number] [place] [address] 26971- 5370 08 Jun, 2017 [facility] [address] 96431- 7890 08 Jun, 2017 Intractable migraine without aura and without status migrainosus G43.019 [facility] [address] [place] [address] 66436- 8528 07 Jun, 2017 Intractable migraine without aura and without status migrainosus G43.019 [facility] [address] [place] [address] [id number] 16 May, 2017 Dental examination Z01.20 [facility] [address] [place] [id number]- [address] May, Generalized anxiety disorder F41.1 ; Depressive disorder, not elsewhere classified F32.9 and Attention deficit disorder (ADD) 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 [place] [address] [place] [id number] [place] [address] May, Screening for deficiency anemia Z13.0 [facility] [address] [id number] Apr, Encounter for dental examination Z01.20 [facility] [address] [id number] [place] [address] [id number] Mar, Dental examination Z01.20 [facility] [address] [place] [id number] [place] [address] 69515- 0191 Jan, Dental examination Z01.20 [facility] [address] [place] [address] [id number] [place] [address] 20710- 9895 Jan, Dental examination Z01.20 [facility] [address] [place] [id number] [place] [address] 91196- 6474 Dec, Generalized anxiety disorder F41.1 [facility] [address] 96202- 9190 14 Dec, 2016 ADHD (attention deficit hyperactivity disorder), inattentive type F90.0 ; Generalized social phobia F40.11 and Social phobia, generalized F40.11 [facility] [address] [place] [id number] [place] [address] 42499- 3766 Nov, Intrinsic eczema L20.84 and Reactive depression F32.9 [place] [address], [place] [address] 99[address] Oct, Urinary tract infection, site unspecified N39.0 ; CVA tenderness M54.9 and Nausea and vomiting during O21.9 [place] [address], [place] [address] Sep, [place] [address] [place] [id number] [place] [address] 90254- 7663 Sep, Routine health maintenance Z00.00 ; Frequent UTI N39.0 and Family history of diabetes mellitus Z83.3 [place] [address] [place] [id number] [place] [address] 56211- 4688 Aug, Routine health maintenance Z00.00 ; Burning with urination R30.0 ; Frequent UTI N39.0 ; Cystitis N30.90 ; Family history of diabetes mellitus Z83.3 and 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 [place] [address], [place] [address] 9940 Aug, IMMUNIZATIONS No Known Immunizations SOCIAL HISTORY Never Assessed REASON FOR VISIT ADHD----Kelly PLAN OF CARE Activity Details Follow Up 3 Months, prn Reason:chm VITAL SIGNS Height 65 in 2017-09-10 Weight 141 lbs 2017-09-10 Temperature 98.4 degrees Fahrenheit 2017-09-10 Heart Rate 80 bpm 2017-09-10 Respiratory Rate 20 2017-09-10 BMI 23.46 kg/m2 2017-09-10 Blood pressure systolic 90 mmHg 2017-09-10 Blood pressure diastolic 64 mmHg 2017-09-10 MEDICATIONS Medication Instructions Dosage Frequency Start Date End Date Duration Status Strattera 40 mg Orally Once a day 1 capsule 24h Aug, 30 day(s) Active Biotin 5000 5 MG Orally Once a day 1 capsule 24h Active Ginkgo Biloba 60 MG Active Iron Not-Taking Pyridium 200 mg Orally Three times a day 1 tablet after meals 8h Sep, Sep, 2 day(s) Active Fluconazole 150 MG Orally one time 1 tablet Sep, 1 dose Active Sumatriptan Succinate 25 MG Orally Twice a day prn 1 tablet as needed for migraine Jun, 07 days Not-Taking Clonidine HCl 0.1 MG Orally twice a day 1 tablet 12h Jul, Not-Taking Topamax 25 MG Orally Once a day at bedtime 1 tablet Jun, 30 day(s) Not-Taking Adderall XR 5 mg Orally Once a day 1 capsule in the morning 24h Jul, 28 days Not-Taking Strattera 25 MG Orally Once a day for two weeks 1 capsule Aug, 14 days Not-Taking RESULTS No Results PROCEDURES Procedure Date Ordered Result Body Site URINALYSIS, AUTO, W/O SCOPE Sep 10, 2017 [facility] Sep 10, 2017 INSTRUCTIONS MEDICATIONS ADMINISTERED No Known [...]
--- OUTSIDE RECORDS SUMMARY | 2018-05-19 20:55 | XMS REPORT ---
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 95527230 Problem Intrinsic eczema L20.84 Active 45862566 Problem ADHD (attention deficit hyperactivity disorder), inattentive type F90.0 Active 32896385 Problem Migraine without aura and without status migrainosus, not intractable G43.009 Active 890273953 Problem Depressive disorder, not elsewhere classified F32.9 Active 96241145 Problem Attention deficit disorder (ADD) 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 Active 33045034 Problem Controlled substance agreement signed Z79.899 Active 319334292 Problem High risk medication use Z79.899 Active [id number] ALLERGIES No Information ENCOUNTERS Encounter Location Date Diagnosis [facility] [id number] [place] [address] 13594- 5980 Mar, [facility] [id number] [place] [address] 76814- 0095 February, ADHD (attention deficit hyperactivity disorder), inattentive type F90.0 and Generalized anxiety disorder F41.1 [facility] [id number] [place] [address] 58352- 4252 Jan, [facility] [address] [place] [address] [id number] [address]- 3238 Jan, ADHD (attention deficit hyperactivity disorder), inattentive type F90.0 [place] [address], [place] [address]- 3465 Jan, ADHD (attention deficit hyperactivity disorder), inattentive type F90.0 [place] [address] [address]- 0763 Jan, [place] [id number] [place] [address] 03893- 1038 Jan, ADHD (attention deficit hyperactivity disorder), inattentive type F90.0 and Generalized anxiety disorder F41.1 [place] [address] [place] [id number] [place] [address] 07198- 4330 Dec, ADHD (attention deficit hyperactivity disorder), inattentive type F90.0 [place] [address] [place] [address] 92286- 0723 Dec, Strain of flexor muscle of right hip, subsequent encounter S76.011D and Groin strain, right, initial encounter S76.211A [facility] [place] [address] [place] [address] 46672 -6794 Dec, Intractable episodic headache, unspecified headache type R51 [facility] [address] [place] [address] 78066 -3712 Dec, Fever R50.9 ; Otitis media due to influenza J11.83 ; Flu- like symptoms R68.89 and Stuffy and runny nose J34.89 [place] [address] [place] [address] 20744- 7060 Dec, Strain of flexor muscle of right hip, initial encounter S76.011A [place] [address] [place] [address] 32838- 7298 Nov, ADHD (attention deficit hyperactivity disorder), inattentive type F90.0 and Generalized anxiety disorder F41.1 [place] [address], [place] [address]- 8485 Nov, Burning with urination R30.0 and 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 [place] [address] [place] [id number] [place] [address] 17003- 6205 Oct, ADHD (attention deficit hyperactivity disorder), inattentive type F90.0 and Generalized anxiety disorder F41.1 [place] [address] [place] [id number] [place] [address] 32455- 5875 Oct, Routine gynecological examination Z01.419 ; Routine screening for STI (sexually transmitted infection) Z11.3 and Trichomoniasis of vagina A59.01 [place] [address] 42738- 8744 Oct, ADHD (attention deficit hyperactivity disorder), inattentive type F90.0 and Generalized anxiety disorder F41.1 [place] [address] 73338- 5159 Sep, [place] [address] 24261- 8899 Sep, [place] [address] 41844- 7478 Sep, ADHD (attention deficit hyperactivity disorder), inattentive type F90.0 and Generalized anxiety disorder F41.1 [place] [address] [place] [id number] [place] [address] 50693- 0323 Sep, Dysuria R30.0 ; Vaginal discharge N89.8 ; Generalized anxiety disorder F41.1 and Attention deficit disorder (ADD) 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 [facility] [address] [place] [address] [id number] [place] [address] 25877 -5998 Aug, Burning with urination R30.0 and Acute cystitis without hematuria N30.00 [place] [address] 26996- 4377 Aug, [facility] [address] [place] [id number] [place] [address] 76054 -5146 Aug, Dysuria R30.0 and Acute cystitis without hematuria N30.00 [place] [address] [place] [address] 56408- 7852 08 Aug, 2017 ADHD (attention deficit hyperactivity disorder), inattentive type F90.0 and Generalized anxiety disorder F41.1 [facility] [address] [place] [id number] [place] [address] 53025- 5847 06 Aug, 2017 [facility] [address] [place] [id number] [place] [address] 95928- 0457 Aug, Generalized anxiety disorder F41.1 [facility] [address] [place] [id number] [place] [address] 69542- 8532 Jul, ADHD (attention deficit hyperactivity disorder), inattentive type F90.0 ; Generalized anxiety disorder F41.1 and Migraine without aura and without status migrainosus, not intractable G43.009 [facility] [address] [place] [id number] [place] [address] 21185- 9374 28 Jun, 2017 [place] [address] [place] [id number] [place] [address] 29521- 1884 Jun, [facility] [address] [place] [id number] [place] [address] 32294- 2235 Jun, [place] [address] [place] [id number] [place] [address] 06897- 0192 Jun, ADHD (attention deficit hyperactivity disorder), inattentive type F90.0 ; Controlled substance agreement signed Z79.899 and High risk medication use Z79.899 [facility] [address] [place] [id number] [place] [address] [id number] 14 Jun, 2017 Dental examination Z01.20 [place] [address] [place] [id number] [place] [address] 11772- 4480 08 Jun, 2017 [place] [address] [place] [id number] [place] [address] 66961- 5604 08 Jun, 2017 Intractable migraine without aura and without status migrainosus G43.019 [facility] [address] [place] [id number] [place] [address] 73026- 1032 Jun, Intractable migraine without aura and without status migrainosus G43.019 [facility] [address] [place] [address] [id number] May, Dental examination Z01.20 [facility] [address] [place] [id number] [place] [address] 70804- 2385 May, Generalized anxiety disorder F41.1 ; Depressive disorder, not elsewhere classified F32.9 and Attention deficit disorder (ADD) 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 [facility] [address] [place] [id number] [place] [address] 84691- 9919 May, Screening for deficiency anemia Z13.0 [facility] [address] [id number] Apr, Encounter for dental examination Z01.20 [facility] [address] [address] [id number] [place] [address] [id number] Mar, Dental examination Z01.20 [facility] [address] [place] [id number] [place] [address] 38396- 2052 Jan, Dental examination Z01.20 [facility] [address] [place] [id number] [place] [address] 41515- 3675 Jan, Dental examination Z01.20 [facility] [address] [place] [address] [id number] [place] [address] 65561- 8385 24 Dec, 2016 Generalized anxiety disorder F41.1 [facility] [address] [place] [id number] [place] [address] 56532- 7547 14 Dec, 2016 ADHD (attention deficit hyperactivity disorder), inattentive 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 ; Generalized social phobia F40.11 and Social phobia, generalized F40.11 [facility] [address] 64895- 3430 Nov, Intrinsic eczema L20.84 and Reactive depression F32.9 [facility] [address] [place] [id number] [place] [address] 35354- 7962 Oct, Urinary tract infection, site unspecified N39.0 ; CVA tenderness M54.9 and Nausea and vomiting during O21.9 [place] [id number] [place] [address] 81042- 7750 Sep, [place] [address] [place] [id number] [place] [address] 8060 Sep, Routine health maintenance Z00.00 ; Frequent UTI N39.0 and Family history of diabetes mellitus Z83.3 [place] [address] [place] [id number] [place] [address] 14109- 4124 Aug, Routine health maintenance Z00.00 ; Burning with urination R30.0 ; Frequent UTI N39.0 ; Cystitis N30.90 ; Family history of diabetes mellitus Z83.3 and 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
--- OUTSIDE RECORDS SUMMARY | 2018-05-19 20:56 | XMS REPORT ---
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 35827524 Problem Intrinsic eczema L20.84 Active 07442966 Problem ADHD (attention deficit hyperactivity disorder), inattentive type F90.0 Active 42054840 Problem Migraine without aura and without status migrainosus, not intractable G43.009 Active 145842200 Problem Depressive disorder, not elsewhere classified F32.9 Active 76057504 Problem Attention deficit disorder (ADD) 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 Active 61862289 Problem Controlled substance agreement signed Z79.899 Active 635819149 Problem High risk medication use Z79.899 Active [id number] ALLERGIES Substance Reaction Event Type Date Status NO EPINEPHRINE per OB doctor WHILE HIGH RISK while preg per PHYSICIAN Non Drug Allergy Oct, Active ENCOUNTERS Encounter Location Date Diagnosis [facility] [address] [facility] [id number] [id number] Mar, Arthralgia of left temporomandibular joint M26.622 [facility] [address] [facility] [id number] [address] Mar, [facility] [address] [place] [address] [id number] [id number] February, ADHD (attention deficit hyperactivity disorder), inattentive type F90.0 and Generalized anxiety disorder F41.1 [facility] [address] [address] Jan, [place] [address] [id number] [place] [address] 88957- 5066 Jan, ADHD (attention deficit hyperactivity disorder), inattentive type F90.0 [place] [address] [place] [address] 06600- 5760 Jan, ADHD (attention deficit hyperactivity disorder), inattentive type F90.0 [place] [address] [address] [id number] [place] [address] 91991- 9210 Jan, [place] [address] [id number] [place] [address] 24052- 9483 Jan, ADHD (attention deficit hyperactivity disorder), inattentive type F90.0 and Generalized anxiety disorder F41.1 [place] [address] [id number] [place] [address] 43765- 6201 Dec, ADHD (attention deficit hyperactivity disorder), inattentive type F90.0 [place] [address] [place] [address] 48003- 1862 Dec, Strain of flexor muscle of right hip, subsequent encounter S76.011D and Groin strain, right, initial encounter S76.211A [facility] [address] [place] [address] 57947 -3262 Dec, Intractable episodic headache, unspecified headache type R51 [facility] [place] [id number] [place] [address] 17067 -8515 Dec, Fever R50.9 ; Otitis media due to influenza J11.83 ; Flu- like symptoms R68.89 and Stuffy and runny nose J34.89 [place] [address] [place] [address] 11255- 8773 Dec, Strain of flexor muscle of right hip, initial encounter S76.011A [place] [address] [id number] [place] [address] 66198- 1942 Nov, ADHD (attention deficit hyperactivity disorder), inattentive type F90.0 and Generalized anxiety disorder F41.1 [facility] [id number] [place] [address] 86674- 1687 Nov, Burning with urination R30.0 and 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 [facility] [id number] [place] [address] 01935- 0807 Oct, ADHD (attention deficit hyperactivity disorder), inattentive type F90.0 and Generalized anxiety disorder F41.1 [place] [id number] [place] [address] 77802- 4452 Oct, Routine gynecological examination Z01.419 ; Routine screening for STI (sexually transmitted infection) Z11.3 and Trichomoniasis of vagina A59.01 [place] [id number] [place] [address] 12985- 6620 Oct, ADHD (attention deficit hyperactivity disorder), inattentive type F90.0 and Generalized anxiety disorder F41.1 [place] [address] [id number] [place] [address] 92665- 6412 Sep, [place] [address] 19130- 9721 Sep, [place] [address] [address] [id number] [place] [address] 43331- 7376 Sep, ADHD (attention deficit hyperactivity disorder), inattentive type F90.0 and Generalized anxiety disorder F41.1 [place] [id number] [place] [address] 31126- 4050 Sep, Dysuria R30.0 ; Vaginal discharge N89.8 ; Generalized anxiety disorder F41.1 and Attention deficit disorder (ADD) 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 [facility] [address] [place] [address] 21441 -4672 Aug, Burning with urination R30.0 and Acute cystitis without hematuria N30.00 [facility] [id number] [place] [address] 23751- 8369 Aug, [facility] [id number] [place] [address] 27737 -8865 Aug, Dysuria R30.0 and Acute cystitis without hematuria N30.00 [facility] [id number] [place] [address] 35236- 8545 08 Aug, 2017 ADHD (attention deficit hyperactivity disorder), inattentive type F90.0 and Generalized anxiety disorder F41.1 [facility] [id number] [place] [address] 94760- 9564 Aug, [facility] [address] [address]50- 0373 Aug, Generalized anxiety disorder F41.1 [facility] [id number] [place] [address] 11523- 1728 Jul, ADHD (attention deficit hyperactivity disorder), inattentive type F90.0 ; Generalized anxiety disorder F41.1 and Migraine without aura and without status migrainosus, not intractable G43.009 [facility] [id number] [place] [address] 62709- 0582 Jun, [facility] [id number] [place] [address] 23784- 6983 Jun, [facility] [id number] [place] [address] 97863- 8388 Jun, [facility] [id number] [place] [address] 37441- 0281 Jun, ADHD (attention deficit hyperactivity disorder), inattentive type F90.0 ; Controlled substance agreement signed Z79.899 and High risk medication use Z79.899 [facility] [id number] [place] [address] [id number] 14 Jun, 2017 Dental examination Z01.20 [facility] [id number] [place] [address] 45195- 5122 08 Jun, 2017 [facility] [address] [place] [address] 05231- 2702 08 Jun, 2017 Intractable migraine without aura and without status migrainosus G43.019 [facility] [id number] [place] [address] 07 Jun, 2017 Intractable migraine without aura and without status migrainosus G43.019 [facility] [id number] [place] [address] [phone] 16 May, 2017 Dental examination Z01.20 [facility] [id number] [place] [address] 12380- 9511 May, Generalized anxiety disorder F41.1 ; Depressive disorder, not elsewhere classified F32.9 and Attention deficit disorder (ADD) 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 [place] [id number] [place] [address] 34781- 5659 May, Screening for deficiency anemia Z13.0 [facility] [id number] [place] [address] [id number] Apr, Encounter for dental examination Z01.20 [facility] [id number] [place] [address] [id number] Mar, Dental examination Z01.20 [facility] [id number] [place] [address] 31573- 0329 Jan, Dental examination Z01.20 [facility] [id number] [place] [address] 16490- 2632 Jan, Dental examination Z01.20 [facility] [id number] [place] [address] 32376- 2166 24 Dec, 2016 Generalized anxiety disorder F41.1 [facility] [id number] [place] [address] 20692- 2066 14 Dec, 2016 ADHD (attention deficit hyperactivity disorder), inattentive type F90.0 ; Generalized social phobia F40.11 and Social phobia, generalized F40.11 [facility] [id number] [place] [id number]46 Nov, Intrinsic eczema L20.84 and Reactive depression F32.9 [place] [address] [address] 5253 Oct, Urinary tract infection, site unspecified N39.0 ; CVA tenderness M54.9 and Nausea and vomiting during O21.9 [place] [address] [address]- 3628 Sep, [place] [id number] [place] [address] 99809- 5656 Sep, Routine health maintenance Z00.00 ; Frequent UTI N39.0 and Family history of diabetes mellitus Z83.3 [place] [address] [place] [address] 53361- 8892 Aug, Routine health maintenance Z00.00 ; Burning with urination R30.0 ; Frequent UTI N39.0 ; Cystitis N30.90 ; Family history of diabetes mellitus Z83.3 and 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 [place] [address] [place] [address] 10764- 9989 Aug, IMMUNIZATIONS No Known Immunizations SOCIAL HISTORY Never Assessed REASON FOR VISIT Annual physical (female)- Has been having vaginal burning and UTI at least monthly for about the last year- Miguel Delgado RN PLAN OF CARE Activity Details Follow Up 1 Year, sooner prn Reason: Pending Test PAP REFLEX TO HPV IF ASCUS 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 IGM TITER VITAL SIGNS Height 65 in 2017-10-15 Weight 137 lbs 2017-10-15 Temperature 98.4 degrees Fahrenheit 2017-10-15 Heart Rate 78 bpm 2017-10-15 Respiratory Rate 18 2017-10-15 BMI 22.80 kg/m2 2017-10-15 Blood pressure systolic 102 mmHg 2017-10-15 Blood pressure diastolic 72 mmHg 2017-10-15 MEDICATIONS Medication Instructions Dosage Frequency Start Date End Date Duration Status Flagyl 500 mg Orally 2 times a day with food, avoid alcohol 1 tablet Oct, Oct, 07 days Active Concerta 27 MG Orally Once a day in the morning 1 tablet Oct, 28 days Active Zoloft 50 mg Orally Once a day 1 tablet 24h Sep, Active Biotin 5000 5 MG Orally Once a day 1 capsule 24h Active RESULTS No Results PROCEDURES Procedure Date Ordered Result Body Site No Charge Oct 15, 2017 [facility] Oct 15, 2017 URINE TEST Oct 15, 2017 URINALYSIS, AUTO, W/O SCOPE Oct 15, 2017 HERPES SIMPLEX TEST Oct 15, 2017 Bacterial Vaginosis In House Oct 15, 2017 SPECIMEN HANDLING Oct 15, 2017 VENIPUNCT, ROUTINE* Oct 15, 2017 INSTRUCTIONS MEDICATIONS ADMINISTERED No Known Medications [...]
--- OUTSIDE RECORDS SUMMARY | 2018-05-19 20:56 | XMS REPORT ---
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 91098556 Problem Intrinsic eczema L20.84 Active 24335150 Problem ADHD (attention deficit hyperactivity disorder), inattentive type F90.0 Active 09258605 Problem Migraine without aura and without status migrainosus, not intractable G43.009 Active 271191449 Problem Depressive disorder, not elsewhere classified F32.9 Active 74942838 Problem Attention deficit disorder (ADD) 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 Active 46976992 Problem Controlled substance agreement signed Z79.899 Active 441643526 Problem High risk medication use Z79.899 Active [id number] ALLERGIES No Information ENCOUNTERS Encounter Location Date Diagnosis [facility] [id number] [address]69 Mar, [facility] [id number] [place] [address] 74198- 1868 February, ADHD (attention deficit hyperactivity disorder), inattentive type F90.0 and Generalized anxiety disorder F41.1 [facility] [id number] [place] [address] 80201- 6191 Jan, [facility] [id number], [place] [address]- 0395 Jan, ADHD (attention deficit hyperactivity disorder), inattentive type F90.0 [place] [address], [place] [address]- 7747 Jan, ADHD (attention deficit hyperactivity disorder), inattentive type F90.0 [place] [address] [place] [address] 31212- 7858 Jan, [place] [address] [place] [id number] [place] [address] 21999- 3186 Jan, ADHD (attention deficit hyperactivity disorder), inattentive type F90.0 and Generalized anxiety disorder F41.1 [place] [address] [id number] [place] [address] 03437- 8227 Dec, ADHD (attention deficit hyperactivity disorder), inattentive type F90.0 [place] [address] [place] [address] 99757- 4433 Dec, Strain of flexor muscle of right hip, subsequent encounter S76.011D and Groin strain, right, initial encounter S76.211A [facility] [place] [address] [place] [address] 30823 -4848 Dec, Intractable episodic headache, unspecified headache type R51 [facility] [place] [id number] [place] [address] 20899 -5717 Dec, Fever R50.9 ; Otitis media due to influenza J11.83 ; Flu- like symptoms R68.89 and Stuffy and runny nose J34.89 [place] [address] [place] [id number] [place] [address] 90082- 1277 Dec, Strain of flexor muscle of right hip, initial encounter S76.011A [place] [address] [place] [id number] [place] [address] 23311- 7402 Nov, ADHD (attention deficit hyperactivity disorder), inattentive 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 and Generalized anxiety disorder F41.1 [place] [address] [place] [address] 70168- 7409 Nov, Burning with urination R30.0 and 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 [place] [address] [place] [id number] [place] [address] 60148- 8476 Oct, ADHD (attention deficit hyperactivity disorder), inattentive type F90.0 and Generalized anxiety disorder F41.1 [place] [address] [place] [address] [id number] [place] [address] 45355- 4029 Oct, Routine gynecological examination Z01.419 ; Routine screening for STI (sexually transmitted infection) Z11.3 and Trichomoniasis of vagina A59.01 [place] [address] [place] [id number] [place] [address] 12394- 0076 Oct, ADHD (attention deficit hyperactivity disorder), inattentive 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 and Generalized anxiety disorder F41.1 [place] [address] [place] [id number] [place] [address] 99553- 5322 Sep, [place] [address] 42429- 4859 Sep, [place] [address] [place] [id number] [place] [address] 53511- 7879 Sep, ADHD (attention deficit hyperactivity disorder), inattentive type F90.0 and Generalized anxiety disorder F41.1 [place] [address] [place] [id number] [place] [address] 62118- 5222 Sep, Dysuria R30.0 ; Vaginal discharge N89.8 ; Generalized anxiety disorder F41.1 and Attention deficit disorder (ADD) 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 [facility] [id number] [place] [address] 97377 -6932 Aug, Burning with urination R30.0 and Acute cystitis without hematuria N30.00 [place] [address] 12615- 1279 Aug, [facility] [id number] [place] [address] 47766 -0975 Aug, Dysuria R30.0 and Acute cystitis without hematuria N30.00 [place] [address] [place] [address] 31686- 7585 Aug, ADHD (attention deficit hyperactivity disorder), inattentive type F90.0 and Generalized anxiety disorder F41.1 [facility] [id number] [place] [address] 66728- 0040 Aug, [facility] [address] [id number] [place] [address] 72170- 5212 Aug, Generalized anxiety disorder F41.1 [facility] [address] [id number] [place] [address] 66710- 1609 Jul, ADHD (attention deficit hyperactivity disorder), inattentive type F90.0 ; Generalized anxiety disorder F41.1 and Migraine without aura and without status migrainosus, not intractable G43.009 [place] [address] [place] [id number] [place] [address] 38480- 7318 Jun, [place] [address] [place] [id number] [place] [address] 20675- 4749 Jun, [facility] [address] [id number] [place] [address] 27401- 6565 Jun, [place] [address] [place] [id number] [place] [address] 12259- 8068 Jun, ADHD (attention deficit hyperactivity disorder), inattentive 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 ; Controlled substance agreement signed Z79.899 and High risk medication use Z79.899 [facility] [id number] [place] [address] [id number] 14 Jun, 2017 Dental examination Z01.20 [facility] [address] [id number] [place] [address] 54307- 9928 08 Jun, 2017 [place] [address] [address] [id number] [place] [address] 80407- 8568 08 Jun, 2017 Intractable migraine without aura and without status migrainosus G43.019 [place] [address] [place] [address] [id number] [place] [address] 74753- 8879 Jun, Intractable migraine without aura and without status migrainosus G43.019 [facility] [id number] [place] [address] [id number] 16 May, 2017 Dental examination Z01.20 [facility] [id number] [place] [address] 14136- 2234 14 May, 2017 Generalized anxiety disorder F41.1 ; Depressive disorder, not elsewhere classified F32.9 and Attention deficit disorder (ADD) 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 [facility] [id number] [place] [address] 79342- 9423 04 May, 2017 Screening for deficiency anemia Z13.0 [facility] [address] [id number] 14 Apr, 2017 Encounter for dental examination Z01.20 [facility] [address] [id number] Mar, Dental examination Z01.20 [facility] [id number] [place] [address] 39677- 7833 Jan, Dental examination Z01.20 [facility] [address] 07860- 3043 Jan, Dental examination Z01.20 [facility] [id number] [place] [address] 01277- 1851 24 Dec, 2016 Generalized anxiety disorder F41.1 [facility] [id number] [place] [address] 18230- 8027 14 Dec, 2016 ADHD (attention deficit hyperactivity disorder), inattentive type F90.0 ; Generalized social phobia F40.11 and Social phobia, generalized F40.11 [facility] [address] 83548- 1430 Nov, Intrinsic eczema L20.84 and Reactive depression F32.9 [facility] [address] [id number] [place] [address] 65714- 2792 Oct, Urinary tract infection, site unspecified N39.0 ; CVA tenderness M54.9 and Nausea and vomiting during O21.9 [place] [id number], [place] [address]- 7081 Sep, [place] [address] [place] [address] 094330- 5004 Sep, Routine health maintenance Z00.00 ; Frequent UTI N39.0 and Family history of diabetes mellitus Z83.3 [place] [id number] [place] [address] 03124- 7433 Aug, Routine health maintenance Z00.00 ; Burning with urination R30.0 ; Frequent UTI N39.0 ; Cystitis N30.90 ; Family history of diabetes mellitus Z83.3 and 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
--- OUTSIDE RECORDS SUMMARY | 2018-05-19 20:57 | XMS REPORT ---
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 54582536 Problem Intrinsic eczema L20.84 Active 47229636 Problem ADHD (attention deficit hyperactivity disorder), inattentive type F90.0 Active 21754050 Problem Migraine without aura and without status migrainosus, not intractable G43.009 Active 191316422 Problem Depressive disorder, not elsewhere classified F32.9 Active 77746695 Problem Attention deficit disorder (ADD) 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 Active 39196545 Problem Controlled substance agreement signed Z79.899 Active 263125718 Problem High risk medication use Z79.899 Active [id number] ALLERGIES No Information ENCOUNTERS Encounter Location Date Diagnosis [facility] [id number] [place] [address] 64146- 7954 Mar, [facility] [address] [place] [address] 60740- 7522 February, ADHD (attention deficit hyperactivity disorder), inattentive type F90.0 and Generalized anxiety disorder F41.1 [facility] [address] [place] [address] 00903- 5162 Jan, [facility] [address] [id number] [address] 1007 Jan, ADHD (attention deficit hyperactivity disorder), inattentive type F90.0 [place] [address] [address] 0[address] Jan, ADHD (attention deficit hyperactivity disorder), inattentive type F90.0 [place] [address] [address] 4284 Jan, [place] [address] [place] [address] 13878- 4487 Jan, ADHD (attention deficit hyperactivity disorder), inattentive type F90.0 and Generalized anxiety disorder F41.1 [place] [id number] [place] [address] 04547- 9859 Dec, ADHD (attention deficit hyperactivity disorder), inattentive type F90.0 [place] [address] [place] [address] 81579- 0201 Dec, Strain of flexor muscle of right hip, subsequent encounter S76.011D and Groin strain, right, initial encounter S76.211A [facility]ALK [facility] [place] [address] [place] [address] 30493 -7833 Dec, Intractable episodic headache, unspecified headache type R51 [facility] WALK IN [address] [place] [address] 39538 -1828 Dec, Fever R50.9 ; Otitis media due to influenza J11.83 ; Flu- like symptoms R68.89 and Stuffy and runny nose J34.89 [place] [address] [place] [address] 18005- 1138 Dec, Strain of flexor muscle of right hip, initial encounter S76.011A [place] [address] [place] [address] 75878- 1823 Nov, ADHD (attention deficit hyperactivity disorder), inattentive type F90.0 and Generalized anxiety disorder F41.1 [place] [address] [address] 9507 Nov, Burning with urination R30.0 and 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 [place] [id number] [place] [address] 87769- 8299 Oct, ADHD (attention deficit hyperactivity disorder), inattentive type F90.0 and Generalized anxiety disorder F41.1 [place] [id number] [place] [address] 33528- 1145 Oct, Routine gynecological examination Z01.419 ; Routine screening for STI (sexually transmitted infection) Z11.3 and Trichomoniasis of vagina A59.01 [place] [address] 03286- 9990 Oct, ADHD (attention deficit hyperactivity disorder), inattentive type F90.0 and Generalized anxiety disorder F41.1 [place] [address] 18076- 7187 Sep, [place] [address] 74502- 1407 Sep, [place] [address] 15892- 6788 Sep, ADHD (attention deficit hyperactivity disorder), inattentive type F90.0 and Generalized anxiety disorder F41.1 [place] [id number] [place] [address] 36226- 1391 Sep, Dysuria R30.0 ; Vaginal discharge N89.8 ; Generalized anxiety disorder F41.1 and Attention deficit disorder (ADD) 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 [facility] WALK IN [facility] [id number] [place] [address] 24736 -3397 Aug, Burning with urination R30.0 and Acute cystitis without hematuria N30.00 [place] [address] 53291- 7154 Aug, [facility] WALK IN [facility] [address] [id number] [place] [address] 69157 -0856 Aug, Dysuria R30.0 and Acute cystitis without hematuria N30.00 [place] [address] [place] [address] 24466- 4141 08 Aug, 2017 ADHD (attention deficit hyperactivity disorder), inattentive type F90.0 and Generalized anxiety disorder F41.1 [facility] [id number] [place] [address] 77616- 0852 06 Aug, 2017 [facility] [id number] [place] [address] 22322- 3920 Aug, Generalized anxiety disorder F41.1 [facility] [address] [id number] [place] [address] 21044- 7619 Jul, ADHD (attention deficit hyperactivity disorder), inattentive type F90.0 ; Generalized anxiety disorder F41.1 and Migraine without aura and without status migrainosus, not intractable G43.009 [facility] [id number] [place] [address] 37836- 6121 28 Jun, 2017 [place] [id number] [place] [address] 75299- 1295 Jun, [facility] [address] [place] [id number] [place] [address] 25190- 6213 Jun, [place] [id number] [place] [address] 63973- 5789 Jun, ADHD (attention deficit hyperactivity disorder), inattentive 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 ; Controlled substance agreement signed Z79.899 and High risk medication use Z79.899 [facility] [id number] [place] [address] [id number] 14 Jun, 2017 Dental examination Z01.20 [place] [address] [id number] [place] [address] 71434- 1196 08 Jun, 2017 [place] [address] [id number] [place] [address] 71519- 8488 08 Jun, 2017 Intractable migraine without aura and without status migrainosus G43.019 [facility] [address] [place] [id number] [place] [address] 94322- 9091 Jun, Intractable migraine without aura and without status migrainosus G43.019 [facility] [address] [place] [address] [id number] May, Dental examination Z01.20 [facility] [id number] [place] [address] 04456- 8744 May, Generalized anxiety disorder F41.1 ; Depressive disorder, not elsewhere classified F32.9 and Attention deficit disorder (ADD) 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 [facility] [id number] [place] [address] 44111- 5001 May, Screening for deficiency anemia Z13.0 [facility] [address] [id number] Apr, Encounter for dental examination Z01.20 [facility] [address] [id number] [place] [address] [id number] Mar, Dental examination Z01.20 [facility] [id number] [place] [address] 88159- 4742 Jan, Dental examination Z01.20 [facility] [id number] [place] [address] 33949- 9547 Jan, Dental examination Z01.20 [facility] [id number] [place] [address] 01286- 8086 24 Dec, 2016 Generalized anxiety disorder F41.1 [facility] [address] [place] [id number] [place] [address] 96348- 0296 14 Dec, 2016 ADHD (attention deficit hyperactivity disorder), inattentive type F90.0 ; Generalized social phobia F40.11 and Social phobia, generalized F40.11 [facility] [address] 05374- 9636 Nov, Intrinsic eczema L20.84 and Reactive depression F32.9 [facility] [address] [place] [id number] [place] [address] 92253- 5958 Oct, Urinary tract infection, site unspecified N39.0 ; CVA tenderness M54.9 and Nausea and vomiting during O21.9 [place] [address] [place] [address] 22309- 0305 Sep, [place] [address] [address] [id number] [place] [address] 8889 Sep, Routine health maintenance Z00.00 ; Frequent UTI N39.0 and Family history of diabetes mellitus Z83.3 [place] [id number] [place] [address] 52114- 5022 Aug, Routine health maintenance Z00.00 ; Burning with urination R30.0 ; Frequent UTI N39.0 ; Cystitis N30.90 ; Family history of diabetes mellitus Z83.3 and 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 VITAL SIGNS MEDICATIONS Unknown [...]
--- OUTSIDE RECORDS SUMMARY | 2018-05-19 20:57 | XMS REPORT ---
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899 Active [id number] ALLERGIES Substance Reaction Event Type Date Status NO EPINEPHRINE per OB doctor WHILE HIGH RISK while preg per PHYSICIAN Non Drug Allergy Sep, Active ENCOUNTERS Encounter Location Date Diagnosis [facility] [id number] [address] 2407 Mar, [facility] [id number] [address]- 1031 Mar, [facility] [address] [place] [address] 57876- 7384 February, ADHD (attention deficit hyperactivity disorder), inattentive type F90.0 and Generalized anxiety disorder F41.1 [facility] [address] [place] [id number] [place] [address] 60052- 6386 Jan, [place] [address] [address]- 1068 Jan, ADHD (attention deficit hyperactivity disorder), inattentive type F90.0 [place] [address] [address]- 5267 Jan, ADHD (attention deficit hyperactivity disorder), inattentive type F90.0 [place] [address] [place] [address] [id number] [place] [address] 39120- 2220 Jan, [place] [address] [place] [id number] [place] [address] 44943- 4159 Jan, ADHD (attention deficit hyperactivity disorder), inattentive type F90.0 and Generalized anxiety disorder F41.1 [place] [address] [place] [address] [id number] [place] [address] 21086- 0767 Dec, ADHD (attention deficit hyperactivity disorder), inattentive type F90.0 [place] [address] [place] [id number] [place] [address] 06598- 2515 Dec, Strain of flexor muscle of right hip, subsequent encounter S76.011D and Groin strain, right, initial encounter S76.211A [facility] IN [address] [place] [address] 98981 -5488 Dec, Intractable episodic headache, unspecified headache type R51 [facility] IN [address] [place] [address] 49019 -2823 Dec, Fever R50.9 ; Otitis media due to influenza J11.83 ; Flu- like symptoms R68.89 and Stuffy and runny nose J34.89 [place] [id number] [place] [address] 45992- 2170 Dec, Strain of flexor muscle of right hip, initial encounter S76.011A [place] [address] [place] [address] 98972- 7428 Nov, ADHD (attention deficit hyperactivity disorder), inattentive type F90.0 and Generalized anxiety disorder F41.1 [place] [address] [place] [id number] [place] [address] 71796- 8476 Nov, Burning with urination R30.0 and 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 [place] [address] [place] [id number] [place] [address] 67701- 6938 Oct, ADHD (attention deficit hyperactivity disorder), inattentive type F90.0 and Generalized anxiety disorder F41.1 [place] [address] [place] [id number] [place] [address] 12824- 7823 Oct, Routine gynecological examination Z01.419 ; Routine screening for STI (sexually transmitted infection) Z11.3 and Trichomoniasis of vagina A59.01 [place] [address] [place] [id number] [place] [address] 44068- 7702 Oct, ADHD (attention deficit hyperactivity disorder), inattentive type F90.0 and Generalized anxiety disorder F41.1 [place] [address] [place] [id number] [place] [address] 79057- 1562 Sep, [place] [address] 13317- 3640 Sep, [place] [address] [place] [id number] [place] [address] 90912- 0460 Sep, ADHD (attention deficit hyperactivity disorder), inattentive type F90.0 and Generalized anxiety disorder F41.1 [place] [address] [place] [id number] [place] [address] 84084- 8185 Sep, Dysuria R30.0 ; Vaginal discharge N89.8 ; Generalized anxiety disorder F41.1 and Attention deficit disorder (ADD) 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 [facility] [address] [place] [id number] [place] [address] 11061 -3778 Aug, Burning with urination R30.0 and Acute cystitis without hematuria N30.00 [place] [address] [place] [id number] [place] [address] 73299- 0046 Aug, [facility] [address] [place] [address] 27296 -1464 Aug, Dysuria R30.0 and Acute cystitis without hematuria N30.00 [facility] [address] [place] [id number] [place] [address] 02202- 3762 08 Aug, 2017 ADHD (attention deficit hyperactivity disorder), inattentive type F90.0 and Generalized anxiety disorder F41.1 [facility] [address] [place] [id number] [place] [address] 74098- 1097 Aug, [facility] [address] [place] [id number] [place] [address] 44282- 8227 Aug, Generalized anxiety disorder F41.1 [facility] [address] [place] [id number] [place] [address] 40616- 8084 Jul, ADHD (attention deficit hyperactivity disorder), inattentive type F90.0 ; Generalized anxiety disorder F41.1 and Migraine without aura and without status migrainosus, not intractable G43.009 [facility] [address] [place] [id number] [place] [address] 90292- 4530 Jun, [facility] [address] [place] [id number] [place] [address] 91331- 7938 Jun, [facility] [address] [place] [id number] [place] [address] 12250- 8593 Jun, [facility] [address] [place] [id number] [place] [address] 41017- 8286 Jun, ADHD (attention deficit hyperactivity disorder), inattentive type F90.0 ; Controlled substance agreement signed Z79.899 and High risk medication use Z79.899 [facility] [id number] [place] [address] [id number] 14 Jun, 2017 Dental examination Z01.20 [facility] [address] [place] [id number] [place] [address] 29703- 7048 08 Jun, 2017 [facility] [address] 32736- 6125 08 Jun, 2017 Intractable migraine without aura and without status migrainosus G43.019 [facility] [address] [place] [id number] [place] [address] 55056- 2062 07 Jun, 2017 Intractable migraine without aura and without status migrainosus G43.019 [facility] [address] [place] [address] [id number] 16 May, 2017 Dental examination Z01.20 [facility] [address] 43829- 0651 May, Generalized anxiety disorder F41.1 ; Depressive disorder, not elsewhere classified F32.9 and Attention deficit disorder (ADD) 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 [facility] [address] [place] [id number] [place] [address] 72644- 4195 May, Screening for deficiency anemia Z13.0 [facility] [address] [id number] 14 Apr, 2017 Encounter for dental examination Z01.20 [facility] [address] [id number] [place] [address] [phone] Mar, Dental examination Z01.20 [facility] [address] 82135- 5233 Jan, Dental examination Z01.20 [facility] [address] [address] [id number] [place] [address] 46452- 9482 Jan, Dental examination Z01.20 [facility] [address] [id number] [place] [address] 16473- 3778 24 Dec, 2016 Generalized anxiety disorder F41.1 [facility] [address] 49920- 8163 14 Dec, 2016 ADHD (attention deficit hyperactivity disorder), inattentive type F90.0 ; Generalized social phobia F40.11 and Social phobia, generalized F40.11 [facility] [address] [place] [id number] [place] [address] 84246- 6058 Nov, Intrinsic eczema L20.84 and Reactive depression F32.9 [place] [address] [id number] [address]- 7191 Oct, Urinary tract infection, site unspecified N39.0 ; CVA tenderness M54.9 and Nausea and vomiting during O21.9 [place] [address] [address]- 9998 Sep, [place] [address] [place] [address] 83862- 1327 Sep, Routine health maintenance Z00.00 ; Frequent UTI N39.0 and Family history of diabetes mellitus Z83.3 [place] [address] [place] [address] 24045- 2048 Aug, Routine health maintenance Z00.00 ; Burning with urination R30.0 ; Frequent UTI N39.0 ; Cystitis N30.90 ; Family history of diabetes mellitus Z83.3 and 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 [place] [address] [place] [address] [id number] [address]- 6771 Aug, IMMUNIZATIONS No Known Immunizations SOCIAL HISTORY Never Assessed REASON FOR VISIT f/u--Julio Cesar Alarocn MA PLAN OF CARE Activity Details Follow Up 4 Weeks Reason: f/u VITAL SIGNS Height 65 in 2017-09-10 Weight 141.6 lbs 2017-09-10 Heart Rate 72 bpm 2017-09-10 Respiratory Rate 18 2017-09-10 BMI 23.56 kg/m2 2017-09-10 Blood pressure systolic 102 mmHg 2017-09-10 Blood pressure diastolic 72 mmHg 2017-09-10 MEDICATIONS Medication Instructions Dosage Frequency Start Date End Date Duration Status Concerta 18 mg Orally Once a day in the morning 1 tablet Sep, 28 days Active Ginkgo Biloba 60 MG Active Pyridium 200 mg Orally Three times a day 1 tablet after meals 8h Sep, Sep, 2 day(s) Active Iron Not-Taking Biotin 5000 5 MG Orally Once a day 1 capsule 24h Active Sumatriptan Succinate 25 MG Orally Twice a day prn 1 tablet as needed for migraine Jun, 07 days Not-Taking Topamax 25 MG Orally Once a day at bedtime 1 tablet Jun, 30 day(s) Not-Taking Fluconazole 150 MG Orally one time 1 tablet Sep, 1 dose Active Zoloft 50 mg Orally Once a day 1 tablet 24h Sep, 30 day(s) Active RESULTS No Results PROCEDURES No Known [...]
[2018-05-19] MEDS ORDERED: ONDANSETRON 4 MG (ZOFRAN) ORAL DISSOLVE TAB PO ONE (21:15)
[2018-05-19 21:25] LABS: CLARITY,URINE CLEAR; COLOR,URINE YELLOW; GLUCOSE, URINE (UA) NEGATIVE (NEGATIVE); KETONES,URINE 4+ (NEGATIVE); LEUKOCYTE ESTERASE ,URINE 2+ (NEGATIVE); NITRITE,URINE NEGATIVE (NEGATIVE); PH,URINE 5 (5-9); PROTEIN,URINE 2+ (NEGATIVE); UROBILINOGEN,URINE 1 MG/DL (NORMAL)
[2018-05-19 21:34] LABS: BACTERIA,URINE TRACE /HPF; CALCIUM OXALATE CRYSTALS,UR FEW /LPF; RBC,URINE 0-2 /HPF
[2018-05-19 21:37] LABS: BILIRUBIN,URINE 1+ (NEGATIVE)
[2018-05-19] MEDS ORDERED: LACTATED RINGERS 1,000 ML IV ONE (22:21)
--- NOTE | 2018-05-19 22:26 | ED Abdominal Pain ---
General Chief Complaint: Abdominal/GI Problems Stated Complaint: N/V/D Nursing Triage Note: PT PRESENTS TO ER WITH COMPLAINT OF NAUSEA, VOMITING, DIARRHEA, AND BURING WITH URINATION FOR 4-5 DAYS. Sepsis Screen: No Definite Risk Source of Information: Patient Exam Limitations: No Limitations History of Present Illness Date Seen by Provider: May 19, 2018 Time Seen by Provider: 22:13 Initial Comments Patient presents to ER by private conveyance with chief complaint of last day or 2 having progressively worsening left abdomen and left flank pain. She says she has a history of ureteral reflux and had to have her ureters crossed as well as had had a nephrostomy tube when she was but no history of kidney stones. No dysuria or hematuria. She has been nauseated and vomiting and having a hard time keeping anything down and feels very dehydrated. She has had pain and not been able take any pain medications because of the nausea. She has not seen anybody for this yet until today. She is not having any fevers or chills or sweats just feels very weak and tired. Allergies and Home Medications Allergies Coded Allergies: No Known Drug Allergies (Unverified , 02/04/18) Home Medications Hydrocodone Bit/Acetaminophen 1 Ea Tablet, 1 EACH PO Q4H Prescribed by: MITCHEL DIANE on 02/07/18 1005 Lisdexamfetamine Dimesylate 40 Mg Capsule, 40 MG PO DAILY, (Reported) Sertraline HCl 50 Mg Tablet, 50 MG PO DAILY, (Reported) Patient Home Medication List Home Medication List Reviewed: Yes Review of Systems Constitutional: No chills, No diaphoresis EENTM: No Blurred Vision, No Double Vision Respiratory: Denies Cough, Denies Shortness of Air Cardiovascular: Denies Chest Pain, Denies Edema Gastrointestinal: See HPI; Denies Abdomen Distended; Abdominal Pain Genitourinary: Denies Burning, Denies Discharge Musculoskeletal: No back pain, No joint pain Past Eyqvjvi-Kkrplz-Chbovw Hx Patient Social History Alcohol Use: Denies Use Recreational Drug Use: No Smoking Status: Never a Smoker 2nd Hand Smoke Exposure: No Recent Foreign Travel: No Contact w/Someone Who Travel: No Recent Infectious Disease Expo: No Recent Hopitalizations: No Immunizations Up To Date Tetanus Booster (TDap): Unknown Seasonal Allergies Seasonal Allergies: No Past Medical History Surgeries: Yes (NEPHROSTOMY, TMJ-JAW SURGERY, HEMORRHOIDECTOMY) Orthopedic, Renal Respiratory: No Cardiac: No Neurological: Yes Headaches /Migraines 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 Disorders: No Female 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 Disorders: Denies Sexually Transmitted Disease: No HIV/AIDS: No Genitourinary: Yes (urethral blockage ) Kidney Infection, Bladder Infection Gastrointestinal: Yes Hemorrhoids Musculoskeletal: Yes (MILD IN JAW) Arthritis Endocrine: No HEENT: No Cancer: No Psychosocial: Yes ADD/ADHD, Anxiety Integumentary: No Blood Disorders: No Adverse Reaction/Blood Tranf: No (N/A) Family Medical History Diabetes mellitus grandmother Physical Exam Vital Signs Vital Signs - First Documented 05/19/18 21:07 Temp 98.7 Pulse 96 Resp 19 B/P (MAP) 104/71 (82) Pulse Ox 97 O2 Delivery Room Air Capillary Refill : Less Than 3 Seconds Height/Weight/BMI Height: 5'5.00" Weight: 138lbs. 0.0oz. [id number]; 23.0 BMI Method:Stated General Appearance: WD/WN, mild distress HEENT: PERRL/EOMI, TMs normal; No pharynx normal (oral pharynx is dry) Neck: non-tender, full range of motion, normal inspection Respiratory: chest non-tender, lungs clear, normal breath sounds, no respiratory distress, no accessory muscle use Cardiovascular: normal peripheral pulses, regular rate, rhythm Peripheral Pulses: 2+ Radial Pulses (R), 2+ Radial Pulses (L) Gastrointestinal: normal bowel sounds, soft, tenderness (left upper and lower quadrant) Extremities: normal range of motion, non-tender, normal inspection, no pedal edema, no calf tenderness, normal capillary refill Back: normal inspection; No CVA tenderness (R); CVA tenderness (L) Neurologic/Psychiatric: alert, oriented x 3, other (Anxious affect) Skin: normal color, warm/dry Progress/Results/Core Measures Results/Orders Lab Results Laboratory Tests Test 05/19/18 21:10 05/19/18 21:20 Range/Units White Blood Count 6.9 4.3-11.0 10^3/uL Red Blood Count 4.98 4.35-5.85 10^6/uL Hemoglobin 15.4 11.5-16.0 G/DL Hematocrit 45 35-52 % Mean Corpuscular Volume 90 80-99 FL Mean Corpuscular Hemoglobin 31 25-34 PG Mean Corpuscular Hemoglobin Concent 35 32-36 G/DL Red Cell Distribution Width 12.2 10.0-14.5 % Platelet Count 277 130-400 10^3/uL Mean Platelet Volume 10.4 7.4-10.4 FL Neutrophils (%) (Auto) 70 42-75 % Lymphocytes (%) (Auto) 22 12-44 % Monocytes (%) (Auto) 7 0-12 % Eosinophils (%) (Auto) 2 0-10 % Basophils (%) (Auto) 0 0-10 % Neutrophils # (Auto) 4.8 1.8-7.8 X 10^3 Lymphocytes # (Auto) 1.5 1.0-4.0 X 10^3 Monocytes # (Auto) 0.5 0.0-1.0 X 10^3 Eosinophils # (Auto) 0.1 0.0-0.3 10^3/uL Basophils # (Auto) 0.0 0.0-0.1 10^3/uL Sodium Level 140 135-145 MMOL/L Potassium Level 3.5 L 3.6-5.0 MMOL/L Chloride Level 104 98-107 MMOL/L Carbon Dioxide Level 25 21-32 MMOL/L Anion Gap 11 5-14 MMOL/L Blood Urea Nitrogen 13 7-18 MG/DL Creatinine 0.67 0.60-1.30 MG/DL Estimat Glomerular Filtration Rate > 60 BUN/Creatinine Ratio 19 Glucose Level 87 70-105 MG/DL Calcium Level 10.0 8.5-10.1 MG/DL Corrected Calcium 8.5-10.1 MG/DL Magnesium Level 2.2 1.8-2.4 MG/DL Total Bilirubin 1.0 0.1-1.0 MG/DL Aspartate Amino Transf (AST/SGOT) 16 5-34 U/L Alanine Aminotransferase (ALT/SGPT) 12 0-55 U/L Alkaline Phosphatase 55 40-136 U/L Total Protein 8.2 6.4-8.2 GM/DL Albumin 4.8 H 3.2-4.5 GM/DL Urine Opiates Screen NEGATIVE NEGATIVE Urine Oxycodone Screen NEGATIVE NEGATIVE Urine Methadone Screen NEGATIVE NEGATIVE Urine Propoxyphene Screen NEGATIVE NEGATIVE Urine Barbiturates Screen NEGATIVE NEGATIVE Ur Tricyclic Antidepressants Screen NEGATIVE NEGATIVE Urine Phencyclidine Screen NEGATIVE NEGATIVE Urine Amphetamines Screen POSITIVE H NEGATIVE Urine Methamphetamines Screen NEGATIVE NEGATIVE Urine Benzodiazepines Screen NEGATIVE NEGATIVE Urine Cocaine Screen NEGATIVE NEGATIVE Urine Cannabinoids Screen NEGATIVE NEGATIVE Urine Color YELLOW Urine Clarity CLEAR Urine pH 5 5-9 Urine Specific [place] 1.025 H 1.016-1.022 Urine Protein 2+ H NEGATIVE Urine Glucose (UA) NEGATIVE NEGATIVE Urine Ketones 4+ H NEGATIVE Urine Nitrite NEGATIVE NEGATIVE Urine Bilirubin 1+ H NEGATIVE Urine Urobilinogen 1 NORMAL MG/DL Urine Leukocyte Esterase 2+ H NEGATIVE Urine RBC (Auto) 1+ H NEGATIVE Urine RBC 0-2 /HPF Urine WBC 5-10 H /HPF Urine Squamous Epithelial Cells 10-25 H /HPF Urine Crystals PRESENT H /LPF Urine Calcium Oxalate Crystals FEW H /LPF Urine Bacteria TRACE /HPF Urine Casts NONE /LPF Urine Mucus MODERATE H /LPF Urine Culture Indicated YES My Orders Orders - JALYN BUI Ua Culture If Indicated (05/19/18 21:08) Urine Bedside (05/19/18 21:08) Ondansetron Oral Dissolve Tab (Zofran (05/19/18 21:15) Urine Culture (05/19/18 21:20) Ct Abd/Pelvis Wo(Kidney Stone) (05/19/18 22:21) Cbc With Automated Diff (05/19/18 22:21) Comprehensive Metabolic Panel (05/19/18 22:21) Drug Screen Stat (Urine) (05/19/18 22:21) Magnesium (05/19/18 22:21) Saline Lock/Iv-Start (05/19/18 22:21) Lactated Ringers (Lr 1000 Ml Iv Solution (05/19/18 22:21) Ketorolac Injection (Toradol Injection) (05/19/18 22:30) Promethazine Injection (Phenergan Injec (05/19/18 22:30) Medications Given in ED Current Medications Medications Dose Ordered Sig/Jelly Route Start Time Stop Time Status Last Admin Dose Admin Ketorolac Tromethamine 15 mg ONCE ONCE IVP 05/19/18 22:30 05/19/18 22:31 DC 05/19/18 22:38 15 MG Lactated Ringer's 1,000 ml @ 0 mls/hr Q0M ONCE IV 05/19/18 22:21 05/19/18 22:22 DC 05/19/18 22:37 1,000 MLS/HR Ondansetron HCl 4 mg ONCE ONCE PO 05/19/18 21:15 05/19/18 21:16 DC 05/19/18 21:28 4 MG Promethazine HCl 25 mg ONCE ONCE IVP 05/19/18 22:30 05/19/18 22:31 DC 05/19/18 22:37 25 MG Vital Signs/I&O 05/19/18 21:07 Temp 98.7 Pulse 96 Resp 19 B/P (MAP) 104/71 (82) Pulse Ox 97 O2 Delivery Room Air Blood Pressure Mean: 82 Urine -Bedside: Negative Progress Progress Note : Time: 22:25 Progress Note She has calcium oxalate crystals in her urine. We'll get a CT noncontrast looking for kidney stones as well as some basic labs look for a source of her discomfort. There is quite a bit of contamination with squamous cells on her urinalysis so difficult to know if this is contamination or infection but if there is a stone we'll give her antibiotics. Diagnostic Imaging Diagonstic Imaging: CT (without contrast kidney stone study) Plain Films/CT/US/NM/MRI: abdomen, pelvis Comments Fluid throughout small and large bowel consider gastritis. No evidence of bowel obstruction or focal intra-abdominal inflammatory process. Nonobstructing nephrolithiasis bilaterally. Reviewed: Reviewed by Me Departure Impression Primary Impression: Gastroenteritis and colitis, viral Additional Impression: Bilateral nephrolithiasis Disposition: 01 HOME, SELF-CARE Condition: Improved Departure-Patient Inst. Decision time for Depature: 00:32 Referrals: LALA ROBERSON MD (PCP) Primary Care Physician Patient Instructions: Viral Gastroenteritis, Adult (DC) Add. Discharge Instructions: Drink plenty of fluids more than you're putting out. Use sports drinks like Gatorade or Powerade half-strength. Eat a bland high-fiber diet of bananas, rice, applesauce and toast. If you're having diarrhea tomorrow morning you can take 2 tablets of Imodium and every 4 hours afterwards if you have another watery stool take another tablet until it concludes. If you're using the Imodium for 2 days and still not able to control your loose watery stools then you should follow-up with your primary care doctor for reevaluation. If your diarrhea and nausea vomiting last for more than 7-10 days or you start to have fevers above 102 then you should follow-up with your doctor. You can use Tylenol 1000 mg and ibuprofen 800 mg every 8 hours as needed or discomfort. If you have nausea you can take one tablet of Zofran every 6 hours as needed and place it on the tongue and allowed to absorb to the mouth. All discharge instructions reviewed with patient and/or family. Voiced understanding. Scripts Ondansetron (Ondansetron Odt) 4 Mg Tab.rapdis 4 MG PO Q6H PRN for NAUSEA/VOMITING, #8 TAB 0 Refills Prov: JALYN BUI 05/20/18 Work/School Note: Work Release Form Date Seen in the Emergency Department: May 20, 2018 Return to Work: May 21, 2018 Restrictions: No Restrictions JALYN BUI May 19, 2018 22:26
[2018-05-19 22:30] LABS: BASOPHILS % (AUTO) 0 % (0-10); EOSINOPHILS # (AUTO) 0.1 10^3/uL (0.0-0.3); EOSINOPHILS % (AUTO) 2 % (0-10); HEMATOCRIT 45 % (35-52); HEMOGLOBIN 15.4 G/DL (11.5-16.0); LYMPHOCYTES # (AUTO) 1.5 X 10^3 (1.0-4.0); LYMPHOCYTES % (AUTO) 22 % (12-44); MEAN CORPUSCULAR HEMOGLOBIN 31 PG (25-34); MEAN CORPUSCULAR HGB CONC 35 G/DL (32-36); MEAN CORPUSCULAR VOLUME 90 FL (80-99); MEAN PLATELET VOLUME 10.4 FL (7.4-10.4); MONOCYTES # (AUTO) 0.5 X 10^3 (0.0-1.0); MONOCYTES % (AUTO) 7 % (0-12); NEUTROPHILS # (AUTO) 4.8 X 10^3 (1.8-7.8); NEUTROPHILS % (AUTO) 70 % (42-75); PLATELET COUNT 277 10^3/uL (130-400); RED BLOOD COUNT 4.98 10^6/uL (4.35-5.85); RED CELL DISTRIBUTION WIDTH 12.2 % (10.0-14.5); WHITE BLOOD COUNT 6.9 10^3/uL (4.3-11.0)
[2018-05-19] MEDS ORDERED: KETOROLAC 30 MG/ML VIAL IVP ONE (22:30)
[2018-05-19] MEDS ORDERED: PROMETHAZINE INJ 25 MG/ML (PHENERGAN) AMP IVP ONE (22:30)
[2018-05-19 22:41] LABS: ALANINE AMINOTRANSFERASE 12 U/L (0-55); ALBUMIN 4.8 GM/DL (3.2-4.5); ALKALINE PHOSPHATASE 55 U/L (40-136); BUN/CREATININE RATIO 19; CARBON DIOXIDE 25 MMOL/L (21-32); CHLORIDE 104 MMOL/L (98-107); CREATININE SERUM 0.67 MG/DL (0.60-1.30); GFR ESTIMATED > 60; GLUCOSE 87 MG/DL (70-105); MAGNESIUM 2.2 MG/DL (1.8-2.4); POTASSIUM 3.5 MMOL/L (3.6-5.0); SODIUM 140 MMOL/L (135-145); TOTAL PROTEIN 8.2 GM/DL (6.4-8.2)
[2018-05-19 22:52] LABS: AMPHETAMINE SCREEN, URINE POSITIVE (NEGATIVE); BARBITURATE SCREEN URINE NEGATIVE (NEGATIVE); BENZODIAZEPINES SCREEN URINE NEGATIVE (NEGATIVE); CANNABINOID SCREEN, URINE NEGATIVE (NEGATIVE); COCAINE SCREEN URINE NEGATIVE (NEGATIVE); METHADONE STAT NEGATIVE (NEGATIVE); METHAMPHETAMINE SCREEN URINE S NEGATIVE (NEGATIVE); OPIATE SCREEN URINE NEGATIVE (NEGATIVE); OXYCODONE STAT NEGATIVE (NEGATIVE); PROPOXYPHENE STAT NEGATIVE (NEGATIVE); TRICYCLIC ANTIDEPRESSANTS SCRE NEGATIVE (NEGATIVE)
[2018-05-20] MEDS ORDERED: ONDA4TAB11 PO (00:35)
[2018-05-20] MEDS ORDERED: RX-ONDANSETRON 4 MG ODT (ZOFRAN) PPK #4 PO STA (00:37)
[2018-05-20 01:04] VITALS: BP 104/71
--- NOTE | 2018-05-20 06:30 | Diagnostic Imaging Report ---
PROCEDURE: CT urinary tract, rule out kidney stone. TECHNIQUE: Multiple contiguous axial images were obtained through the abdomen and pelvis without the use of intravenous contrast. INDICATION: Nausea, vomiting, and diarrhea. Exam compared to 07/07/2016 There are no opaque ureteral stones. There is no hydroureteronephrosis. Nonobstructing 3 mm calculus within a right renal lower pole calyx present, no perinephric edema. Punctate peripheral cortical calcification in the left kidney nonobstructing There is no ascites, abscess, hematoma or fluid collection. An IUD is in good position. No adnexal lesion. No appendicitis or diverticulitis. Liver, gallbladder, spleen, adrenals and pancreas unremarkable. No pneumatosis or free air. There is mildly elevated intraluminal fluid load throughout the small and large bowel without transition zone which may reflect hypermobile state or nonspecific enteritis. IMPRESSION: Nonobstructing renal calcifications. Elevated intraluminal fluid load without transition zone or obstruction may be hypermotile state or a nonspecific enteritis. IUD device appeared normal with no acute adnexal abnormality. Dictated by: Dictated on workstation # [id number]
== END 2018-05-20 01:04 | disposition home or self-care (01) ==
LOC: EDUNIT# 20:47 → ER 20:47
DX: A08.4 Viral intestinal infection, unspecified (principal); N20.0 Calculus of kidney; G43.909 Migraine, unspecified, not intractable, without status migrainosus; F90.9 Attention-deficit hyperactivity disorder, unspecified type; F41.9 Anxiety disorder, unspecified; Z93.6 Other artificial openings of urinary tract status; Z87.448 Personal history of other diseases of urinary system; Z90.89 Acquired absence of other organs
CPT/HCPCS: 36415; 74176; 80053; 80306; 81000; 83735; 84703; 85025; 87088

== ENCOUNTER → 2018-11-19 | Outpatient (CLI) | payer MEDICAID, OTHER ==
[~2018-11-19] MED LIST changes: +ONDA4TAB11 PO
--- NOTE | 2018-11-19 19:53 | Diagnostic Imaging Report ---
INDICATION: Palpable lump in the right breast. No prior mammograms are available for comparison. 2-D and 3-D bilateral diagnostic mammography was performed with computer-aided Detection (CAD) system. FINDINGS: Both breasts are radiographically dense, limiting the sensitivity of mammography. There are benign calcifications on the right. No mass or malignant-appearing microcalcifications are seen. The axillae are unremarkable. IMPRESSION: No mammographic features suspicious for malignancy. Clinical follow-up is recommended. ACR BI-RADS Category 2: Benign findings. Result letter will be mailed to the patient. Note: At least 10% of breast cancer is not imaged by mammography. Dictated by: Dictated on workstation # [id number]
--- NOTE | 2018-11-19 19:56 | Diagnostic Imaging Report ---
INDICATION: Lump in the right breast at the 10 o'clock location. FINDINGS: Sonographic interrogation from the 9 to 12 o'clock location of the right breast was performed. No solid or cystic mass is detected. No sonographic abnormality is seen. IMPRESSION: No sonographic abnormality is identified. Diagnostic mammography is recommended for further evaluation and will be performed today. ACR BI-RADS Category 0: Incomplete. (Needs additional imaging evaluation). Dictated by: Dictated on workstation # [id number]
== END ==
LOC: RAD 13:08
PROVIDERS: ATTEND Registered Nurse
DX: N63.11 Unspecified lump in the right breast, upper outer quadrant (principal)
CPT/HCPCS: 77066

== ENCOUNTER 2019-05-26 18:16 | Emergency (ER) | payer SELFPAY ==
[~2019-05-26] VITALS: Ht 165.1 cm; Wt 68.0 kg
[2019-05-26 20:11] LABS: BILIRUBIN,URINE NEGATIVE (NEGATIVE); CLARITY,URINE CLEAR; COLOR,URINE YELLOW; GLUCOSE, URINE (UA) NEGATIVE (NEGATIVE); KETONES,URINE NEGATIVE (NEGATIVE); LEUKOCYTE ESTERASE ,URINE 3+ (NEGATIVE); NITRITE,URINE NEGATIVE (NEGATIVE); PH,URINE 6 (5-9); PROTEIN,URINE 1+ (NEGATIVE); UROBILINOGEN,URINE NORMAL (NORMAL)
[2019-05-26 20:25] LABS: BASOPHILS % (AUTO) 0 % (0-10); EOSINOPHILS # (AUTO) 0.2 10^3/uL (0.0-0.3); EOSINOPHILS % (AUTO) 3 % (0-10); HEMATOCRIT 40 % (35-52); HEMOGLOBIN 13.4 G/DL (11.5-16.0); LYMPHOCYTES # (AUTO) 2.9 X 10^3 (1.0-4.0); LYMPHOCYTES % (AUTO) 39 % (12-44); MEAN CORPUSCULAR HEMOGLOBIN 31 PG (25-34); MEAN CORPUSCULAR HGB CONC 34 G/DL (32-36); MEAN CORPUSCULAR VOLUME 93 FL (80-99); MEAN PLATELET VOLUME 10.3 FL (7.4-10.4); MONOCYTES # (AUTO) 0.8 X 10^3 (0.0-1.0); MONOCYTES % (AUTO) 11 % (0-12); NEUTROPHILS # (AUTO) 3.3 X 10^3 (1.8-7.8); NEUTROPHILS % (AUTO) 46 % (42-75); PLATELET COUNT 224 10^3/uL (130-400); RED CELL DISTRIBUTION WIDTH 11.7 % (10.0-14.5); WHITE BLOOD COUNT 7.3 10^3/uL (4.3-11.0)
--- NOTE | 2019-05-26 20:28 | NUR ---
Pt bladder scanned at this time. 28 ml in RLQ
[2019-05-26 20:30] LABS: BACTERIA,URINE LARGE /HPF; WBC,URINE TNTC /HPF
[2019-05-26] MEDS ORDERED: HYOSCYAMINE 0.125 MG (LEVSIN) TAB SL ONE (20:30)
[2019-05-26] MEDS ORDERED: KETOROLAC 30 MG/ML VIAL IVP ONE (20:30)
[2019-05-26 20:36] LABS: ALANINE AMINOTRANSFERASE 17 U/L (0-55); ALBUMIN 4.3 GM/DL (3.2-4.5); ALKALINE PHOSPHATASE 47 U/L (40-136); BILIRUBIN,TOTAL 0.4 MG/DL (0.1-1.0); BUN/CREATININE RATIO 19; CALCIUM 9.1 MG/DL (8.5-10.1); CARBON DIOXIDE 22 MMOL/L (21-32); CHLORIDE 105 MMOL/L (98-107); CREATININE SERUM 0.67 MG/DL (0.60-1.30); GFR ESTIMATED > 60; GLUCOSE 89 MG/DL (70-105); POTASSIUM 3.9 MMOL/L (3.6-5.0); SODIUM 138 MMOL/L (135-145); TOTAL PROTEIN 7.4 GM/DL (6.4-8.2)
--- NOTE | 2019-05-26 20:37 | ED GI ---
General Chief Complaint: Abdominal/GI Problems Stated Complaint: OVARIAN CYST BURST/STOMACH SWELLING Nursing Triage Note: COMPLAINS OF LOWER ABD PAIN AND SWELLING THAT IS GETTING WORSE. WAS SEEN AT [facility] YESTERDAY AND WAS DX WITH A RUPTURED OVARIAN CYST. PUT ON A LIQUID DIET AND SENT HOME. ALSO STATES HER URINE SHOWED NO UTI YESTERDAY BUT TODAY IT WHYTE AND SHE IS HAVING TROUBLE PEEING. Sepsis Screen: No Definite Risk Source of Information: Patient Exam Limitations: No Limitations History of Present Illness Date Seen by Provider: May 26, 2019 Time Seen by Provider: 18:18 Initial Comments This 23-year-old young lady presents to the emergency room with complaints of pelvic pain and cramping since yesterday. She presented to the emergency room in [place], [place]. Case was discussed with the provider who saw her in [place]. She was assessed there with blood work, urinalysis and CT scan. Blood work was unremarkable. CT demonstrated right ovarian cyst with small fluid in the pelvis. On pelvic exam there was a significant amount of whitish/guzman discharge and cervical motion tenderness. Patient states this discharge is normal for her. She was empirically treated with Rocephin and provided prescriptions for doxycycline and Flagyl. There were clue cells on the swab but GC and chlamydia screen were both negative. Patient did fill and start the doxycycline and Flagyl. Drug screen is positive for THC and amphetamines. Patient presents tonight with complaints of persistent symptoms. Now she is also complaining of dysuria and urgency without ability to void much urine. She has had the feeling of urgency for about a month. She has a history of ureteral reflux with surgical repair in her youth. She also required a nephrostomy tube while . She denies as she has had a Mirena IUD for 2 years. She last took ibuprofen about 2 hours prior to arrival. She denies fever, vomiting, constipation. She did have a little bit of diarrhea yesterday. She has had loss of appetite. Allergies and Home Medications Allergies Coded Allergies: No Known Drug Allergies (Unverified , 02/04/18) Home Medications Hydrocodone Bit/Acetaminophen 1 Ea Tablet, 1 EACH PO Q4H Prescribed by: MITCHEL DIANE on 02/07/18 1005 Lisdexamfetamine Dimesylate 40 Mg Capsule, 40 MG PO DAILY, (Reported) Ondansetron 4 Mg Tab.rapdis, 4 MG PO Q6H PRN for NAUSEA/VOMITING Prescribed by: JALYN BUI on 05/20/18 0035 Sertraline HCl 50 Mg Tablet, 50 MG PO DAILY, (Reported) Patient Home Medication List Home Medication List Reviewed: Yes Review of Systems Review of Systems Constitutional: no symptoms reported EENTM: No Symptoms Reported Respiratory: No Symptoms Reported Cardiovascular: No Symptoms Reported Gastrointestinal: See HPI Genitourinary: See HPI Musculoskeletal: no symptoms reported Skin: no symptoms reported Psychiatric/Neurological: No Symptoms Reported Endocrine: No Symptoms Reported Hematologic/Lymphatic: No Symptoms Reported Past Dadidbm-Sqlcqn-Ulropw Hx Patient Social History Alcohol Use: Denies Use Recreational Drug Use: No Smoking Status: Never a Smoker 2nd Hand Smoke Exposure: No Recent Foreign Travel: No Contact w/Someone Who Travel: No Recent Infectious Disease Expo: No Recent Hopitalizations: No Physical Abuse: No Sexual Abuse: No Mistreated: No Fear: No Immunizations Up To Date Tetanus Booster (TDap): Unknown Seasonal Allergies Seasonal Allergies: No Past Medical History Surgeries: Yes (NEPHROSTOMY, TMJ-JAW SURGERY, HEMORRHOIDECTOMY, ureteral reimplantation) Orthopedic, Renal Respiratory: No Cardiac: No Neurological: Yes Headaches /Migraines : No 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 Disorders: No Female 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 Sexually Transmitted Disease: No HIV/AIDS: No Genitourinary: Yes (urethral blockage ) Kidney Infection, Bladder Infection Gastrointestinal: Yes Hemorrhoids Musculoskeletal: Yes (MILD IN JAW) Arthritis Endocrine: No HEENT: No Cancer: No Psychosocial: Yes ADD/ADHD, Anxiety Integumentary: No Blood Disorders: No Adverse Reaction/Blood Tranf: No (N/A) Family Medical History Diabetes mellitus grandmother Physical Exam Vital Signs Vital Signs - First Documented 05/26/19 18:30 Temp 97.9 Pulse 70 B/P (MAP) 106/79 (88) Pulse Ox 97 O2 Delivery Room Air Capillary Refill : Less Than 3 Seconds Height/Weight/BMI Height: 5'5.00" Weight: 150lbs. 0.0oz. 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, no motor/sensory deficits, alert, normal mood/affect, oriented x 3 Skin: normal color, warm/dry Progress/Results/Core Measures Results/Orders Lab Results Laboratory Tests Test 05/26/19 19:25 05/26/19 19:36 Range/Units Urine Color YELLOW Urine Clarity CLEAR Urine pH 6 5-9 Urine Specific [place] 1.020 1.016-1.022 Urine Protein 1+ H NEGATIVE Urine Glucose (UA) NEGATIVE NEGATIVE Urine Ketones NEGATIVE NEGATIVE Urine Nitrite NEGATIVE NEGATIVE Urine Bilirubin NEGATIVE NEGATIVE Urine Urobilinogen NORMAL NORMAL MG/DL Urine Leukocyte Esterase 3+ H NEGATIVE Urine RBC (Auto) 1+ H NEGATIVE Urine RBC NONE /HPF Urine WBC TNTC H /HPF Urine Squamous Epithelial Cells 5-10 /HPF Urine Crystals NONE /LPF Urine Bacteria LARGE H /HPF Urine Casts NONE /LPF Urine Mucus MODERATE H /LPF Urine Culture Indicated YES White Blood Count 7.3 4.3-11.0 10^3/uL Red Blood Count 4.30 L 4.35-5.85 10^6/uL Hemoglobin 13.4 11.5-16.0 G/DL Hematocrit 40 35-52 % Mean Corpuscular Volume 93 80-99 FL Mean Corpuscular Hemoglobin 31 25-34 PG Mean Corpuscular Hemoglobin Concent 34 32-36 G/DL Red Cell Distribution Width 11.7 10.0-14.5 % Platelet Count 224 130-400 10^3/uL Mean Platelet Volume 10.3 7.4-10.4 FL Neutrophils (%) (Auto) 46 42-75 % Lymphocytes (%) (Auto) 39 12-44 % Monocytes (%) (Auto) 11 0-12 % Eosinophils (%) (Auto) 3 0-10 % Basophils (%) (Auto) 0 0-10 % Neutrophils # (Auto) 3.3 1.8-7.8 X 10^3 Lymphocytes # (Auto) 2.9 1.0-4.0 X 10^3 Monocytes # (Auto) 0.8 0.0-1.0 X 10^3 Eosinophils # (Auto) 0.2 0.0-0.3 10^3/uL Basophils # (Auto) 0.0 0.0-0.1 10^3/uL Sodium Level 138 135-145 MMOL/L Potassium Level 3.9 3.6-5.0 MMOL/L Chloride Level 105 98-107 MMOL/L Carbon Dioxide Level 22 21-32 MMOL/L Anion Gap 11 5-14 MMOL/L Blood Urea Nitrogen 13 7-18 MG/DL Creatinine 0.67 0.60-1.30 MG/DL Estimat Glomerular Filtration Rate > 60 BUN/Creatinine Ratio 19 Glucose Level 89 70-105 MG/DL Calcium Level 9.1 8.5-10.1 MG/DL Corrected Calcium 8.9 8.5-10.1 MG/DL Total Bilirubin 0.4 0.1-1.0 MG/DL Aspartate Amino Transf (AST/SGOT) 19 5-34 U/L Alanine Aminotransferase (ALT/SGPT) 17 0-55 U/L Alkaline Phosphatase 47 40-136 U/L C-Reactive Protein High Sensitivity 0.21 0.00-0.50 MG/DL Total Protein 7.4 6.4-8.2 GM/DL Albumin 4.3 3.2-4.5 GM/DL My Orders Orders - ELLY TAVARES MD Bladder Scan (05/26/19 20:17) Cbc With Automated Diff (05/26/19 20:17) Comprehensive Metabolic Panel (05/26/19 20:17) Hs C Reactive Protein (05/26/19 20:17) Ed Iv/Invasive Line Start (05/26/19 20:17) Hyoscyamine Sl Tablet (Levsin Sl Tablet) (05/26/19 20:30) Ketorolac Injection (Toradol Injection) (05/26/19 20:30) Phenazopyridine Tablet (Pyridium Tablet) (05/26/19 20:45) Ceftriaxone For Iv Use (Rocephin For I (05/26/19 20:45) Vital Signs/I&O 05/26/19 18:30 Temp 97.9 Pulse 70 B/P (MAP) 106/79 (88) Pulse Ox 97 O2 Delivery Room Air Blood Pressure Mean: 88 Progress Progress Note #1: Time: 20:40 Progress Note Case was reviewed with Julissa, the provider in [place]. See history of present illness for details. Toradol was ordered for pain. Labs and urinalysis are pending. Progress Note #2: Time: 20:50 Progress Note Blood work was unremarkable. Bladder scan showed less than 40 mL residual vol ume. Patient does not have urinary retention. Urine showed evidence of significant urinary tract infection. She is receiving a dose of Rocephin. Cramping is being treated with Levsin. Pelvic pain is being treated with Toradol and Pyridium. Patient was instructed to stop doxycycline as her chlamydia screen was negative. She will replace this with Keflex for treatment of UTI. She was instructed to review urine culture results with Isauro Dodson on . Departure Impression Primary Impression: Urinary tract infection Qualified Codes: N39.0 - Urinary tract infection, site not specified Additional Impression: Pelvic pain Disposition: HOME, SELF-CARE Condition: Improved Departure-Patient Inst. Decision time for Depature: 20:50 Referrals: LALA ROBERSON MD (PCP/Family) Primary Care Physician Patient Instructions: Urinary Tract Infection, Adult (DC) Add. Discharge Instructions: Continue Flagyl (metronidazole) as prescribed. You may stop the doxycycline because your chlamydia screen was negative. Start Keflex as prescribed. Follow-up with your primary care provider on to review urine culture results. You may take ibuprofen up to 600 mg every 6 hours and/or Tylenol (acetaminophen) up to 1000 mg every 6 hours as needed for pain. Pyridium should help with bladder pain as well. Please be advised this medication may turn your urine a red or orangeish color. Return to care if you have any worsening of symptoms or develop new symptoms such as fevers over 100. All discharge instructions reviewed with patient and/or family. Voiced understanding. Scripts Phenazopyridine HCl (Pyridium) 200 Mg Tablet 1 TAB PO TID PRN for PAIN-MODERATE, #10 TAB Prov: ELLY TAVARES MD 05/26/19 Cephalexin (Keflex) 500 Mg Capsule 500 MG PO TID, #20 CAP Prov: ELLY TAVARES MD 05/26/19 Copy Copies To 1: SYLVIA FORTUNE JOSHUA T MD May 26, 2019 20:37
[2019-05-26] MEDS ORDERED: cefTRIAXone FOR IV USE 1,000 MG in WATER (STERILE) FOR INJECTION 10 ML IV ONE (20:45)
[2019-05-26] MEDS ORDERED: PHENAZOPYRIDINE 100 MG (PYRIDIUM) TABLET PO ONE (20:45)
[2019-05-26] MEDS ORDERED: PHEN-640 PO (20:56)
[2019-05-26] MEDS ORDERED: CEPH-507 PO (20:56)
[2019-05-26 22:54] VITALS: BP 112/78
== END 2019-05-26 21:06 | disposition home or self-care (01) ==
LOC: EDUNIT# 18:16 → ER 18:17
DX: N39.0 Urinary tract infection, site not specified (principal); R10.2 Pelvic and perineal pain; G43.909 Migraine, unspecified, not intractable, without status migrainosus; F41.9 Anxiety disorder, unspecified; F90.9 Attention-deficit hyperactivity disorder, unspecified type
CPT/HCPCS: 36415; 80053; 81000; 84703; 85025; 86141; 87088

== ENCOUNTER 2019-07-08 09:08 | Inpatient (IN) | payer SELFPAY ==
[~2019-07-08] VITALS: Ht 165.1 cm; Wt 69.5 kg
[~2019-07-08 09:08] MED LIST changes: +CEPH-507 PO
[2019-07-08] MEDS ORDERED: NS IV 500 ML 500 ML IV ONE (09:20)
[2019-07-08] MEDS ORDERED: NS IV 1000 ML 1,000 ML IV SCH (09:20)
[2019-07-08] MEDS ORDERED: cefTRIAXone FOR IV USE 1,000 MG in WATER (STERILE) FOR INJECTION 10 ML IV ONE (09:30)
[2019-07-08] MEDS ORDERED: KETOROLAC 30 MG/ML VIAL IVP ONE (09:30)
[2019-07-08 09:31] LABS: BASOPHILS % (AUTO) 0 % (0-10); EOSINOPHILS # (AUTO) 0.1 10^3/uL (0.0-0.3); EOSINOPHILS % (AUTO) 1 % (0-10); HEMATOCRIT 42 % (35-52); LYMPHOCYTES # (AUTO) 1.7 X 10^3 (1.0-4.0); LYMPHOCYTES % (AUTO) 15 % (12-44); MEAN CORPUSCULAR HEMOGLOBIN 31 PG (25-34); MEAN CORPUSCULAR HGB CONC 33 G/DL (32-36); MEAN CORPUSCULAR VOLUME 92 FL (80-99); MEAN PLATELET VOLUME 9.8 FL (7.4-10.4); MONOCYTES # (AUTO) 1.4 X 10^3 (0.0-1.0); MONOCYTES % (AUTO) 12 % (0-12); NEUTROPHILS # (AUTO) 7.8 X 10^3 (1.8-7.8); NEUTROPHILS % (AUTO) 72 % (42-75); PLATELET COUNT 262 10^3/uL (130-400); RED CELL DISTRIBUTION WIDTH 12.2 % (10.0-14.5)
[2019-07-08 09:31] LABS: BILIRUBIN,URINE NEGATIVE (NEGATIVE); CLARITY,URINE CLEAR; COLOR,URINE YELLOW; GLUCOSE, URINE (UA) NEGATIVE (NEGATIVE); KETONES,URINE NEGATIVE (NEGATIVE); LEUKOCYTE ESTERASE ,URINE 3+ (NEGATIVE); NITRITE,URINE NEGATIVE (NEGATIVE); PH,URINE 6 (5-9); PROTEIN,URINE 2+ (NEGATIVE); UROBILINOGEN,URINE NORMAL (NORMAL)
--- NOTE | 2019-07-08 09:32 | ED General ---
General Stated Complaint: LOWER BACK PAIN;UTI Source of Information: Patient Exam Limitations: No Limitations History of Present Illness Date Seen by Provider: Jul 08, 2019 Time Seen by Provider: 09:03 Initial Comments Patient presents to ER by private conveyance with chief complaint of pain across her back at the level of the kidneys left worse than right and dysuria. 2 days ago she went to urgent care and was diagnosed with UTI. She now has fever and significant pain despite Tylenol. She does not use NSAIDs because she is afraid a kidney infection that might be good for her kidneys. 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 She has an IUD in place. She denies any discharge or diarrhea constipation or nausea or vomiting. No other significant medical history. She uses Vyvanse for ADHD. She has never passed a kidney stone but she was told on previous CTs of the belly that she does have kidney stones. Allergies and Home Medications Allergies Coded Allergies: No Known Drug Allergies (Unverified , 02/04/18) Home Medications Dextroamphetamine/Amphetamine 25 Mg Cap.er.24h, 25 MG PO DAILY, (Reported) Sulfamethoxazole/Trimethoprim 1 Each Tablet, 1 TAB PO BID, (Reported) 5 DAY SUPPLY FILLED 07-07-19 Patient Home Medication List Home Medication List Reviewed: Yes Review of Systems Review of Systems Constitutional: chills, fever, malaise EENTM: No ear discharge, No ear pain Respiratory: No cough, No short of breath Cardiovascular: No chest pain, No edema Gastrointestinal: No abdominal pain, No constipation, No diarrhea, No nausea Genitourinary: see HPI : No (IUD) Musculoskeletal: see HPI, back pain Past Vspffsj-Xzhbkm-Kpsulj Hx Patient Social History Alcohol Use: Occasionally Uses Recreational Drug Use: No Smoking Status: Never a Smoker 2nd Hand Smoke Exposure: No Recent Foreign Travel: No Contact w/Someone Who Travel: No Recent Hopitalizations: No Immunizations Up To Date Tetanus Booster (TDap): Unknown Seasonal Allergies Seasonal Allergies: No Past Medical History Surgeries: Yes (NEPHROSTOMY, TMJ-JAW SURGERY, HEMORRHOIDECTOMY, ureteral reimplantation) Orthopedic, Renal Respiratory: No Cardiac: No Neurological: Yes Headaches /Migraines 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 Disorders: No Female 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 Disorders: 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 Sexually Transmitted Disease: No HIV/AIDS: No Genitourinary: Yes (urethral blockage ) Kidney Infection, Bladder Infection Gastrointestinal: Yes Hemorrhoids Musculoskeletal: Yes (MILD IN JAW) Arthritis Endocrine: No HEENT: No Cancer: No Psychosocial: Yes ADD/ADHD, Anxiety Integumentary: No Blood Disorders: No Adverse Reaction/Blood Tranf: No (N/A) Family Medical History Diabetes mellitus grandmother Physical Exam-Suspected Sepsis Physical Exam Vital Signs Vital Signs - First Documented 07/08/19 07/08/19 09:10 11:15 Temp 38.0 Pulse 122 Resp 18 B/P (MAP) 134/92 (106) Pulse Ox 97 O2 Delivery Room Air Capillary Refill : Height, Weight, BMI Height: 5'5.00" Weight: 150lbs. 0.0oz. 68.537320ep; 23.0 BMI Method:Stated General Appearance: WD/WN, Mild Distress (tearful) Eyes: Bilateral Eye Normal Inspection, Bilateral Eye PERRL, Bilateral Eye EOMI HEENT: PERRL/EOMI, Pharynx Normal, Moist Mucous Membranes Respiratory: Lungs Clear, Normal Breath Sounds, No Accessory Muscle Use, No Respiratory Distress Cardiovascular: Regular Rate, Rhythm, No Edema, Tachycardia (1:30) Gastrointestinal: Normal Bowel Sounds, Non Tender, Soft Back: Normal Inspection, No Vertebral Tenderness, CVA Tenderness (L) (left worse than right), CVA Tenderness (R) Extremity: Normal Capillary Refill, Normal Inspection, No Pedal Edema Neurologic/Psychiatric: Alert, Oriented x3 Skin: normal color, warm/dry Focused Exam Sepsis Stage: Sepsis Possible Source: Genitouriary Lactate Level 07/08/19 09:22: Lactic Acid Level 0.70 07/08/19 13:15: Lactic Acid Level 0.50 Time of Focused Exam: 11:40 Respiratory: Lungs Clear, Normal Breath Sounds, No Accessory Muscle Use, No Respiratory Distress Cardiovascular: Regular Rate, Rhythm, No Edema Capillary Refill: Less Than 3 Seconds Peripheral Pulses: 2+ Radial Pulses (R), 2+ Radial Pulses (L) Skin: normal color, warm/dry Lactic Acid Level Within 3hrs of presentation: Admin fluids, Admin ABX, Blood cultures prior to ABX's, Focus exam, Lactate level Progress/Results/Core Measures Suspected Sepsis SIRS Temperature: Pulse: Respiratory Rate: Laboratory Tests 07/08/19 09:22: White Blood Count 11.0 Blood Pressure / Mean: 07/08/19 09:22: Lactic Acid Level 0.70 07/08/19 13:15: Lactic Acid Level 0.50 Laboratory Tests 07/08/19 09:22: Creatinine 0.73, INR Comment 1.0, Platelet Count 262, Total Bilirubin 0.6 Results/Orders Lab Results Laboratory Tests Test 07/08/19 09:10 07/08/19 09:22 07/08/19 13:15 Range/Units Urine Color YELLOW Urine Clarity CLEAR Urine pH 6 5-9 Urine Specific [place] 1.010 L 1.016-1.022 Urine Protein 2+ H NEGATIVE Urine Glucose (UA) NEGATIVE NEGATIVE Urine Ketones NEGATIVE NEGATIVE Urine Nitrite NEGATIVE NEGATIVE Urine Bilirubin NEGATIVE NEGATIVE Urine Urobilinogen NORMAL NORMAL MG/DL Urine Leukocyte Esterase 3+ H NEGATIVE Urine RBC (Auto) 2+ H NEGATIVE Urine RBC 5-10 H /HPF Urine WBC 50-100 H /HPF Urine Squamous Epithelial Cells 10-25 H /HPF Urine Crystals NONE /LPF Urine Bacteria MODERATE H /HPF Urine Casts NONE /LPF Urine Mucus NEGATIVE /LPF Urine Culture Indicated CULTURE PENDING Urine Test NEGATIVE NEGATIVE White Blood Count 11.0 4.3-11.0 10^3/uL Red Blood Count 4.57 4.35-5.85 10^6/uL Hemoglobin 14.0 11.5-16.0 G/DL Hematocrit 42 35-52 % Mean Corpuscular Volume 92 80-99 FL Mean Corpuscular Hemoglobin 31 25-34 PG Mean Corpuscular Hemoglobin Concent 33 32-36 G/DL Red Cell Distribution Width 12.2 10.0-14.5 % Platelet Count 262 130-400 10^3/uL Mean Platelet Volume 9.8 7.4-10.4 FL Neutrophils (%) (Auto) 72 42-75 % Lymphocytes (%) (Auto) 15 12-44 % Monocytes (%) (Auto) 12 0-12 % Eosinophils (%) (Auto) 1 0-10 % Basophils (%) (Auto) 0 0-10 % Neutrophils # (Auto) 7.8 1.8-7.8 X 10^3 Lymphocytes # (Auto) 1.7 1.0-4.0 X 10^3 Monocytes # (Auto) 1.4 H 0.0-1.0 X 10^3 Eosinophils # (Auto) 0.1 0.0-0.3 10^3/uL Basophils # (Auto) 0.0 0.0-0.1 10^3/uL Prothrombin Time 13.1 12.2-14.7 SEC INR Comment 1.0 0.8-1.4 Activated Partial Thromboplast Time 32 24-35 SEC Sodium Level 138 135-145 MMOL/L Potassium Level 4.0 3.6-5.0 MMOL/L Chloride Level 104 98-107 MMOL/L Carbon Dioxide Level 26 21-32 MMOL/L Anion Gap 8 5-14 MMOL/L Blood Urea Nitrogen 9 7-18 MG/DL Creatinine 0.73 0.60-1.30 MG/DL Estimat Glomerular Filtration Rate > 60 BUN/Creatinine Ratio 12 Glucose Level 97 70-105 MG/DL Lactic Acid Level 0.70 0.50 0.50-2.00 MMOL/L Calcium Level 10.0 8.5-10.1 MG/DL Corrected Calcium 9.6 8.5-10.1 MG/DL Total Bilirubin 0.6 0.1-1.0 MG/DL Aspartate Amino Transf (AST/SGOT) 16 5-34 U/L Alanine Aminotransferase (ALT/SGPT) 18 0-55 U/L Alkaline Phosphatase 57 40-136 U/L Total Protein 8.2 6.4-8.2 GM/DL Albumin 4.5 3.2-4.5 GM/DL My Orders Orders - JALYN BUI Urine Bedside (07/08/19:09) Cbc With Automated Diff (07/08/19:20) Comprehensive Metabolic Panel (07/08/19:20) Blood Culture (07/08/19 09:20) Urinalysis (07/08/19:20) Urine Culture (07/08/19:20) Protime With Inr (07/08/19:20) Partial Thromboplastin Time (07/08/19:20) Ed Iv/Invasive Line Start (07/08/19:20) Ed Iv/Invasive Line Start (07/08/19:20) O2 (07/08/19:20) Remove Rings In Anticipation O (07/08/19:20) Lactic Acid Analyzer (07/08/19 09:20) Ns Iv 1000 Ml (Sodium Chloride 0.9%) (07/08/19 09:20) Ceftriaxone For Iv Use (Rocephin For I (07/08/19 09:30) Ed Iv/Invasive Line Start (07/08/19 09:20) Ns Iv 500 Ml (Sodium Chloride 0.9%) (07/08/19 09:20) Ketorolac Injection (Toradol Injection) (07/08/19 09:30) Ct Abd/Pelvis Wo(Kidney Stone) (07/08/19 09:32) Medications Given in ED Current Medications Medications Dose Ordered Sig/Jelly Route Start Time Stop Time Status Last Admin Dose Admin Ceftriaxone Sodium 1000 mg/ Sterile Water 10 ml @ 200 mls/hr ONCE ONCE IV 07/08/19 09:30 07/08/19 09:32 DC 07/08/19 09:31 200 MLS/HR Ketorolac Tromethamine 30 mg ONCE ONCE IVP 07/08/19 09:30 07/08/19 09:31 DC 07/08/19 09:30 30 MG Sodium Chloride 500 ml @ 0 mls/hr Q0M ONCE IV 07/08/19 09:20 07/08/19 09:24 DC 07/08/19 09:30 500 MLS/HR Vital Signs/I&O 07/08/19 07/08/19 07/08/19 07/08/19 09:10 10:52 11:15 12:00 Temp 38.0 38.0 37.2 Pulse 122 122 82 Resp 18 18 18 B/P (MAP) 134/92 (106) 134/92 (106) 110/72 (85) Pulse Ox 97 97 97 O2 Delivery Room Air Room Air 07/08/19 07/08/19 07/08/19 12:01 16:00 16:27 Temp 37.2 38.6 38.6 Pulse 82 92 Resp 18 18 B/P (MAP) 110/72 97/62 (74) Pulse Ox 97 98 O2 Delivery Room Air Room Air Capillary Refill : Progress Note #1: Time: :31 Progress Note Septic workup and a 20 mL/kg fluid bolus will be 1500 cc. Toradol for pain. Suspect pyelonephritis versus kidney stone. CT of the abdomen and pelvis with help rule this out. Progress Note #2: Time: :19 Progress Note Patient has had a significant improvement in her pain and is much more comfortable this point. Diagnostic Imaging Diagonstic Imaging: CT (noncontrast, kidney stone study) Plain Films/CT/US/NM/MRI: abdomen, pelvis Reviewed: Reviewed by Me Departure Communication (Admissions) Time/Spoke to Admitting Phy: 11:45 Discussed the case with Dr. Nice and he agreed to admit the patient Impression Primary Impression: Acute pyelonephritis Additional Impression: Sepsis due to urinary tract infection Disposition: ADMITTED INPATIENT Condition: Stable Admissions Decision to Admit Reason: Admit from ER (General) Decision to Admit/Date: Jul 08, 2019 Time/Decision to Admit Time: 11:44 Departure-Patient Inst. Referrals: LALA ROBERSON MD (PCP/Family) Primary Care Physician JALYN BUI Jul 08, 2019 09:32
[2019-07-08 09:41] LABS: BACTERIA,URINE MODERATE /HPF; WBC,URINE 50-100 /HPF
[2019-07-08 09:54] LABS: PROTHROMBIN TIME PATIENT 13.1 SEC (12.2-14.7)
[2019-07-08 09:59] LABS: ALANINE AMINOTRANSFERASE 18 U/L (0-55); ALBUMIN 4.5 GM/DL (3.2-4.5); ALKALINE PHOSPHATASE 57 U/L (40-136); BILIRUBIN,TOTAL 0.6 MG/DL (0.1-1.0); BUN/CREATININE RATIO 12; CARBON DIOXIDE 26 MMOL/L (21-32); CHLORIDE 104 MMOL/L (98-107); CREATININE SERUM 0.73 MG/DL (0.60-1.30); GFR ESTIMATED > 60; GLUCOSE 97 MG/DL (70-105); SODIUM 138 MMOL/L (135-145); TOTAL PROTEIN 8.2 GM/DL (6.4-8.2)
--- NOTE | 2019-07-08 10:31 | NUR ---
PT UNSURE OF MEDS STATES ON FILE
[2019-07-08] MEDS ORDERED: AMPH20TA2 PO (10:34)
[2019-07-08] MEDS ORDERED: SULF1TAB35 PO (10:34)
--- NOTE | 2019-07-08 10:52 | Diagnostic Imaging Report ---
PROCEDURE: CT urinary tract, rule out kidney stone. TECHNIQUE: Multiple contiguous axial images were obtained through the abdomen and pelvis without the use of intravenous contrast. Auto Exposure Controls were utilized during the CT exam to meet ALARA standards for radiation dose reduction. INDICATION: Back pain The previous CT abdomen/pelvis exam of 05/19/2018 noted nonobstructive calculi within both kidneys but failed to show any sign of obstruction of either collecting system. On this study, there are still minute nonobstructive calculi within both kidneys. There is still no evidence for urolithiasis, however, and the kidneys do not appear to be obstructed. The urinary bladder is grossly unremarkable. As noted on the prior exam, there is an IUD within the uterus. The IUD seems to be in good position. There is a 1.8 x 3.4 cm area of diminished density along the uterine body on the left. This could be secondary to fluid within the bowel. The possibility that there is a left ovarian cyst should also be considered. If further study is desired, then ultrasound would be recommended. The right adnexa is generally unremarkable. There is no solid pelvic mass or free fluid collection evident. The appendix was not well visualized but there are no indirect signs of acute appendicitis. The liver, spleen, pancreas, adrenals, gallbladder, aorta and inferior vena cava are unremarkable for an acute abnormality. The stomach is not well-distended and consequently difficult to assess. The lung bases are clear. The bone windows show no evidence for a fracture or for a destructive lesion. IMPRESSION: 1. The nonobstructive calculi within the kidneys seen previously are again evident and do not appear to have changed significantly. There is still no evidence for obstruction of either collecting system by a calculus. 2. There is no acute abnormality of the abdomen or pelvis identified otherwise. 3. There is a question of a left ovarian cyst. Recommendations as above. 4. The IUD seen previously remains in good position. 5. These results were discussed with Dr. BUI in the Emergency Room. Dictated by: Dictated on workstation # [id number]
[2019-07-08] MEDS ORDERED: diphenhydrAMINE 25 MG TAB (BENADRYL) PO PRN (11:30)
[2019-07-08] MEDS ORDERED: MELATONIN 3 MG TABLET PO PRN (11:30)
[2019-07-08] MEDS ORDERED: POLYETHYLENE GLYCOL 17 GM (MIRALAX) PACK PO PRN (11:30)
[2019-07-08] MEDS ORDERED: ONDANSETRON 4 MG (ZOFRAN) ORAL DISSOLVE TAB PO PRN (11:30)
--- NOTE | 2019-07-08 11:33 | NUR ---
DAVID LAROSE admitted to room 410-1, with an admitting diagnosis of pyelonephritis, on 07/08/19 from ED via wheelchair, accompanied by staff. DAVID LAROSE introduced to surroundings, call light, bed controls, phone, TV, temperature control, lights, meal times, smoking policy, visitor policy, side rail policy, bathrooms and showers. Patient Rights given to patient in the handbook. DAVID LAROSE verbalizes understanding that [facility] is not responsible for the loss or damage to any personal effects or valuables that are kept in the patients possession during their hospitalization. The following Patient Care Plans were discussed with the patient: Discharge Planning, pain management, dehydration, and medications. DAVID LAROSE verbalizes understanding of Interdisciplinary Patient Education. Patient and/or family were informed about the Rapid Response Team and its purpose.
[2019-07-08 12:00] VITALS: BP 110/72
[2019-07-08 12:01] VITALS: BP 110/72
[2019-07-08] MEDS ORDERED: fentaNYL INJECTION 100 MCG/2 ML AMP IVP PRN (12:30)
[2019-07-08] MEDS: NS IV 1000 ML 1,000 ML IV SCH ×2 (12:33→21:54)
[2019-07-08] MEDS: HYDROmorphone 2 MG/ML VIAL (DILAUDID) IVP PRN ×3 (12:34→21:58)
[2019-07-08] MEDS ORDERED: AMPH25CA3 PO (14:02)
--- NOTE | 2019-07-08 14:33 | NUR ---
SPOKE WITH THE PATIENT ABOUT HER MEDICATIONS. SHE STATES SHE FILLED SOME MEDS RECENTLY AT [facility] AFTER A VISIT SHE HAD AT THE WALK IN CLINIC. [facility]: 07-07-19 BACTRIM DS BID X 5 DAYS 06-23-19 ADDERALL XR 25MG DAILY #28 SHE STATES SHE DOES NOT TAKE ANYTHING OTC.
--- NOTE | 2019-07-08 15:58 | History & Physical-Hospitalist ---
History of Present Illness HPI/Chief Complaint Latisha Valles is a 24yoF who presented with back pain. She reports that she went to the urgent care clinic yesterday and was started on Bactrim for pyelonephritis. Her pain worsened overnight and she came in to the emergency room. She says the pain is constant. She reports fever and chills. She reports dysuria. She denies nausea and vomiting. She denies abdominal pain. She has a history of pyelonephritis and nephrostomy tubes during a 4 years ago. Source: patient Exam Limitations: no limitations Date Seen 07/08/19 Time Seen by a Provider: 15:30 Attending Physician Zeny Ruvalcaba MD PCP Singh Queen MD Referring Physician Date of Admission Jul 08, 2019 at 10:45 Home Medications & Allergies Home Medications Reviewed patient Home Medication Reconciliation performed by pharmacy medication reconciliations wellfield technician and/or nursing. Patients Allergies have been reviewed. Allergies Allergies Coded Allergies No Known Drug Allergies (Unverified02/04/18) Past Hmspccb-Ybrzyf-Mrdoml Hx Past Med/Social Hx: Reviewed Nursing Past Med/Soc Hx Patient Social History Alcohol Use: Occasionally Uses Recreational Drug Use: No Smoking Status: Never a Smoker 2nd Hand Smoke Exposure: No Recent Foreign Travel: No Contact w/other who traveled: No Recent Hopitalizations: No Recent Infectious Disease Expo: No Immunizations Up To Date Tetanus Booster (TDap): Unknown Seasonal Allergies Seasonal Allergies: No Past Medical History Surgeries: Orthopedic, Renal Neurological: Headaches /Migraines : No (IUD) 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: No Sexually Transmitted Disease: No HIV/AIDS: No Female 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 Disorders: Denies IUD Genitourinary: Kidney Infection, Bladder Infection Gastrointestinal: Hemorrhoids Musculoskeletal: Arthritis Psychosocial: ADD/ADHD, Anxiety History of Blood Disorders: No Adverse Reaction to Blood Nunez: No (N/A) Family History Diabetes mellitus grandmother Review of Systems Constitutional: chills, fever EENTM: no symptoms reported Respiratory: no symptoms reported Cardiovascular: no symptoms reported Gastrointestinal: no symptoms reported Genitourinary: dysuria Musculoskeletal: back pain Skin: no symptoms reported Psychiatric/Neurological: No Symptoms Reported Physical Exam Physical Exam Vital Signs Vital Signs - First Documented 07/08/19 07/08/19 09:10 11:15 Temp 38.0 Pulse 122 Resp 18 B/P (MAP) 134/92 (106) Pulse Ox 97 O2 Delivery Room Air Capillary Refill : Less Than 3 Seconds Height, Weight, BMI Height: 5'5.00" Weight: 150lbs. 0.0oz. 68.862499lr; 25.49 BMI Method:Stated General Appearance: WD/WN, Mild Distress Neck: Normal Inspection, Supple Respiratory: Lungs Clear, Normal Breath Sounds, No Respiratory Distress Cardiovascular: Regular Rate, Rhythm, No Edema, No Murmur Gastrointestinal: Normal Bowel Sounds, Non Tender, Soft Back: CVA Tenderness (L), CVA Tenderness (R) Extremity: Normal Inspection, Non Tender, No Pedal Edema Neurologic/Psychiatric: Alert, Oriented x3, No Motor/Sensory Deficits Skin: Normal Color, Warm/Dry Lymphatic: No Adenopathy Results Results/Procedures Labs Laboratory Tests 07/08/19 09:22 Patient resulted labs reviewed. Imaging: Reviewed Imaging Report Assessment/Plan Admission Diagnosis Sepsis due to urinary tract infection Admission Status: Inpatient Order (span 2 midnights) Reason for Inpatient Admission: Acute pyelonephritis Assessment and Plan Sepsis due to urinary tract infection Acute pyelonephritis Nephrolithiasis -Febrile and tachycardic on arrival -UA consistent with UTI -CT Abdomen with bilateral nephrolithiasis, nonobstructive -Blood cultures drawn -Started on ceftriaxone -Await urine culture -Pain regimen ordered Diagnosis/Problems Diagnosis/Problems (1) Sepsis due to urinary tract infection Status: Acute (2) Acute pyelonephritis Status: Acute (3) Nephrolithiasis Status: Chronic Clinical Quality Measures DVT/VTE Risk/Contraindication: RFS Level Per Nursing on Admit: 0=No Risk/No VTE PPX ZENY RUVALCABA MD Jul 08, 2019 15:58
[2019-07-08 16:00] VITALS: BP_SYST 172; BP_SYST 97; BP_DIAS 62; BP_DIAS 75
[2019-07-08] MEDS: ACETAMINOPHEN 325 MG TABLET PO PRN (16:27)
[2019-07-08] MEDS: KETOROLAC 15 MG/ML VIAL IVP PRN (19:41)
[2019-07-08] MEDS: DOCUSATE SODIUM 100 MG (COLACE) CAP PO SCH (19:42)
[2019-07-08] MEDS: SENNA W/DOCUSATE (SENOKOT S) TABLET PO SCH (19:42)
[2019-07-08 20:00] VITALS: BP 95/59
[2019-07-08 23:33] VITALS: BP 90/56
[2019-07-09] MEDS: KETOROLAC 15 MG/ML VIAL IVP PRN (03:31)
[2019-07-09 04:55] VITALS: BP 96/59
[2019-07-09 06:31] LABS: BASOPHILS % (AUTO) 0 % (0-10); EOSINOPHILS # (AUTO) 0.2 10^3/uL (0.0-0.3); EOSINOPHILS % (AUTO) 2 % (0-10); HEMATOCRIT 35 % (35-52); HEMOGLOBIN 11.5 G/DL (11.5-16.0); LYMPHOCYTES # (AUTO) 2.3 X 10^3 (1.0-4.0); LYMPHOCYTES % (AUTO) 26 % (12-44); MEAN CORPUSCULAR HEMOGLOBIN 31 PG (25-34); MEAN CORPUSCULAR HGB CONC 33 G/DL (32-36); MEAN CORPUSCULAR VOLUME 95 FL (80-99); MEAN PLATELET VOLUME 10.3 FL (7.4-10.4); MONOCYTES # (AUTO) 1.4 X 10^3 (0.0-1.0); MONOCYTES % (AUTO) 16 % (0-12); NEUTROPHILS % (AUTO) 57 % (42-75); PLATELET COUNT 204 10^3/uL (130-400); RED CELL DISTRIBUTION WIDTH 11.9 % (10.0-14.5); WHITE BLOOD COUNT 8.8 10^3/uL (4.3-11.0)
[2019-07-09 06:45] LABS: BUN/CREATININE RATIO 11; CALCIUM 8.4 MG/DL (8.5-10.1); CARBON DIOXIDE 23 MMOL/L (21-32); CHLORIDE 110 MMOL/L (98-107); CREATININE SERUM 0.56 MG/DL (0.60-1.30); GFR ESTIMATED > 60; GLUCOSE 97 MG/DL (70-105); POTASSIUM 4.1 MMOL/L (3.6-5.0); SODIUM 138 MMOL/L (135-145)
[2019-07-09] MEDS: NS IV 1000 ML 1,000 ML IV SCH ×2 (07:46→18:00)
[2019-07-09] MEDS: DOCUSATE SODIUM 100 MG (COLACE) CAP PO SCH ×2 (07:47→20:49)
[2019-07-09] MEDS: SENNA W/DOCUSATE (SENOKOT S) TABLET PO SCH ×2 (07:47→20:49)
[2019-07-09 08:00] VITALS: BP 90/55
[2019-07-09] MEDS ORDERED: cefTRIAXone FOR IV USE 1,000 MG in WATER (STERILE) FOR INJECTION 10 ML IV NR (09:30)
--- NOTE | 2019-07-09 11:36 | Progress Note - Hospitalist ---
Subjective HPI/CC On Admission Date Seen by Provider: Jul 09, 2019 Time Seen by Provider: 09:15 back pain Subjective/Events-last exam She reports improved back pain. She denies fevers, but had chills. She denies c hest pain and dyspnea. She denies abdominal pain, nausea, vomiting, diarrhea. Focused Exam Lactate Level 07/08/19 09:22: Lactic Acid Level 0.70 07/08/19 13:15: Lactic Acid Level 0.50 Time of Focused Exam: 11:40 Objective Exam Vital Signs Vital Signs Date Time Temp Pulse Resp B/P (MAP) Pulse Ox O2 Delivery O2 Flow Rate FiO2 07/09/19 08:42 Room Air 07/09/19 08:00 37.4 89 18 90/55 (67) 98 Capillary Refill : Less Than 3 Seconds General Appearance: No Apparent Distress, WD/WN HEENT: PERRL/EOMI, Pharynx Normal Neck: Normal Inspection, Supple Respiratory: Lungs Clear, Normal Breath Sounds, No Respiratory Distress Cardiovascular: Regular Rate, Rhythm, No Edema, No Murmur Gastrointestinal: Normal Bowel Sounds, Non Tender, Soft Extremity: Normal Inspection, Non Tender, No Pedal Edema Neurologic/Psychiatric: Alert, Oriented x3 Skin: Normal Color, Warm/Dry Lymphatic: No Adenopathy Results/Procedures Lab Laboratory Tests 07/09/19 06:05 Patient resulted labs reviewed. Assessment/Plan Assessment and Plan Assess & Plan/Chief Complaint Sepsis due to urinary tract infection Acute pyelonephritis Nephrolithiasis -Continue ceftriaxone -Await urine culture -Continue pain regimen Diagnosis/Problems Diagnosis/Problems (1) Sepsis due to urinary tract infection Status: Acute (2) Acute pyelonephritis Status: Acute (3) Nephrolithiasis Status: Chronic Clinical Quality Measures DVT/VTE Risk/Contraindication: RFS Level Per Nursing on Admit: 0=No Risk/No VTE PPX SAIDA RUVALCABA MD Jul 09, 2019 11:36
[2019-07-09] MEDS: ACETAMINOPHEN 325 MG TABLET PO PRN ×2 (11:40→20:48)
[2019-07-09 12:00] VITALS: BP 96/51
[2019-07-09 15:35] VITALS: BP 90/50
--- NOTE | 2019-07-09 17:59 | NUR ---
RUEL PATRICK PRECEPTOR FOR DOUGLAS PATRICK.
--- NOTE | 2019-07-09 18:45 | NUR ---
DR RUVALCABA NOTIFIED PER PT REQUEST, PT REQUESTING TO REDUCE IV RATE
[2019-07-09 19:42] VITALS: BP 99/70
--- NOTE | 2019-07-09 19:50 | NUR ---
PT STATES THAT HER PAIN IS 9/10. SHE WAS GIVEN OXY IR ABOUT AN HOUR AGO AND SAYS IT HASN'T TOUCHED HER PAIN. CONTACTED DR. RUVALCABA. NEW ORDERS OBTAINED.
[2019-07-09] MEDS ORDERED: GABAPENTIN 300 MG (NEURONTIN) CAP PO NR (20:00)
[2019-07-10 00:02] VITALS: BP 100/64
[2019-07-10] MEDS: ACETAMINOPHEN 325 MG TABLET PO PRN (04:22)
[2019-07-10 04:48] VITALS: BP 105/68
[2019-07-10 08:00] VITALS: BP 99/58
[2019-07-10] MEDS: DOCUSATE SODIUM 100 MG (COLACE) CAP PO SCH (08:12)
[2019-07-10] MEDS: SENNA W/DOCUSATE (SENOKOT S) TABLET PO SCH (08:13)
[2019-07-10] MEDS ORDERED: OXC5T PO (10:49)
[2019-07-10] MEDS ORDERED: GABA-488 PO (10:49)
[2019-07-10] MEDS ORDERED: LEVO750T9 PO (10:49)
--- NOTE | 2019-07-10 10:55 | Discharge Summary ---
Discharge Summary Hospital Course Was the Problem List Reviewed?: Yes Problems/Dx: (1) Sepsis due to urinary tract infection Status: Acute (2) Acute pyelonephritis Status: Acute (3) Nephrolithiasis Status: Chronic Hospital Course Date of Admission: Jul 08, 2019 at 10:45 Admission Diagnosis : Sepsis due to urinary tract infection Family Physician/Provider: Singh Queen MD Date of Discharge: 07/10/19 Discharge Diagnosis: Sepsis due to urinary tract infection Hospital Course: Latisha Valles is a 24yoF who presented with sepsis due to a urinary tract infection. She was treated with IV Ceftriaxone while inpatient for acute pyelonephritis. Urine cultures revealed susceptibility to Levaquin and she was given a 7-day total course of antibiotics. She was also given a short course of oxycodone and gabapentin for pain control. Labs and Pending Lab Test: Microbiology 07/08/19 Blood Culture - Preliminary, Resulted No growth 07/08/19 Urine Culture - Final, Complete Mixed Bacterial [place] Escherichia coli Home Meds Active Levaquin (Levofloxacin) 750 Mg Tablet 750 Mg PO DAILY 5 Days Gabapentin 300 Mg Capsule 300 Mg PO TID 7 Days Oxyir Tablet (Oxycodone HCl) 5 Mg Tab 5 Mg PO Q4H PRN 5 Days Reported Adderall Xr 25 mg Capsule (Dextroamphetamine/Amphetamine) 25 Mg Cap.er.24h 25 Mg PO DAILY Bactrim Ds Tablet (Sulfamethoxazole/Trimethoprim) 1 Each Tablet 1 Tab PO BID 5 Days 5 DAY SUPPLY FILLED 07-07-19 Assessment/Pt Instructions Take medications as prescribed. Follow up with your PCP. Discharge Planning: <30 minutes discharge planning Discharge Instructions Discharge Diet: No Restrictions Activity as Tolerated: Yes Discharge Physical Examination Vital Signs Vital Signs Date Time Temp Pulse Resp B/P (MAP) Pulse Ox O2 Delivery O2 Flow Rate FiO2 07/10/19 08:00 37.1 77 20 99/58 (72) 98 Room Air General Appearance: No Apparent Distress, WD/WN HEENT: PERRL/EOMI, Pharynx Normal Respiratory: Lungs Clear, Normal Breath Sounds, No Respiratory Distress Cardiovascular: Regular Rate, Rhythm, No Edema, No Murmur Gastrointestinal: Normal Bowel Sounds, Non Tender, Soft Extremity: Normal Inspection, Non Tender, No Pedal Edema Skin: Normal Color, Warm/Dry Neurologic/Psychiatric: Alert; No Disoriented Allergies: Coded Allergies: No Known Drug Allergies (Unverified , 02/04/18) Discharge Summary Date of Admission Jul 08, 2019 at 10:45 Date of Discharge Discharge Date: Jul 10, 2019 Discharge Time: 10:55 Admission Diagnosis Sepsis due to urinary tract infection Discharge Diagnosis Sepsis due to urinary tract infection, Acute pyelonephritis (1) Sepsis due to urinary tract infection Status: Acute (2) Acute pyelonephritis Status: Acute (3) Nephrolithiasis Status: Chronic Clinical Quality Measures DVT/VTE Risk/Contraindication: RFS Level Per Nursing on Admit: 0=No Risk/No VTE PPX SAIDA RUVALCABA MD Jul 10, 2019 10:55
== END 2019-07-10 12:30 | disposition home or self-care (01) | DRG 872 ==
LOC: EDUNIT# 09:08 → ER 09:09 → 4TH 10:45
PROVIDERS: ADMIT Internal Medicine; ATTEND Internal Medicine
DX: A41.9 Sepsis, unspecified organism (principal); N10 Acute pyelonephritis; N20.0 Calculus of kidney; F90.9 Attention-deficit hyperactivity disorder, unspecified type; F41.9 Anxiety disorder, unspecified
CPT/HCPCS: 36415; 74176; 80048; 80053; 81000; 83605; 84703; 85025; 85610; 85730; 87040; 87077; 87088; 87186; 96361; 96365; 96375

== ENCOUNTER 2019-07-25 00:53 | Emergency (ER) | payer SELFPAY ==
[~2019-07-25] VITALS: Ht 165 cm; Wt 69.5 kg
[~2019-07-25 00:53] MED LIST changes: +AMPH20TA2 PO; +AMPH25CA3 PO; +GABA-488 PO; +LEVO750T9 PO; +OXC5T PO; +SULF1TAB35 PO
[2019-07-25 01:59] LABS: BILIRUBIN,URINE NEGATIVE (NEGATIVE); CLARITY,URINE SLIGHTLY CLOUDY; COLOR,URINE AMBER; GLUCOSE, URINE (UA) NEGATIVE (NEGATIVE); KETONES,URINE 2+ (NEGATIVE); LEUKOCYTE ESTERASE ,URINE 3+ (NEGATIVE); NITRITE,URINE POSITIVE (NEGATIVE); PH,URINE 5 (5-9); PROTEIN,URINE 3+ (NEGATIVE)
[2019-07-25 02:15] LABS: BACTERIA,URINE MODERATE /HPF; WBC,URINE 50-100 /HPF
[2019-07-25] MEDS ORDERED: KETOROLAC 30 MG/ML VIAL IVP ONE (02:45)
[2019-07-25] MEDS ORDERED: cefTRIAXone FOR IV USE 2,000 MG in WATER (STERILE) FOR INJECTION 10 ML IV ONE (02:45)
[2019-07-25] MEDS ORDERED: ONDANSETRON 4 MG/2 ML (SDV) Z0FRAN IVP ONE (02:45)
[2019-07-25] MEDS ORDERED: PHENAZOPYRIDINE 100 MG (PYRIDIUM) TABLET PO ONE (02:45)
[2019-07-25 03:20] LABS: BASOPHILS % (AUTO) 0 % (0-10); EOSINOPHILS # (AUTO) 0.2 10^3/uL (0.0-0.3); EOSINOPHILS % (AUTO) 3 % (0-10); HEMATOCRIT 39 % (35-52); HEMOGLOBIN 13.3 G/DL (11.5-16.0); LYMPHOCYTES # (AUTO) 3.1 X 10^3 (1.0-4.0); LYMPHOCYTES % (AUTO) 42 % (12-44); MEAN CORPUSCULAR HEMOGLOBIN 31 PG (25-34); MEAN CORPUSCULAR HGB CONC 34 G/DL (32-36); MEAN CORPUSCULAR VOLUME 91 FL (80-99); MEAN PLATELET VOLUME 9.8 FL (7.4-10.4); MONOCYTES # (AUTO) 0.8 X 10^3 (0.0-1.0); MONOCYTES % (AUTO) 12 % (0-12); NEUTROPHILS # (AUTO) 3.2 X 10^3 (1.8-7.8); NEUTROPHILS % (AUTO) 44 % (42-75); PLATELET COUNT 254 10^3/uL (130-400); RED CELL DISTRIBUTION WIDTH 11.8 % (10.0-14.5); WHITE BLOOD COUNT 7.3 10^3/uL (4.3-11.0)
[2019-07-25 03:28] LABS: PROTHROMBIN TIME PATIENT 13.1 SEC (12.2-14.7)
[2019-07-25 03:34] LABS: ALANINE AMINOTRANSFERASE 34 U/L (0-55); ALKALINE PHOSPHATASE 56 U/L (40-136); BILIRUBIN,TOTAL 0.6 MG/DL (0.1-1.0); BUN/CREATININE RATIO 19; CALCIUM 9.3 MG/DL (8.5-10.1); CARBON DIOXIDE 23 MMOL/L (21-32); CHLORIDE 105 MMOL/L (98-107); CREATININE SERUM 0.57 MG/DL (0.60-1.30); GFR ESTIMATED > 60; GLUCOSE 93 MG/DL (70-105); POTASSIUM 3.9 MMOL/L (3.6-5.0); SODIUM 138 MMOL/L (135-145)
[2019-07-25] MEDS ORDERED: PHEN-640 PO (04:18)
[2019-07-25] MEDS ORDERED: NITR-65 PO (04:18)
[2019-07-25] MEDS ORDERED: ONDA4TAB11 PO (04:18)
[2019-07-25] MEDS ORDERED: TRAM-42 PO (04:18)
--- NOTE | 2019-07-25 04:18 | ED GU-Female ---
General Chief Complaint: - Urinary Stated Complaint: POSS UTI,BURNING WHEN URINATING Nursing Triage Note: frequent/burning urination x1 day. Nursing Sepsis Screen: No Definite Risk Source: patient History of Present Illness Date Seen by Provider: Jul 25, 2019 Time Seen by Provider: 01:55 Initial Comments PT ARRIVES VIA POV FROM HOME C/O PAIN ON URINATION STATE SHE IS "HAVING EXTREMELY BAD PAIN" ON URINATION AT 2300 TONIGHT C/O URGENCY AND FREQUENCY SINCE NOON TODAY--BEGAN WHILE AT [employer] HAD TEMP OF 102 TODAY AT 2300, TOOK 2 TYLENOL AND OTC AZO NO NAUSEA/VOMITING NO BACK PAIN STATES SHE WAS ADMITTED 07/08-07/10 FOR E.COLI UTI, AND WAS GIVEN RX FOR LEVAQUIN 750 MG FOR 5 DAYS--STATES HER SYMPTOMS WENT AWAY HAS NOT FOLLOWED UP WITH ANYONE SINCE THEN STATES SHE HAS FREQUENT UTI'S AND HAD TO HAVE A NEPHROSTOMY TUBE WHILE SHE WAS LMP 2 YEARS AGO--HAS IUD IN PLACE PCP: [facility] Allergies and Home Medications Allergies Coded Allergies: No Known Drug Allergies (Unverified , 02/04/18) Home Medications Dextroamphetamine/Amphetamine 25 Mg Cap.er.24h, 25 MG PO DAILY, (Reported) Gabapentin 300 Mg Capsule, 300 MG PO TID Prescribed by: SAIDA RUVALCABA on 07/10/191048 Levofloxacin 750 Mg Tablet, 750 MG PO DAILY Prescribed by: SAIDA RUVALCABA on 07/10/191048 Nitrofurantoin Monohyd/M-Cryst 100 Mg Capsule, 100 MG PO BID Prescribed by: DIONI JAMISON on 07/25/19417 Ondansetron 4 Mg Tab.rapdis, 4 MG PO Q4H Prescribed by: DIONI JAMISON on 07/25/19417 Oxycodone Hcl 5 Mg Tab, 5 MG PO Q4H PRN for PAIN-SEVERE Prescribed by: SAIDA RUVALCABA on 07/10/191048 Phenazopyridine HCl 200 Mg Tablet, 1 TAB PO TID Prescribed by: DIONI JAMISON on 07/25/19417 Tramadol HCl 50 Mg Tablet, 50 MG PO Q4H PRN for PAIN-MODERATE Prescribed by: DIONI JAMISON on 07/25/19417 Patient Home Medication List Home Medication List Reviewed: Yes Review of Systems Review of Systems Constitutional: see HPI, fever, malaise, weakness EENTM: no symptoms reported Respiratory: no symptoms reported Cardiovascular: no symptoms reported Gastrointestinal: see HPI, abdominal pain Genitourinary: see HPI, burning, dysuria, frequency; denies flank pain, denies hematuria, denies incontinence; pain, urgency : No (IUD IN PLACE--NO PERIOD X 2 YEARS) Musculoskeletal: no symptoms reported; No back pain Skin: no symptoms reported Psychiatric/Neurological: No Symptoms Reported Endocrine: No Symptoms Reported Hematologic/Lymphatic: No Symptoms Reported Past Bfhjesq-Qzmaxp-Sxejwh Hx Patient Social History Alcohol Use: Rarely Uses Recreational Drug Use: No Smoking Status: Never a Smoker 2nd Hand Smoke Exposure: No Recent Foreign Travel: No Contact w/Someone Who Travel: No Recent Infectious Disease Expo: No Recent Hopitalizations: No Physical Abuse: No Sexual Abuse: No Mistreated: No Fear: No Immunizations Up To Date Tetanus Booster (TDap): Unknown Seasonal Allergies Seasonal Allergies: No Past Medical History Surgeries: Yes (NEPHROSTOMY, TMJ-JAW SURGERY, HEMORRHOIDECTOMY, ureteral reimplantation) Orthopedic, Rectal, Renal Respiratory: No Cardiac: No Neurological: Yes Headaches /Migraines : No 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 Disorders: No Female 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 Disorders: Denies 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 0.0oz. [id number]; 25.00 BMI Method:Stated General Appearance: WD/WN, no apparent distress, other (MOVES SLOWLY AND DRAMATICALLY) Neck: normal inspection Cardiovascular: regular rate, rhythm, no murmur Respiratory: normal breath sounds, no respiratory distress, no accessory muscle use Gastrointestinal: normal bowel sounds, soft, no organomegaly, no pulsatile mass; No distended, No guarding, No rebound; tenderness (SUPRAPUBIC); No hernia, No mass Back: normal inspection, no CVA tenderness Extremities: normal inspection, no pedal edema, normal capillary refill Neurologic/Psychiatric: head charrer II-XII nml as tested, no motor/sensory deficits, alert, oriented x 3 Skin: normal color, warm/dry; No rash Focused Exam Lactate Level Lactic Acid Level Progress/Results/Core Measures Suspected Sepsis Recent Fever Within 48 Hours: No Infection Criteria Present: None New/Unexplained Altered Menta: No Sepsis Screen: No Definite Risk SIRS Temperature: Pulse: 100 Respiratory Rate: 18 Blood Pressure 109 /80 Mean: 90 Results/Orders Lab Results My Orders Medications Given in ED Vital Signs/I&O Capillary Refill : Less Than 3 Seconds Blood Pressure Mean: 90 POS Progress Note : Progress Note SYMPTOMS IMPROVED AT DISMISSAL Departure Impression Primary Impression: Recurrent UTI Disposition: HOME, SELF-CARE Condition: Improved Departure-Patient Inst. Referrals: [facility] (PCP/Family) Primary Care Physician Patient Instructions: Urinary Tract Infection, Adult (DC) Add. Discharge Instructions: LOTS OF CLEAR LIQUIDS--NO COFFEE, POP OR TEA TYLENOL AND MOTRIN NEEDED FOR PAIN OR FEVER FOLLOW UP WITH YOUR DR IN 2-3 DAYS FOR FURTHER CARE All discharge instructions reviewed with patient and/or family. Voiced understanding. Scripts Tramadol HCl (Ultram) 50 Mg Tablet 50 MG PO Q4H PRN for PAIN-MODERATE for 3 Days, #10 TAB Prov: DIONI JAMISON DO 07/25/19 Ondansetron (Ondansetron Odt) 4 Mg Tab.rapdis 4 MG PO Q4H for Nausea/Vomiting, #10 TAB Prov: DIONI JAMISON DO 07/25/19 Phenazopyridine HCl (Pyridium) 200 Mg Tablet 1 TAB PO TID for BLADDER DISCOMFORT, #15 TAB Prov: DIONI JAMISON DO 07/25/19 Nitrofurantoin Monohyd/M-Cryst (Macrobid 100 mg Capsule) 100 Mg Capsule 100 MG PO BID, #30 CAP Prov: DIONI AJMISON DO 07/25/19 DIONI JAMISON DO Jul 25, 2019 04:18 POS
[2019-07-25 04:30] VITALS: BP 105/64
== END 2019-07-25 04:33 | disposition home or self-care (01) ==
LOC: EDUNIT# 00:53 → ER 00:55
DX: N39.0 Urinary tract infection, site not specified (principal); G43.909 Migraine, unspecified, not intractable, without status migrainosus; F41.9 Anxiety disorder, unspecified; F90.9 Attention-deficit hyperactivity disorder, unspecified type
CPT/HCPCS: 36415; 80053; 81000; 83605; 84703; 85025; 85610; 85730; 87040; 87077; 87088; 87186; 96374; 96375

== ENCOUNTER 2019-07-30 15:32 | Emergency (ER) | payer SELFPAY ==
[~2019-07-30] VITALS: Ht 165.1 cm; Wt 66.9 kg
[~2019-07-30 15:32] MED LIST changes: +TRAM-42 PO
--- NOTE | 2019-07-30 16:00 | NUR ---
Prior to pt arrival, Deisy Flores NP ([place], [place]) called report to this RN. LEIGHA Olivas reports pt was seen @ clinic on this day where 1g rocephin and 1L ns bolus was adm. LEIGHA Olivas reports hx renal reflux, and nephorostomy tube placement during pt's 2 pregnancies. LEIGHA Olivas reports pt was admitted with nephritis "a couple weeks ago" @ [facility] and has been prescribed macrobid and zofran since d/c. LEIGHA Olivas reports pt is experiencing abd pain, nausea, vomiting, and diarrhea with blood glucose of 181 on this day. DARNELL Olivas reports pt refused transfer via ems and was advised to seek medical attention in an emergency dept.
[2019-07-30 16:34] LABS: CLARITY,URINE CLEAR; COLOR,URINE YELLOW; GLUCOSE, URINE (UA) NEGATIVE (NEGATIVE); KETONES,URINE 4+ (NEGATIVE); LEUKOCYTE ESTERASE ,URINE 2+ (NEGATIVE); NITRITE,URINE POSITIVE (NEGATIVE); PH,URINE 5 (5-9); PROTEIN,URINE NEGATIVE (NEGATIVE)
[2019-07-30 16:37] LABS: BASOPHILS % (AUTO) 0 % (0-10); EOSINOPHILS # (AUTO) 0.1 10^3/uL (0.0-0.3); EOSINOPHILS % (AUTO) 2 % (0-10); HEMATOCRIT 44 % (35-52); HEMOGLOBIN 14.5 G/DL (11.5-16.0); LYMPHOCYTES # (AUTO) 1.4 X 10^3 (1.0-4.0); LYMPHOCYTES % (AUTO) 21 % (12-44); MEAN CORPUSCULAR HEMOGLOBIN 30 PG (25-34); MEAN CORPUSCULAR HGB CONC 33 G/DL (32-36); MEAN CORPUSCULAR VOLUME 90 FL (80-99); MEAN PLATELET VOLUME 9.4 FL (7.4-10.4); MONOCYTES # (AUTO) 0.5 X 10^3 (0.0-1.0); MONOCYTES % (AUTO) 8 % (0-12); NEUTROPHILS # (AUTO) 4.6 X 10^3 (1.8-7.8); NEUTROPHILS % (AUTO) 70 % (42-75); PLATELET COUNT 244 10^3/uL (130-400); RED CELL DISTRIBUTION WIDTH 12.1 % (10.0-14.5); WHITE BLOOD COUNT 6.7 10^3/uL (4.3-11.0)
[2019-07-30 16:41] LABS: BILIRUBIN,URINE 1+ (NEGATIVE)
[2019-07-30 16:42] LABS: BACTERIA,URINE FEW /HPF
[2019-07-30] MEDS ORDERED: NS IV 500 ML 500 ML IV SCH (16:45)
[2019-07-30] MEDS ORDERED: KETOROLAC 30 MG/ML VIAL IVP ONE (16:45)
[2019-07-30 16:47] LABS: AMPHETAMINE SCREEN, URINE POSITIVE (NEGATIVE); BARBITURATE SCREEN URINE NEGATIVE (NEGATIVE); BENZODIAZEPINES SCREEN URINE NEGATIVE (NEGATIVE); CANNABINOID SCREEN, URINE POSITIVE (NEGATIVE); COCAINE SCREEN URINE NEGATIVE (NEGATIVE); METHADONE STAT NEGATIVE (NEGATIVE); METHAMPHETAMINE SCREEN URINE S NEGATIVE (NEGATIVE); OPIATE SCREEN URINE NEGATIVE (NEGATIVE); OXYCODONE STAT NEGATIVE (NEGATIVE); PROPOXYPHENE STAT NEGATIVE (NEGATIVE); TRICYCLIC ANTIDEPRESSANTS SCRE NEGATIVE (NEGATIVE)
[2019-07-30 16:58] LABS: ALANINE AMINOTRANSFERASE 36 U/L (0-55); ALBUMIN 4.3 GM/DL (3.2-4.5); ALKALINE PHOSPHATASE 53 U/L (40-136); BILIRUBIN,TOTAL 0.8 MG/DL (0.1-1.0); BUN/CREATININE RATIO 25; CALCIUM 9.4 MG/DL (8.5-10.1); CARBON DIOXIDE 23 MMOL/L (21-32); CHLORIDE 104 MMOL/L (98-107); GFR ESTIMATED > 60; GLUCOSE 81 MG/DL (70-105); POTASSIUM 3.9 MMOL/L (3.6-5.0); SODIUM 139 MMOL/L (135-145); TOTAL PROTEIN 7.6 GM/DL (6.4-8.2)
--- NOTE | 2019-07-30 17:09 | ED Abdominal Pain ---
General Chief Complaint: Abdominal/GI Problems Stated Complaint: UTI, BLOOD SUGAR CONCERN Nursing Triage Note: VANESSA SEGURA HAS JUST LEFT CLINIC IN [facility] FOR N/V/D RECEIVED IV AND MEDS FOR UTI. STAFF CONCERNED THAT HER BS WAS 181. Sepsis Screen: No Definite Risk Source of Information: Patient Exam Limitations: No Limitations History of Present Illness Date Seen by Provider: Jul 30, 2019 Time Seen by Provider: 17:07 Initial Comments To ER with reports of nausea vomiting diarrhea. She states that she was at the clinic in [place] and was told that she needed to come here to the emergency room because her blood sugar was 180, and she had a kidney infection. She was just admitted here for pyelonephritis on July 10. She denies fevers or chills. While at the clinic in [place] she was given a liter of IV fluids and a shot, presumably of an antibiotic but unknown. She was here on the as well for UTI started on Macrobid and has been taking that. Timing/Duration: 1-2 Days Severity/Quality: Moderate Location: Other Radiation: No Radiation Activities at Onset: None Associated Symptoms: Denies Symptoms Allergies and Home Medications Allergies Coded Allergies: No Known Drug Allergies (Unverified , 02/04/18) Home Medications Dextroamphetamine/Amphetamine 25 Mg Cap.er.24h, 25 MG PO DAILY, (Reported) Gabapentin 300 Mg Capsule, 300 MG PO TID Prescribed by: SAIDA RUVALCABA on 07/10/191048 Levofloxacin 750 Mg Tablet, 750 MG PO DAILY Prescribed by: SAIDA RUVALCABA on 07/10/191048 Nitrofurantoin Monohyd/M-Cryst 100 Mg Capsule, 100 MG PO BID Prescribed by: DIONI JAMISON on 07/25/19417 Ondansetron 4 Mg Tab.rapdis, 4 MG PO Q4H Prescribed by: DIONI JAMISON on 07/25/19417 Oxycodone Hcl 5 Mg Tab, 5 MG PO Q4H PRN for PAIN-SEVERE Prescribed by: SAIDA RUVALCABA on 07/10/191048 Phenazopyridine HCl 200 Mg Tablet, 1 TAB PO TID Prescribed by: DIONI JAMISON on 07/25/19417 Tramadol HCl 50 Mg Tablet, 50 MG PO Q4H PRN for PAIN-MODERATE Prescribed by: DIONI JAMISON on 07/25/19417 Patient Home Medication List Home Medication List Reviewed: Yes Review of Systems Review of Systems Constitutional: see HPI EENTM: No Symptoms Reported Respiratory: No Symptoms Reported Cardiovascular: No Symptoms Reported Gastrointestinal: See HPI, Nausea Genitourinary: No Symptoms Reported Musculoskeletal: no symptoms reported Skin: no symptoms reported Psychiatric/Neurological: No Symptoms Reported Endocrine: No Symptoms Reported Past Yujotxq-Wtphwe-Xmcepi Hx Patient Social History Alcohol Use: Denies Use Recreational Drug Use: No 2nd Hand Smoke Exposure: No Recent Foreign Travel: No Contact w/Someone Who Travel: No Recent Infectious Disease Expo: No Recent Hopitalizations: No Physical Abuse: No Sexual Abuse: No Mistreated: No Fear: No Immunizations Up To Date Tetanus Booster (TDap): Unknown Seasonal Allergies Seasonal Allergies: No Past Medical History Surgeries: Yes (NEPHROSTOMY, TMJ-JAW SURGERY, HEMORRHOIDECTOMY, ureteral reimplantation) Orthopedic, Renal Respiratory: No Cardiac: No Neurological: Yes Headaches /Migraines 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 Disorders: No 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 Sexually Transmitted Disease: No HIV/AIDS: No Genitourinary: Yes (urethral blockage ) Kidney Infection, Bladder Infection Gastrointestinal: Yes Hemorrhoids Musculoskeletal: Yes (MILD IN JAW) Arthritis Endocrine: No HEENT: No Cancer: No Psychosocial: Yes ADD/ADHD, Anxiety Integumentary: No Blood Disorders: No Adverse Reaction/Blood Tranf: No (N/A) Family Medical History Diabetes mellitus grandmother Physical Exam Vital Signs Vital Signs - First Documented 07/30/19 15:58 Temp 36.6 Pulse 116 Resp 18 B/P (MAP) 114/70 (85) Pulse Ox 97 Capillary Refill : Less Than 3 Seconds Height/Weight/BMI Height: 5'5.00" Weight: 150lbs. 0.0oz. 68.400129rm; 24.00 BMI Method:Stated General Appearance: WD/WN, no apparent distress Respiratory: no respiratory distress, no accessory muscle use Cardiovascular: no murmur, tachycardia (over) Gastrointestinal: normal bowel sounds, non tender, soft Extremities: normal range of motion, non-tender Neurologic/Psychiatric: alert, normal mood/affect, oriented x 3 Skin: normal color, warm/dry Progress/Results/Core Measures Results/Orders Lab Results Laboratory Tests Test 07/30/19 16:25 Range/Units White Blood Count 6.7 4.3-11.0 10^3/uL Red Blood Count 4.85 4.35-5.85 10^6/uL Hemoglobin 14.5 11.5-16.0 G/DL Hematocrit 44 35-52 % Mean Corpuscular Volume 90 80-99 FL Mean Corpuscular Hemoglobin 30 25-34 PG Mean Corpuscular Hemoglobin Concent 33 32-36 G/DL Red Cell Distribution Width 12.1 10.0-14.5 % Platelet Count 244 130-400 10^3/uL Mean Platelet Volume 9.4 7.4-10.4 FL Neutrophils (%) (Auto) 70 42-75 % Lymphocytes (%) (Auto) 21 12-44 % Monocytes (%) (Auto) 8 0-12 % Eosinophils (%) (Auto) 2 0-10 % Basophils (%) (Auto) 0 0-10 % Neutrophils # (Auto) 4.6 1.8-7.8 X 10^3 Lymphocytes # (Auto) 1.4 1.0-4.0 X 10^3 Monocytes # (Auto) 0.5 0.0-1.0 X 10^3 Eosinophils # (Auto) 0.1 0.0-0.3 10^3/uL Basophils # (Auto) 0.0 0.0-0.1 10^3/uL Urine Color YELLOW Urine Clarity CLEAR Urine pH 5 5-9 Urine Specific [place] 1.020 1.016-1.022 Urine Protein NEGATIVE NEGATIVE Urine Glucose (UA) NEGATIVE NEGATIVE Urine Ketones 4+ H NEGATIVE Urine Nitrite POSITIVE H NEGATIVE Urine Bilirubin 1+ H NEGATIVE Urine Urobilinogen 1 NORMAL MG/DL Urine Leukocyte Esterase 2+ H NEGATIVE Urine RBC (Auto) 2+ H NEGATIVE Urine RBC NONE /HPF Urine WBC 5-10 H /HPF Urine Squamous Epithelial Cells 5-10 /HPF Urine Crystals NONE /LPF Urine Bacteria FEW H /HPF Urine Casts NONE /LPF Urine Mucus NEGATIVE /LPF Urine Culture Indicated YES Sodium Level 139 135-145 MMOL/L Potassium Level 3.9 3.6-5.0 MMOL/L Chloride Level 104 98-107 MMOL/L Carbon Dioxide Level 23 21-32 MMOL/L Anion Gap 12 5-14 MMOL/L Blood Urea Nitrogen 15 7-18 MG/DL Creatinine 0.60 0.60-1.30 MG/DL Estimat Glomerular Filtration Rate > 60 BUN/Creatinine Ratio 25 Glucose Level 81 70-105 MG/DL Calcium Level 9.4 8.5-10.1 MG/DL Corrected Calcium 9.2 8.5-10.1 MG/DL Total Bilirubin 0.8 0.1-1.0 MG/DL Aspartate Amino Transf (AST/SGOT) 23 5-34 U/L Alanine Aminotransferase (ALT/SGPT) 36 0-55 U/L Alkaline Phosphatase 53 40-136 U/L Total Protein 7.6 6.4-8.2 GM/DL Albumin 4.3 3.2-4.5 GM/DL Serum Test, Qualitative NEGATIVE NEGATIVE Urine Opiates Screen NEGATIVE NEGATIVE Urine Oxycodone Screen NEGATIVE NEGATIVE Urine Methadone Screen NEGATIVE NEGATIVE Urine Propoxyphene Screen NEGATIVE NEGATIVE Urine Barbiturates Screen NEGATIVE NEGATIVE Ur Tricyclic Antidepressants Screen NEGATIVE NEGATIVE Urine Phencyclidine Screen NEGATIVE NEGATIVE Urine Amphetamines Screen POSITIVE H NEGATIVE Urine Methamphetamines Screen NEGATIVE NEGATIVE Urine Benzodiazepines Screen NEGATIVE NEGATIVE Urine Cocaine Screen NEGATIVE NEGATIVE Urine Cannabinoids Screen POSITIVE H NEGATIVE My Orders Orders - YEIMY MELTON APRN Ua Culture If Indicated (07/30/19 16:18) Cbc With Automated Diff (07/30/19 16:18) Comprehensive Metabolic Panel (07/30/19 16:18) Ed Iv/Invasive Line Start (07/30/19 16:18) Hcg,Qualitative Serum (07/30/19 16:18) Drug Screen Stat (Urine) (07/30/19 16:18) Ns Iv 500 Ml (Sodium Chloride 0.9%) (07/30/19 16:45) Ketorolac Injection (Toradol Injection) (07/30/19 16:45) Urine Culture (07/30/19 16:25) Ct Abd/Pelvis Wo(Kidney Stone) (07/30/19 17:06) Medications Given in ED Current Medications Medications Dose Ordered Sig/Jelly Route Start Time Stop Time Status Last Admin Dose Admin Ketorolac Tromethamine 15 mg ONCE ONCE IVP 07/30/19 16:45 07/30/19 16:46 DC 07/30/19 16:50 15 MG Vital Signs/I&O 07/30/19 15:58 Temp 36.6 Pulse 116 Resp 18 B/P (MAP) 114/70 (85) Pulse Ox 97 Blood Pressure Mean: 85 Departure Communication (Admissions) She also has some concerns about a vaginal lesion that she doesn't want to show me directly but her grandmother is at the bedside and she takes at her grandmother a picture of her vagina last night which shows a apparent quarter sized area of inflamed tissue midline superior aspect of the vagina, I would suspect this to represent a urethral carunkle or urethral polyp. Either way she says it was swollen yesterday but it's essentially gone now. She doesn't want me to take a look at this so ican't be much more help. Impression Primary Impression: UTI (urinary tract infection) Additional Impression: vaginal lesion by history Disposition: HOME, SELF-CARE Condition: Stable Departure-Patient Inst. Decision time for Depature: 18:21 Referrals: NO,LOCAL PHYSICIAN (PCP) Primary Care Physician OMAYRA GIANG MD Patient Instructions: No Instuctions Given Add. Discharge Instructions: 1.follow-up with Dr. Giang from urology. Show him the pictures and ask his opinion, I suspect this vaginal lesion may represent a urethral caruncle or urethral polyp. Restart the Macrobid tomorrow. Return to ER for any concerns. All discharge instructions reviewed with patient and/or family. Voiced understanding. Work/School Note: Work Release Form Date Seen in the Emergency Department: Jul 30, 2019 Return to Work: Aug 01, 2019 YEIMY MELTON APRN Jul 30, 2019 17:09
--- NOTE | 2019-07-30 17:46 | Diagnostic Imaging Report ---
CLINICAL INDICATION: Patient vomiting since yesterday. Patient has elevated blood sugar. Patient diagnosed for UTI at a clinic in [place]. Patient has history of stones. Patient has surgical history of ureteral rearrangement reflux surgery. EXAM: CT exam of the abdomen and pelvis is performed without IV or oral contrast using stone protocol. Coronal and sagittal reformatted images were created. Auto Exposure Controls were utilized during the CT exam to meet ALARA standards for radiation dose reduction. COMPARISONS: CT scan of the abdomen and pelvis performed without contrast dated 07/08/2019. Findings: Visualized lung bases: Unremarkable. Liver: Unremarkable as visualized. Gallbladder: Unremarkable. Pancreas: Unremarkable as visualized. Spleen: Unremarkable as visualized. Adrenal glands: Unremarkable. Kidneys/ ureters: Stable punctate nonobstructive stone involving the inferior portion of the right kidney and superior portion of the left kidney. Both stones measure roughly 1 to 2 mm in size. There are no interval stones in the ureter or bladder seen. Aorta: Unremarkable as visualized. Intraabdominal/ retroperitoneal contents: Again seen multiple mesenteric lymph nodes which are less than 1 cm in short axis and also lymph nodes seen in the right pericecal region. There is no intra-abdominal free air or free fluid. Intestines: Unremarkable as visualized. Appendix: Unremarkable. Bladder: Unremarkable as visualized. Pelvic organs: IUD is seen in the pelvis. Uterus and adnexal structures show no significant abnormality. Extra abdominal/ pelvis regions: Unremarkable. Abdominal wall: Unremarkable. Bones: Unremarkable. IMPRESSION: 1: Stable CT scan of the abdomen and pelvis with no interval acute abdominal or pelvic process. 2: Stable nonobstructive bilateral renal stones. Dictated by: Dictated on workstation # [id number]
[2019-07-30 18:38] VITALS: BP 110/67
== END 2019-07-30 18:38 | disposition home or self-care (01) ==
LOC: EDUNIT# 15:32 → ER 15:34
DX: N39.0 Urinary tract infection, site not specified (principal); N89.8 Other specified noninflammatory disorders of vagina; F90.9 Attention-deficit hyperactivity disorder, unspecified type; G43.909 Migraine, unspecified, not intractable, without status migrainosus; F41.9 Anxiety disorder, unspecified; Z98.890 Other specified postprocedural states; Z87.448 Personal history of other diseases of urinary system
CPT/HCPCS: 36415; 74176; 80053; 80306; 81000; 84703; 85025; 87088; 96361; 96374